=== PATIENT | female | born 1965 | race Caucasian/White ===

== ENCOUNTER 2019-03-28 16:16 | Emergency (ER) | payer MEDICARE, SELFPAY ==
[2019-03-28 16:18] VITALS: BP 127/77; PULSE 94; RESP 22; TEMP 36.7; O2SAT 90; BMI 33.2
--- NOTE | 2019-03-28 16:33 | ED_ITS ---
Documented by User: VIOLET Aaron 03/28/19 16:54 HPI - SOB/Dyspnea General: Chief Complaint: Shortness of Breath/Dyspnea Stated Complaint: SOB Time Seen by Provider: 03/28/19 16:33 Source: patient Mode of arrival: ambulatory Limitations: no limitations History of Present Illness: HPI Narrative: Patient reports increasing difficulty breathing over the last 2 to 3 days. Patient does have COPD and this is similar to her previous events when her COPD worsens. Patient reports some mild diarrhea. Patient denies any chest pain. Patient appears chronically ill. Patient appears in mild to moderate shortness of breath. Patient appears in no pain. Patient reports last episode was just before [place]. MD elicited complaint: shortness of breath Pertinent past history: COPD Review of Systems General: Reports: 10 or more systems reviewed and unremarkable except in HPI and below Resp: Reports: shortness of breath GI: Reports: diarrhea PFSH ED PFSH: Statuses (acute, chronic, etc) shown below reflect problem list status as previously entered and may not be historically accurate Social History Smoking and tobacco status: current every day smoker Physical Exam Const: COMMON NORMALS: no apparent distress and oriented x3 GENERAL APPEARANCE: cooperative HENMT: COMMON NORMALS: normocephalic, external ears normal, EAC's normal, TM's normal bilaterally and external nose normal HEAD & SCALP: normal to inspection and normocephalic FACE & SINUS: normal facial exam NOSE: external nose normal GENERAL EAR: hearing not grossly impaired EXTERNAL EAR: Yes external ears normal EXTERNAL AUDITORY CANAL: EAC's normal TYMPANIC MEMBRANE: TM's normal bilaterally MOUTH: oral and palatal mucosa no rmal THROAT: posterior oropharynx normal Eye: COMMON NORMALS: PERRL and EOMs intact bilaterally PUPIL: Yes PERRL Neck/C-Spine: COMMON NORMALS: full ROM and no lymphadenopathy Lymph: LYMPHATIC: no lymphedema noted Chest: COMMONS NORMALS: inspection of chest normal and palpation of chest normal Resp: COMMON NORMALS: normal respiratory effort and no use of accessory muscles (mild) EFFORT & INSPECTION: Yes able to speak in complete sentences and Yes pursed lip breathing AUSCULTATION: wheezes expiratory wheezes, inspiratory wheezes and scattered wheezes Cardio: COMMON NORMALS: regular rate and regular rhythm RATE: regular rate RHYTHM: regular rhythm GI: COMMON NORMALS: normal to inspection, nondistended, normoactive bowel sounds and non-tender : COMMON NORMALS: Yes no CVA tenderness BLADDER/KIDNEY EXAM: Yes no CVA tenderness Back/Pelvis: COMMON NORMALS: no CVA tenderness and thoracic and lumbar spine normal to inspection Extremity: COMMON NORMALS: normal to inspection GENERAL: No edema Neuro: COMMON NORMALS: oriented x3, moves all extremities and no focal motor deficits Psych: COMMON NORMALS: mental status grossly normal and cooperative Skin: COMMON NORMALS: no rashes or lesions noted GENERAL SKIN EXAM: no rashes or lesions noted Course ED course: 1699, reviewed with Rob Diaz, agreed to graciously assume care on my departure. [email or web address] Vital Signs: Vital signs: Vital Signs Temperature 98.0 F 03/28/19 16:18 Pulse Rate 91 03/28/19 18:07 Respiratory Rate 20 H 03/28/19 18:07 Blood Pressure 127/77 03/28/19 18:07 Pulse Oximetry 97 03/28/19 18:07 MDM - SOB/Dyspnea Lab Data: Labs: Lab Results 03/28/19 03/28/19 03/28/19 Range/Units 17:00 17:00 17:09 WBC (4.0-10.0) 10^3/ uL RBC (4.1-5.3) 10^6/u L Hgb (11.5-15.3) g/dL Hct (37.0-47.0) % MCV (81-99) fL MCH (28.0-34.0) pg MCHC (30.0-36.0) g/dL RDW (12.1-15.1) % Plt Count (130-400) 10^3/c mm MPV (7.4-10.4) fL Neut % (Auto) % Lymph % (Auto) % [place] % (Auto) % Eos % (Auto) % Baso % (Auto) % Neut # (Auto) (1.8-7.7) 10^3/u L Lymph # (Auto) (0.8-4.8) 10^3/u L [place] # (Auto) (0.2-0.9) 10^3/u L Eos # (Auto) (0.0-0.8) 10^3/u L Baso # (Auto) (0.0-0.1) 10^3/u L Nucleated RBC % (a uto) % Nucleated RBCs # /100WBC Specimen Type Arterial Sample Site Radial, left ABG pH 7.40 (7.35-7.45) ABG pCO2 52.9 H (35-45) mmHg ABG pO2 77.5 L (80.0-100.0) mmH g ABG HCO3 32.5 H (22-26) mmol/L ABG Base Excess 6.0 H (-2.0-2.0) mmol/ L Nabor Test Pos Hematocrit 45.7 (37-47) % Hgb O2 Saturation 89.1 L (95-100) % Carboxyhemoglobin 6.5 (0.4-20.1) %THgb Methemoglobin 0.9 (0.4-1.5) % Total Hemoglobin 14.9 (12-16) g/dL O2 Delivery Device Nc O2 Liters/Min 5.0 % Construction Area Manager ID [email or web address] Sodium 142 (136-145) mmol/L Potassium 3.6 (3.5-5.1) mmol/L Chloride 99 (98-107) mmol/L Carbon Dioxide 31 H (22-29) mmol/L Anion Gap 15.6 (5-19) BUN 20 (6-20) mg/dL Creatinine 0.9 (0.5-0.9) mg/dL GFR Calculation 65.8 L (90-130) mL/min Glucose 145 H (74-109) mg/dL Lactic Acid 1.0 (0.5-2.2) mmol/L Calcium 9.8 (8.6-10.0) mg/Dl Influenza Type A A g (Negative) POC Influenza B Ag (Negative) 03/28/19 03/28/19 Range/Units 17:15 17:57 WBC 10.0 (4.0-10.0) 10^3/ uL RBC 5.11 (4.1-5.3) 10^6/u L Hgb 14.1 (11.5-15.3) g/dL Hct 45.7 (37.0-47.0) % MCV 89.4 (81-99) fL MCH 27.6 L (28.0-34.0) pg MCHC 30.9 (30.0-36.0) g/dL RDW 17.6 H (12.1-15.1) % Plt Count 194 (130-400) 10^3/c mm MPV 10.2 (7.4-10.4) fL Neut % (Auto) 62.3 % Lymph % (Auto) 28.7 % [place] % (Auto) 7.1 % Eos % (Auto) 0.8 % Baso % (Auto) 0.2 % Neut # (Auto) 6.2 (1.8-7.7) 10^3/u L Lymph # (Auto) 2.9 (0.8-4.8) 10^3/u L [place] # (Auto) 0.7 (0.2-0.9) 10^3/u L Eos # (Auto) 0.1 (0.0-0.8) 10^3/u L Baso # (Auto) 0.0 (0.0-0.1) 10^3/u L Nucleated RBC % (a uto) 0 % Nucleated RBCs # 0.0 /100WBC Specimen Type Sample Site ABG pH (7.35-7.45) ABG pCO2 (35-45) mmHg ABG pO2 (80.0-100.0) mmH g ABG HCO3 (22-26) mmol/L ABG Base Excess (-2.0-2.0) mmol/ L Nabor Test Hematocrit (37-47) % Hgb O2 Saturation (95-100) % Carboxyhemoglobin (0.4-20.1) %THgb Methemoglobin (0.4-1.5) % Total Hemoglobin (12-16) g/dL O2 Delivery Device O2 Liters/Min % Construction Area Manager ID Sodium (136-145) mmol/L Potassium (3.5-5.1) mmol/L Chloride (98-107) mmol/L Carbon Dioxide (22-29) mmol/L Anion Gap (5-19) BUN (6-20) mg/dL Creatinine (0.5-0.9) mg/dL GFR Calculation (90-130) mL/min Glucose (74-109) mg/dL Lactic Acid (0.5-2.2) mmol/L Calcium (8.6-10.0) mg/Dl Influenza Type A A g Negative (Negative) POC Influenza B Ag Negative (Negative) Discharge Plan Discharge Patient Disposition: Home, Self-Care Clinical Impression: Acute exacerbation of chronic obstructive airways disease Condition: Stable Prescriptions: New Zithromax Z-Florencio 250 mg tablet See Rx Instructions .ROUTE .COMPLEX Qty: 6 RF: 0 prednisone 20 mg tablet 60 mg PO DAILY Qty: 30 RF: 0 No Action meloxicam 15 mg Tablet 15 mg PO DAILY RF: 0 simvastatin 10 mg Tablet 10 mg PO QPM RF: 0 baclofen 20 mg Tablet 20 mg PO BID RF: 0 amlodipine 10 mg Tablet 10 mg PO DAILY RF: 0 hydrocodone-acetaminophen 7.5-325 mg Tablet 1 tab PO Q8H PRN (Reason: Pain) RF: 0 pantoprazole 40 mg Tablet,Delayed Release (Dr/Ec) 40 mg PO BID RF: 0 telmisartan 80 mg Tablet 80 mg PO DAILY RF: 0 hydrochlorothiazide 25 mg Tablet 25 mg PO DAILY RF: 0 Ventolin HFA 90 mcg/actuation Hfa Aerosol Inhaler 2 puff INHALATION QID PRN (Reason: Shortness Of Breath) RF: 0 ondansetron 4 mg Tablet,Disintegrating 4 mg PO BID RF: 0 pregabalin 150 mg Capsule 150 mg PO TID RF: 0 Symbicort 160-4.5 mcg/actuation Hfa Aerosol Inhaler 2 puff INHALATION BID RF: 0 Breo Ellipta 100-25 mcg/dose Blister With Device 1 inh INHALATION DAILY RF: 0 Jardiance 25 mg Tablet 25 mg PO DAILY RF: 0 Combivent Respimat 20-100 mcg/actuation Mist 2 puff INHALATION QID RF: 0 Discharge Orders: Discharge Order (Routine); Ordered 03/28/19 Ordered By: Jim Diaz Referrals: Reji Faulkner FNP [Primary Care Provider] - Discharge Diet: Usual diet Discharge Activity: Increase activity as tolerated Patient Instructions: Chronic Obstructive Pulmonary Disease (ED) Activity Restrictions/Additional Instructions: Follow-up with medical provider as directed. Take medications as prescribed. Return to the ER or your medical provider if condition worsens. Read and understand discharge instructions. Wear oxygen at 5 L for next couple days. Coding Level of Care Code ED Sterile Instrument Technician for Chg Fwd Exam Problem Focused Documented by User: VIOLET Brown 03/28/19 18:16 HPI - SOB/Dyspnea General: Chief Complaint: Shortness of Breath/Dyspnea Stated Complaint: SOB Time Seen by Provider: 03/28/19 16:33 PFSH ED PFSH: Statuses (acute, chronic, etc) shown below reflect problem list status as previously entered and may not be historically accurate Social History Smoking and tobacco status: current every day smoker Course Vital Signs: Vital signs: Vital Signs Temperature 98.0 F 03/28/19 16:18 Pulse Rate 91 03/28/19 18:07 Respiratory Rate 20 H 03/28/19 18:07 Blood Pressure 127/77 03/28/19 18:07 Pulse Oximetry 97 03/28/19 18:07 MDM - SOB/Dyspnea MDM Narrative: Medical decision making narrative: Lungs cleared markedly after breathing treatments. Patient desired to go home. Is not short of breath. Lab Data: Labs: Lab Results 03/28/19 03/28/19 03/28/19 Range/Units 17:00 17:00 17:09 WBC (4.0-10.0) 10^3/ uL RBC (4.1-5.3) 10^6/u L Hgb (11.5-15.3) g/dL Hct (37.0-47.0) % MCV (81-99) fL MCH (28.0-34.0) pg MCHC (30.0-36.0) g/dL RDW (12.1-15.1) % Plt Count (130-400) 10^3/c mm MPV (7.4-10.4) fL Neut % (Auto) % Lymph % (Auto) % [place] % (Auto) % Eos % (Auto) % Baso % (Auto) % Neut # (Auto) (1.8-7.7) 10^3/u L Lymph # (Auto) (0.8-4.8) 10^3/u L [place] # (Auto) (0.2-0.9) 10^3/u L Eos # (Auto) (0.0-0.8) 10^3/u L Baso # (Auto) (0.0-0.1) 10^3/u L Nucleated RBC % (a uto) % Nucleated RBCs # /100WBC Specimen Type Arterial Sample Site Radial, left ABG pH 7.40 (7.35-7.45) ABG pCO2 52.9 H (35-45) mmHg ABG pO2 77.5 L (80.0-100.0) mmH g ABG HCO3 32.5 H (22-26) mmol/L ABG Base Excess 6.0 H (-2.0-2.0) mmol/ L Nabor Test Pos Hematocrit 45.7 (37-47) % Hgb O2 Saturation 89.1 L (95-100) % Carboxyhemoglobin 6.5 (0.4-20.1) %THgb Methemoglobin 0.9 (0.4-1.5) % Total Hemoglobin 14.9 (12-16) g/dL O2 Delivery Device Nc O2 Liters/Min 5.0 % Construction Area Manager ID [email or web address] Sodium 142 (136-145) mmol/L Potassium 3.6 (3.5-5.1) mmol/L Chloride 99 (98-107) mmol/L Carbon Dioxide 31 H (22-29) mmol/L Anion Gap 15.6 (5-19) BUN 20 (6-20) mg/dL Creatinine 0.9 (0.5-0.9) mg/dL GFR Calculation 65.8 L (90-130) mL/min Glucose 145 H (74-109) mg/dL Lactic Acid 1.0 (0.5-2.2) mmol/L Calcium 9.8 (8.6-10.0) mg/Dl Influenza Type A A g (Negative) POC Influenza B Ag (Negative) 03/28/19 03/28/19 Range/Units 17:15 17:57 WBC 10.0 (4.0-10.0) 10^3/ uL RBC 5.11 (4.1-5.3) 10^6/u L Hgb 14.1 (11.5-15.3) g/dL Hct 45.7 (37.0-47.0) % MCV 89.4 (81-99) fL MCH 27.6 L (28.0-34.0) pg MCHC 30.9 (30.0-36.0) g/dL RDW 17.6 H (12.1-15.1) % Plt Count 194 (130-400) 10^3/c mm MPV 10.2 (7.4-10.4) fL Neut % (Auto) 62.3 % Lymph % (Auto) 28.7 % [place] % (Auto) 7.1 % Eos % (Auto) 0.8 % Baso % (Auto) 0.2 % Neut # (Auto) 6.2 (1.8-7.7) 10^3/u L Lymph # (Auto) 2.9 (0.8-4.8) 10^3/u L [place] # (Auto) 0.7 (0.2-0.9) 10^3/u L Eos # (Auto) 0.1 (0.0-0.8) 10^3/u L Baso # (Auto) 0.0 (0.0-0.1) 10^3/u L Nucleated RBC % (a uto) 0 % Nucleated RBCs # 0.0 /100WBC Specimen Type Sample Site ABG pH (7.35-7.45) ABG pCO2 (35-45) mmHg ABG pO2 (80.0-100.0) mmH g ABG HCO3 (22-26) mmol/L ABG Base Excess (-2.0-2.0) mmol/ L Nabor Test Hematocrit (37-47) % Hgb O2 Saturation (95-100) % Carboxyhemoglobin (0.4-20.1) %THgb Methemoglobin (0.4-1.5) % Total Hemoglobin (12-16) g/dL O2 Delivery Device O2 Liters/Min % Construction Area Manager ID Sodium (136-145) mmol/L Potassium (3.5-5.1) mmol/L Chloride (98-107) mmol/L Carbon Dioxide (22-29) mmol/L Anion Gap (5-19) BUN (6-20) mg/dL Creatinine (0.5-0.9) mg/dL GFR Calculation (90-130) mL/min Glucose (74-109) mg/dL Lactic Acid (0.5-2.2) mmol/L Calcium (8.6-10.0) mg/Dl Influenza Type A A g Negative (Negative) POC Influenza B Ag Negative (Negative) Discharge Plan Discharge Patient Disposition: Home, Self-Care Clinical Impression: Acute exacerbation of chronic obstructive airways disease Condition: Stable Prescriptions: New Zithromax Z-Florencio 250 mg tablet See Rx Instructions .ROUTE .COMPLEX Qty: 6 RF: 0 prednisone 20 mg tablet 60 mg PO DAILY Qty: 30 RF: 0 No Action meloxicam 15 mg Tablet 15 mg PO DAILY RF: 0 simvastatin 10 mg Tablet 10 mg PO QPM RF: 0 baclofen 20 mg Tablet 20 mg PO BID RF: 0 amlodipine 10 mg Tablet 10 mg PO DAILY RF: 0 hydrocodone-acetaminophen 7.5-325 mg Tablet 1 tab PO Q8H PRN (Reason: Pain) RF: 0 pantoprazole 40 mg Tablet,Delayed Release (Dr/Ec) 40 mg PO BID RF: 0 telmisartan 80 mg Tablet 80 mg PO DAILY RF: 0 hydrochlorothiazide 25 mg Tablet 25 mg PO DAILY RF: 0 Ventolin HFA 90 mcg/actuation Hfa Aerosol Inhaler 2 puff INHALATION QID PRN (Reason: Shortness Of Breath) RF: 0 ondansetron 4 mg Tablet,Disintegrating 4 mg PO BID RF: 0 pregabalin 150 mg Capsule 150 mg PO TID RF: 0 Symbicort 160-4.5 mcg/actuation Hfa Aerosol Inhaler 2 puff INHALATION BID RF: 0 Breo Ellipta 100-25 mcg/dose Blister With Device 1 inh INHALATION DAILY RF: 0 Jardiance 25 mg Tablet 25 mg PO DAILY RF: 0 Combivent Respimat 20-100 mcg/actuation Mist 2 puff INHALATION QID RF: 0 Discharge Orders: Discharge Order (Routine); Ordered 03/28/19 Ordered By: Jim Diaz Referrals: Reji Faulkner, [employer] [Primary Care Provider] - Discharge Diet: Usual diet Discharge Activity: Increase activity as tolerated Patient Instructions: Chronic Obstructive Pulmonary Disease (ED) Activity Restrictions/Additional Instructions: Follow-up with medical provider as directed. Take medications as prescribed. Return to the ER or your medical provider if condition worsens. Read and understand discharge instructions. Wear oxygen at 5 L for next couple days. Coding Level of Care Code ED Sterile Instrument Technician for Precious Fwd Exam Problem Focused
--- NOTE | 2019-03-28 16:38 | ECG_ITS ---
Measurements Intervals [place] Rate: 87 P: 34 DE: 146 QRS: 61 QRSD: 95 T: 55 QT: 369 QTc: 445 SINUS RHYTHM SEPTAL MYOCARDIAL INFARCTION , OF INDETERMINATE AGE [40+ ms Q WAVE IN V1/V2] Compared to ECG 10/29/2018 17:23:37 Myocardial infarct finding now present Electronically Signed On 03-29-2019 11:27:00 [employer] by Ziyad Cooper M.D. [email or web address]
--- NOTE | 2019-03-28 16:38 | XR_ITS ---
WS: [id number] Portable AP upright chest, 03/28/2019 Clinical Data: short of breath Comparison: PA and lateral chest, 02/23/2019 Findings: No nodules, masses or effusions are seen. The heart is normal. The pulmonary vascularity is not increased. No pneumonia or pneumothorax is seen. The diaphragms are flattened. The aortic arch s hows mild calcification and tortuosity. XR/XR chest 1V portable [id number] Impression: Atherosclerosis and hyperinflation.
[2019-03-28] MEDS: sodium chloride 0.9% 500 ML 999 ML IV (17:08)
[2019-03-28 17:13] VITALS: PULSE 93; RESP 20; O2SAT 95
[2019-03-28] MEDS: ipratropium-albuterol 3 mL Neb INHALATION ×2 (17:13→18:01)
[2019-03-28 17:16] VITALS: PULSE 90; RESP 20; O2SAT 93
[2019-03-28 17:23] LABS: ABG PCO2 52.9 mmHg (35-45); Arterial Blood Gas Hematocrit 45.7 % (37-47); Blood Gas Allen Test Pos; Blood Gas Sample Site Radial, left; Blood Gas Sample Type Arterial; Carboxyhemoglobin 6.5 %THgb (0.4-20.1); HCO3 ABG 32.5 mmol/L (22-26); HGB O2 Sat 89.1 % (95-100); Methemoglobin 0.9 % (0.4-1.5); Oxygen Device NC; PO2 ABG 77.5 mmHg (80.0-100.0); Total Hemoglobin 14.9 g/dL (12-16)
[2019-03-28 17:27] LABS: Anion Gap 15.6 (5-19); Blood Urea Nitrogen 20 mg/dL (6-20); Calcium 9.8 mg/Dl (8.6-10.0); Carbon Dioxide 31 mmol/L (22-29); Chloride 99 mmol/L (98-107); Glomerular Filtration Rate 65.8 mL/min (90-130); Glucose 145 mg/dL (74-109); Potassium 3.6 mmol/L (3.5-5.1); Sodium 142 mmol/L (136-145)
[2019-03-28 17:44] LABS: Influenza A by IFA Negative (Negative); Influenza B by IFA Negative (Negative)
[2019-03-28 18:00] VITALS: PULSE 91; RESP 20; O2SAT 95
[2019-03-28 18:06] LABS: Basophils % 0.2 %; Eosinophils # 0.1 10^3/uL (0.0-0.8); Eosinophils % 0.8 %; Hematocrit 45.7 % (37.0-47.0); Hemoglobin 14.1 g/dL (11.5-15.3); Lymphocytes # 2.9 10^3/uL (0.8-4.8); Lymphocytes % 28.7 %; Mean Corpuscular HGB Conc 30.9 g/dL (30.0-36.0); Mean Corpuscular Hemoglobin 27.6 pg (28.0-34.0); Mean Corpuscular Volume 89.4 fL (81-99); Mean Platelet Volume 10.2 fL (7.4-10.4); Monocytes # 0.7 10^3/uL (0.2-0.9); Monocytes % 7.1 %; Neutrophils # 6.2 10^3/uL (1.8-7.7); Neutrophils % 62.3 %; Nucleated Red Blood Cells % 0 %; Platelet Count 194 10^3/cmm (130-400); Red Blood Count 5.11 10^6/uL (4.1-5.3); Red Cell Distribution Width 17.6 % (12.1-15.1)
[2019-03-28 18:07] VITALS: BP 127/77; PULSE 91; PULSE 97; RESP 20; RESP 22; O2SAT 95; O2SAT 97
--- NOTE | 2019-03-28 18:07 | PC.NURSE ---
pt requests water
[2019-03-28 18:19] VITALS: BP 117/48; PULSE 98; RESP 16; O2SAT 95
== END 2019-03-28 18:20 | disposition home or self-care (01) ==
PROVIDERS: Emergency Provider Nurse Practitioner Family; Family Provider Registered Nurse; PCP Registered Nurse
DX: J44.1 Chronic obstructive pulmonary disease with (acute) exacerbation (principal); F17.210 Nicotine dependence, cigarettes, uncomplicated
CPT/HCPCS: 36600; 71045; 80048; 82805; 83605; 85025; 87804; 93005; 94640; 96360; 96374; 99282; J2930; J7040

== ENCOUNTER 2019-04-29 08:10 | Emergency (ER) | payer MEDICARE, SELFPAY ==
[2019-04-29 08:31] VITALS: RESP 16; BMI 33.2
[2019-04-29 08:38] VITALS: BP 113/82; PULSE 101; RESP 20; TEMP 36.6; O2SAT 92
--- NOTE | 2019-04-29 08:55 | ED_ITS ---
Entered by Nicole Stroud, acting as scribe for George Adams DO HPI - Abdominal Pain General: Chief Complaint: Abdominal Pain Stated Complaint: BLOOD IN STOOL Time Seen by Provider: 04/29/19 08:15 [facility] ED PFSH: Social History Smoking and tobacco status: current every day smoker Course Vital Signs: Vital signs: Vital Signs Temperature 97.8 F 04/29/19 08:38 Pulse Rate 101 H 04/29/19 08:38 Respiratory Rate 20 H 04/29/19 08:38 Blood Pressure 113/82 04/29/19 08:38 Pulse Oximetry 92 04/29/19 08:38 Discharge Plan Discharge Prescriptions: No Action baclofen 20 mg tablet 20 mg PO BID Qty: 60 RF: 1 Ventolin HFA 90 mcg/actuation HFA aerosol inhaler 2 puff INHALATION QID PRN (Reason: Shortness Of Breath) Qty: 18 RF: 2 metoprolol tartrate 50 mg tablet 50 mg PO BID Qty: 60 RF: 2 metoprolol tartrate 50 mg tablet 50 mg PO BID Qty: 180 RF: 0 hydrochlorothiazide 25 mg tablet 25 mg PO DAILY Qty: 30 RF: 2 ondansetron 4 mg tablet,disintegrating 4 mg PO BID Qty: 60 RF: 0 telmisartan 80 mg tablet 80 mg PO DAILY Qty: 90 RF: 0 meloxicam 15 mg Tablet 15 mg PO DAILY RF: 0 simvastatin 10 mg Tablet 10 mg PO QPM RF: 0 amlodipine 10 mg Tablet 10 mg PO DAILY RF: 0 hydrocodone-acetaminophen 7.5-325 mg Tablet 1 tab PO Q8H PRN (Reason: Pain) RF: 0 pantoprazole 40 mg Tablet,Delayed Release (Dr/Ec) 40 mg PO BID RF: 0 pregabalin 150 mg Capsule 150 mg PO TID RF: 0 Symbicort 160-4.5 mcg/actuation Hfa Aerosol Inhaler 2 puff INHALATION BID RF: 0 Breo Ellipta 100-25 mcg/dose Blister With Device 1 inh INHALATION DAILY RF: 0 Jardiance 25 mg Tablet 25 mg PO DAILY RF: 0 Combivent Respimat 20-100 mcg/actuation Mist 2 puff INHALATION QID RF: 0 Coding Level of Care Code ED Corner Former for Chg Fwd
[2019-04-29 09:44] LABS: Basophils % 0.3 %; Eosinophils # 0.1 10^3/uL (0.0-0.8); Eosinophils % 1.1 %; Hematocrit 40.2 % (37.0-47.0); Hemoglobin 13.3 g/dL (11.5-15.3); Lymphocytes # 2.6 10^3/uL (0.8-4.8); Lymphocytes % 20.8 %; Mean Corpuscular HGB Conc 33.1 g/dL (30.0-36.0); Mean Corpuscular Hemoglobin 29.4 pg (28.0-34.0); Mean Corpuscular Volume 88.7 fL (81-99); Mean Platelet Volume 10.6 fL (7.4-10.4); Monocytes # 0.6 10^3/uL (0.2-0.9); Neutrophils # 9.1 10^3/uL (1.8-7.7); Neutrophils % 72.4 %; Nucleated Red Blood Cells % 0 %; Platelet Count 273 10^3/cmm (130-400); Red Blood Count 4.53 10^6/uL (4.1-5.3); Red Cell Distribution Width 17.8 % (12.1-15.1); White Blood Count 12.6 10^3/uL (4.0-10.0)
[2019-04-29 10:05] LABS: Alanine Aminotransferase 18 U/L (0-33); Albumin Level 3.8 g/dL (3.5-5.2); Alkaline Phosphatase 110 IU/L (35-105); Aspartate Amino Transferase 16 U/L (0-32); Blood Urea Nitrogen 25 mg/dL (6-20); Calcium 9.1 mg/dL (8.5-10.5); Carbon Dioxide 28 mmol/L (22-29); Chloride 102 mmol/L (98-107); Glomerular Filtration Rate 65.8 mL/min (90-130); Glucose 226 mg/dL (65-115); Sodium 141 mmol/L (136-145); Total Bilirubin 0.4 mg/dL (0.15-1.2); Total Protein 6.8 g/dL (6.6-8.7)
[2019-04-29 12:13] VITALS: BP 109/74; PULSE 97; RESP 18; O2SAT 90
[2019-04-29 13:30] VITALS: BP 121/70; PULSE 95; RESP 18; O2SAT 96
--- NOTE | 2019-04-29 13:42 | W.ED.ABDPA2 ---
HPI - Abdominal Pain General: Chief Complaint: Abdominal Pain Stated Complaint: BLOOD IN STOOL Time Seen by Provider: 04/29/19 08:15 Source: patient Mode of arrival: ambulatory Limitations: no limitations History of Present Illness: HPI narrative: Patient comes in today for complaints of blood in stool. Patient has noted bleeding in her stool for the last 4 days. Patient also reports some increasing gas frequency. Patient does report that she has had history of constipation due to medication she has been on. Patient appears well. Patient appears in no pain at rest. Associated Symptoms: Reports excessive flatus and hematochezia Review of Systems General: Reports: 10 or more systems reviewed and unremarkable except in HPI and below GI: Reports: excessive passing of gas and blood in stool PFSH ED PFSH: Social History Smoking and tobacco status: current every day smoker Physical Exam Const: COMMON NORMALS: no apparent distress and oriented x3 GENERAL APPEARANCE: cooperative HENMT: COMMON NORMALS: normocephalic, external ears normal, EAC's normal, TM's normal bilaterally and external nose normal HEAD & SCALP: normal to inspection and normocephalic FACE & SINUS: normal facial exam NOSE: external nose normal GENERAL EAR: hearing not grossly impaired EXTERNAL EAR: Yes external ears normal EXTERNAL AUDITORY CANAL: EAC's normal TYMPANIC MEMBRANE: TM's normal bilaterally MOUTH: oral and palatal mucosa normal THROAT: posterior oropharynx normal Eye: COMMON NORMALS: PERRL and EOMs intact bilaterally PUPIL: Yes PERRL Neck/C-Spine: COMMON NORMALS: full ROM and no lymphadenopathy Lymph: LYMPHATIC: no lymphedema noted Chest: COMMONS NORMALS: inspection of chest normal and palpation of chest normal Resp: COMMON NORMALS: normal respiratory effort and clear to auscultation bilaterally AUSCULTATION: clear to auscultation bilaterally Cardio: COMMON NORMALS: regular rate and regular rhythm RATE: regular rate RHYTHM: regular rhythm GI: COMMON NORMALS: normal to inspection, nondistended, normoactive bowel sounds and non-tender RECTAL EXAM: normal sphincter tone and heme positive stool : COMMON NORMALS: Yes no CVA tenderness BLADDER/KIDNEY EXAM: Yes no CVA tenderness Back/Pelvis: COMMON NORMALS: no CVA tenderness and thoracic and lumbar spine normal to inspection Extremity: COMMON NORMALS: normal to inspection GENERAL: No edema Neuro: COMMON NORMALS: oriented x3, moves all extremities and no focal motor deficits Psych: COMMON NORMALS: mental status grossly normal and cooperative Skin: COMMON NORMALS: no rashes or lesions noted GENERAL SKIN EXAM: no rashes or lesions noted Course Vital Signs: Vital signs: Vital Signs Temperature 97.8 F 04/29/19 08:38 Pulse Rate 95 04/29/19 13:30 Respiratory Rate 18 04/29/19 13:30 Blood Pressure 121/70 04/29/19 13:30 Pulse Oximetry 96 04/29/19 13:30 MDM - Abdominal Pain MDM Narrative: Medical decision making narrative: Patient comes in today with 4-day history of blood in stool. Patient denies significant pain or fever. Exam notes some soft abdomen, respirations are even lungs are clear to auscultation. No CVA tenderness. Rectal exam noted some blood in stool which was positive for Hemoccult. Differential diagnosis includes colitis, diverticulitis, hemorrhoids, carcinoma, polyp. Laboratory values noted a hemoglobin hematocrit of 13 and 40. Metabolic panel was normal. CT scan of the abdomen and pelvis noted some diverticulosis but no sign of infection. Reviewed exam with patient recommended treatment follow-up for colonoscopy and endoscopy exam to rule out cancer or other processes that may be significant for bleeding. Reviewed dietary changes with patient for recommendations for treatment at this time. Will place patient on famotidine for further treatment cessation of bleeding. Patient reports understanding agreed to plan and need for follow-up. Lab Data: Labs: Lab Results 04/29/19 04/29/19 Range/Units 09:30 09:30 WBC 12.6 H (4.0-10.0) 10^3/ uL RBC 4.53 (4.1-5.3) 10^6/u L Hgb 13.3 (11.5-15.3) g/dL Hct 40.2 (37.0-47.0) % MCV 88.7 (81-99) fL MCH 29.4 (28.0-34.0) pg MCHC 33.1 (30.0-36.0) g/dL RDW 17.8 H (12.1-15.1) % Plt Count 273 (130-400) 10^3/c mm MPV 10.6 H (7.4-10.4) fL Neut % (Auto) 72.4 % Lymph % (Auto) 20.8 % [place] % (Auto) 5.0 % Eos % (Auto) 1.1 % Baso % (Auto) 0.3 % Neut # (Auto) 9.1 H (1.8-7.7) 10^3/u L Lymph # (Auto) 2.6 (0.8-4.8) 10^3/u L [place] # (Auto) 0.6 (0.2-0.9) 10^3/u L Eos # (Auto) 0.1 (0.0-0.8) 10^3/u L Baso # (Auto) 0.0 (0.0-0.1) 10^3/u L Nucleated RBC % (a uto) 0 % Nucleated RBCs # 0.0 /100WBC Sodium 141 (136-145) mmol/L Potassium 4.0 (3.5-5.1) mmol/L Chloride 102 (98-107) mmol/L Carbon Dioxide 28 (22-29) mmol/L Anion Gap 15.0 (5-19) BUN 25 H (6-20) mg/dL Creatinine 0.9 (0.5-0.9) mg/dL GFR Calculation 65.8 L (90-130) mL/min Glucose 226 H (65-115) mg/dL Calcium 9.1 (8.5-10.5) mg/dL Total Bilirubin 0.4 (0.15-1.2) mg/dL AST 16 (0-32) U/L ALT 18 (0-33) U/L Alkaline Phosphata se 110 H (35-105) IU/L Total Protein 6.8 (6.6-8.7) g/dL Albumin 3.8 (3.5-5.2) g/dL Globulin 3.0 (1.3-4.6) g/dL Discharge Plan Discharge Patient Disposition: Home, Self-Care Clinical Impression: Blood in stool, Diverticula of colon Condition: Stable Prescriptions: New famotidine 40 mg tablet 40 mg PO Q12H Qty: 20 RF: 0 No Action baclofen 20 mg tablet 20 mg PO BID Qty: 60 RF: 1 Ventolin HFA 90 mcg/actuation HFA aerosol inhaler 2 puff INHALATION QID PRN (Reason: Shortness Of Breath) Qty: 18 RF: 2 metoprolol tartrate 50 mg tablet 50 mg PO BID Qty: 60 RF: 2 metoprolol tartrate 50 mg tablet 50 mg PO BID Qty: 180 RF: 0 hydrochlorothiazide 25 mg tablet 25 mg PO DAILY Qty: 30 RF: 2 ondansetron 4 mg tablet,disintegrating 4 mg PO BID Qty: 60 RF: 0 telmisartan 80 mg tablet 80 mg PO DAILY Qty: 90 RF: 0 meloxicam 15 mg Tablet 15 mg PO DAILY RF: 0 simvastatin 10 mg Tablet 10 mg PO QPM RF: 0 amlodipine 10 mg Tablet 10 mg PO DAILY RF: 0 hydrocodone-acetaminophen 7.5-325 mg Tablet 1 tab PO Q8H PRN (Reason: Pain) RF: 0 pantoprazole 40 mg Tablet,Delayed Release (Dr/Ec) 40 mg PO BID RF: 0 pregabalin 150 mg Capsule 150 mg PO TID RF: 0 Symbicort 160-4.5 mcg/actuation Hfa Aerosol Inhaler 2 puff INHALATION BID RF: 0 Breo Ellipta 100-25 mcg/dose Blister With Device 1 inh INHALATION DAILY RF: 0 Jardiance 25 mg Tablet 25 mg PO DAILY RF: 0 Combivent Respimat 20-100 mcg/actuation Mist 2 puff INHALATION QID RF: 0 Discharge Orders: Discharge Order (Routine); Ordered 04/29/19 Ordered By: Joel Hager Referrals: Reji Faulkner FNP [Primary Care Provider] - Discharge Diet: Usual diet Discharge Activity: Resume usual activity Patient Instructions: Rectal Bleeding (ED), Diverticulosis (ED) Activity Restrictions/Additional Instructions: Soft diet Avoid food with shells, husks, or seeds until bleeding stops Case management will call with follow-up appointment for endoscopy exam Return to ER for high fever, or uncontrolled abdominal pain Coding Level of Care Code ED Cork Insulation Setter for Chg Fwd Exam Comprehensive
--- NOTE | 2019-04-29 13:52 | CT_ITS ---
WS: [id number] CT ABDOMEN AND PELVIS WITH CONTRAST HISTORY: blood in stool TECHNIQUE: Imaging performed of the abdomen and pelvis with IV contrast. Single phase imaging of the abdomen. Coronal and sagittal reformats are submitted. All CT scans at [facility] use at least one of these dose optimization techniques: automated exposure control; mA and/or kV adjustment per patient size (includes targeted exams where dose is matched to clinical indication); or iterativ e reconstruction. IV CONTRAST: Omnipaque 300; 95 mL IV. Oral contrast: No DLP: 810.64 mGy-cm. COMPARISON: None available. Lower thorax: Lung bases are clear. Heart is normal size. No hiatal hernia. Liver/biliary system: Normal size with no intrahepatic dilatation. Gallbladder: Normal. No gallstones or wall thickening. No pericholecystic fluid. Pancreas: Normal. Spleen: Normal. Adrenal glands: Normal. Right kidney: Normal. Left kidney: Normal. Aorta: Moderate atherosclerosis of aorta. Lymphadenopathy: None. Free fluid: None. GI tract: Prior appendectomy. No GI tract obstruction or wall thickening. There are a few scattered d iverticula in the descending and sigmoid colon. Abdominal wall: Unremarkable abdominal wall. No hernia. Pelvis: Normal. 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 CT/CT abdomen pelvis w con* [id number] IMPRESSION: 1. A few scattered diverticula in the descending and sigmoid colon. No acute i nflammation. 2. Prior appendectomy. 3. Moderate atherosclerosis aorta.
[2019-04-29] MEDS: pantoprazole 40 mg SDV IVP (14:24)
[2019-04-29] MEDS: sodium chloride 0.9% 500 ML 999 ML IV (14:34)
[2019-04-29] MEDS: iohexol 300 mg/mL 100 mL Btl IV (14:47)
[2019-04-29 16:47] VITALS: BP 117/72; PULSE 94; RESP 20; O2SAT 93
--- NOTE | 2019-05-01 15:00 | DCPLANNER ---
unclaimed property manager had message to schedule a follow up appointment for patient with [facility]. unclaimed property manager called the clinic, spoke with Shirley, a follow up appointment was scheduled for Sunday, May 07, 2019 at 3:[address] Grijalva. Clinic will call patient with appointment information.
--- NOTE | 2019-05-09 17:25 | DCPLANNER ---
Patient did attend appointment scheduled for 05.07.19 with [facility].
== END 2019-04-29 16:47 | disposition home or self-care (01) ==
PROVIDERS: Emergency Provider Nurse Practitioner Family; Family Provider Registered Nurse; PCP Registered Nurse
DX: F17.200 Nicotine dependence, unspecified, uncomplicated (principal); K57.31 Diverticulosis of large intestine without perforation or abscess with bleeding
CPT/HCPCS: 36415; 74177; 80053; 85025; 96360; 96361; 96374; 96375; 99283; C9113; J7040; Q9967

== ENCOUNTER 2019-05-19 10:03 | Day surgery (SDC) | payer MEDICARE, SELFPAY ==
[2019-05-16 09:32] VITALS: BMI 32.5
[2019-05-19 10:58] LABS: Glucose Point of Care 104 mg/dL (70-110)
--- NOTE | 2019-05-19 11:00 | ANES.PREANE2 ---
Pre-Anesthetic Assessment Pre-Anesthetic Assessment: Height/Weight: Height 1.52 m Weight 75.75 kg Preop Diagnosis: Bleeding per rectum Proposed Procedure: Operation Date: 05/19/19 12:00 Proposed Procedures p EGD 49750 30607 K62.5(Not Applicable) - Kev Grijalva MD s Colonoscopy(Not Applicable) - Kev Grijalva MD Was Beta Christiano taken within 24 hours: N/A Last intake: Intake Last Liquid Date 05/18/19 Last Liquid Time 21:00 Last Solid Date 05/17/19 Last Solid Time 19:00 Social: Social History: Tobacco and No alcohol Exam: Pre-Anes Outpt Exam: alert, oriented x 3, clear to auscultation bilaterally and regular rate & rhythm Airway: Submandibular: WNL Cervical ROM: WNL MP: 2 Additional comments: Upper denture Pulmonary: Pulmonary: COPD (4L Home O2) and Sleep apnea CV/HEM: CV/HEM: HTN : : None reported Hepatic: Hepatic: None reported GI: GI: GERD Metabolic: Metabolic: DM Musc/skel: Musc/skel: RA Neuropsych: Neuropsych: Anxiety Anesthetic Plan: ASA status: 3 Anesthesia: MAC Risk of > 500 ml blood loss (7ml/kg in children): No PFSH Anesthesia PFSH: Medical History (Updated 05/16/19 @ 09:29 by Tarah Urbina RN) Controlled diabetes mellitus with hyperglycemia, with long-term current use of insulin Enrolled in chronic care management Family History (Updated 05/07/19 @ 15:24 by Sid Garcia) Father Cancer Lung disease Hypertension Mother Lung disease Grandmother Diabetes Denies family history of Stroke Social History (Updated 05/07/19 @ 15:28 by Sid Garcia) Smoking and tobacco status: current every day smoker Second hand smoke exposure: Yes Smoking risk assessment/counseling performed?: Yes Alcohol intake: never Household members: spouse Marital status: Current occupational status: disabled History of recent travel: No Financial difficulty paying for basics: Not Very Hard Data Anesthesia Other Labs: Laboratory Results - last 48 hr 05/19/19 10:54 POC Glucose 104 Cardiac Studies: No Data to Display
[2019-05-19] MEDS: sodium chloride 0.9% 1,000 ML 30 ML IV (11:01)
--- NOTE | 2019-05-19 11:50 | W.PM.OPSUD ---
Surgery/Procedure H&P Update DATE OF PROCEDURE: May 19, 2019 DATE H&P PERFORMED: 05/07/19 H&P UPDATE INFORMATION: I have reviewed H&P completed within last 30 days, I have examined patient prior to procedure and No changes to prior documentation PREOP DIAGNOSIS: Bleeding per rectum PRIMARY INDICATION FOR PROCEDURE: The same PLANNED PROCEDURE: Operation Date: 05/19/19 12:00 Proposed Procedures p EGD [id number] K62.5(Not Applicable) - Kev Grijalva MD s Colonoscopy(Not Applicable) - Kev Grijalva MD
[2019-05-19 12:31] VITALS: BP 100/59; PULSE 78; RESP 18; TEMP 36.6; O2SAT 97
[2019-05-19 12:58] VITALS: BP 106/64; PULSE 78; RESP 18; O2SAT 95
--- NOTE | 2019-05-19 13:53 | SUR.OPER ---
PATHOLOGY ORDER PLACED. PATIENT TO RETRIEVE SPECIMEN AND RETURN TO LAB.
--- NOTE | 2019-05-19 14:14 | PM.PACU ---
PACU note Post-Anesthesia Exam: somnolent, arousable and vital signs stable Disposition: discharged
== END 2019-05-19 13:50 | disposition home or self-care (01) ==
PROVIDERS: Family Provider Registered Nurse; PCP Registered Nurse; Visit Provider Surgery
PROC: 0DJ08ZZ Inspection of Upper Intestinal Tract, Via Natural or Artificial Opening Endoscopic (ICD-10-PCS; CPT 43235; principal; 2019-05-19 12:00)
PROC: 0DJD8ZZ Inspection of Lower Intestinal Tract, Via Natural or Artificial Opening Endoscopic (ICD-10-PCS; CPT 45378; 2019-05-19 12:00)
DX: K62.5 Hemorrhage of anus and rectum (principal); K57.30 Diverticulosis of large intestine without perforation or abscess without bleeding; D12.8 Benign neoplasm of rectum; Z82.49 Family history of ischemic heart disease and other diseases of the circulatory system; Z83.3 Family history of diabetes mellitus; F17.210 Nicotine dependence, cigarettes, uncomplicated; J44.9 Chronic obstructive pulmonary disease, unspecified; Z99.81 Dependence on supplemental oxygen; M06.9 Rheumatoid arthritis, unspecified; E11.40 Type 2 diabetes mellitus with diabetic neuropathy, unspecified
CPT/HCPCS: 43235; 45380; 12345; 36416; 82962; J2001; J2250; J2704; J7030

== ENCOUNTER → 2019-05-21 14:55 | Outpatient (BNVA) | payer MEDICARE, SELFPAY | PROVIDERS: Family Provider Registered Nurse; PCP Registered Nurse; Visit Provider Registered Nurse | DX: R39.9 Unspecified symptoms and signs involving the genitourinary system (principal) | CPT/HCPCS: 81003 ==

== ENCOUNTER → 2019-08-28 11:21 | Outpatient (BNVA) | payer MEDICARE, SELFPAY | PROVIDERS: Family Provider Registered Nurse; PCP Registered Nurse; Visit Provider Registered Nurse | DX: E11.9 Type 2 diabetes mellitus without complications (principal); Z87.09 Personal history of other diseases of the respiratory system; I10 Essential (primary) hypertension | CPT/HCPCS: 80053; 81000; 83036; 85025 ==

== ENCOUNTER 2019-09-06 05:37 | Inpatient (IN) | payer MEDICARE, SELFPAY ==
[2019-09-06] VITALS (14 sets, daily range): BP systolic 85–129; BP diastolic 46–76; PULSE 73–93; RESP 14–24; TEMP 36.5–36.8; O2SAT 94–98
--- NOTE | 2019-09-06 05:50 | XRR_ITS ---
PROCEDURE INFORMATION: Exam: XR Chest, 1 View Exam date and time: 09/06/2019 6:00 AM Age: 53 years old Clinical indication: Chest pain; Type not specified; Additional info: Cp TECHNIQUE: Imaging protocol: XR of the chest Views: 1 view. COMPARISON: CR XR chest 1V portable [id number] 03/28/2019 4:41 PM FINDINGS: Lungs: There are some hazy opacities present in the lower hemithoraces bilaterally. Mildly increased peribronchial markings are present bilaterally. These findings could represent mild pulmonary edema. Superimposed basilar pneumonitis cannot be entirely excluded. Pleural space: Unremarkable. No pleural effusion. No pneumothorax. Heart/Mediastinum: Unremarkable. No cardiomegaly. Bones/joints: Unremarkable. XR/XR chest 1V portable [id number] IMPRESSION: Bilateral basilar hazy opacities and some increased peribronchial markings could represent mild pulmonary edema. Superimposed basilar pneumonitis cannot be entirely excluded.
--- NOTE | 2019-09-06 05:50 | ECG_ITS ---
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 Measurements Intervals [place] Rate: 91 P: 72 UT: 172 QRS: 60 QRSD: 81 T: 65 QT: 338 QTc: 417 Interpretive Statements SINUS RHYTHM Unusual R wave progression, consider lead misplacement leads V2 and V3 Compared to ECG 03/28/2019 16:59:56 Myocardial infarct finding no longer present Electronically Signed On 09-06-2019 8:46:23 CDT by Ziyad Cooper M.D. [email or web address]
--- NOTE | 2019-09-06 05:52 | W.ED.CHESTPA ---
Documented by User: Washington Crowe, 09/06/19 06:44 HPI - Chest Pain General: Chief Complaint: Chest Pain Stated Complaint: cp; sob Time Seen by Provider: 09/06/19 05:50 History of Present Illness: HPI narrative: 53-year-old lady with no prior history of heart disease. She states that 11 PM last night she threw up. She went on to bed, she awoke at 3 AM this morning with chest discomfort. She is not complaining of nausea currently. She is not complaining of shortness of breath, essentially mainly chest pain that is substernal and radiates to the right chest and into her back. Pain is still quite significant. complaint: chest pain Onset (ago): hour(s) Timing of current episode: constant Prior episodes: No Onset: during rest and awoke with symptoms Pain location: substernal, right chest and posterior Pain radiation: back Quality: tightness and heaviness Relieving factors: nothing Exacerbating factors: nothing Associated symptoms: Reports dyspnea; Deny abdominal pain, diaphoresis, fever(s) or palpitations Review of Systems Const: Denies: fever(s) or diaphoresis Eyes: Denies: change in vision or blurry vision ENMT: Denies: swelling of lips/tongue, bleeding gums or change in hearing Card: Reports: chest pain and dyspnea on exertion; Denies: palpitations, irregular heart rhythm, edema, swelling of feet/ankles or orthopnea Resp: Reports: dyspnea and non-productive cough; Denies: productive cough or wheezing GI: Denies: abdominal pain : Denies: dysuria or hematuria Musc: Reports: back pain; Denies: neck pain or joint warmth Skin/Breast: Denies: rash, pruritus or erythema Neuro: Reports: dizziness; Denies: headache(s), vertigo, confusion or seizure-like activity Psych: Reports: anxiety; Denies: visual hallucinations or auditory hallucinations PFSH ED PFSH: Medical History (Updated 09/06/19 @ 10:15 by Amparo Garcia MD) Acid reflux Controlled diabetes mellitus with hyperglycemia, with long-term current use of insulin COPD, very severe Enrolled in chronic care management History of COPD Hyperlipidemia Hypertension Surgical History (Updated 09/06/19 @ 12:55 by Jean-Pierre Martinez MD) History of appendectomy History of colonoscopy (~05/2019) History of esophagogastroduodenoscopy (EGD) (~05/2019) Hx of removal of ovary S/P laparoscopy Family History (Updated 09/06/19 @ 12:56 by Jean-Pierre Martinez MD) Father Cancer Lung disease Hypertension Mother Lung disease Grandmother Diabetes Other CAD (coronary artery disease) Denies family history of Stroke Social History Smoking and tobacco status: current every day smoker Second hand smoke exposure: Yes Smoking risk assessment/counseling performed?: Yes Alcohol intake: never Household members: spouse Marital status: Current occupational status: disabled History of recent travel: No Financial difficulty paying for basics: Not Very Hard Physical Exam Const: GENERAL APPEARANCE: well developed ORIENTATION/CONSCIOUSNESS: Yes oriented to person, Yes oriented to place and Yes oriented to time HENMT: COMMON NORMALS: normocephalic, external ears normal and Normal external nose present HEAD & SCALP: normocephalic FACE & SINUS: normal facial exam NOSE: Normal external nose present and No nasal discharge present EXTERNAL EAR: Yes external ears normal Eye: COMMON NORMALS: Equal, round and reactive pupils present, EOMs intact bilaterally and conjunctivae normal EYELID: eyelids normal CONJUNCTIVA: Yes conjunctivae normal PUPIL: Yes Equal, round and reactive pupils present Neck/C-Spine: COMMON NORMALS: full ROM GENERAL: No tracheal deviation CERVICAL SPINE: Yes normal cervical lordosis and No Cervical spine tenderness Chest: COMMONS NORMALS: normal inspection of the chest CHEST: No tenderness Resp: COMMON NORMALS: clear to auscultation bilaterally EFFORT & INSPECTION: No tachypneic, No respiratory distress, No retractions, No uses accessory muscles and No tracheal deviation AUSCULTATION: clear to auscultation bilaterally, no rhonchi, no wheezes and lung sounds not diminished Cardio: COMMON NORMALS: regular rate and regular rhythm RATE: regular rate RHYTHM: regular rhythm HEART SOUNDS: no murmurs PERIPHERAL PULSES: radial pulses present GI: INSPECTION: Yes abdominal distension AUSCULTATION: No Hyperactive bowel sounds present and No Hypoactive bowel sounds present PALPATION: No Guarding due to palpation present (GI) and No Rigid due to palpation PERCUSSION: no dullness to percussion and no tympanic to percussion Neuro: SENSORIUM/ORIENTATION: Yes oriented to person, Yes oriented to place and Yes oriented to time Psych: COMMON NORMALS: mental status grossly normal Skin: COMMON NORMALS: no rashes or lesions noted GENERAL SKIN EXAM: no rashes or lesions noted Course Vital Signs: Vital signs: Vital Signs Temperature 98.1 F 09/06/19 16:00 Pulse Rate 84 09/06/19 16:00 Respiratory Rate 20 H 09/06/19 16:00 Blood Pressure 107/63 09/06/19 16:00 Pulse Oximetry 96 09/06/19 16:00 MDM - Chest Pain MDM Narrative: Medical decision making narrative: 53-year-old lady awoke with chest pain at around 3 AM. She has no prior history of coronary disease per he does have a history of hypertension and a strong family history per her daughter. Her first EKG shows no acute ST changes and a sinus rhythm with a normal axis. Blood work is pending. She will get serial EKGs. She is checked out to Dr. Garcia at shift change. Lab Data: Labs: Lab Results 09/06/19 09/06/19 09/06/19 Range/Units 06:00 06:00 06:00 WBC Cancelled Corrected WBC Cancelled RBC Cancelled Hgb Cancelled Hct Cancelled MCV Cancelled MCH Cancelled MCHC Cancelled RDW Cancelled Plt Count Cancelled MPV Cancelled Gran % Cancelled Neut % (Auto) Cancelled Lymph % (Auto) Cancelled [place] % (Auto) Cancelled Eos % (Auto) Cancelled Baso % (Auto) Cancelled Neut # (Auto) Cancelled Lymph # (Auto) Cancelled [place] # (Auto) Cancelled Eos # (Auto) Cancelled Baso # (Auto) Cancelled Absolute Gran (aut o) Cancelled Nucleated RBC % (a uto) Cancelled Nucleated RBCs # Cancelled Sodium 136 (136-145) mmol/L Potassium 4.2 (3.5-5.1) mmol/L Chloride 96 L (98-107) mmol/L Carbon Dioxide 26 (22-29) mmol/L Anion Gap 18.2 (5-19) BUN 28 H (6-20) mg/dL Creatinine 0.9 (0.5-0.9) mg/dL GFR Calculation 65.8 L (90-130) mL/min Glucose 141 H (65-115) mg/dL Estimat Average Gl ucose Hemoglobin A1c (4.0-6.0) % Calculated Osmolal ity 281 L (285-295) mOsm/k g Calcium 9.4 (8.5-10.5) mg/dL Total Bilirubin 0.5 (0.15-1.2) mg/dL AST 11 (0-32) U/L ALT 10 (0-33) U/L Alkaline Phosphata se 85 (35-105) IU/L Troponin T Baselin e 13 H (0-10) ng/L Troponin T 120 Min [place] (0-10) ng/L Delta Troponin T (0-10) ABS# NT-Pro-B Natriuret Pep 15 (0-125) pg/mL Total Protein 6.6 (6.6-8.7) g/dL Albumin 3.9 (3.5-5.2) g/dL Globulin 2.7 (1.3-4.6) g/dL Triglycerides (0-150) mg/dL Cholesterol (0-200) mg/dL LDL Cholesterol, C alc (50-129) mg/dL HDL Cholesterol (60-100) mg/dL LDL/HDL Ratio (0.00-3.22) RATI O Cholesterol/HDL Ra daniel (0.0-4.40) mg/dL Lipase (13-60) U/L TSH (0.27-4.20) uIU/ mL Urine Color (Yellow) Urine Appearance (CLEAR) Urine pH (5-7) Ur Specific Gravit y (1.005-1.030) Urine Protein (Negative) Urine Glucose (UA) (Normal) Urine Ketones (Negative) Urine Blood (Negative) Urine Nitrate (Negative) Urine Bilirubin (NEGATIVE) Urine Urobilinogen (Negative) mg/dL Ur Leukocyte Jayshree ase (Negative) 09/06/19 09/06/19 09/06/19 Range/Units 06:00 06:00 06:00 WBC 12.4 H Corrected WBC RBC 5.45 H Hgb 11.0 L Hct 38.5 MCV 70.6 L MCH 20.2 L MCHC 28.6 L RDW 23.5 H Plt Count 251 MPV 10.2 Gran % Neut % (Auto) 67.4 Lymph % (Auto) 21.7 [place] % (Auto) 8.6 Eos % (Auto) 1.6 Baso % (Auto) 0.3 Neut # (Auto) 8.3 H Lymph # (Auto) 2.7 [place] # (Auto) 1.1 H Eos # (Auto) 0.2 Baso # (Auto) 0.0 Absolute Gran (aut o) Nucleated RBC % (a uto) 0 Nucleated RBCs # 0.0 Sodium (136-145) mmol/L Potassium (3.5-5.1) mmol/L Chloride (98-107) mmol/L Carbon Dioxide (22-29) mmol/L Anion Gap (5-19) BUN (6-20) mg/dL Creatinine (0.5-0.9) mg/dL GFR Calculation (90-130) mL/min Glucose (65-115) mg/dL Estimat Average Gl ucose 157 Hemoglobin A1c 7.1 H (4.0-6.0) % Calculated Osmolal ity (285-295) mOsm/k g Calcium (8.5-10.5) mg/dL Total Bilirubin (0.15-1.2) mg/dL AST (0-32) U/L ALT (0-33) U/L Alkaline Phosphata se (35-105) IU/L Troponin T Baselin e (0-10) ng/L Troponin T 120 Min [place] (0-10) ng/L Delta Troponin T (0-10) ABS# NT-Pro-B Natriuret Pep (0-125) pg/mL Total Protein (6.6-8.7) g/dL Albumin (3.5-5.2) g/dL Globulin (1.3-4.6) g/dL Triglycerides (0-150) mg/dL Cholesterol (0-200) mg/dL LDL Cholesterol, C alc (50-129) mg/dL HDL Cholesterol (60-100) mg/dL LDL/HDL Ratio (0.00-3.22) RATI O Cholesterol/HDL Ra daniel (0.0-4.40) mg/dL Lipase 57 (13-60) U/L TSH (0.27-4.20) uIU/ mL Urine Color (Yellow) Urine Appearance (CLEAR) Urine pH (5-7) Ur Specific Gravit y (1.005-1.030) Urine Protein (Negative) Urine Glucose (UA) (Normal) Urine Ketones (Negative) Urine Blood (Negative) Urine Nitrate (Negative) Urine Bilirubin (NEGATIVE) Urine Urobilinogen (Negative) mg/dL Ur Leukocyte Jayshree ase (Negative) 09/06/19 09/06/19 09/06/19 Range/Units 06:00 06:55 08:44 WBC Corrected WBC RBC Hgb Hct MCV MCH MCHC RDW Plt Count MPV Gran % Neut % (Auto) Lymph % (Auto) [place] % (Auto) Eos % (Auto) Baso % (Auto) Neut # (Auto) Lymph # (Auto) [place] # (Auto) Eos # (Auto) Baso # (Auto) Absolute Gran (aut o) Nucleated RBC % (a uto) Nucleated RBCs # Sodium (136-145) mmol/L Potassium (3.5-5.1) mmol/L Chloride (98-107) mmol/L Carbon Dioxide (22-29) mmol/L Anion Gap (5-19) BUN (6-20) mg/dL Creatinine (0.5-0.9) mg/dL GFR Calculation (90-130) mL/min Glucose (65-115) mg/dL Estimat Average Gl ucose Hemoglobin A1c (4.0-6.0) % Calculated Osmolal ity (285-295) mOsm/k g Calcium (8.5-10.5) mg/dL Total Bilirubin (0.15-1.2) mg/dL AST (0-32) U/L ALT (0-33) U/L Alkaline Phosphata se (35-105) IU/L Troponin T Baselin e (0-10) ng/L Troponin T 120 Min [place] 81.51 H (0-10) ng/L Delta Troponin T 68.51 H* (0-10) ABS# NT-Pro-B Natriuret Pep (0-125) pg/mL Total Protein (6.6-8.7) g/dL Albumin (3.5-5.2) g/dL Globulin (1.3-4.6) g/dL Triglycerides 221 H (0-150) mg/dL Cholesterol 132 (0-200) mg/dL LDL Cholesterol, C alc 53 (50-129) mg/dL HDL Cholesterol 35 L (60-100) mg/dL LDL/HDL Ratio 1.51 (0.00-3.22) RATI O Cholesterol/HDL Ra daniel 3.77 (0.0-4.40) mg/dL Lipase (13-60) U/L TSH 4.02 (0.27-4.20) uIU/ mL Urine Color Straw (Yellow) Urine Appearance Clear (CLEAR) Urine pH 5 (5-7) Ur Specific Gravit y 1.015 (1.005-1.030) Urine Protein Neg (Negative) Urine Glucose (UA) 4+ H (Normal) Urine Ketones Negative (Negative) Urine Blood Neg (Negative) Urine Nitrate Negative (Negative) Urine Bilirubin Neg (NEGATIVE) Urine Urobilinogen Norm (Negative) mg/dL Ur Leukocyte Jayshree ase Negative (Negative) Discharge Plan Discharge Patient Disposition: Placed in Observation Admit Provider: Jean-Pierre Martinez Clinical Impression: Chest pain Qualifiers: Chest pain type: unspecified Qualified Code(s): R07.9 - Chest pain, unspecified Condition: Stable Referrals: Reji Faulkner FNP [Primary Care Provider] - Discharge Diet: Advance as tolerated and Clear Liquid Discharge Activity: Resume usual activity Additional Instructions: Follow up with your primary care provider next week for further evaluation. Return to the ED for fever, vomiting, severe pain or any new or worse symptoms. Discharge Date/Time: 09/06/19 11:12 Coding Level of Care Code ED Digital Production Manager for Chg Fwd Exam Comprehensive Documented by User: Amparo Garcia MD 09/06/19 17:44 HPI - Chest Pain General: Chief Complaint: Chest Pain Stated Complaint: cp; sob Time Seen by Provider: 09/06/19 05:50 PFSH ED PFSH: Medical History (Updated 09/06/19 @ 10:15 by Amparo Garcia MD) Acid reflux Controlled diabetes mellitus with hyperglycemia, with long-term current use of insulin COPD, very severe Enrolled in chronic care management History of COPD Hyperlipidemia Hypertension Surgical History (Updated 09/06/19 @ 12:55 by Jea-nPierre Martinez MD) History of appendectomy History of colonoscopy (~05/2019) History of esophagogastroduodenoscopy (EGD) (~05/2019) Hx of removal of ovary S/P laparoscopy Family History (Updated 09/06/19 @ 12:56 by Jean-Pierre Martinez MD) Father Cancer Lung disease Hypertension Mother Lung disease Grandmother Diabetes Other CAD (coronary artery disease) Denies family history of Stroke Social History Smoking and tobacco status: current every day smoker Second hand smoke exposure: Yes Smoking risk assessment/counseling performed?: Yes Alcohol intake: never Household members: spouse Marital status: Current occupational status: disabled History of recent travel: No Financial difficulty paying for basics: Not Very Hard Course Reevaluation(s): Reevaluation #1: I assumed care of this patient at shift change. She was still having pain and was redosed with antiemetics. She is now resting very comfortably with no pain. On palpation in her right upper quadrant she still does have some tenderness. Labs thus far have been unremarkable with the exception of slightly elevated white count, mild anemia, mild dehydration and a slightly elevated glucose. Chest x-ray was read as some bibasilar haziness, cannot rule out pneumonitis. She has not had any symptoms that would suggest any sort of respiratory infection. This may be more atelectasis due to pain. EKG and first troponin are normal. I plan to get a right upper quadrant ultrasound to evaluate possible gallbladder disease. Reevaluation #2: The patient remained pain-free during the rest of her ED stay however her troponin went from 13 to ED 3 for a delta that was quite significant concerning. Her EKGs remained unchanged. She does not have any history of prior heart disease but is a diabetic and certainly at risk for atypical presentation. Ultrasound of her gallbladder was normal. She will be admitted to the hospitalist service for further evaluation and treatment. Time: 10:18 Vital Signs: Vital signs: Vital Signs Temperature 98.1 F 09/06/19 16:00 Pulse Rate 84 09/06/19 16:00 Respiratory Rate 20 H 09/06/19 16:00 Blood Pressure 107/63 09/06/19 16:00 Pulse Oximetry 96 09/06/19 16:00 MDM - Chest Pain Lab Data: Labs: Lab Results 09/06/19 09/06/19 09/06/19 Range/Units 06:00 06:00 06:00 WBC Cancelled Corrected WBC Cancelled RBC Cancelled Hgb Cancelled Hct Cancelled MCV Cancelled MCH Cancelled MCHC Cancelled RDW Cancelled Plt Count Cancelled MPV Cancelled Gran % Cancelled Neut % (Auto) Cancelled Lymph % (Auto) Cancelled [place] % (Auto) Cancelled Eos % (Auto) Cancelled Baso % (Auto) Cancelled Neut # (Auto) Cancelled Lymph # (Auto) Cancelled [place] # (Auto) Cancelled Eos # (Auto) Cancelled Baso # (Auto) Cancelled Absolute Gran (aut o) Cancelled Nucleated RBC % (a uto) Cancelled Nucleated RBCs # Cancelled Sodium 136 (136-145) mmol/L Potassium 4.2 (3.5-5.1) mmol/L Chloride 96 L (98-107) mmol/L Carbon Dioxide 26 (22-29) mmol/L Anion Gap 18.2 (5-19) BUN 28 H (6-20) mg/dL Creatinine 0.9 (0.5-0.9) mg/dL GFR Calculation 65.8 L (90-130) mL/min Glucose 141 H (65-115) mg/dL Estimat Average Gl ucose Hemoglobin A1c (4.0-6.0) % Calculated Osmolal ity 281 L (285-295) mOsm/k g Calcium 9.4 (8.5-10.5) mg/dL Total Bilirubin 0.5 (0.15-1.2) mg/dL AST 11 (0-32) U/L ALT 10 (0-33) U/L Alkaline Phosphata se 85 (35-105) IU/L Troponin T Baselin e 13 H (0-10) ng/L Troponin T 120 Min [place] (0-10) ng/L Delta Troponin T (0-10) ABS# NT-Pro-B Natriuret Pep 15 (0-125) pg/mL Total Protein 6.6 (6.6-8.7) g/dL Albumin 3.9 (3.5-5.2) g/dL Globulin 2.7 (1.3-4.6) g/dL Triglycerides (0-150) mg/dL Cholesterol (0-200) mg/dL LDL Cholesterol, C alc (50-129) mg/dL HDL Cholesterol (60-100) mg/dL LDL/HDL Ratio (0.00-3.22) RATI O Cholesterol/HDL Ra daniel (0.0-4.40) mg/dL Lipase (13-60) U/L TSH (0.27-4.20) uIU/ mL Urine Color (Yellow) Urine Appearance (CLEAR) Urine pH (5-7) Ur Specific Gravit y (1.005-1.030) Urine Protein (Negative) Urine Glucose (UA) (Normal) Urine Ketones (Negative) Urine Blood (Negative) Urine Nitrate (Negative) Urine Bilirubin (NEGATIVE) Urine Urobilinogen (Negative) mg/dL Ur Leukocyte Jayshree ase (Negative) 09/06/19 09/06/19 09/06/19 Range/Units 06:00 06:00 06:00 WBC 12.4 H Corrected WBC RBC 5.45 H Hgb 11.0 L Hct 38.5 MCV 70.6 L MCH 20.2 L MCHC 28.6 L RDW 23.5 H Plt Count 251 MPV 10.2 Gran % Neut % (Auto) 67.4 Lymph % (Auto) 21.7 [place] % (Auto) 8.6 Eos % (Auto) 1.6 Baso % (Auto) 0.3 Neut # (Auto) 8.3 H Lymph # (Auto) 2.7 [place] # (Auto) 1.1 H Eos # (Auto) 0.2 Baso # (Auto) 0.0 Absolute Gran (aut o) Nucleated RBC % (a uto) 0 Nucleated RBCs # 0.0 Sodium (136-145) mmol/L Potassium (3.5-5.1) mmol/L Chloride (98-107) mmol/L Carbon Dioxide (22-29) mmol/L Anion Gap (5-19) BUN (6-20) mg/dL Creatinine (0.5-0.9) mg/dL GFR Calculation (90-130) mL/min Glucose (65-115) mg/dL Estimat Average Gl ucose 157 Hemoglobin A1c 7.1 H (4.0-6.0) % Calculated Osmolal ity (285-295) mOsm/k g Calcium (8.5-10.5) mg/dL Total Bilirubin (0.15-1.2) mg/dL AST (0-32) U/L ALT (0-33) U/L Alkaline Phosphata se (35-105) IU/L Troponin T Baselin e (0-10) ng/L Troponin T 120 Min [place] (0-10) ng/L Delta Troponin T (0-10) ABS# NT-Pro-B Natriuret Pep (0-125) pg/mL Total Protein (6.6-8.7) g/dL Albumin (3.5-5.2) g/dL Globulin (1.3-4.6) g/dL Triglycerides (0-150) mg/dL Cholesterol (0-200) mg/dL LDL Cholesterol, C alc (50-129) mg/dL HDL Cholesterol (60-100) mg/dL LDL/HDL Ratio (0.00-3.22) RATI O Cholesterol/HDL Ra daniel (0.0-4.40) mg/dL Lipase 57 (13-60) U/L TSH (0.27-4.20) uIU/ mL Urine Color (Yellow) Urine Appearance (CLEAR) Urine pH (5-7) Ur Specific Gravit y (1.005-1.030) Urine Protein (Negative) Urine Glucose (UA) (Normal) Urine Ketones (Negative) Urine Blood (Negative) Urine Nitrate (Negative) Urine Bilirubin (NEGATIVE) Urine Urobilinogen (Negative) mg/dL Ur Leukocyte Jayshree ase (Negative) 09/06/19 09/06/19 09/06/19 Range/Units 06:00 06:55 08:44 WBC Corrected WBC RBC Hgb Hct MCV MCH MCHC RDW Plt Count MPV Gran % Neut % (Auto) Lymph % (Auto) [place] % (Auto) Eos % (Auto) Baso % (Auto) Neut # (Auto) Lymph # (Auto) [place] # (Auto) Eos # (Auto) Baso # (Auto) Absolute Gran (aut o) Nucleated RBC % (a uto) Nucleated RBCs # Sodium (136-145) mmol/L Potassium (3.5-5.1) mmol/L Chloride (98-107) mmol/L Carbon Dioxide (22-29) mmol/L Anion Gap (5-19) BUN (6-20) mg/dL Creatinine (0.5-0.9) mg/dL GFR Calculation (90-130) mL/min Glucose (65-115) mg/dL Estimat Average Gl ucose Hemoglobin A1c (4.0-6.0) % Calculated Osmolal ity (285-295) mOsm/k g Calcium (8.5-10.5) mg/dL Total Bilirubin (0.15-1.2) mg/dL AST (0-32) U/L ALT (0-33) U/L Alkaline Phosphata se (35-105) IU/L Troponin T Baselin e (0-10) ng/L Troponin T 120 Min [place] 81.51 H (0-10) ng/L Delta Troponin T 68.51 H* (0-10) ABS# NT-Pro-B Natriuret Pep (0-125) pg/mL Total Protein (6.6-8.7) g/dL Albumin (3.5-5.2) g/dL Globulin (1.3-4.6) g/dL Triglycerides 221 H (0-150) mg/dL Cholesterol 132 (0-200) mg/dL LDL Cholesterol, C alc 53 (50-129) mg/dL HDL Cholesterol 35 L (60-100) mg/dL LDL/HDL Ratio 1.51 (0.00-3.22) RATI O Cholesterol/HDL Ra daniel 3.77 (0.0-4.40) mg/dL Lipase (13-60) U/L TSH 4.02 (0.27-4.20) uIU/ mL Urine Color Straw (Yellow) Urine Appearance Clear (CLEAR) Urine pH 5 (5-7) Ur Specific Gravit y 1.015 (1.005-1.030) Urine Protein Neg (Negative) Urine Glucose (UA) 4+ H (Normal) Urine Ketones Negative (Negative) Urine Blood Neg (Negative) Urine Nitrate Negative (Negative) Urine Bilirubin Neg (NEGATIVE) Urine Urobilinogen Norm (Negative) mg/dL Ur Leukocyte Jayshree ase Negative (Negative) Discharge Plan Discharge Patient Disposition: Placed in Observation Admit Provider: Jean-Pierre Martinez Clinical Impression: Chest pain Qualifiers: Chest pain type: unspecified Qualified Code(s): R07.9 - Chest pain, unspecified Condition: Stable Referrals: Reji Faulkner FNP [Primary Care Provider] - Discharge Diet: Advance as tolerated and Clear Liquid Discharge Activity: Resume usual activity Additional Instructions: Follow up with your primary care provider next week for further evaluation. Return to the ED for fever, vomiting, severe pain or any new or worse symptoms. Discharge Date/Time: 09/06/19 11:12 Coding Level of Care Code ED Digital Production Manager for Chg Fwd Exam Comprehensive
[2019-09-06] MEDS: aspirin 325 mg Tablet PO (06:01)
[2019-09-06] MEDS: ondansetron 2 mg/ML SDV 2 mL 4 MG IVP (06:02)
[2019-09-06] MEDS: morphine 4 mg/mL SDV 1 mL IVP (06:02)
[2019-09-06] MEDS: lidocaine 2% viscous 15 ML, aluminum-mag hydrox-simethicon 30 ML, sucralfate oral liq 1 GM PO (06:08)
[2019-09-06 06:31] LABS: Basophils % 0.3 %; Eosinophils # 0.2 10^3/uL (0.0-0.8); Eosinophils % 1.6 %; Hematocrit 38.5 % (37.0-47.0); Lymphocytes # 2.7 10^3/uL (0.8-4.8); Lymphocytes % 21.7 %; Mean Corpuscular HGB Conc 28.6 g/dL (30.0-36.0); Mean Corpuscular Hemoglobin 20.2 pg (28.0-34.0); Mean Corpuscular Volume 70.6 fL (81-99); Mean Platelet Volume 10.2 fL (7.4-10.4); Monocytes # 1.1 10^3/uL (0.2-0.9); Monocytes % 8.6 %; Neutrophils # 8.3 10^3/uL (1.8-7.7); Neutrophils % 67.4 %; Nucleated Red Blood Cells % 0 %; Platelet Count 251 10^3/cmm (130-400); Red Blood Count 5.45 10^6/uL (4.1-5.3); Red Cell Distribution Width 23.5 % (12.1-15.1); White Blood Count 12.4 10^3/uL (4.0-10.0)
[2019-09-06] MEDS: LORazepam 2 mg/mL INJ 1 mL 1 MG IVP (06:40)
[2019-09-06 06:41] LABS: Alanine Aminotransferase 10 U/L (0-33); Albumin Level 3.9 g/dL (3.5-5.2); Alkaline Phosphatase 85 IU/L (35-105); Anion Gap 18.2 (5-19); Aspartate Amino Transferase 11 U/L (0-32); Blood Urea Nitrogen 28 mg/dL (6-20); Calcium 9.4 mg/dL (8.5-10.5); Carbon Dioxide 26 mmol/L (22-29); Chloride 96 mmol/L (98-107); Globulin 2.7 g/dL (1.3-4.6); Glomerular Filtration Rate 65.8 mL/min (90-130); Glucose 141 mg/dL (65-115); NT Pro B Type Natriuretic Pept 15 pg/mL (0-125); Osmolality Calculated 281 mOsm/kg (285-295); Potassium 4.2 mmol/L (3.5-5.1); Sodium 136 mmol/L (136-145); Total Bilirubin 0.5 mg/dL (0.15-1.2); Total Protein 6.6 g/dL (6.6-8.7)
[2019-09-06 06:42] LABS: Lipase 57 U/L (13-60)
[2019-09-06] MEDS: metoclopramide 5 mg/mL SDV 2 mL 10 MG IVP (06:45)
--- NOTE | 2019-09-06 06:51 | PC.NURSE ---
Pt states after returning from bathroom and sats dropping to 87% on R/A that she is on 3-4lpm of O2 at home. Pt placed initially on 3lpm, sats up to 88% after 3-4 mins of deep breathing coaching. O2 increased to 4lpm. Pt current sat 98% on 4lpm of o2. notifjayce
[2019-09-06 07:05] LABS: Troponin(5th) Baseline 13 ng/L (0-10)
[2019-09-06] MEDS: sodium chloride 0.9% 1,000 ML 999 ML IV (07:13)
--- NOTE | 2019-09-06 07:28 | USR_ITS ---
PROCEDURE INFORMATION: Exam: US Abdomen, Limited; Right Upper Quadrant Exam date and time: 09/06/2019 8:08 AM Age: 53 years old Clinical indication: Abdominal pain; Additional info: Chest pain, ruq pain, vomiting TECHNIQUE: Imaging protocol: US abdomen. Real time ultrasound with image documentation. Limited exam focused on the right upper quadrant. COMPARISON: CT abdomen pelvis w con* [id number] 04/29/2019 2:57 PM FINDINGS: Liver: No focal hepatic mass. Gallbladder: Punctate nodular echogenic focus contiguous with the gallbladder wall. No internal shadowing calculi, wall edema, or pericholecystic fluid. Technologist reported negative sonographic Ellis sign. Common bile duct: Normal caliber of the visualized common bile duct measuring 5 mm in diameter. Pancreas: No acute sonographic abnormality in the visualized pancreas. Right kidney: Normal right renal morphology. No hydronephrosis. Inferior vena cava: Unremarkable IVC. US/US gall bladder [id number] IMPRESSION: Punctate nodular echogenic focus contiguous with the gallbladder wall. No internal shadowing calculi, wall edema, or pericholecystic fluid.
--- NOTE | 2019-09-06 07:50 | ECG_ITS ---
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 Measurements Intervals [place] Rate: 74 P: 63 FL: 166 QRS: 56 QRSD: 80 T: 52 QT: 377 QTc: 420 Interpretive Statements SINUS RHYTHM Compared to ECG 09/06/2019 06:00:29 No significant changes Electronically Signed On 09-06-2019 8:47:20 CDT by Ziyad Cooper M.D. [id number]
[2019-09-06 08:21] LABS: Add Urine Microscopic? NO
[2019-09-06 08:30] LABS: Bilirubin Urine Neg (NEGATIVE); Blood Urine Neg (Negative); Glucose Urine UA 4+ (Normal); Ketones Urine Negative (Negative); Leukocyte Esterase Urine Negative (Negative); Nitrate Urine Negative (Negative); Protein Urine Neg (Negative); Specific Gravity, Urine 1.015 (1.005-1.030); Urine Appearance Clear (CLEAR); Urine Color Straw (Yellow); Urobilinogen Urine Norm (Negative); pH Urine 5 (5-7)
[2019-09-06 09:11] LABS: Troponin 5 2HR 81.51 ng/L (0-10)
[2019-09-06 10:29] LABS: Troponin 5 2HR Delta 68.51 ABS# (0-10)
--- NOTE | 2019-09-06 11:33 | USCV_ITS ---
Nicole Carlos Age: 53 Gender: F : 1965 Exam Date: 09/06/2019 13:34 Ordering Phys: Jean-Pierre Martinez MD Technologist: Meron Torres Exam Location: [facility] [place] Indication: Chest pain BP: 120 / 60 HR: 80 Rhythm: Sinus Technical Quality: Adequate MEASUREMENTS (Male / Female) Normal Values 2D ECHO LV Diastolic Diameter PLAX 3.9 cm 4.2 - 5.9 / 3.9 - 5.3 cm LV Systolic Diameter PLAX 2.9 cm LV Chamber Size 2.6 cm IVS Diastolic Thickness 1.3 cm 0.6 - 1.0 / 0.6 - 0.9 cm IVS Systolic Thickness 1.3 cm LVPW Diastolic Thickness 1.1 cm 0.6 - 1.0 / 0.6 - 0.9 cm LVPW Systolic Thickness 1.3 cm RV Chamber Size 2.3 cm LVOT Diameter 1.9 cm LV Ejection Fraction 2D Teich 49.1 % LV Ejection Fraction MOD 2C 62.1 % LV Ejection Fraction 2C AL 62.4 % LA Diameter 3.3 cm LA Width 2.7 cm LA Height 4.5 cm RA Width 2.9 cm RA Height 3.9 cm Aorta at Sinotubular Diameter 2.6 cm M-MODE LV Diastolic Diameter MM 5.1 cm 4.2 - 5.9 / 3.9 - 5.3 cm LV Systolic Diameter MM 3.2 cm LV Ejection Fraction MM Teich 68.5 % IVS Diastolic Thickness MM 1.1 cm 0.6 - 1.0 / 0.6 - 0.9 cm IVS Systolic Thickness MM 1.6 cm LVPW Diastolic Thickness MM 1.2 cm 0.6 - 1.0 / 0.6 - 0.9 cm LVPW Systolic Thickness MM 1.6 cm RV Diastolic Diameter MM 1.6 cm Aortic Annulus Diameter 2.9 cm LA Ao Ratio MM 1.1 MV E Point Septal Separation 0.7 cm DOPPLER AV Peak Velocity 150.0 cm/s LVOT Peak Velocity 96.0 cm/s AV Area Cont Eq vti 1.8 cm squared AV Area Cont Eq pk 1.9 cm squared MV Area PHT 3.4 cm squared Mitral E to A Ratio 1.1 MV E' Velocity 9.0 cm/s Mitral E to MV E' Ratio 9.1 Mitral E to LV E' Lateral Ratio 12.1 Mitral E to LV E' Septal Ratio 7.3 TR Peak Velocity 243.0 cm/s TR Peak Gradient 23.7 mmHg TV Peak E Velocity 72.0 cm/s Right Atrial Pressure 3.0 mmHg Pulmonary Artery Systolic Pressu 26.6 mmHg PV Peak Velocity 77.0 cm/s RV Acceleration Time 0.1 s RV Ejection Time 0.3 s RV AcT/ET 0.3 FINDINGS Left Ventricle Normal left ventricular size, systolic function and wall thickness, with no regional wall motion abnormalities. Normal left ventricular wall thickness. Normal diastolic filling pattern. Left ventricular ejection fraction is estimated at 65 %. Right Ventricle The right ventricle is normal in size and function. Right Atrium The right atrium is normal in size. Left Atrium The left atrium is normal in size. Mitral Valve Structurally normal mitral valve without significant stenosis or prolapse. There is no mitral regurgitation. Aortic Valve Structurally normal aortic valve without significant sclerosis or stenosis. There is no aortic regurgitation. Tricuspid Valve Structurally normal tricuspid valve without significant stenosis or regurgitation. Pulmonary artery systolic pressure is normal. Pulmonic Valve Structurally normal pulmonic valve without significant stenosis. There is no pulmonic regurgitation. Pericardium Normal pericardium without effusion. Aorta Normal ascending aorta dimension. CONCLUSIONS Normal transthoracic echocardiogram. There are no prior echocardiogram studies to compare. Dr. Ziyad Cooper MD (Electronically Signed) Final Date: 06 September 2019 21:17 S
--- NOTE | 2019-09-06 11:50 | ECG_ITS ---
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 Measurements Intervals [place] Rate: 83 P: 9 SD: 157 QRS: 60 QRSD: 85 T: 52 QT: 353 QTc: 417 Interpretive Statements SINUS RHYTHM Compared to ECG 09/06/2019 08:38:59 No significant changes Electronically Signed On 09-07-2019 15:13:18 CDT by Ziyad Cooper M.D. [id number]
--- NOTE | 2019-09-06 12:47 | PM.HP ---
Providers/Chief Complaint Admitting Physician: Jean-Pierre Martinez MD Primary Care Provider: VIOLET Locke Chief Complaint: cp; sob History of Present Illness Nicole Carlos is a 53 year old female with a past medical history of insulin-dependent type 2 diabetes mellitus, COPD, diabetic peripheral neuropathy, hypertension, hyperlipidemia who presents to [facility] due to complaints of chest pain. According to patient, yesterday afternoon, she had a heavy meal with with a burger, hot dogs, etc. she went to sleep around 10 PM. Roughly midnight or so, she woke up with severe substernal chest pain, was a burning-like pain, radiating to her back, associate with shortness of breath, and she felt a bit lightheaded, no dizzy, no radiation to arms, no diaphoresis, felt nauseous, and actually vomited after that she felt better. She went back to sleep, but as soon as she will went back to bed, the chest pain came back, severe substernal chest pain, burning-like pain, states that the pain was right below her sternum, did go up to her esophagus, she thought she might of had acid reflux. But her symptoms persisted for a few hours, so she decided to come to the emergency room. In the emergency room she states that the GI cocktail did help to some degree. Does have extensive family history of CAD. Does have risk factors. Work-up in the ER showed a normal EKG. Patient's 120-minute troponin went to 81.51 with a positive delta of 68.51, no active chest pain. Patient states that she was recently treated for a COPD exacerbation, productive cough, with antibiotics, steroids, has gotten better. Review of Systems Const: Denies: fever(s), chills, fatigue or malaise Eyes: Denies: change in vision or blurry vision ENMT: Denies: nasal congestion Card: Reports: chest pain Resp: Denies: dyspnea, productive cough, non-productive cough or wheezing GI: Denies: abdominal pain, nausea, vomiting, hematemesis, diarrhea, constipation, hematochezia or melena : Denies: flank pain, dysuria or urinary frequency Musc: Denies: neck pain or back pain Skin/Breast: Denies: rash Neuro: Denies: headache(s), dizziness or vertigo Psych: Denies: anxiety or depression Endo: Denies: polyuria or polydipsia Medications/Allergies Home Medications Medication Instructions Recorded Confirmed Last Taken Type metoprolol tartrate 50 mg tablet 50 mg PO BID #60 tab 04/07/19 09/06/19 09/05/19 Rx Angela Navarreteostar U-100 Insulin 40 unit SUBCUT BID 05/16/19 09/06/19 09/05/19 History telmisartan 80 mg tablet 80 mg PO DAILY #90 tab 06/02/19 09/06/19 09/05/19 Rx pregabalin 150 mg capsule 150 mg PO TID 30 Days #90 cap 06/09/19 09/06/19 09/05/19 Rx budesonide-formoterol HFA 160 2 puff INHALATION BID #30.6 gm 07/07/19 09/06/19 Unknown Rx mcg-4.5 mcg/actuation aerosol inhaler albuterol sulfate 90 mcg/actuation 2 puff INHALATION QID PRN #54 gm 07/09/19 09/06/19 Unknown Rx aerosol inhaler budesonide 0.5 mg/2 mL suspension 0.5 mg INHALATION BID #60 ml 08/01/19 09/06/19 Unknown Rx for nebulization pantoprazole 40 mg tablet,delayed 40 mg PO BID #90 tab 09/05/19 09/06/19 09/06/19 03:00 Rx release Jardiance 25 mg PO DAILY 09/06/19 09/06/19 09/05/19 History albuterol sulfate 2.5 mg INHALATION Q6H PRN 09/06/19 09/06/19 Unknown History amlodipine 10 mg PO DAILY 09/06/19 09/06/19 09/05/19 History baclofen 20 mg PO BID 09/06/19 09/06/19 Unknown History pxvpzvmtdun-ahxjlpybp-atrognkj 1 inh INHALATION DAILY 09/06/19 09/06/19 09/05/19 History [Trelegy Ellipta] hydrochlorothiazide 25 mg PO DAILY 09/06/19 09/06/19 09/05/19 History ipratropium-albuterol 3 ml INHALATION BID 09/06/19 09/06/19 Unknown History ondansetron HCl 4 mg PO BID PRN 09/06/19 09/06/19 09/06/19 03:00 History simvastatin 10 mg PO QPM 09/06/19 09/06/19 09/05/19 History Allergies Allergy/AdvReac Type Severity Reaction Status Date / Time codeine Allergy [place] Verified 09/06/19 09:30 PFSH Acute PFSH: Medical History (Updated 09/06/19 @ 10:15 by Amparo Garcia MD) Acid reflux Controlled diabetes mellitus with hyperglycemia, with long-term current use of insulin COPD, very severe Enrolled in chronic care management History of COPD Hyperlipidemia Hypertension Surgical History (Updated 09/06/19 @ 12:55 by Jean-Pierre Martinez MD) History of appendectomy History of colonoscopy (~05/2019) History of esophagogastroduodenoscopy (EGD) (~05/2019) Hx of removal of ovary S/P laparoscopy Family History (Updated 09/06/19 @ 12:56 by Jean-Pierre Martinez MD) Father Cancer Lung disease Hypertension Mother Lung disease Grandmother Diabetes Other CAD (coronary artery disease) Denies family history of Stroke Social History Smoking and tobacco status: current every day smoker Second hand smoke exposure: Yes Smoking risk assessment/counseling performed?: Yes Alcohol intake: never Household members: spouse Marital status: Current occupational status: disabled History of recent travel: No Financial difficulty paying for basics: Not Very Hard Vitals/I&O/Wt Last Vital Signs Temp 97.7 F 09/06/19 11:11 Pulse 73 09/06/19 11:11 Resp 15 09/06/19 11:11 BP 120/60 09/06/19 11:11 Pulse Ox 98 09/06/19 11:11 09/05/19 09/06/19 09/06/19 22:59 06:59 14:59 Intake Total 1000 / 1000 Balance 1000 / 1000 Weight last 48 hrs Weight 75.342 kg Physical Exam Const: COMMON NORMALS: no acute distress and patient oriented x3 GENERAL APPEARANCE: cooperative and comfortable HENMT: COMMON NORMALS: normocephalic HEAD & SCALP: normocephalic Eye: COMMON NORMALS: Equal, round and reactive pupils present and EOMs intact bilaterally PUPIL: Yes Equal, round and reactive pupils present Neck/C-Spine: COMMON NORMALS: full ROM, no lymphadenopathy, no JVD and Thyroid normal THYROID: Thyroid normal Lymph: LYMPHATIC: no lymphadenopathy noted Resp: COMMON NORMALS: normal respiratory effort, No retractions, No use of accessory muscles and clear to auscultation bilaterally AUSCULTATION: wheezes Cardio: COMMON NORMALS: no JVD, regular rate, regular rhythm, S1 normal heart sound present, S2 normal heart sound present, No gallops present (Cardio), No clicks present (Cardio) and No murmurs present (Cardio) RATE: regular rate RHYTHM: regular rhythm HEART SOUNDS: S1 normal heart sound present and S2 normal heart sound present GI: COMMON NORMALS: Normal to inspection, nondistended, normoactive bowel sounds present, Soft to palpation, non-tender and No hepatosplenomegaly present PALPATION: Yes Soft to palpation and Yes No hepatosplenomegaly present Extremity: COMMON NORMALS: normal to inspection, full ROM and no pedal edema Neuro: COMMON NORMALS: patient oriented x3, CN's II-XII intact bilaterally, moves all extremities and no focal motor deficits Psych: COMMON NORMALS: mental status grossly normal, Normal thought process present and cooperative THOUGHT PROCESS: Normal thought process present Data : 09/06/19 06:00 09/06/19 06:00 A&P Assessment and plan (1) Chest pain: -Atypical chest pain, good could be acid reflux related -Has extensive family history of CAD, and her mother, father -Has significant smoking history -Has risk factors including type 2 diabetes, hyperlipidemia, hypertension, COPD -Baseline troponin XIII, 120-minute 81.51, 6-hour 122, delta 109.2 -EKG normal sinus rhythm -No active chest pain, no shortness of breath PLAN: -Admit to [facility] -Aspirin, statin, beta-sadia -Therapeutic Lovenox -Trend troponins, trend EKGs, telemetry monitoring, monitor for chest pain -Nitro for chest pain, morphine -Recheck troponin in 4 hours -We will consider consulting cardiology -Repeat echocardiogram Status: Acute Qualifiers: Chest pain type: unspecified Qualified Code(s): R07.9 - Chest pain, unspecified (2) Smoker unmotivated to quit: Status: Acute (3) COPD, very severe: Status: Acute (4) Type 2 diabetes mellitus: -Continue insulin Status: Acute Qualifiers: Diabetes mellitus rodent exterminator insulin use: with intermediate use Diabetes mellitus complication status: with circulatory complication Diabetes mellitus complication detail: with peripheral angiopathy without gangrene Qualified Code(s): E11.51 - Type 2 diabetes mellitus with diabetic peripheral angiopathy without gangrene; Z79.4 - long term care social worker (current) use of insulin (5) History of COPD: Status: Acute (6) Acid reflux: -Try Protonix, GI cocktail Status: Acute Qualifiers: Esophagitis presence: without esophagitis Qualified Code(s): K21.9 - Gastro-esophageal reflux disease without esophagitis Attestations Medical Necessity Statement*: Patient requires hospitalization, inpatient, greater than 2 minutes, for chest pain NSTEMI Coding Level of Care Code Acute Service Station Attendant for Chg Fwd Diagnoses Chest pain R07.9 Chest pain type: unspecified Smoker unmotivated to quit F17.200 COPD, very severe J44.9 Type 2 diabetes mellitus E11.51; Z79.4 Diabetes mellitus intermediate insulin use: with rodent exterminator use Diabetes mellitus complication status: with circulatory complication Diabetes mellitus complication detail: with peripheral angiopathy without gangrene History of COPD Z87.09 Acid reflux K21.9 Esophagitis presence: without esophagitis
[2019-09-06 12:49] LABS: Troponin 5 6HR 122.2 ng/L (0-10); Troponin 5 6HR Delta 109.2 ng/L (0-12)
[2019-09-06] MEDS: enoxaparin 80 mg/0.8 mL Syringe SUBCUT (13:34)
[2019-09-06] MEDS: atorvastatin 40 mg Tablet PO (13:34)
[2019-09-06] MEDS: pregabalin 150 mg Capsule PO ×2 (13:34→20:47)
[2019-09-06 15:15] LABS: Chol HDL Ratio 3.77 mg/dL (0.0-4.40); Cholesterol 132 mg/dL (0-200); HDL Cholesterol 35 mg/dL (60-100); LDL Cholesterol Calculated 53 mg/dL (50-129); LDL HDL Ratio 1.51 RATIO (0.00-3.22); Thyroid Stimulating Hormone 4.02 uIU/mL (0.27-4.20); Triglycerides 221 mg/dL (0-150)
[2019-09-06 15:43] LABS: Estmated Average Glucose 157; Hemoglobin A1C 7.1 % (4.0-6.0)
[2019-09-06 15:54] LABS: Troponin T (5th) Once 125 ng/L (0-10)
[2019-09-06 16:22] LABS: Glucose Point of Care 142 mg/dL (70-110)
[2019-09-06] MEDS: insulin glargine 100 units/1 mL 40 UNIT SUBCUT (17:29)
[2019-09-06] MEDS: metoprolol tartrate 50 mg Tablet PO (17:29)
[2019-09-06] MEDS: baclofen 10 mg Tablet 20 MG PO (17:30)
[2019-09-06] MEDS: pantoprazole DR 40 mg Tablet PO (17:30)
[2019-09-06 18:25] LABS: Amphetamines Screen Urine Negative (Negative); Barbiturates Screen Urine Negative (Negative); Benzodiazepines Screen Urine Negative (Negative); Cocaine Screen Urine Negative (Negative); Opiate Screen Urine Positive (Negative); PCP Screen Urine Negative (Negative); THC Screen Urine Negative (Negative)
--- NOTE | 2019-09-06 18:55 | PM.CONSULT ---
Providers/Reason For Consult Consulting Physican/Specialty*: Cardiovascular medicine Reason for Consult*: Elevated troponin Attending Physician: Jean-Pierre Martinez MD Primary Care Provider: VIOLET Locke History of Present Illness History of Present Illness Nicole Carlos is a 53 year old female with no known history of heart disease. She is a diabetic who smokes and has hypertension. Last evening she had a heavy meal that involved hamburgers and hotdogs. At about 11:00 she became nauseated and vomited. She went to bed and awoke at 3:00 this morning with chest discomfort. This was a heavy and sharp sensation which radiated to her back. She got up and took an extra proton pump inhibitor and a Tums. This did not help. She drank some milk which helped. The pain lessened around 4:00. She laid back down and the pain returned. She then came into the emergency room. Her EKG was perfectly normal. She was given a GI cocktail in the emergency room and some morphine. She was transferred to the floor and the pain eventually went away. She has had no further pain today. Her EKGs have remained completely normal however her first troponin was 13, the second 81 and the third 122. Review of Systems General: Reports: 10 or more systems reviewed and unremarkable except in HPI and below Meds/Allergies Home Medications and Allergies Home Medications Medication Instructions Recorded Confirmed Last Taken Type metoprolol tartrate 50 mg tablet 50 mg PO BID #60 tab 04/07/19 09/06/19 09/05/19 Rx Lantus Solostar U-100 Insulin 40 unit SUBCUT BID 05/16/19 09/06/19 09/05/19 History telmisartan 80 mg tablet 80 mg PO DAILY #90 tab 06/02/19 09/06/19 09/05/19 Rx pregabalin 150 mg capsule 150 mg PO TID 30 Days #90 cap 06/09/19 09/06/19 09/05/19 Rx budesonide-formoterol HFA 160 2 puff INHALATION BID #30.6 gm 07/07/19 09/06/19 Unknown Rx mcg-4.5 mcg/actuation aerosol inhaler albuterol sulfate 90 mcg/actuation 2 puff INHALATION QID PRN #54 gm 07/09/19 09/06/19 Unknown Rx aerosol inhaler budesonide 0.5 mg/2 mL suspension 0.5 mg INHALATION BID #60 ml 08/01/19 09/06/19 Unknown Rx for nebulization pantoprazole 40 mg tablet,delayed 40 mg PO BID #90 tab 09/05/19 09/06/19 09/06/19 03:00 Rx release Jardiance 25 mg PO DAILY 09/06/19 09/06/19 09/05/19 History albuterol sulfate 2.5 mg INHALATION Q6H PRN 09/06/19 09/06/19 Unknown History amlodipine 10 mg PO DAILY 09/06/19 09/06/19 09/05/19 History baclofen 20 mg PO BID 09/06/19 09/06/19 Unknown History ymkdytjpbzv-kvbeewlxk-jupilzqz 1 inh INHALATION DAILY 09/06/19 09/06/19 09/05/19 History [Trelegy Ellipta] hydrochlorothiazide 25 mg PO DAILY 09/06/19 09/06/19 09/05/19 History ipratropium-albuterol 3 ml INHALATION BID 09/06/19 09/06/19 Unknown History ondansetron HCl 4 mg PO BID PRN 09/06/19 09/06/19 09/06/19 03:00 History simvastatin 10 mg PO QPM 09/06/19 09/06/19 09/05/19 History Allergies Allergy/AdvReac Type Severity Reaction Status Date / Time codeine Allergy ALGY-Hives Verified 09/06/19 09:30 Current Medications Current Medications Generic Name Dose Route Start Last Admin Trade Name Freq PRN Reason Stop Dose Admin Albuterol Sulfate 2.5 mg 09/06/19 11:41 09/06/19 12:44 Albuterol INHALATION 2.5 mg Q6H PRN Administration Shortness Of Breath Atorvastatin Calcium 40 mg 09/06/19 13:00 09/06/19 13:34 Lipitor PO 40 mg DAILY SAHRA Administration Baclofen 20 mg 09/06/19 18:00 09/06/19 17:30 Lioresal PO 20 mg BID SAHRA Administration Enoxaparin Sodium 80 mg 09/06/19 13:00 09/06/19 13:34 Lovenox SUBCUT 80 mg Q12H SAHRA Administration Insulin Aspart 0 unit 09/06/19 18:00 09/06/19 17:29 Novolog SUBCUT 2 unit TIDWM SAHRA Administration Protocol Insulin Glargine 40 unit 09/06/19 18:00 09/06/19 17:29 Lantus SUBCUT 40 unit Q12H SAHRA Administration Metoprolol Tartrate 50 mg 09/06/19 18:00 09/06/19 17:29 Lopressor PO 50 mg BID SAHRA Administration Pantoprazole Sodium 40 mg 09/06/19 18:00 09/06/19 17:30 Protonix PO 40 mg BID SAHRA Administration Pregabalin 150 mg 09/06/19 15:00 09/06/19 13:34 Lyrica PO 150 mg TID SAHRA Administration PFSH Acute PFSH: Medical History (Updated 09/06/19 @ 19:03 by Ziyad Cooper MD) Acid reflux Anemia Controlled diabetes mellitus with hyperglycemia, with long-term current use of insulin COPD, very severe Enrolled in chronic care management History of COPD Hyperlipidemia Hypertension Surgical History (Updated 09/06/19 @ 12:55 by Jean-Pierre Martinez MD) History of appendectomy History of colonoscopy (~05/2019) History of esophagogastroduodenoscopy (EGD) (~05/2019) Hx of removal of ovary S/P laparoscopy Family History (Updated 09/06/19 @ 12:56 by Jean-Pierre Martinez MD) Father Cancer Lung disease Hypertension Mother Lung disease Grandmother Diabetes Other CAD (coronary artery disease) Denies family history of Stroke Social History Smoking and tobacco status: current every day smoker Second hand smoke exposure: Yes Smoking risk assessment/counseling performed?: Yes Alcohol intake: never Household members: spouse Marital status: Current occupational status: disabled History of recent travel: No Financial difficulty paying for basics: Not Very Hard Vitals/I&O/Wt Last Vital Signs Temp 98.1 F 09/06/19 16:00 Pulse 84 09/06/19 16:00 Resp 20 H 09/06/19 16:00 BP 107/63 09/06/19 16:00 Pulse Ox 96 09/06/19 16:00 09/06/19 09/06/19 09/06/19 06:59 14:59 22:59 Intake Total 1240 / 1240 240 / 1480 Output Total 450 / 450 Balance 1240 / 1240 -210 / 1030 Weight last 48 hrs Weight 166 lb 1.6 oz Physical Exam Narrative: EXAM NARRATIVE: GENERAL: In general she looks and feels well HEENT: Exam within normal limits. NECK: Supple without jugular vein distention. The carotid upstroke is normal without bruits. BACK: Exam normal. LUNGS: Clear. HEART: Regular rate and rhythm. ABDOMEN: Benign without organomegaly or tenderness. EXTREMITIES: No edema. NEUROLOGIC: Exam normal. SKIN: Unremarkable. Data Other Data: Other data: EKGs are normal. Glomerular filtration rate 65 mL/min. The tox screen is positive for opiates but she denies using them. Gallbladder ultrasound is negative. A&P Assessment and plan (1) Chest pain: Status: Acute Qualifiers: Chest pain type: unspecified Qualified Code(s): R07.9 - Chest pain, unspecified (2) Smoker unmotivated to quit: Status: Acute (3) Type 2 diabetes mellitus: Status: Acute Qualifiers: Diabetes mellitus retail advertising account executive insulin use: with retail advertising account executive use Diabetes mellitus complication status: with circulatory complication Diabetes mellitus complication detail: with peripheral angiopathy without gangrene Qualified Code(s): E11.51 - Type 2 diabetes mellitus with diabetic peripheral angiopathy without gangrene; Z79.4 - FPC (current) use of insulin (4) History of COPD: Status: Acute (5) Acid reflux: Status: Acute Qualifiers: Esophagitis presence: without esophagitis Qualified Code(s): K21.9 - Gastro-esophageal reflux disease without esophagitis (6) Diverticulosis: Status: Chronic (7) Hypertension: Status: Acute (8) Hyperlipidemia: Status: Acute (9) Elevated troponin: Status: Acute Additional A&P Information She denies using any narcotics or opioids but her tox screen is positive for opiates. There must be a story behind that. Regarding the troponin it is increasing too much to ignore. Despite her negative EKG it continues to increase. Temporarily, this sounds much more like reflux disease or dyspepsia however the troponin elevation is also temporally associated. She has a number of risk factors including dyslipidemia, hypertension, diabetes and heavy smoking. I think we have to assume this is cardiac until proven otherwise. My recommendation is coronary angiography which we will perform tomorrow morning at 8:00. I spoke to her about this. She is willing to proceed. Consult Attestations Medical Necessity Statement: Not applicable Coding Level of Care Code New Pt Acute Timber Girdler for Chg Fwd Patient Type New History Detailed Exam Detailed Medical Decision Making Moderate Complexity Diagnoses Chest pain R07.9 Chest pain type: unspecified Smoker unmotivated to quit F17.200 Type 2 diabetes mellitus E11.51; Z79.4 Diabetes mellitus retail advertising account executive insulin use: with custodial use Diabetes mellitus complication status: with circulatory complication Diabetes mellitus complication detail: with peripheral angiopathy without gangrene History of COPD Z87.09 Acid reflux K21.9 Esophagitis presence: without esophagitis Diverticulosis K57.90 Hypertension I10 Hyperlipidemia E78.5 Elevated troponin R79.89
[2019-09-06 20:19] LABS: Glucose Point of Care 118 mg/dL (70-110)
--- NOTE | 2019-09-06 22:37 | PC.NURSE ---
REPORT RECEIVED FROM OFF GOING NURSE. PT DENIES PAIN. WILL CONTINUE TO MONITOR.
[2019-09-07] VITALS (16 sets, daily range): BP systolic 78–113; BP diastolic 43–71; PULSE 78–99; RESP 7–117; TEMP 36.9–37; O2SAT 77–100
[2019-09-07] MEDS: enoxaparin 80 mg/0.8 mL Syringe SUBCUT (01:23)
[2019-09-07 04:56] LABS: Basophils % 0.3 %; Eosinophils # 0.1 10^3/uL (0.0-0.8); Eosinophils % 1.5 %; Hematocrit 37.1 % (37.0-47.0); Hemoglobin 10.3 g/dL (11.5-15.3); Lymphocytes # 2.4 10^3/uL (0.8-4.8); Lymphocytes % 25.2 %; Mean Corpuscular HGB Conc 27.8 g/dL (30.0-36.0); Mean Corpuscular Hemoglobin 20.1 pg (28.0-34.0); Mean Corpuscular Volume 72.3 fL (81-99); Mean Platelet Volume 10.8 fL (7.4-10.4); Monocytes # 0.9 10^3/uL (0.2-0.9); Monocytes % 9.3 %; Neutrophils % 63.4 %; Nucleated Red Blood Cells % 0 %; Platelet Count 241 10^3/cmm (130-400); Positive M 1; Red Blood Count 5.13 10^6/uL (4.1-5.3); Red Cell Distribution Width 23.7 % (12.1-15.1); White Blood Count 9.4 10^3/uL (4.0-10.0)
[2019-09-07 05:19] LABS: Alanine Aminotransferase 10 U/L (0-33); Albumin Level 3.5 g/dL (3.5-5.2); Alkaline Phosphatase 83 IU/L (35-105); Anion Gap 12.3 (5-19); Aspartate Amino Transferase 14 U/L (0-32); Blood Urea Nitrogen 22 mg/dL (6-20); Calcium 9.1 mg/dL (8.5-10.5); Carbon Dioxide 30 mmol/L (22-29); Chloride 101 mmol/L (98-107); Globulin 2.8 g/dL (1.3-4.6); Glomerular Filtration Rate 87.9 mL/min (90-130); Glucose 112 mg/dL (65-115); Osmolality Calculated 285 mOsm/kg (285-295); Phosphorus 3.8 mg/dL (2.5-4.5); Potassium 4.3 mmol/L (3.5-5.1); Sodium 139 mmol/L (136-145); Total Bilirubin 0.6 mg/dL (0.15-1.2); Total Protein 6.3 g/dL (6.6-8.7)
[2019-09-07 06:05] LABS: Slide Review Slide Review Perform
--- NOTE | 2019-09-07 06:42 | PC.NURSE ---
PT HAD AN UNEVENTFUL NIGHT. PT APPEARED TO HAVE RESTED WELL. PT WAS PREPPED FOR CATH THIS AM. CONSENT WAS SIGNED. WILL GIVE REPORT TO ONCOMING NURSE.
[2019-09-07 07:40] LABS: Glucose Point of Care 101 mg/dL (70-110)
--- NOTE | 2019-09-07 07:47 | XACV_ITS ---
Exam Room: [facility] Ht: 152 cm Wt: 73 kg BSA: 1.78 m2 Gender: Female : 1965 Any Known Allergies: Codeine Exam Priority: Routine Procedure(s): Procedure Description: Diagnostic procedure Procedure Description: Left ventriculography Procedure Description: Coronary Angiography Diagnostic Cath Status: Elective Diagnostic Findings Patient with severe chest pain after a large fatty meal. No EKG changes but troponin elevation with a significantly positive delta. Angiography recommended. Angiography reveals right coronary artery dominance. The right coronary artery is a large dominant vessel with luminal irregularities but no significant stenoses. The left main coronary artery bifurcates into the left anterior descending and circumflex. The left main tapers with some calcium to approximately 10 to 20% stenosis in its distal portion. Both the LAD and circumflex are relatively small given the size of the right coronary artery. The LAD barely reaches the apex. There is a tiny first diagonal branch which contains a 99% stenosis in the ostium. This may be the source of the troponin elevation. Otherwise the LAD contains no distinct significant stenoses. The circumflex is likewise a small vessel and tortuous with no significant stenoses. PCI Status: Elective Conclusions Mild nonobstructive coronary artery disease with tightly stenosed tiny first obtuse marginal branch likely responsible for the troponin elevation. This vessel too small to stent or intervened upon. Normal LV function. Interventional RX Recommendation: medical therapy and/or counseling Diagnostic RX Recommendation: medical therapy and/or counseling Anticoagulation: Heparin Ventriculography Ejection Fraction: 65.0 % Pressures Phase:Rest AO : 82 mmHg / 60 mmHg ( 71 mmHg ) @ 3:36:00 AM 96 mmHg / 52 mmHg ( 70 mmHg ) @ 3:45:00 AM 95 mmHg / 52 mmHg ( 69 mmHg ) @ 3:45:00 AM LV : 113 mmHg / -9 mmHg / @ 3:44:00 AM 110 mmHg / -7 mmHg / @ 3:44:00 AM 111 mmHg / -6 mmHg / @ 3:45:00 AM Valves Phase:DefaultPhase AV : 15.0 mmHg @ 8:52:54 AM 15.0 mmHg @ 8:52:54 AM AV Mean Gradient: 10.0 mmHg @ 8:52:54 AM 10.0 mmHg @ 8:52:54 AM Clinical Evaluation EBL: 5mL-10mL Procedural Details Procedure Consent Obtained. Pre-Procedure Time Out. Identified patient by full name and date of as verbalized by the patient/guarantor. Does the consent match the physician's order: Yes. Accurate & Complete Informed Consent: Yes. Inpatient/Outpatient History & Physical on Chart: Yes. If H&P is completed, is and addenduem needed: No; If yes, is the addendum complete: N/A. Visualize and Verify Site with Patient/Guarantor: N/A. Relevant Radiology Images available: Yes. Pre-op teaching completed and patient verbalized understanding. The risks, benefits, and alternatives of sedation and/or procedure were discussed by physician. The patient agrees to continue. Procedure started. [facility] Clinical Fraility Score: 3: Managing Well. Laboratory Apparatus Glass Blower Indications: ACS <= 24 hours. Chest Pain Symptom Assessment: Nonstemi. Cardiovascular Instability: No. Correct patient, site and procedure confirmed by cath team. Current diagnosis: NSTEMI. PERRLA. Strong, equal hand substation operator apprentice bilaterally. Lungs clear x 5 lobes. IV Site on Arrival: 20 gauge in the right anticubital. IV Fluids: 0.9% NaCl at KVO. 0 mL infused prior to production laborer. Pre Procedural Pulses: bilateral dorsalis pedis was 2+. Pre Procedural Pulses: right posterior tibial was 2+. Pre Procedural Pulses: bilateral radial was 3+. Oxygen started at 3liters/min via nasal canula. bilateral groins was prepped with chloroprep then draped in the usual sterile fashion. right radial was prepped with chloroprep then draped in the usual sterile fashion. Baseline sample Acquired. HR: 87 BPM. Physician arrived. Equipment: 6F - Radial. ACIST Manifold Kit Model BT 2000. Cardiac Cath Pack. Heparinized Saline (2 units/mL), 1000 mL bag. Physician scrubbed in. Immediate Pre-Procedure Time Out. Correct Patient: Yes; Correct Procedure: Yes; Correct Site: Yes; Correct Patient Position: Yes; Correct Supplies: Yes; Dried Flammable Prep: Yes; Blood Products Available: No;. Lidocaine 1% infiltrated to the right radial. Arterial access obtained. A 6 burmese TIG catheter in over wire. Multiple views taken of right coronary artery. Catheter redirected to the LCA. Multiple views taken of left coronary artery. Catheter out. A 6 burmese Angled Pig catheter in over wire. LV gram performed in FULLER @ 10 mL/second for a total of 30 mL. EDP Sample taken: LV 113/-10,10; HR: 93 BPM; SpO2: 91%. EDP Sample taken: LV 110/-8,13; HR: 93 BPM; SpO2: 91%. Pullback taken: LV 111/-7,13; AO 96/52(70); Mean: 10mmHg, Peak to Peak: 15mmHg, SEP: 22sec/min; HR: 92 BPM; SpO2: 90%. Catheter out. A TR Band was successful obtaining hemostatsis at the Right Radial artery insertion site. Post Procedure: Pulses reassessed and unchanged. PERRLA. Strong, equal hand substation operator apprentice bilaterally. No VTE prophylaxis required. Medication's Wasted: Lidocaine 1% = 18 mL. Medication's Wasted: Nitro = 49.8 mg. Medication's Wasted: Heparin = 2000 units. Medication's Wasted: Other = Versed 1 mg. Medication's Wasted: Other = Fentanyl 75 mcg. Total IV fluids: 67.2 mL. Contrast type used: Omnipaque 300 mg/mL, 150 mL bottle. Post-op diagnosis: Nonstemi. Complications: None. Estimated blood loss: 5mL-10mL. Patient transferred by wheelchair to 1st floor. Vital chart was stopped. Site: Right Radial artery Sheath Size: 6 Fr Hemostasis Method: TR Band Hemostasis Success: Successful Procedure Medications Start: 8:30 AM Stop: 8:30 AM Medication: Versed 1 mg and Fentanyl 25 mcg Amount: 1 Route: I.V. Start: 8:32 AM Stop: 8:32 AM Medication: Benadryl Amount: 25 mg Route: I.V. Start: 8:32 AM Stop: 8:32 AM Medication: Verapamil Amount: 5 mg Route: I.A. Start: 8:32 AM Stop: 8:32 AM Medication: Nitrogylcerin Amount: 200 mcg Route: I.A. Start: 8:39 AM Stop: 8:39 AM Medication: Heparin Amount: 4000 units Route: I.V. I, the attending physician, have reviewed and verified all procedure medications. Yes, all medications given per verbal order History/Risk Factors Hypertension: Yes Dyslipidemia: No Diabetic Therapy: Insulin Peripheral Arterial Disease (PAD): No Myocardial Infarction (RI): No Obesity: Yes Renal Disease: No Tobacco Use: Current/Recent(w/in 1 year) Prior Interventions PCI: No CABG: No Valve Surgery: No Report Signatures Finalized by:Dr. Ziyad Cooper MD on 09/07/2019 9:03:01 AM
--- NOTE | 2019-09-07 09:56 | PC.NURSE ---
PATIENT'S BLOOD PRESSURES SOFT SINCE ARRIVAL FROM ON AIR PERSONALITY. 90'S/50'S. DR. NIETO NOTIFIED AND ORDERED TO HOLD THIS MORNINGS DOSE OF NORVASC AND LOSARTAN. ORDERED TO GIVE MORNING DOSE OF LOPRESSOR.
[2019-09-07] MEDS: baclofen 10 mg Tablet 20 MG PO (10:24)
[2019-09-07] MEDS: metoprolol tartrate 50 mg Tablet PO (10:24)
[2019-09-07] MEDS: sodium chloride 0.9% 1,000 ML 100 ML IV (10:24)
[2019-09-07] MEDS: pantoprazole DR 40 mg Tablet PO (10:25)
[2019-09-07] MEDS: hydroCHLOROthiazide 25 mg Tablet PO (10:25)
[2019-09-07] MEDS: aspirin 81 mg EC Tablet PO (10:25)
[2019-09-07 11:05] LABS: Glucose Point of Care 146 mg/dL (70-110)
--- NOTE | 2019-09-07 12:03 | CTR_ITS ---
PROCEDURE INFORMATION: Exam: CT Abdomen And Pelvis Without Contrast Exam date and time: 09/07/2019 12:16 PM Age: 53 years old Clinical indication: Abnormal findings; Abnormal radiologic finding of the abdomen; Radiologic exam and body structure: Gb ultrasound; Prior surgery; Surgery type: C-sec, appy; Patient HX: Recent cath procedure w/ contrast; Additional info: Nodular density in gallbladder? TECHNIQUE: Imaging protocol: Computed tomography of the abdomen and pelvis without contrast. Radiation optimization: All CT scans at this facility use at least one of these dose optimization techniques: automated exposure control; mA and/or kV adjustment per patient size (includes targeted exams where dose is matched to clinical indication); or iterative reconstruction. COMPARISON: 1. CT abdomen pelvis w con* [id number] 04/29/2019 2:57 PM 2. US gall bladder [id number] 09/06/2019 7:38:24 AM RADIATION DOSE METRICS: Total DLP (mGy-cm): 744.99 FINDINGS: Liver: Normal. No mass. Gallbladder and bile ducts: No gallbladder polyp or other gallbladder abnormality specifically identified. Pancreas: Normal. No ductal dilation. Spleen: Normal. No splenomegaly. Adrenals: Normal. No mass. Kidneys and ureters: Excreted contrast is present in the bilateral renal collecting systems without hydronephrosis. Stomach and bowel: Scattered pancolonic diverticula are present without evidence of diverticulitis. Appendix: No evidence of appendicitis. Intraperitoneal space: Unremarkable. No free air. No significant fluid collection. Vasculature: Left pelvic phlebolith. Marked aortic atherosclerotic calcification without aneurysm. The iliac arteries show marked bilateral atherosclerotic calcifications without evidence of aneurysm. Atherosclerotic calcifications are present involving the RCA coronary artery. Lymph nodes: No enlarged lymph nodes. Bladder: The urinary bladder is decompressed and difficult to assess. Excreted contrast is present in the urinary bladder. Reproductive: Unremarkable as visualized. Bones/joints: Bilateral mild chronic femoral head osteonecrosis, stable. Soft tissues: Unremarkable. CT/CT abdomen pelvis wo con [id number] IMPRESSION: 1. No gallbladder polyp or other gallbladder abnormality specifically identified. 2. Diverticulosis. 3. Coronary atherosclerosis. Radiation Dose CTDIVOL = (mGy): DLP = 744.99 (mGy-cm)
--- NOTE | 2019-09-07 12:06 | P.DS_ITS ---
Discharge Providers Date of Admission: 09/06/19 10:17 Date of Discharge: September 07, 2019 Attending Provider at Admission: Jean-Pierre Martinez MD Attending Provider at Discharge: Jean-Pierre Martinez MD Primary Care Provider: VIOLET Locke Diagnoses at Discharge Discharge Diagnosis (1) Chest pain: Status: Acute Qualifiers: Chest pain type: unspecified Qualified Code(s): R07.9 - Chest pain, unspecified (2) Smoker unmotivated to quit: Status: Acute (3) Type 2 diabetes mellitus: Status: Acute Qualifiers: Diabetes mellitus complication detail: with peripheral angiopathy without gangrene Diabetes mellitus complication status: with circulatory complication Diabetes mellitus intermission coordinator insulin use: with intermission coordinator use Qualified Code(s): E11.51 - Type 2 diabetes mellitus with diabetic peripheral angiopathy without gangrene; Z79.4 - half-way (current) use of insulin (4) History of COPD: Status: Acute (5) Acid reflux: Status: Acute Qualifiers: Esophagitis presence: without esophagitis Qualified Code(s): K21.9 - Gastro-esophageal reflux disease without esophagitis (6) Diverticulosis: Status: Chronic (7) Hypertension: Status: Acute (8) Hyperlipidemia: Status: Acute (9) Elevated troponin: Status: Acute Reason for Visit Reason for Visit: cp; sob Hospital Course Discharge Summary: Nicole Carlos is a 53 year old female with a past medical history of insulin-dependent type 2 diabetes mellitus, COPD, diabetic peripheral neuropathy, hypertension, hyperlipidemia who presents to [facility] due to complaints of chest pain. For patient's chest pain, she was admitted to [facility], EKGs was within normal limits, no acute ST-T wave changes, telemetry within normal limits, patient's troponins went as high as 125, although patient remained asymptomatic, cardiology was consulted, patient had a cardiac catheterization which showed mild nonobstructive coronary disease with tightly stenosed first obtuse marginal branch likely responsible for troponin elevation, the vessel was too small to stent or be intervened upon. Likely this tightly stenosed first obtuse marginal branch was her explanation for her chest pain and troponin elevation. Patient was discharged on aspirin, statin, with a close follow-up with primary care provider as outpatient. Patient was advised if she were to h ave recurrent chest pain to come back to the emergency room. She also had an echocardiogram that showed normal left ventricular size, systolic function and wall thickness, no regional wall motion abnormalities. On admission, there were concerns that some of her symptoms were related to gallbladder pathology, she had a right upper quadrant ultrasound which showed punctuate nodular echogenic focus contiguous with the gallbladder wall, no internal shadowing calculi, wall edema or pericholecystic fluid. No significant leukocytosis, LFTs within normal limits, no bili elevations, alk phos within normal limits. CT scan of the abdomen showed:No gallbladder polyp or other gallbladder abnormality specifically identified. Given patient's severe COPD, 3 L oxygen dependent, she was discharged on her home inhalers, with close follow-up with Dr. Pitt as outpatient. Physical Exam Const: COMMON NORMALS: no acute distress and patient oriented x3 HENMT: COMMON NORMALS: normocephalic HEAD & SCALP: normocephalic Neck/C-Spine: COMMON NORMALS: no JVD Resp: COMMON NORMALS: normal respiratory effort, No retractions, No use of accessory muscles and clear to auscultation bilaterally AUSCULTATION: clear to auscultation bilaterally Cardio: COMMON NORMALS: no JVD, regular rate, regular rhythm, S1 normal heart sound present and S2 normal heart sound present RATE: regular rate RHYTHM: regular rhythm HEART SOUNDS: S1 normal heart sound present and S2 normal heart sound present GI: COMMON NORMALS: Normal to inspection, nondistended, normoactive bowel sounds present, Soft to palpation, non-tender, No hepatosplenomegaly present, no masses and no bruits PALPATION: Yes Soft to palpation and Yes No hepatosplenomegaly present Extremity: COMMON NORMALS: capillary refill normal, no clubbing, cyanosis or edema, no calf tenderness and no pedal edema Neuro: COMMON NORMALS: patient oriented x3 Psych: COMMON NORMALS: mental status grossly normal Discharge Data Data Completed and Pending: Completed Studies During Hospitalization Category Date Time Status CAPTAIN WAITER/WAITRESS request for service Routin e Exams 09/07/19 07:47 Completed XR chest 1V ivan ble [id number] Stat Exams 09/06/19 05:50 Completed CV echo complete* [id number] Routine Ultrasound 09/06/19 11:33 Completed US gall bladder 7 [id number] Urgent Ultrasound 09/06/19 07:28 Completed Pending at discharge Category Date Time Status CT abdomen pelvis wo con [id number] Stat Cat Scan 09/07/19 12:03 Ordered Complete Blood Co unt w/Auto AM LABS Lab 09/08/19 04:00 Ordered Complete Blood Co unt w/Auto AM LABS Lab 09/09/19 04:00 Ordered Comprehensive Met abolic Panel AM LA BS Lab 09/08/19 04:00 Ordered Comprehensive Met abolic Panel AM LA BS Lab 09/09/19 04:00 Ordered Magnesium AM LABS Lab 09/08/19 04:00 Ordered Magnesium AM LABS Lab 09/09/19 04:00 Ordered Phosphorus AM LAB S Lab 09/08/19 04:00 Ordered Phosphorus AM LAB S Lab 09/09/19 04:00 Ordered Troponin T (5th) Once QAM Lab 09/08/19 06:00 Ordered Labs from last 24 hours 09/07/19 09/07/19 09/07/19 11:01 06:12 04:18 WBC RBC Hgb Hct MCV MCH MCHC RDW Plt Count MPV Neut % (Auto) Lymph % (Auto) Ida % (Auto) Eos % (Auto) Baso % (Auto) Neut # (Auto) Lymph # (Auto) Ida # (Auto) Eos # (Auto) Baso # (Auto) Nucleated RBC % (a uto) Nucleated RBCs # Sodium 139 Potassium 4.3 Chloride 101 Carbon Dioxide 30 H Anion Gap 12.3 BUN 22 H Creatinine 0.7 GFR Calculation 87.9 L Glucose 112 POC Glucose 146 101 Estimat Average Gl ucose Hemoglobin A1c Calculated Osmolal ity 285 Calcium 9.1 Phosphorus 3.8 Magnesium 2.0 Total Bilirubin 0.6 AST 14 ALT 10 Alkaline Phosphata se 83 Troponin I 6 Hour Troponin I Hi Sens Del Troponin T Gen 5 n g/L Total Protein 6.3 L Albumin 3.5 Globulin 2.8 Triglycerides Cholesterol LDL Cholesterol, C alc HDL Cholesterol LDL/HDL Ratio Cholesterol/HDL Ra daniel TSH Urine Opiates Scre en Ur Barbiturates Sc reen Ur Phencyclidine S crn Ur Amphetamines Sc reen U Benzodiazepines Scrn Urine Cocaine Scre en U Marijuana (THC) Screen 09/07/19 09/06/19 09/06/19 04:18 20:11 17:35 WBC 9.4 RBC 5.13 Hgb 10.3 L Hct 37.1 MCV 72.3 L MCH 20.1 L MCHC 27.8 L RDW 23.7 H Plt Count 241 MPV 10.8 H Neut % (Auto) 63.4 Lymph % (Auto) 25.2 Ida % (Auto) 9.3 Eos % (Auto) 1.5 Baso % (Auto) 0.3 Neut # (Auto) 6.0 Lymph # (Auto) 2.4 Ida # (Auto) 0.9 Eos # (Auto) 0.1 Baso # (Auto) 0.0 Nucleated RBC % (a uto) 0 Nucleated RBCs # 0.0 Sodium Potassium Chloride Carbon Dioxide Anion Gap BUN Creatinine GFR Calculation Glucose POC Glucose 118 Estimat Average Gl ucose Hemoglobin A1c Calculated Osmolal ity Calcium Phosphorus Magnesium Total Bilirubin AST ALT Alkaline Phosphata se Troponin I 6 Hour Troponin I Hi Sens Del Troponin T Gen 5 n g/L Total Protein Albumin Globulin Triglycerides Cholesterol LDL Cholesterol, C alc HDL Cholesterol LDL/HDL Ratio Cholesterol/HDL Ra daniel TSH Urine Opiates Scre en Positive H Ur Barbiturates Sc reen Negative Ur Phencyclidine S crn Negative Ur Amphetamines Sc reen Negative U Benzodiazepines Scrn Negative Urine Cocaine Scre en Negative U Marijuana (THC) Screen Negative 09/06/19 09/06/19 09/06/19 16:13 15:10 12:09 WBC RBC Hgb Hct MCV MCH MCHC RDW Plt Count MPV Neut % (Auto) Lymph % (Auto) Ida % (Auto) Eos % (Auto) Baso % (Auto) Neut # (Auto) Lymph # (Auto) Ida # (Auto) Eos # (Auto) Baso # (Auto) Nucleated RBC % (a uto) Nucleated RBCs # Sodium Potassium Chloride Carbon Dioxide Anion Gap BUN Creatinine GFR Calculation Glucose POC Glucose 142 Estimat Average Gl ucose Hemoglobin A1c Calculated Osmolal ity Calcium Phosphorus Magnesium Total Bilirubin AST ALT Alkaline Phosphata se Troponin I 6 Hour 122.2 H Troponin I Hi Sens Del 109.2 H* Troponin T Gen 5 n g/L 125 H* Total Protein Albumin Globulin Triglycerides Cholesterol LDL Cholesterol, C alc HDL Cholesterol LDL/HDL Ratio Cholesterol/HDL Ra daniel TSH Urine Opiates Scre en Ur Barbiturates Sc reen Ur Phencyclidine S crn Ur Amphetamines Sc reen U Benzodiazepines Scrn Urine Cocaine Scre en U Marijuana (THC) Screen 09/06/19 09/06/19 06:00 06:00 WBC RBC Hgb Hct MCV MCH MCHC RDW Plt Count MPV Neut % (Auto) Lymph % (Auto) Ida % (Auto) Eos % (Auto) Baso % (Auto) Neut # (Auto) Lymph # (Auto) Ida # (Auto) Eos # (Auto) Baso # (Auto) Nucleated RBC % (a uto) Nucleated RBCs # Sodium Potassium Chloride Carbon Dioxide Anion Gap BUN Creatinine GFR Calculation Glucose POC Glucose Estimat Average Gl ucose 157 Hemoglobin A1c 7.1 H Calculated Osmolal ity Calcium Phosphorus Magnesium Total Bilirubin AST ALT Alkaline Phosphata se Troponin I 6 Hour Troponin I Hi Sens Del Troponin T Gen 5 n g/L Total Protein Albumin Globulin Triglycerides 221 H Cholesterol 132 LDL Cholesterol, C alc 53 HDL Cholesterol 35 L LDL/HDL Ratio 1.51 Cholesterol/HDL Ra daniel 3.77 TSH 4.02 Urine Opiates Scre en Ur Barbiturates Sc reen Ur Phencyclidine S crn Ur Amphetamines Sc reen U Benzodiazepines Scrn Urine Cocaine Scre en U Marijuana (THC) Screen Vitals: Last Vital Signs Temp 98.6 F 09/07/19 07:42 Pulse 88 09/07/19 11:21 Resp 19 H 09/07/19 11:21 BP 103/58 09/07/19 11:21 Pulse Ox 96 09/07/19 11:21 Discharge Plan Discharge Patient Disposition: Home, Self-Care Condition: Stable Prescriptions: New aspirin 81 mg Tablet,Delayed Release (Dr/Ec) 81 mg PO DAILY 30 Days Qty: 30 RF: 0 Nitrostat 0.4 mg Tablet, Sublingual 0.4 mg sublingual Q5M PRN (Reason: Chest Pain) 3 Days Qty: 3 RF: 0 Continued metoprolol tartrate 50 mg tablet 50 mg PO BID Qty: 60 RF: 2 telmisartan [Micardis] 80 mg tablet 80 mg PO DAILY Qty: 90 RF: 0 pregabalin [Lyrica] 150 mg capsule 150 mg PO TID 30 Days Qty: 90 RF: 2 Symbicort 160-4.5 mcg/actuation HFA aerosol inhaler 2 puff INHALATION BID Qty: 30.6 RF: 0 Ventolin HFA 90 mcg/actuation HFA aerosol inhaler 2 puff INHALATION QID PRN (Reason: Shortness Of Breath) Qty: 54 RF: 2 budesonide 0.5 mg/2 mL suspension for nebulization 0.5 mg INHALATION BID Qty: 60 RF: 3 pantoprazole 40 mg tablet,delayed release (DR/EC) 40 mg PO BID Qty: 90 RF: 0 Lantus Solostar U-100 Insulin 100 unit/mL (3 mL) insulin pen 40 unit SUBCUT BID RF: 0 ipratropium-albuterol 0.5 mg-3 mg(2.5 mg base)/3 mL solution for nebulization 3 ml INHALATION BID RF: 0 albuterol sulfate 2.5 mg /3 mL (0.083 %) Solution For Nebulization 2.5 mg inhalation Q6H PRN (Reason: Shortness Of Breath) RF: 0 Trelegy Ellipta 100-62.5-25 mcg Blister With Device 1 inh INHALATION DAILY RF: 0 ondansetron HCl 4 mg tablet 4 mg PO BID PRN (Reason: Nausea) RF: 0 simvastatin 10 mg tablet 10 mg PO QPM RF: 0 baclofen 20 mg tablet 20 mg PO BID RF: 0 amlodipine 10 mg tablet 10 mg PO DAILY RF: 0 hydrochlorothiazide 25 mg tablet 25 mg PO DAILY RF: 0 Jardiance 25 mg tablet 25 mg PO DAILY RF: 0 Discharge Orders: Discharge Order (Routine); Ordered 09/07/19 Ordered By: Jean-Pierre Martinez Referrals: Reji Faulkner FNP [Primary Care Provider] - ([facility] will contact you to schedule an appointment in 4 to 7 days. If you haven't heard from them by Sunday afternoon. Please call ) Baylee Diaz FNP [Nurse Practitioner] - 7-10 days ([facility] WILL CONTACT YOU WITH A FOLLOW UP APPOINTMENT WITH VIOLET BOJORQUEZ TO PERFORM A RIGHT RADIAL SITE CHECK AND A CHEMISTRY. SHE WILL ALSO HELP YOU ESTABLISH A ENTERTAINMENT USHER TO BE FOLLOWED UP WITH IN 3 MONTHS. ) Demetria Pitt MD [Physician] - 1 week ([facility] will contact you to schedule an appointment with Dr. Ptit in week. If you haven't heard from them by Sunday afternoon. Please call ) Discharge Diet: Advance as tolerated and Clear Liquid Discharge Activity: Resume usual activity Patient Instructions: Aspirin (By mouth), Nitroglycerin, Rapid Release (By mouth), Left Heart Catheterization (DC), Hypertension (DC), Hyperlipidemia (DC), COPD Stoplight, Chest Pain Stoplight, Post Angiogram Home Care Instructions Activity Restrictions/Additional Instructions: Follow up with your primary care provider next week for further evaluation. Return to the ED for fever, vomiting, severe pain or any new or worse symptoms. Discharge Attestations Time Spent in Discharge Care*: less than 30 min Quality Metrics Clinical Quality Measures During this hospital stay, did patient experience: None Coding Level of Care Code Acute Community Assistant for Chg Fwd Exam Comprehensive Diagnoses Chest pain R07.9 Chest pain type: unspecified Smoker unmotivated to quit F17.200 Type 2 diabetes mellitus E11.51; Z79.4 Diabetes mellitus complication detail: with peripheral angiopathy without gangrene Diabetes mellitus complication status: with circulatory complication Diabetes mellitus [facility] insulin use: with intermission coordinator use History of COPD Z87.09 Acid reflux K21.9 Esophagitis presence: without esophagitis Diverticulosis K57.90 Hypertension I10 Hyperlipidemia E78.5 Elevated troponin R79.89
--- NOTE | 2019-09-07 12:43 | PC.NURSE ---
TR BAND REMOVED WITH NO ISSUES AT 1215.
== END 2019-09-07 15:01 | disposition home or self-care (01) | DRG 287 ==
LOC: ER 10:15 → CSU 14:56
PROVIDERS: Emergency Medicine; Internal Medicine Cardiovascular Disease; Admitting Provider Family Medicine; PCP Registered Nurse; Visit Provider Family Medicine
PROC: 4A023N7 Measurement of Cardiac Sampling and Pressure, Left Heart, Percutaneous Approach (ICD-10-PCS; principal; 2019-09-07 08:00)
DX: R07.89 Other chest pain (principal); I10 Essential (primary) hypertension; E78.5 Hyperlipidemia, unspecified; K57.90 Diverticulosis of intestine, part unspecified, without perforation or abscess without bleeding; J44.9 Chronic obstructive pulmonary disease, unspecified; K21.9 Gastro-esophageal reflux disease without esophagitis; Z79.4 Long term (current) use of insulin; E11.51 Type 2 diabetes mellitus with diabetic peripheral angiopathy without gangrene; F17.210 Nicotine dependence, cigarettes, uncomplicated; E11.42 Type 2 diabetes mellitus with diabetic polyneuropathy; E11.59 Type 2 diabetes mellitus with other circulatory complications; E66.9 Obesity, unspecified; Z68.32 Body mass index [BMI] 32.0-32.9, adult
CPT/HCPCS: 12345; 36415; 36416; 71045; 74176; 76705; 80053; 80061; 80306; 81003; 82962; 83036; 83690; 83735; 83880; 84100; 84443; 84484; 85025; 93005; 93306; 93452; 94640; 94664; 96372; 96375; 99284; C1769; C1887; C1894; J1200; J1644; J1650; J1815; J2001; J2060; J2250; J2270; J2405; J2765; J3010; J3490; J7030; J7611; Q9967

== ENCOUNTER → 2019-09-17 10:55 | Outpatient (BNVA) | payer MEDICARE, SELFPAY | PROVIDERS: PCP Registered Nurse; Visit Provider Nurse Practitioner Family | DX: I25.119 Atherosclerotic heart disease of native coronary artery with unspecified angina pectoris (principal) | CPT/HCPCS: 80048 ==

== ENCOUNTER 2019-09-24 12:40 | Outpatient (CLI) | payer MEDICARE, SELFPAY ==
--- NOTE | 2019-09-24 14:30 | CT_ITS ---
WS: [id number] CT scan of the chest with IV contrast, additional two-dimensional coronal and sagittal reconstruction was performed. 09/24/2019 Clinical Data: shortness of breath Comparison: None. DLP: 850.[address] scans at [facility] use at least one of these dose optimization techniques: automat ed exposure control; mA and/or kV adjustment per patient size (includes targeted exams where dose is matched to clinical indication); or iterative reconstruction. Findings: No nodules, masses or effusions are seen. There are patchy nodular opacities in the right upper lobe. The remainder of the lungs is clear. The heart size is normal with no pericardial effusion. The trac hea bifurcates into the bronchi. The thyroid gland shows normal enhancement. The pulmonary arterial s ystem and thoracic aorta demonstrate no abnormalities or dilatations. There is no axillary or signifi cant mediastinal adenopathy. The upper abdomen demonstrates no abnormalities. CT/CT chest w con* [id number] Impression: 1. Patchy nodular opacities in the right upper lobe which could represent an ac [place] pneumonia. 2. Recommend PA and lateral chest in one to 2 days.
[2019-09-24] MEDS: iohexol 350 mg/mL 100 mL Btl IV (14:51)
== END 2019-09-24 12:41 | disposition home or self-care (01) ==
LOC: RADWPI 12:43
PROVIDERS: Family Provider Registered Nurse; PCP Registered Nurse; Visit Provider Registered Nurse
DX: J44.9 Chronic obstructive pulmonary disease, unspecified (principal)
CPT/HCPCS: 71260; Q9967

== ENCOUNTER 2019-09-25 16:45 | Outpatient (CLI) | payer MEDICARE, SELFPAY ==
[2019-09-25 17:13] LABS: Basophils % 0.1 %; Eosinophils # 0.2 10^3/uL (0.0-0.8); Eosinophils % 1.9 %; Hematocrit 36.3 % (37.0-47.0); Hemoglobin 9.9 g/dL (11.5-15.3); Lymphocytes # 1.9 10^3/uL (0.8-4.8); Lymphocytes % 20.4 %; Mean Corpuscular HGB Conc 27.3 g/dL (30.0-36.0); Mean Corpuscular Volume 73.3 fL (81-99); Monocytes # 0.6 10^3/uL (0.2-0.9); Neutrophils # 6.58 10^3/uL (1.8-7.7); Neutrophils % 71.2 %; Nucleated Red Blood Cells % 0 %; Platelet Count 312 10^3/cmm (130-400); Red Blood Count 4.95 10^6/uL (4.1-5.3); White Blood Count 9.3 10^3/uL (4.0-10.0)
[2019-09-25 17:46] LABS: Alanine Aminotransferase 12 U/L (0-33); Albumin Level 3.9 g/dL (3.5-5.2); Alkaline Phosphatase 86 IU/L (35-105); Anion Gap 13.4 (5-19); Aspartate Amino Transferase 13 U/L (0-32); Blood Urea Nitrogen 17 mg/dL (6-20); Calcium 9.2 mg/dL (8.5-10.5); Carbon Dioxide 30 mmol/L (22-29); Chloride 100 mmol/L (98-107); Globulin 3.2 g/dL (1.3-4.6); Glomerular Filtration Rate 52.2 mL/min (90-130); Glucose 118 mg/dL (65-115); Osmolality Calculated 285 mOsm/kg (285-295); Potassium 4.4 mmol/L (3.5-5.1); Sodium 139 mmol/L (136-145); Total Bilirubin 0.3 mg/dL (0.15-1.2); Total Protein 7.1 g/dL (6.6-8.7)
== END 2019-09-25 16:46 | disposition home or self-care (01) ==
LOC: LAB 16:50
PROVIDERS: PCP Registered Nurse; Visit Provider Internal Medicine Pulmonary Disease
DX: Z87.09 Personal history of other diseases of the respiratory system (principal); J44.9 Chronic obstructive pulmonary disease, unspecified; J18.9 Pneumonia, unspecified organism
CPT/HCPCS: 36415; 80053; 85025

== ENCOUNTER 2019-10-27 15:36 | Outpatient (CLI) | payer MEDICARE, SELFPAY ==
--- NOTE | 2019-10-27 15:43 | XR_ITS ---
WS: [id number] EXAM: Chest: PA and lateral DATE OF EXAMINATION: 10/27/2019, 1548 hour COMPARISON: Chest x-ray from 09/06/2019 and 10/29/2018 HISTORY: Patient is 53 years old with pneumonia follow-up.. FINDINGS: The heart size is normal. The mediastinal contours are normal. Pulmonary vascularity is within norm al limits. Slight chronic lung changes demonstrated. Lungs are clear of consolidation. No effusion, o r pneumothorax. Bone density is normal in appearance. XR/XR chest 2V* [id number] IMPRESSION: NO ACUTE PULMONARY DISEASE.
== END 2019-10-27 15:37 | disposition home or self-care (01) ==
LOC: RAD 15:39
PROVIDERS: PCP Internal Medicine; Visit Provider Internal Medicine Pulmonary Disease
DX: J18.9 Pneumonia, unspecified organism (principal); J44.9 Chronic obstructive pulmonary disease, unspecified
CPT/HCPCS: 71046

== ENCOUNTER → 2019-11-03 09:56 | Outpatient (BNVA) | payer MEDICARE, SELFPAY | PROVIDERS: PCP Internal Medicine; Visit Provider Internal Medicine | DX: J18.9 Pneumonia, unspecified organism (principal) | CPT/HCPCS: 87635 ==

== ENCOUNTER 2019-11-05 13:02 | Outpatient (CLI) | payer MEDICARE, SELFPAY ==
--- NOTE | 2019-11-05 13:56 | PFTS_ITS ---
Date of Study:11/05/19 Date of Dictation: MECHANICS: Forced vital capacity (FVC) is reduced. Forced expiratory volume in one second (FEV1) is reduced. FEV1/FVC is reduced. FLOW VOLUME LOOP: Reduced flow at all lung volumes with significant scooping. LUNG VOLUMES: Total lung capacity (TLC) is normal. Residual volume (RV) is increased. DIFFUSING CAPACITY FOR CARBON MONOXIDE: Mildly reduced. INTERPRETATION: The pulmonary function tests are consistent with severe obstruction. There is no significant postbronchodilator response. Lung volumes are consistent with air trapping. Gas exchange (DLCO) is mildly reduced. MTDD
== END 2019-11-05 13:03 | disposition home or self-care (01) ==
LOC: RT 13:06
PROVIDERS: PCP Internal Medicine; Visit Provider Internal Medicine Pulmonary Disease
DX: J44.9 Chronic obstructive pulmonary disease, unspecified (principal)
CPT/HCPCS: 94060; 94726; 94729; J7611

== ENCOUNTER → 2019-12-02 15:43 | Outpatient (BNVA) | payer MEDICARE, SELFPAY | PROVIDERS: PCP Internal Medicine; Visit Provider Registered Nurse | DX: R05 Cough (principal) | CPT/HCPCS: 87635 ==

== ENCOUNTER 2020-01-26 14:07 | Outpatient (CLI) | payer MEDICARE, SELFPAY ==
--- NOTE | 2020-01-26 14:13 | XRR_ITS ---
PROCEDURE INFORMATION: Exam: XR Chest, 2 Views Exam date and time: 01/26/2020 2:20 PM Age: 54 years old Clinical indication: Shortness of breath; Additional info: Rule out pneumonia TECHNIQUE: Imaging protocol: XR of the chest Views: 2 views. COMPARISON: CR XR chest 2V* [id number] 10/27/2019 3:46 PM FINDINGS: Lungs: Unremarkable. No consolidation. Pleural space: Unremarkable. No pleural effusion. No pneumothorax. Heart/Mediastinum: Unremarkable. No cardiomegaly. Bones/joints: Unremarkable. XR/XR chest 2V* [id number] IMPRESSION: No acute findings.
== END 2020-01-26 14:08 | disposition home or self-care (01) ==
LOC: RAD 14:12
PROVIDERS: PCP Registered Nurse; Visit Provider Internal Medicine Pulmonary Disease
DX: R06.02 Shortness of breath (principal)
CPT/HCPCS: 71046

== ENCOUNTER → 2020-05-06 09:43 | Outpatient (BNVA) | payer MEDICARE, SELFPAY | PROVIDERS: PCP Registered Nurse; Visit Provider Registered Nurse | DX: E11.59 Type 2 diabetes mellitus with other circulatory complications (principal); R11.0 Nausea; I10 Essential (primary) hypertension; E78.2 Mixed hyperlipidemia; K21.9 Gastro-esophageal reflux disease without esophagitis; Z71.3 Dietary counseling and surveillance; Z79.4 Long term (current) use of insulin | CPT/HCPCS: 80053; 80061; 83036; 85025 ==

== ENCOUNTER → 2020-10-11 10:09 | Outpatient (BNVA) | payer MEDICARE, SELFPAY | PROVIDERS: PCP Registered Nurse; Visit Provider Registered Nurse | DX: Z20.822 Contact with and (suspected) exposure to COVID-19 (principal); K21.9 Gastro-esophageal reflux disease without esophagitis; E11.40 Type 2 diabetes mellitus with diabetic neuropathy, unspecified; Z91.14 Patient's other noncompliance with medication regimen | CPT/HCPCS: 87635 ==

== ENCOUNTER 2020-10-13 12:27 | Outpatient (CLI) | payer MEDICARE, SELFPAY ==
--- NOTE | 2020-10-13 12:40 | XR_ITS ---
WS: [id number] Chest 2 views, 10/13/2020 Clinical Data: SOB Comparison: PA and lateral chest, 01/26/2020. Findings: No nodules, masses or effusions are seen. The heart is normal. The pulmonary vascularity is not increased. No pneumonia or pneumothorax is seen. The diaphragms are flattened. XR/XR chest 2V* [id number] Impression: Hyperinflation.
== END 2020-10-13 12:28 | disposition home or self-care (01) ==
PROVIDERS: PCP Registered Nurse; Visit Provider Internal Medicine Pulmonary Disease
DX: R06.02 Shortness of breath (principal)
CPT/HCPCS: 71046

== ENCOUNTER → 2020-12-27 11:07 | Outpatient (BNVA) | payer MEDICARE, SELFPAY | PROVIDERS: PCP Registered Nurse; Visit Provider Registered Nurse | DX: E11.59 Type 2 diabetes mellitus with other circulatory complications (principal); Z79.4 Long term (current) use of insulin; I10 Essential (primary) hypertension | CPT/HCPCS: 80053; 85025 ==

== ENCOUNTER → 2021-01-03 09:21 | Outpatient (BNVA) | payer MEDICARE, SELFPAY | PROVIDERS: PCP Registered Nurse; Visit Provider Registered Nurse | DX: E11.59 Type 2 diabetes mellitus with other circulatory complications (principal); Z79.4 Long term (current) use of insulin; I10 Essential (primary) hypertension | CPT/HCPCS: 83036; 85025 ==

== ENCOUNTER → 2021-01-13 09:50 | Outpatient (BNVA) | payer MEDICARE, SELFPAY | PROVIDERS: PCP Registered Nurse; Visit Provider Internal Medicine Pulmonary Disease | DX: J44.9 Chronic obstructive pulmonary disease, unspecified (principal); Z20.822 Contact with and (suspected) exposure to COVID-19 | CPT/HCPCS: 87635 ==

== ENCOUNTER 2021-01-19 08:11 | Outpatient (CLI) | payer MEDICARE, SELFPAY ==
--- NOTE | 2021-01-19 13:45 | PFTS_ITS ---
Date of Study:01/19/21 Date of Dictation: MECHANICS: Forced vital capacity (FVC) is reduced. Forced expiratory volume in one second (FEV1) is reduced. FEV1/FVC is reduced. FLOW VOLUME LOOP: Reduced flow at all lung volumes with significant scooping. LUNG VOLUMES: Total lung capacity (TLC) is normal. Residual volume (RV) is increased. DIFFUSING CAPACITY FOR CARBON MONOXIDE: Mild reduced. INTERPRETATION: The pulmonary function tests are consistent with a severe airflow obstruction. There is no significant postbronchodilator response. Lung volumes are consistent with air trapping. Gas exchange (DLCO) is mildly reduced. MTDD
== END 2021-01-19 08:12 | disposition home or self-care (01) ==
LOC: RT 08:13
PROVIDERS: PCP Registered Nurse; Visit Provider Internal Medicine Pulmonary Disease
DX: Z87.09 Personal history of other diseases of the respiratory system (principal)
CPT/HCPCS: 94060; 94618; 94726; 94729; J7611

== ENCOUNTER 2021-02-10 16:36 | Emergency (ER) | payer MEDICARE, SELFPAY ==
[2021-02-10 17:08] VITALS: BP 152/68; PULSE 105; RESP 22; TEMP 37.1; O2SAT 94; BMI 31.8
--- NOTE | 2021-02-10 17:20 | XRR_ITS ---
PROCEDURE INFORMATION: Exam: XR Chest Exam date and time: 02/10/2021 5:20 PM Age: 55 years old Clinical indication: Shortness of breath; Additional info: SOB TECHNIQUE: Imaging protocol: XR of the chest. Views: 1 view. COMPARISON: CR XR chest 2V* [id number] 10/13/2020 12:48 PM FINDINGS: Lungs: Emphysema. The lungs are clear. No consolidation. Pleural spaces: Unremarkable. No pleural effusion. No pneumothorax. Heart/Mediastinum: Unremarkable. No cardiomegaly. Bones/joints: Old rib fractures. No acute fracture identified. XR/XR chest 1V portable [id number] IMPRESSION: 1. No acute findings. Radiation Dose CTDIVOL = (mGy): DLP = (mGy-cm)
--- NOTE | 2021-02-10 17:33 | ED_ITS ---
HPI - SOB/Dyspnea General: Chief Complaint: Fever Stated Complaint: 88% O2/COUGH/FEVER/SOB Time Seen by Provider: 02/10/21 17:22 History of Present Illness: HPI Narrative: Patient is a 55-year-old female comes to the ED with shortness of breath, cough and fever. Patient has a past medical history of obstructive sleep apnea, type 2 diabetes, COPD, hypertension, hyperlipidemia, acid reflux and diverticulosis. Patient is currently on 3 L of oxygen via nasal cannula continuously 24 hours. Patient says approximately a week ago she started developing nasal congestion and drainage along with a cough and some shortness of breath. Patient has inhalers at home that she uses and use them today and it helped a little with shortness of breath. She describes the cough as productive with a yellow sputum. Her fever started over the past 3 days. She says she has had a temperature as high as 102 at home. Her last dose of Tylenol was around 3 AM this morning. Patient was seen at urgent care before coming here to the ED and they swabbed her for influenza and it was negative. Denies any abdominal pain, nausea/vomiting, bladder or bowel symptoms. Patient admits to still smoking. She is fully vaccinated for COVID-19. Associated symptoms: Reports fever(s); Deny abdominal pain, chest pain, nausea, orthopnea, palpitations or vomiting Review of Systems Const: Reports: fever(s) and body aches; Denies: chills or fatigue Eyes: Denies: change in vision or eye discomfort ENMT: Reports: ear or mastoid pain (left ear), nasal discharge and nasal congestion; Denies: throat pain or odynophagia Card: Denies: chest pain, palpitations, edema, swelling of feet/ankles, dyspnea on exertion or orthopnea Resp: Reports: dyspnea, productive cough and wheezing; Denies: non-productive cough GI: Denies: abdominal pain, nausea, vomiting, diarrhea, constipation or hematochezia : Denies: flank pain, dysuria or hematuria Musc: Denies: neck pain, back pain or extremity swelling Skin/Breast: Denies: rash or new lesions Neuro: Reports: headache(s); Denies: numbness in extremities or weakness in extremities PFS ED PFSH: Medical History Acid reflux Anemia Chronic nausea Chronic nausea Controlled diabetes mellitus with hyperglycemia, with long-term current use of insulin COPD, very severe Coronary artery disease Enrolled in chronic care management History of COPD Hyperlipidemia Hypertension Neuropathy due to type 2 diabetes mellitus Type 2 diabetes mellitus Surgical History History of appendectomy History of colonoscopy (~05/2019) History of esophagogastroduodenoscopy (EGD) (~05/2019) Hx of removal of ovary S/P laparoscopy Family History Father Cancer Lung disease Hypertension Mother Lung disease Grandmother Diabetes Other CAD (coronary artery disease) Denies family history of Stroke Social History Quit status (tobacco): considering quitting Second hand smoke exposure: Yes Smoking risk assessment/counseling performed?: Yes Alcohol intake: never Lives independently: Yes Household members: spouse Housing: House Marital status: Current occupational status: disabled Pets and animals: Yes History of recent travel: No Current gender identity: Female Financial difficulty paying for basics: Not Very Hard Physical Exam Const: COMMON NORMALS: no acute distress, patient oriented x3 and alert GENERAL APPEARANCE: cooperative and comfortable HENMT: COMMON NORMALS: normocephalic HEAD & SCALP: normocephalic MOUTH: Normal oral and palatal mucosa present THROAT: posterior oropharynx normal and uvula midline Neck/C-Spine: COMMON NORMALS: supple GENERAL: Yes normal visual inspection Resp: COMMON NORMALS: normal respiratory effort, No retractions and No use of accessory muscles EFFORT & INSPECTION: Yes able to speak in complete sentences and Yes tachypneic AUSCULTATION: wheezes expiratory wheezes and throughout Cardio: COMMON NORMALS: regular rate, regular rhythm, S1 normal heart sound present, S2 normal heart sound present, No gallops present (Cardio), No clicks present (Cardio), No murmurs present (Cardio) and Peripheral pulses 2+ throughout RATE: regular rate RHYTHM: regular rhythm HEART SOUNDS: S1 normal heart sound present and S2 normal heart sound present PERIPHERAL PULSES: Peripheral pulses 2+ throughout GI: COMMON NORMALS: Normal to inspection, nondistended, normoactive bowel sounds present, Soft to palpation, non-tender and no masses PALPATION: Yes Soft to palpation : COMMON NORMALS: Yes no CVA tenderness BLADDER/KIDNEY EXAM: Yes no CVA tenderness Back/Pelvis: COMMON NORMALS: no CVA tenderness Extremity: COMMON NORMALS: normal to inspection Neuro: COMMON NORMALS: patient oriented x3 and moves all extremities SENSORIUM/ORIENTATION: Yes alert Skin: GENERAL SKIN EXAM: dry skin Course Reevaluation(s): Reevaluation #1: Patient felt better after getting breathing treatments here in the ED. She says she does not have the same shortness of breath as she had earlier and feels like she can breathe better. Vital Signs: Vital signs: Vital Signs Temperature 98.6 F 02/10/21 19:59 Pulse Rate 92 02/10/21 19:59 Respiratory Rate 22 H 02/10/21 19:59 Blood Pressure 123/77 02/10/21 19:59 Pulse Oximetry 91 02/10/21 19:59 MDM - SOB/Dyspnea MDM Narrative: Medical decision making narrative: Patient is a 55-year-old female comes to the ED with upper respiratory symptoms and shortness of breath. Denies any chest pain. She has a history of COPD and uses inhalers and is on 4 L of oxygen at home continuously. She has been having cough nasal congestion and drainage for the past week. She is fully vaccinated for COVID-19 and had a negative influenza test earlier today. Here in the ED her respiration rate is around 22 and she is on 4 L via nasal cannula O2 saturation is 94%. White blood cell count 11.5 and the rest of labs are unremarkable. Lactic was normal troponins negative and EKG showed no acute findings. Chest x-ray showed no acute findings. Rapid Covid was negative and Covid PCR test is pending. Blood cultures pending. She is given a dose of Solu-Medrol and DuoNeb breathing treatments while here in the ED and her shortness of breath improved. She was also given a dose of doxycycline while here in the ED. no change in her O2 requirements and says that she feels better after getting the breathing treatments. Patient diagnosed with COPD exacerbation and told to follow-up with her PCP in the next 5 to 7 days for reevaluation. I discussed with patient the possibility of having monoclonal antibody infusions if her PCR test is positive and I told her to contact her PCP immediately to get that set up if positive. Return to ED precautions given. She was sent home with a prescription for doxycycline, Medrol Dosepak and Tessalon Perles. Patient understood and agree with plan. Lab Data: Attestation: I reviewed the patient's lab results. Labs: Lab Results 02/10/21 02/10/21 02/10/21 17:45 17:45 17:45 WBC 11.5 10^3/uL H 10 ^3/uL (4.0-10.0) RBC 4.83 10^6/uL 10^6 /uL (4.1-5.3) Hgb 12.5 g/dL g/dL (11.5-15.3) Hct 41.3 % % (37.0-47.0) MCV 85.5 fl fl (81-99) MCH 25.9 pg L pg (28.0-34.0) MCHC 30.3 g/dL g/dL (30.0-36.0) RDW 16.9 % H % (12.1-15.1) Plt Count 241 10^3/cmm 10^3 /cmm (130-400) MPV 10.5 fL H fL (7.4-10.4) Neut % (Auto) 74.8 % % Lymph % (Auto) 15.3 % % Mcdonald % (Auto) 8.0 % % Eos % (Auto) 1.0 % % Baso % (Auto) 0.3 % % Neut # (Auto) 8.65 10^3/uL H 10 ^3/uL (1.8-7.7) Lymph # (Auto) 1.8 10^3/uL 10^3/ uL (0.8-4.8) Mcdonald # (Auto) 0.9 10^3/uL 10^3/ uL (0.2-0.9) Eos # (Auto) 0.1 10^3/uL 10^3/ uL (0.0-0.8) Baso # (Auto) 0.0 10^3/uL 10^3/ uL (0.0-0.1) Nucleated RBC % (a uto) 0 % % Nucleated RBCs # 0.0 /100WBC /100W BC Specimen Type Sample Site ABG pH ABG pCO2 ABG pO2 ABG HCO3 ABG O2 Saturation ABG Base Excess Nabor Test A-a O2 Gradient Hematocrit Hgb O2 Saturation Carboxyhemoglobin Methemoglobin Total Hemoglobin Ionized Calcium O2 Delivery Device O2 Liters/Min FiO2 Congressional Representative ID Sodium 142 mmol/L mmol/L (136-145) Potassium 3.5 mmol/L mmol/L (3.5-5.1) Chloride 99 mmol/L mmol/L (98-107) Carbon Dioxide 33 mmol/L H mmol/ L (22-29) Anion Gap 13.5 (5-19) BUN 12 mg/dL mg/dL (6-20) Creatinine 0.8 mg/dL mg/dL (0.5-0.9) GFR Calculation 74.7 mL/min L mL/ min (90-130) Glucose 113 mg/dL mg/dL (65-115) Calculated Osmolal ity 295 mOsm/kg mOsm/ kg (285-295) Lactic Acid 0.7 mmol/L mmol/L (0.5-2.2) Calcium 8.3 mg/dL L mg/dL (8.5-10.5) Total Bilirubin 0.3 mg/dL mg/dL (0.15-1.2) AST 9 U/L U/L (0-32) ALT 12 U/L U/L (0-33) Alkaline Phosphata se 109 IU/L H IU/L (35-105) Troponin T Baselin e Total Protein 6.7 g/dL g/dL (6.6-8.7) Albumin 3.8 g/dL g/dL (3.5-5.2) Globulin 2.9 g/dL g/dL (1.3-4.6) SARS-CoV-2 Ag (Rap id) 02/10/21 02/10/21 02/10/21 17:45 17:45 17:50 WBC RBC Hgb Hct MCV MCH MCHC RDW Plt Count MPV Neut % (Auto) Lymph % (Auto) Mcdonald % (Auto) Eos % (Auto) Baso % (Auto) Neut # (Auto) Lymph # (Auto) Mcdonald # (Auto) Eos # (Auto) Baso # (Auto) Nucleated RBC % (a uto) Nucleated RBCs # Specimen Type Arterial Sample Site Radial, right ABG pH 7.39 (7.35-7.45) ABG pCO2 57.4 mmHg H mmHg (35-45) ABG pO2 75.8 mmHg L mmHg (80.0-100.0) ABG HCO3 34.8 mmol/L H mmo l/L (22-26) ABG O2 Saturation 95.8 ABG Base Excess 8.0 mmol/L H mmol /L (-2.0-2.0) Nabor Test Pos A-a O2 Gradient 10.7 mmHg H mmHg (5-10) Hematocrit 38.8 % % (37-47) Hgb O2 Saturation 89.3 % L % (95-100) Carboxyhemoglobin 6.2 %THgb %THgb (0.4-20.1) Methemoglobin 0.6 % % (0.4-1.5) Total Hemoglobin 12.7 g/dL g/dL (12-16) Ionized Calcium 1.2 mmol/L mmol/L (1.1-1.4) O2 Delivery Device Nc O2 Liters/Min 3.0 % % FiO2 32.0 % % Congressional Representative ID Amh Sodium 143.0 mmol/L mmol /L (131-143) Potassium 3.6 mmol/L mmol/L (3.5-5.0) Chloride Carbon Dioxide Anion Gap BUN Creatinine GFR Calculation Glucose 114.0 mg/dL mg/dL (70-115) Calculated Osmolal ity Lactic Acid Calcium Total Bilirubin AST ALT Alkaline Phosphata se Troponin T Baselin e 10 ng/L ng/L (0-10) Total Protein Albumin Globulin SARS-CoV-2 Ag (Rap id) Negative (Negative) Imaging Data^: CXR: Attestation: I personally reviewed and interpreted this imaging study as follows: Radiologist's impression: [address] [address] XRay Report Signed Patient: Nicole Carlos Unit #: [id number] : 1965 Age/Sex: 55 / F ADM Date: 02/10/21 Loc: ER Room/Bed: Attending Dr: Ordering Provider/Ordering MD: Vick Lipscomb Date of Service: 02/10/21 Procedure(s): XR chest 1V portable [id number] Accession Number(s): [id number] Report Number: [id number] PROCEDURE INFORMATION: Exam: XR Chest Exam date and time: 02/10/2021 5:20 PM Age: 55 years old Clinical indication: Shortness of breath; Additional info: SOB TECHNIQUE: Imaging protocol: XR of the chest. Views: 1 view. COMPARISON: CR XR chest 2V* [id number] 10/13/2020 12:48 PM FINDINGS: Lungs: Emphysema. The lungs are clear. No consolidation. Pleural spaces: Unremarkable. No pleural effusion. No pneumothorax. Heart/Mediastinum: Unremarkable. No cardiomegaly. Bones/joints: Old rib fractures. No acute fracture identified. XR/XR chest 1V portable [id number] IMPRESSION: 1. No acute findings. Radiation Dose CTDIVOL = (mGy): DLP = (mGy-cm) Dictated By: Jose Snowden Signed By: Jose Snowden Signed Date/Time: 02/10/211747 DD/ 19 EKG Data^: EKG 1: Attestation: I personally reviewed and interpreted this EKG as follows: EKG Interpretation Date: 02/10/21 Interpretation: Sinus rhythm, 99 bpm, no ST segment elevation or depression seen. Discharge Plan Discharge Patient Disposition: Home Clinical Impression: COPD exacerbation Condition: Stable Prescriptions: New Tessalon Perles 100 mg capsule 100 mg PO Q6H PRN (Reason: cough) Qty: 20 RF: 0 doxycycline hyclate 100 mg capsule 100 mg PO BID 10 Days Qty: 20 RF: 0 methylprednisolone 4 mg tablets,dose pack See Rx Instructions .ROUTE .COMPLEX Qty: 21 RF: 0 No Action BIPAP as directed RF: 0 baclofen 20 mg tablet See Rx Instructions .ROUTE .COMPLEX Qty: 45 RF: 2 Jardiance 25 mg tablet See Rx Instructions .ROUTE .COMPLEX Qty: 90 RF: 0 pantoprazole 40 mg tablet,delayed release (DR/EC) See Rx Instructions .ROUTE .COMPLEX 90 Days Qty: 180 RF: 0 pregabalin [Lyrica] 150 mg capsule 150 mg PO TID 30 Days Qty: 90 RF: 2 ondansetron HCl 4 mg tablet 4 mg PO DAILY PRN (Reason: nausea and vomiting) 30 Days Qty: 30 RF: 2 Lantus Solostar U-100 Insulin 100 unit/mL (3 mL) insulin pen 40 unit SUBCUT BID Qty: 3 RF: 0 aspirin 81 mg tablet,delayed release (DR/EC) 81 mg PO DAILY Qty: 30 RF: 3 ybyblqtzafe-cdhttjatk-dneqoazy [Trelegy Ellipta] 100-62.5-25 mcg blister with device See Rx Instructions .ROUTE .COMPLEX Qty: 60 RF: 3 albuterol sulfate 90 mcg/actuation HFA aerosol inhaler See Rx Instructions .ROUTE .COMPLEX Qty: 54 RF: 0 simvastatin 20 mg tablet See Rx Instructions .ROUTE .COMPLEX Qty: 90 RF: 0 telmisartan 80 mg tablet See Rx Instructions .ROUTE .COMPLEX Qty: 90 RF: 0 ipratropium-albuterol 0.5 mg-3 mg(2.5 mg base)/3 mL solution for nebulization See Rx Instructions .ROUTE .COMPLEX Qty: 270 RF: 0 hydrochlorothiazide 25 mg tablet See Rx Instructions .ROUTE .COMPLEX Qty: 90 RF: 0 metoprolol tartrate 50 mg tablet See Rx Instructions .ROUTE .COMPLEX Qty: 180 RF: 0 amlodipine 10 mg tablet See Rx Instructions .ROUTE .COMPLEX Qty: 90 RF: 0 Discharge Orders: Discharge ED (Routine); Ordered 02/10/21 Ordered By: Vick Lipscomb Referrals: Reji Faulkner FNP [Primary Care Provider] - Discharge Diet: Regular Discharge Activity: Increase activity as tolerated Patient Instructions: COPD (Chronic Obstructive Pulmonary Disease) (DC) Activity Restrictions/Additional Instructions: Follow-up with medical provider as directed in 5 to 7 days reevaluation. Continue using your home oxygen as previously prescribed at 4 L continuously. Monitor O2 saturation and keep levels between 88 to 92%. It is important to stop smoking to help with symptoms. Continue using your previously prescribed inhalers to help with any shortness of breath. If your Covid PCR test is positive contact your primary care physician immediately to discuss getting set up with monoclonal antibody infusion to treat Covid. Take medications as prescribed. Return to the ER or your medical provider if condition worsens. Please read and understand discharge instructions. Thank you for choosing [facility] for your healthcare needs today. Please realize this is an emergency room and that we are providing you with a medical screening exam and this may not be complete and all inclusive of all the testing and or work up that you may need to determine your ailment or severity of your illness. It is very important that you follow up as instructed or that you return to the Emergency Department should you have concerns or if your condition changes or worsens in any way. Coding Level of Care Code ED Crusher Plant Operator for Chg Fwd Exam Comprehensive
[2021-02-10 17:58] LABS: Basophils % 0.3 %; Eosinophils # 0.1 10^3/uL (0.0-0.8); Hematocrit 41.3 % (37.0-47.0); Hemoglobin 12.5 g/dL (11.5-15.3); Lymphocytes # 1.8 10^3/uL (0.8-4.8); Lymphocytes % 15.3 %; Mean Corpuscular HGB Conc 30.3 g/dL (30.0-36.0); Mean Corpuscular Hemoglobin 25.9 pg (28.0-34.0); Mean Corpuscular Volume 85.5 fl (81-99); Mean Platelet Volume 10.5 fL (7.4-10.4); Monocytes # 0.9 10^3/uL (0.2-0.9); Neutrophils # 8.65 10^3/uL (1.8-7.7); Neutrophils % 74.8 %; Nucleated Red Blood Cells % 0 %; Platelet Count 241 10^3/cmm (130-400); Red Blood Count 4.83 10^6/uL (4.1-5.3); Red Cell Distribution Width 16.9 % (12.1-15.1); White Blood Count 11.5 10^3/uL (4.0-10.0)
[2021-02-10 18:03] LABS: ABG PCO2 57.4 mmHg (35-45); ABG PH Result 7.39 (7.35-7.45); Alveolar-Arterial Oxygen Gradi 10.7 mmHg (5-10); Arterial Blood Gas Hematocrit 38.8 % (37-47); Blood Gas Allen Test Pos; Blood Gas Operator Identificat AMH; Blood Gas Sample Site Radial, right; Blood Gas Sample Type Arterial; Carboxyhemoglobin 6.2 %THgb (0.4-20.1); HCO3 ABG 34.8 mmol/L (22-26); HGB O2 Sat 89.3 % (95-100); Ionized Calcium Level - ABG 1.2 mmol/L (1.1-1.4); Methemoglobin 0.6 % (0.4-1.5); Oxygen Device NC; Oxygen Saturation ABG 95.8; PO2 ABG 75.8 mmHg (80.0-100.0); Potassium Level - ABG 3.6 mmol/L (3.5-5.0); Total Hemoglobin 12.7 g/dL (12-16)
[2021-02-10 18:04] VITALS: BP 127/59; PULSE 98; RESP 20; O2SAT 95
[2021-02-10 18:19] LABS: SARS Covid-2 Antigen Negative (Negative); Troponin(5th) Baseline 10 ng/L (0-10)
[2021-02-10 18:20] LABS: Alanine Aminotransferase 12 U/L (0-33); Albumin Level 3.8 g/dL (3.5-5.2); Alkaline Phosphatase 109 IU/L (35-105); Anion Gap 13.5 (5-19); Aspartate Amino Transferase 9 U/L (0-32); Blood Urea Nitrogen 12 mg/dL (6-20); Calcium 8.3 mg/dL (8.5-10.5); Carbon Dioxide 33 mmol/L (22-29); Chloride 99 mmol/L (98-107); Globulin 2.9 g/dL (1.3-4.6); Glomerular Filtration Rate 74.7 mL/min (90-130); Glucose 113 mg/dL (65-115); Osmolality Calculated 295 mOsm/kg (285-295); Potassium 3.5 mmol/L (3.5-5.1); Sodium 142 mmol/L (136-145); Total Bilirubin 0.3 mg/dL (0.15-1.2); Total Protein 6.7 g/dL (6.6-8.7)
[2021-02-10 18:21] LABS: Lactic Sepsis W/Reflex 0.7 mmol/L (0.5-2.2)
--- NOTE | 2021-02-10 19:21 | ECG_ITS ---
[facility] Test Date: 2021-02-10 Pat Name: Nicole Carlos Department: Room: Gender: Female Title I Instructional Assistant: : 1965 Requested By: Vick Lipscomb Order Number: [id number] Roman MD: Ana Luisa Gerber M.D. Measurements Intervals [place] Rate: 99 P: 54 MO: 140 QRS: 70 QRSD: 84 T: 66 QT: 347 QTc: 447 Interpretive Statements SINUS RHYTHM Compared to ECG 09/06/2019 13:15:52 No significant changes Electronically Signed On 02-11-2021 6:36:28 WELDER OPERATOR by Ana Luisa Gerber M.D. [id number]
--- NOTE | 2021-02-10 19:39 | PC.NURSE ---
Breathing treatment (ipratropium) was administered by RN. Several attempts were made to contact RT and provider wanted treatment performed MIKALA.
[2021-02-10] MEDS: doxycycline 100 mg Tablet PO (19:54)
[2021-02-10 19:59] VITALS: BP 123/77; PULSE 92; RESP 22; TEMP 37; O2SAT 91
[2021-02-11 16:07] LABS: Coronavirus Test Green County Not Detected
--- NOTE | 2021-02-12 11:15 | PC.NURSE ---
Informed pt of Negative COVID results
== END 2021-02-10 20:00 | disposition home or self-care (01) ==
PROVIDERS: Emergency Provider Physician Assistant; PCP Registered Nurse
DX: J44.1 Chronic obstructive pulmonary disease with (acute) exacerbation (principal); Z79.82 Long term (current) use of aspirin; Z79.4 Long term (current) use of insulin; I25.10 Atherosclerotic heart disease of native coronary artery without angina pectoris; E78.5 Hyperlipidemia, unspecified; I10 Essential (primary) hypertension; E11.40 Type 2 diabetes mellitus with diabetic neuropathy, unspecified; Z77.22 Contact with and (suspected) exposure to environmental tobacco smoke (acute) (chronic); Z20.822 Contact with and (suspected) exposure to COVID-19
CPT/HCPCS: 36600; 71045; 80051; 80053; 82330; 82805; 83605; 84484; 85025; 87040; 87400; 87426; 87635; 93005; 96374; 99283; J2930

== ENCOUNTER → 2021-03-30 10:26 | Outpatient (BNVA) | payer MEDICARE, SELFPAY | PROVIDERS: PCP Registered Nurse; Visit Provider Registered Nurse | DX: E11.59 Type 2 diabetes mellitus with other circulatory complications (principal); Z79.4 Long term (current) use of insulin; E11.40 Type 2 diabetes mellitus with diabetic neuropathy, unspecified | CPT/HCPCS: 83036 ==

== ENCOUNTER 2021-04-28 08:58 | Outpatient (RCR) | payer MEDICARE, SELFPAY | END 2021-05-09 23:59 | disposition home or self-care (01) | LOC: PULRHB 08:58 | PROVIDERS: Visit Provider Internal Medicine Pulmonary Disease | DX: J44.9 Chronic obstructive pulmonary disease, unspecified (principal) | CPT/HCPCS: 94626 ==

== ENCOUNTER 2021-05-10 06:00 | Outpatient (RCR) | payer MEDICARE, SELFPAY | END 2021-06-09 23:59 | disposition home or self-care (01) | LOC: PULRHB 06:00 | PROVIDERS: Visit Provider Internal Medicine Pulmonary Disease | DX: J44.9 Chronic obstructive pulmonary disease, unspecified (principal) | CPT/HCPCS: 87631; 87635 ==

== ENCOUNTER 2021-06-01 18:25 | Observation (INO) | payer MEDICARE, SELFPAY ==
[2021-06-01] VITALS (14 sets, daily range): BP systolic 95–152; BP diastolic 59–66; PULSE 85–128; RESP 19–32; TEMP 37.2–37.7; O2SAT 4–96; BMI 29.7
--- NOTE | 2021-06-01 18:37 | ECG_ITS ---
[facility] Test Date: 2021-06-01 Pat Name: Nicole Carlos Department: Room: Gender: Female Filer Repairer: : 1965 Requested By: Chuyita Villa Order Number: [id number] Roman MD: Magen Welch M.D. Measurements Intervals [place] Rate: 121 P: 76 UT: 159 QRS: 83 QRSD: 87 T: 68 QT: 339 QTc: 483 Interpretive Statements SINUS TACHYCARDIA NONSPECIFIC ST & T-WAVE ABNORMALITY Compared to ECG 02/10/2021 18:21:31 T-wave abnormality now present Sinus rhythm no longer present Electronically Signed On 06-02-2021 17:56:34 CDT by Magen Welch M.D. [id number]
--- NOTE | 2021-06-01 18:37 | XRR_ITS ---
PROCEDURE INFORMATION: Exam: XR Chest Exam date and time: 06/01/2021 5:45 PM Age: 55 years old Clinical indication: Shortness of breath; Additional info: SOB TECHNIQUE: Imaging protocol: XR of the chest. Views: 1 view. COMPARISON: CR (CHEST, ) 02/10/2021 5:31 PM FINDINGS: Lungs: Stable hyperaerated lungs consistent with deep inspiratory effort vs reactive airway disease vs mild COPD . Pleural spaces: Unremarkable. No pleural effusion. No pneumothorax. Heart/Mediastinum: Unremarkable. No cardiomegaly. Bones/joints: Mild thoracic spondylosis. XR/XR chest 1V portable [id number] IMPRESSION: Stable hyperaerated lungs consistent with deep inspiratory effort vs reactive airway disease vs mild COPD .
--- NOTE | 2021-06-01 18:47 | W.ED.COVID ---
HPI - COVID General: Chief Complaint: COVID symptoms Stated Complaint: SOB Chest Pains\Fever\Coughing Time Seen by Provider: 06/01/21 18:38 Triage information: No fever, cough or shortness of breath. No known COVID + exposure last 14 days History of Present Illness: Ms. Carlos is a 55-year-old lady with significant past medical history of tobaccoism and COPD, she has a history of hypertension, hyperlipidemia, diabetes who presents to the emergency department due to shortness of breath and cough. She had flu a with respiratory symptoms approximately 2 weeks ago however not completely recovered. She went on a trip to [place] and had returned. She subsequently developed, for 5 days ago, increased shortness of breath and cough. She has had fevers at home with T-max 104. Additionally she has had nausea and generalized malaise. She denies exposure to sick contacts. Overall course of symptoms has been worsening. Intensity is moderate to severe. Worse with exertion or activity. Does have a positive family history for pulmonary realism. No other specific changes in health, exacerbating, or alleviating factors identified. COVID 19 common symptoms: positive fever(s), chills, cough, dyspnea, fatigue, body aches, throat pain and nasal congestion Severity: moderate COVID Results: SARS-CoV-2 Antigen (Rapid) Negative (Negative) 06/01/21 19:30 06/01/21 SARS-CoV-2 RNA (RT-PCR) Not detected (NOT DETECTED) 10/11/20 10:09 10/11/20 Nasal/Oral Coronavirus 2019 PCR Not detected 02/10/21 19:40 02/10/21 SARS-CoV-2 (PCR) Not detected (NOT DETECT) 06/02/21 00:56 06/02/21 Coronavirus Type 229E (PCR) Not detected (NOT DETECT) 06/02/21 00:56 06/02/21 Review of Systems General: Reports: 10 or more systems reviewed and unremarkable except in HPI and below Const: Reports: fever(s), chills, body aches and fatigue ENMT: Reports: throat pain and nasal congestion Resp: Reports: dyspnea PFSH ED PFSH: Medical History Acid reflux Anemia Chronic nausea Chronic nausea Controlled diabetes mellitus with hyperglycemia, with long-term current use of insulin COPD, very severe Coronary artery disease Enrolled in chronic care management History of COPD Hyperlipidemia Hypertension Neuropathy due to type 2 diabetes mellitus Type 2 diabetes mellitus Surgical History History of appendectomy History of colonoscopy (~05/2019) History of esophagogastroduodenoscopy (EGD) (~05/2019) Hx of removal of ovary S/P laparoscopy Family History Father Cancer Lung disease Hypertension Mother Lung disease Grandmother Diabetes Other CAD (coronary artery disease) Denies family history of Stroke Social History Quit status (tobacco): considering quitting Second hand smoke exposure: Yes Smoking risk assessment/counseling performed?: Yes Alcohol intake: never Lives independently: Yes Household members: spouse Housing: House Marital status: Current occupational status: disabled Pets and animals: Yes History of recent travel: No Current gender identity: Female Financial difficulty paying for basics: Not Very Hard Physical Exam Const: COMMON NORMALS: alert GENERAL APPEARANCE: cooperative, well developed and ill appearing HENMT: COMMON NORMALS: normocephalic and atraumatic HEAD & SCALP: normocephalic and atraumatic THROAT: posterior oropharynx normal Eye: COMMON NORMALS: conjunctivae normal CONJUNCTIVA: Yes conjunctivae normal SCLERA: sclerae normal Neck/C-Spine: COMMON NORMALS: supple GENERAL: Yes trachea midline Resp: EFFORT & INSPECTION: Yes tachypneic and Yes uses accessory muscles AUSCULTATION: wheezes and diminished lung sounds Cardio: COMMON NORMALS: regular rhythm RATE: tachycardic RHYTHM: regular rhythm GI: COMMON NORMALS: Soft to palpation PALPATION: Yes Soft to palpation and No Tenderness to palpation present (GI) PERCUSSION: normal to percussion Extremity: GENERAL: Yes normal exam except as noted and No edema Neuro: COMMON NORMALS: moves all extremities SENSORIUM/ORIENTATION: Yes alert and No Orientation impaired Psych: COMMON NORMALS: mental status grossly normal and Normal thought process present THOUGHT PROCESS: Normal thought process present Course ED course: - Patient was seen and evaluated by me at bedside - Patient placed on cardiac monitors, IV access obtained - Initial evaluation notable for ill appearance, increased work of breathing. - Labs and xrays personally interpreted by me -RT treatments ordered, aspirin, steroids given. BiPAP ordered. - Labs notable for leukocytosis. ABG with hypercapnia and hypoxemia. Hypokalemia and likely dehydration noted on metabolic panel. Flu and rapid Covid negative. - Imaging notable for no lobar consolidation or pneumothorax. Recent travel and severity of symptoms including new oxygen requirement a D-dimer was warranted by Wells criteria. CTA negative for pulmonary embolism. - Upon serial reexamination after treatment the patient was mildly improved - Based on patient history, evaluation, and testing as interpreted the most likely cause of the patient's condition is COPD exacerbation with acute hypercapnic and hypoxic respiratory failure - The results of ED evaluation were discussed with the patient including plan for admission due to requirement for level of care not available if discharged to prevent significant worsening/deterioration. -Hospitalist service contacted and agreed to admit the patient. - Patient was admitted without further deterioration or significant events. Note: Click bubbles or prepopulated monroe in note writing are used for assistance with data collection and billing and are inherently more limited than narrative and other text portions of this note. Please use narrative for additional clinical history and defer to narrative/free test for any case of contradictory information. If information appears in only free text or click bubble it should be considered present or absent as reported. Please contact note video game script writer for clarifications of clinical information or contradictory information. MDM is a brief summary, contradictory or erroneous seeming information should be clarified and full note should be reviewed. Vital Signs: Vital signs: Vital Signs Temperature 97.6 F 06/03/21 13:07 Pulse Rate 74 06/03/21 13:07 Respiratory Rate 16 06/03/21 13:07 Blood Pressure 120/71 06/03/21 13:07 Pulse Oximetry 90 06/03/21 13:07 MDM - COVID Medical Decision Making 55-year-old lady with recent travel and flu who previously improved now presenting with worsening respiratory symptoms. Patient found to have respiratory distress and new oxygen requirement. Admitted for further management. Medical Records I reviewed the patient's medical records. Lab Data I reviewed the patient's lab results. : 06/03/21 05:05 06/03/21 05:05 Radiology Impressions Chest X-Ray 06/01/21 18:37 IMPRESSION: Stable hyperaerated lungs consistent with deep inspiratory effort vs reactive airway disease vs mild COPD . Chest CTA 06/01/21 20:23 IMPRESSION: 1. Severe calcified coronary artery disease. 2. Mild mediastinal adenopathy which may be reactive. 3. No pulmonary embolus or aortic dissection. Laboratory Results WBC 11.4 10^3/uL (4.0-10.0) H 06/01/21 19:10 RBC 4.91 10^6/uL (4.1-5.3) 06/01/21 19:10 Hgb 12.7 g/dL (11.5-15.3) 06/01/21 19:10 Hct 40.5 % (37.0-47.0) 06/01/21 19:10 MCV 82.5 fl (81-99) 06/01/21 19:10 MCH 25.9 pg (28.0-34.0) L 06/01/21 19:10 MCHC 31.4 g/dL (30.0-36.0) 06/01/21 19:10 RDW 19.4 % (12.1-15.1) H 06/01/21 19:10 Plt Count 237 10^3/cmm (130-400) 06/01/21 19:10 MPV 10.3 fL (7.4-10.4) 06/01/21 19:10 Neut % (Auto) 78.2 % 06/01/21 19:10 Lymph % (Auto) 14.1 % 06/01/21 19:10 [place] % (Auto) 5.9 % 06/01/21 19:10 Eos % (Auto) 0.8 % 06/01/21 19:10 Baso % (Auto) 0.5 % 06/01/21 19:10 Neut # (Auto) 8.95 10^3/uL (1.8-7.7) H 06/01/21 19:10 Lymph # (Auto) 1.6 10^3/uL (0.8-4.8) 06/01/21 19:10 [place] # (Auto) 0.7 10^3/uL (0.2-0.9) 06/01/21 19:10 Eos # (Auto) 0.1 10^3/uL (0.0-0.8) 06/01/21 19:10 Baso # (Auto) 0.1 10^3/uL (0.0-0.1) 06/01/21 19:10 Nucleated RBC % (auto) 0 % 06/01/21 19:10 Nucleated RBCs # 0.0 /100WBC 06/01/21 19:10 D-Dimer 0.64 ug/mIFEU (0-0.59) H 06/01/21 19:10 Specimen Type Arterial 06/01/21 23:24 Sample Site Radial, right 06/01/21 23:24 ABG pH 7.39 (7.35-7.45) 06/01/21 23:24 ABG pCO2 51.3 mmHg (35-45) H 06/01/21 23:24 ABG pO2 74.0 mmHg (80.0-100.0) L 06/01/21 23:24 ABG HCO3 30.7 mmol/L (22-26) H 06/01/21 23:24 ABG Base Excess 4.5 mmol/L (-2.0-2.0) H 06/01/21 23:24 Nabor Test Pos 06/01/21 23:24 Hematocrit 38.0 % (37-47) 06/01/21 23:24 O2 Delivery Device Bipap 06/01/21 23:24 FiO2 28.0 % 06/01/21 23:24 PEEP 8.0 cmH20 06/01/21 23:24 Harbormaster ID Hensa 06/01/21 23:24 Sodium 138 mmol/L (136-145) 06/01/21 19:10 Potassium 2.9 mmol/L (3.5-5.1) L 06/01/21 19:10 Chloride 96 mmol/L (98-107) L 06/01/21 19:10 Carbon Dioxide 30 mmol/L (22-29) H 06/01/21 19:10 Anion Gap 14.9 (5-19) 06/01/21 19:10 BUN 11 mg/dL (6-20) 06/01/21 19:10 Creatinine 0.9 mg/dL (0.5-0.9) 06/01/21 19:10 GFR Calculation 65.2 mL/min (90-130) L 06/01/21 19:10 Glucose 225 mg/dL (65-115) H 06/01/21 19:10 Calculated Osmolality 292 mOsm/kg (285-295) 06/01/21 19:10 Lactic Acid 0.8 mmol/L (0.5-2.2) 06/01/21 21:13 Calcium 9.0 mg/dL (8.5-10.5) 06/01/21 19:10 Magnesium 1.8 mg/dL (1.7-2.3) 06/01/21 19:10 Total Bilirubin 0.2 mg/dL (0.15-1.2) 06/01/21 19:10 AST 11 U/L (0-32) 06/01/21 19:10 ALT 13 U/L (0-33) 06/01/21 19:10 Alkaline Phosphatase 108 IU/L (35-105) H 06/01/21 19:10 Troponin T Baseline 11 ng/L (0-10) H 06/01/21 19:10 Troponin T 120 Minute 11.05 ng/L (0-10) H 06/01/21 21:13 Delta Troponin T 0.05 ABS# (0-10) 06/01/21 21:13 NT-Pro-B Natriuret Pep 32 pg/mL (0-125) 06/01/21 19:10 Total Protein 7.0 g/dL (6.6-8.7) 06/01/21 19:10 Albumin 3.6 g/dL (3.5-5.2) 06/01/21 19:10 Globulin 3.4 g/dL (1.3-4.6) 06/01/21 19:10 Urine Color Yellow (Yellow) 06/01/21 20:55 Urine Appearance Clear (CLEAR) 06/01/21 20:55 Urine pH 5 (5-7) 06/01/21 20:55 Ur Specific [place] 1.010 (1.005-1.030) 06/01/21 20:55 Urine Protein Neg (Negative) 06/01/21 20:55 Urine Glucose (UA) 4+ (Normal) H 06/01/21 20:55 Urine Ketones Negative (Negative) 06/01/21 20:55 Urine Blood 2+ (Negative) H 06/01/21 20:55 Urine Nitrate Negative (Negative) 06/01/21 20:55 Urine Bilirubin Neg (Negative) 06/01/21 20:55 Urine Urobilinogen Norm mg/dL (Negative) 06/01/21 20:55 Ur Leukocyte Esterase Negative (Negative) 06/01/21 20:55 Urine RBC 0-4 /hpf (0-2) H 06/01/21 20:55 Urine WBC 0-4 /hpf (0-5) H 06/01/21 20:55 Ur Squamous Epith Cells 10-15 /hpf (0-5) H 06/01/21 20:55 Amorphous Sediment Not Reportable 06/01/21 20:55 Urine Bacteria 1+ /hpf (NONE) H 06/01/21 20:55 Influenza Type A Ag Negative (Negative) 06/01/21 19:30 Influenza Type B Ag Negative (Negative) 06/01/21 19:30 SARS-CoV-2 Ag (Rapid) Negative (Negative) 06/01/21 19:30 SARS-CoV-2 Antigen (Rapid) Negative (Negative) 06/01/21 19:30 06/01/21 SARS-CoV-2 RNA (RT-PCR) Not detected (NOT DETECTED) 10/11/20 10:09 10/11/20 Nasal/Oral Coronavirus 2019 PCR Not detected 02/10/21 19:40 02/10/21 SARS-CoV-2 (PCR) Not detected (NOT DETECT) 06/02/21 00:56 06/02/21 Coronavirus Type 229E (PCR) Not detected (NOT DETECT) 06/02/21 00:56 06/02/21 EKG Data EKG 1: I personally reviewed and interpreted this EKG as follows: EKG interpretation date: 06/01/21 EKG interpretation time: 18:40 Interpretation: Twelve-lead EKG shows a regular rhythm at a rate of 121. MA interval 159, QRS duration 87, QTc 411. Normal axis. Interpretation: Sinus tachycardia. Nonspecific ST segment abnormalities. EKG 2: I personally reviewed and interpreted this EKG as follows: EKG interpretation date: 06/01/21 EKG interpretation time: 22:29 Interpretation: Twelve-lead EKG shows a regular rhythm at a rate of 98. MA interval 155, QRS duration 86, QTc 410. Normal axis. Interpretation: Sinus rhythm. Discharge Plan Discharge Patient Disposition: Admitted As Inpatient Admit Provider: Jean-Pierre Martinez Clinical Impression: Acute exacerbation of chronic obstructive pulmonary disease, Acute respiratory failure with hypoxia Condition: Stable Discharge Diet: Cardiac Discharge Activity: Increase activity as tolerated Coding Level of Care Code ED Grades 9 12 Tutor for Chg Fwd
[2021-06-01] MEDS: sodium chloride 0.9% 1,000 ML 999 ML IV (19:19)
[2021-06-01 19:21] LABS: Basophils # 0.1 10^3/uL (0.0-0.1); Basophils % 0.5 %; Eosinophils # 0.1 10^3/uL (0.0-0.8); Eosinophils % 0.8 %; Hematocrit 40.5 % (37.0-47.0); Hemoglobin 12.7 g/dL (11.5-15.3); Lymphocytes # 1.6 10^3/uL (0.8-4.8); Lymphocytes % 14.1 %; Mean Corpuscular HGB Conc 31.4 g/dL (30.0-36.0); Mean Corpuscular Hemoglobin 25.9 pg (28.0-34.0); Mean Corpuscular Volume 82.5 fl (81-99); Mean Platelet Volume 10.3 fL (7.4-10.4); Monocytes # 0.7 10^3/uL (0.2-0.9); Monocytes % 5.9 %; Neutrophils # 8.95 10^3/uL (1.8-7.7); Neutrophils % 78.2 %; Nucleated Red Blood Cells % 0 %; Platelet Count 237 10^3/cmm (130-400); Red Blood Count 4.91 10^6/uL (4.1-5.3); Red Cell Distribution Width 19.4 % (12.1-15.1); White Blood Count 11.4 10^3/uL (4.0-10.0)
[2021-06-01] MEDS: ipratropium-albuterol 3 mL Neb INHALATION (19:22)
[2021-06-01] MEDS: fentaNYL 50 mcg/mL INJ 2mL IVP ×2 (19:23→22:06)
[2021-06-01] MEDS: aspirin 81 mg Chew Tablet 324 MG PO (19:31)
[2021-06-01 19:36] LABS: D Dimer 0.64 ug/mIFEU (0-0.59)
[2021-06-01 19:46] LABS: Troponin(5th) Baseline 11 ng/L (0-10)
[2021-06-01 19:54] LABS: Alanine Aminotransferase 13 U/L (0-33); Albumin Level 3.6 g/dL (3.5-5.2); Alkaline Phosphatase 108 IU/L (35-105); Anion Gap 14.9 (5-19); Aspartate Amino Transferase 11 U/L (0-32); Blood Urea Nitrogen 11 mg/dL (6-20); Carbon Dioxide 30 mmol/L (22-29); Chloride 96 mmol/L (98-107); Globulin 3.4 g/dL (1.3-4.6); Glomerular Filtration Rate 65.2 mL/min (90-130); Glucose 225 mg/dL (65-115); NT Pro B Type Natriuretic Pept 32 pg/mL (0-125); Osmolality Calculated 292 mOsm/kg (285-295); Sodium 138 mmol/L (136-145); Total Bilirubin 0.2 mg/dL (0.15-1.2)
[2021-06-01 20:07] LABS: Potassium 2.9 mmol/L (3.5-5.1)
[2021-06-01 20:11] LABS: Influenza A by IFA Negative (Negative); Influenza B by IFA Negative (Negative); SARS Covid-2 Antigen Negative (Negative)
--- NOTE | 2021-06-01 20:23 | CTR_ITS ---
PROCEDURE INFORMATION: Exam: CTA Chest With Contrast Exam date and time: 06/01/2021 9:37 PM Age: 55 years old Clinical indication: Shortness of breath; Patient HX: SOB, elevated d-dimer, chest pain; Additional info: Chest pain, SOB, recent travel, elevated ddimer TECHNIQUE: Imaging protocol: Computed tomographic angiography of the chest with contrast. 3D rendering (Not supervised by radiologist): MIP and/or 3D reconstructed images were created by the technologist. Radiation optimization: All CT scans at this facility use at least one of these dose optimization techniques: automated exposure control; mA and/or kV adjustment per patient size (includes targeted exams where dose is matched to clinical indication); or iterative reconstruction. Contrast material: OMNI 350; Contrast volume: 57 ml; Contrast route: INTRAVENOUS (IV); COMPARISON: CTA Chest-Pulmonary Emb [id number] 01/27/2015 8:49 AM RADIATION DOSE METRICS: Total DLP (mGy-cm): 1094.65 FINDINGS: Pulmonary arteries: No pulmonary embolus or aortic dissection. Aorta: Calcification of the thoracic aorta and/or great vessels consistent with atherosclerotic vessel disease. Great vessels off aortic arch: Normal variant common origin of the left common carotid artery and innominate artery consistent with bovine arch. Lungs: Unremarkable. No consolidation. No masses. Pleural spaces: Unremarkable. No pneumothorax. No pleural effusion. Heart: Severe calcified coronary artery disease. Lymph nodes: Mild mediastinal adenopathy which may be reactive. Bones/joints: Moderate thoracic spondylosis. Mild thoracic spondylosis. One or more healed right rib fractures. Soft tissues: Unremarkable. CT/CT angio chest PE protcl [id number] IMPRESSION: 1. Severe calcified coronary artery disease. 2. Mild mediastinal adenopathy which may be reactive. 3. No pulmonary embolus or aortic dissection.
[2021-06-01 20:33] LABS: Magnesium 1.8 mg/dL (1.7-2.3)
[2021-06-01] MEDS: potassium chloride ER 20 mEq Tablet 40 MEQ PO (20:42)
--- NOTE | 2021-06-01 21:00 | ECG_ITS ---
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 Measurements Intervals Howes Rate: 98 P: 75 WY: 155 QRS: 76 QRSD: 86 T: 62 QT: 354 QTc: 453 Interpretive Statements SINUS RHYTHM SEPTAL MYOCARDIAL INFARCTION , OF INDETERMINATE AGE [40+ ms Q WAVE IN V1/V2] Compared to ECG 06/01/2021 18:39:00 Myocardial infarct finding now present Sinus tachycardia no longer present T-wave abnormality no longer present Electronically Signed On 06-02-2021 18:00:59 CDT by Magen Welch M.D. [id number]
[2021-06-01 21:12] LABS: Add Urine Culture? No; Add Urine Microscopic? YES; Bacteria Urine 1+ /hpf; Bilirubin Urine Neg (Negative); Blood Urine 2+ (Negative); Glucose Urine UA 4+ (Normal); Ketones Urine Negative (Negative); Leukocyte Esterase Urine Negative (Negative); Nitrate Urine Negative (Negative); Protein Urine Neg (Negative); RBC Urine 0-4 /hpf (0-2); Urine Appearance Clear (CLEAR); Urine Color Yellow (Yellow); Urobilinogen Urine Norm (Negative); WBC Urine 0-4 /hpf (0-5); pH Urine 5 (5-7)
[2021-06-01] MEDS: iohexol 350 mg/mL 100 mL Btl IV ×2 (21:37→21:42)
[2021-06-01 21:47] LABS: Troponin 5 2HR 11.05 ng/L (0-10)
[2021-06-01 21:50] LABS: Lactic Sepsis W/Reflex 0.8 mmol/L (0.5-2.2)
[2021-06-01 21:51] LABS: Troponin 5 2HR Delta 0.05 ABS# (0-10)
[2021-06-01] MEDS: ketorolac 30 mg/mL INJ 15 MG IVP (22:08)
--- NOTE | 2021-06-01 23:04 | PC.NURSE ---
pt eating a sandwhich and snack on NC at this time
[2021-06-01 23:38] LABS: ABG PCO2 51.3 mmHg (35-45); ABG PH Result 7.39 (7.35-7.45); Base Excess ABG 4.5 mmol/L (-2.0-2.0); Blood Gas Allen Test Pos; Blood Gas Sample Site Radial, right; Blood Gas Sample Type Arterial; HCO3 ABG 30.7 mmol/L (22-26); Oxygen Device BIPAP
[2021-06-02] VITALS (20 sets, daily range): BP systolic 96–119; BP diastolic 61–74; PULSE 65–96; RESP 16–24; TEMP 36.4–37; O2SAT 90–97; BMI 29.7
--- NOTE | 2021-06-02 00:03 | PM.HP ---
Providers/Chief Complaint Chief Complaint: SOB Chest Pains\Fever\Coughing History of Present Illness Nicole Carlos is a 55 year old female with a past medical history of COPD, smoker, insulin-dependent type 2 diabetes mellitus, ELISE, hypertension, hyperlipidemia, who presents [facility] due to worsening shortness of breath, and fevers. Patient tells me that roughly 2 weeks ago she tested positive for influenza A, her family tested positive, she denies ever being treated for Tamiflu she tells me she got antibiotics. She did not took a trip to [place], to see her family, since getting back, she has had progressively worsening shortness of breath, with wheezing, and high-grade fevers as high as 104. She has never tested positive for Covid, here her flu is negative, rapid Covid is negative, CT angiogram was negative for pulmonary emboli, she had increased work of breathing was placed on BiPAP, given steroids nebulizer treatments. Currently she is seen off BiPAP, she is eating, no intracostal subcostal retractions no nasal flaring she is able to speak full sentences she is tells me that she is feeling better, currently on 4 L. Review of Systems Const: Reports: fever(s), chills, fatigue and malaise Eyes: Denies: change in vision or blurry vision ENMT: Denies: nasal congestion Card: Denies: chest pain, palpitations or irregular heart rhythm Resp: Reports: dyspnea and non-productive cough; Denies: productive cough or wheezing GI: Denies: abdominal pain, nausea, vomiting or hematemesis : Denies: flank pain, dysuria or urinary frequency Musc: Denies: neck pain or back pain Skin/Breast: Denies: rash Neuro: Denies: headache(s), dizziness or vertigo Endo: Denies: polyuria or polydipsia Medications/Allergies Home Medications Medication Instructions Recorded Confirmed Last Taken Type aspirin 81 mg tablet,delayed 81 mg PO DAILY #30 tab 11/19/19 06/01/21 05/31/21 Rx release fluticasone fur. 100 mcg-umeclid See Rx Instructions .ROUTE 06/11/20 06/01/21 06/01/21 Rx 62.5 mcg-vilant 25 mcg .COMPLEX #60 ea inhalat.powder (Trelegy Ellipta) albuterol sulfate 90 mcg/actuation See Rx Instructions .ROUTE 12/03/21 03/23/22 Unknown Rx aerosol inhaler .COMPLEX #54 g metoprolol tartrate 50 mg tablet See Rx Instructions .ROUTE 03/30/21 06/01/21 06/01/21 Rx .COMPLEX #180 tab ipratropium 0.5 mg-albuterol 3 mg 3 ml INHALATION Q6H PRN #180 ml 04/18/21 06/01/21 06/01/21 Rx (2.5 mg base)/3 mL nebulization soln insulin glargine 100 unit/mL (3 See Rx Instructions .ROUTE 05/03/21 06/01/21 06/01/21 Rx mL) subcutaneous pen (Lantus .COMPLEX #15 ml Solostar U-100 Insulin) bupropion HCl 150 mg tablet,12 hr 150 mg PO BID #60 tab 05/09/21 06/01/21 Unknown Rx sustained-release (Wellbutrin SR) amlodipine 10 mg tablet 10 mg PO DAILY 06/01/21 06/01/21 05/31/21 History baclofen 20 mg tablet See Rx Instructions .ROUTE 06/01/21 06/01/21 Unknown Rx .COMPLEX #45 tab empagliflozin 25 mg tablet 25 mg PO DAILY 06/01/21 06/01/21 06/01/21 History (Jardiance) hydrochlorothiazide 25 mg tablet 25 mg PO DAILY 06/01/21 06/01/21 06/01/21 History pantoprazole 40 mg tablet,delayed 40 mg PO BID 06/01/21 06/01/21 06/01/21 History release pregabalin 150 mg capsule (Lyrica) 150 mg PO BID 06/01/21 06/01/21 06/01/21 History simvastatin 20 mg tablet 20 mg PO DAILY 06/01/21 06/01/21 05/31/21 History telmisartan 80 mg tablet 80 mg PO DAILY 06/01/21 06/01/21 06/01/21 History Allergies Allergy/AdvReac Type Severity Reaction Status Date / Time codeine Allergy ALGY-Hives Verified 06/01/21 18:32 PFSH Acute PFSH: Medical History Acid reflux Anemia Chronic nausea Chronic nausea Controlled diabetes mellitus with hyperglycemia, with long-term current use of insulin COPD, very severe Coronary artery disease Enrolled in chronic care management History of COPD Hyperlipidemia Hypertension Neuropathy due to type 2 diabetes mellitus Type 2 diabetes mellitus Surgical History History of appendectomy History of colonoscopy (~05/2019) History of esophagogastroduodenoscopy (EGD) (~05/2019) Hx of removal of ovary S/P laparoscopy Family History Father Cancer Lung disease Hypertension Mother Lung disease Grandmother Diabetes Other CAD (coronary artery disease) Denies family history of Stroke Social History Quit status (tobacco): considering quitting Second hand smoke exposure: Yes Smoking risk assessment/counseling performed?: Yes Alcohol intake: never Lives independently: Yes Household members: spouse Housing: House Marital status: Current occupational status: disabled Pets and animals: Yes History of recent travel: No Current gender identity: Female Financial difficulty paying for basics: Not Very Hard Vitals/I&O/Wt Last Vital Signs Temp 100 F H 06/01/21 20:45 Pulse 95 06/01/21 23:51 Resp 19 H 06/01/21 23:46 BP 114/60 06/01/21 23:30 Pulse Ox 93 06/01/21 23:46 06/01/21 06/01/21 06/02/21 14:59 22:59 06:59 Intake Total 1000 / 1000 Balance 1000 / 1000 Weight last 48 hrs Weight 76.204 kg Physical Exam Const: COMMON NORMALS: no acute distress and patient oriented x3 HENMT: COMMON NORMALS: normocephalic HEAD & SCALP: normocephalic Resp: COMMON NORMALS: normal respiratory effort, No retractions and No use of accessory muscles AUSCULTATION: diminished lung sounds diffuse Cardio: COMMON NORMALS: no JVD, regular rate, regular rhythm, S1 normal heart sound present and S2 normal heart sound present RATE: regular rate RHYTHM: regular rhythm HEART SOUNDS: S1 normal heart sound present and S2 normal heart sound present GI: COMMON NORMALS: Normal to inspection, nondistended, normoactive bowel sounds present, Soft to palpation, non-tender, No hepatosplenomegaly present, no masses and no bruits PALPATION: Yes Soft to palpation and Yes No hepatosplenomegaly present Extremity: COMMON NORMALS: capillary refill normal, no clubbing, cyanosis or edema, no calf tenderness and no pedal edema Neuro: COMMON NORMALS: patient oriented x3 Psych: COMMON NORMALS: mental status grossly normal Data : 06/01/21 19:10 06/01/21 19:10 Micro: Microbiology 06/01/21 21:13 Blood Culture - Preliminary Blood SPECIMEN COLLECTED 06/01/21 21:07 Blood Culture - Preliminary Blood SPECIMEN COLLECTED A&P Assessment and plan (1) Acute exacerbation of chronic obstructive pulmonary disease: Status: Acute (2) URTI (acute upper respiratory infection): Status: Acute (3) Type 2 diabetes mellitus: Status: Acute Qualifiers: Diabetes mellitus exterminator termite insulin use: with exterminator termite use Diabetes mellitus complication status: with circulatory complication Diabetes mellitus complication detail: with other circulatory complications Qualified Code(s): E11.59 - Type 2 diabetes mellitus with other circulatory complications; Z79.4 - half-way (current) use of insulin (4) ELISE (obstructive sleep apnea): Status: Acute (5) Coronary artery disease: Status: Acute Qualifiers: Coronary Disease-Associated Artery/Lesion type: [place] artery [place] vs. transplanted heart: [place] heart Associated angina: with unspecified angina Qualified Code(s): I25.119 - Atherosclerotic heart disease of [place] coronary artery with unspecified angina pectoris (6) Hypertension: Status: Acute Qualifiers: Hypertension type: essential hypertension Qualified Code(s): I10 - Essential (primary) hypertension (7) Hyperlipidemia: Status: Acute Qualifiers: Hyperlipidemia type: mixed hyperlipidemia Qualified Code(s): E78.2 - Mixed hyperlipidemia (8) COPD, very severe: Status: Acute Plan Acute hypoxic respiratory failure -Secondary to COPD exacerbation -Flu is negative, rapid Covid negative, Covid PCR pending -Has received 120 of Solu-Medrol Plan -Admit to general medical floors -BiPAP as needed during the day, schedule during the night -Oxygen therapy, consult respiratory therapy -Solu-Medrol 40 every 8 hours monitor blood sugars closely -DuoNeb treatments, budesonide -Rocephin and azithromycin -Follow blood cultures, sputum cultures, urine bacterial antigens -Pro-Evert, CRP -Covid PCR ordered -Can consider treating for influenza A given history, and that she did not get Tamiflu, heart test could be a false negative -But I have ordered a respiratory viral panel -Full code -Lovenox for DVT prophylaxis Type 2 diabetes mellitus, Lantus 30 mg twice daily, with moderate dose sliding scale Attestations Medical Necessity Statement*: Patient requires hospitalization for COPD exacerbation, inpatient, greater than 2 midnights Coding Level of Care Code Acute Sap [employer]pc [employer] [facility] Fwd Diagnoses Acute exacerbation of chronic obstructive pulmonary disease J44.1 URTI (acute upper respiratory infection) J06.9 Type 2 diabetes mellitus E11.59; Z79.4 Diabetes mellitus exterminator termite insulin use: with exterminator termite use Diabetes mellitus complication status: with circulatory complication Diabetes mellitus complication detail: with other circulatory complications ELISE (obstructive sleep apnea) G47.33 Coronary artery disease I25.119 Coronary Disease-Associated Artery/Lesion type: [place] artery [place] vs. transplanted heart: [place] heart Associated angina: with unspecified angina Hypertension I10 Hypertension type: essential hypertension Hyperlipidemia E78.2 Hyperlipidemia type: mixed hyperlipidemia COPD, very severe J44.9
[2021-06-02] MEDS: pantoprazole 40 mg SDV IVP ×2 (00:31→13:03)
[2021-06-02] MEDS: enoxaparin 40 mg/0.4 mL Syringe SUBCUT ×2 (00:32→23:35)
--- NOTE | 2021-06-02 01:00 | ECG_ITS ---
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 Measurements Intervals [place] Rate: 75 P: 54 HI: 160 QRS: 79 QRSD: 94 T: 73 QT: 426 QTc: 478 Interpretive Statements SINUS RHYTHM SEPTAL MYOCARDIAL INFARCTION , OF INDETERMINATE AGE [40+ ms Q WAVE IN V1/V2] Compared to ECG 06/01/2021 22:21:14 No significant changes Electronically Signed On 06-02-2021 18:00:51 CDT by Magen Welch M.D. [email or web address].[id number]
[2021-06-02 01:06] LABS: Basophils % 0.3 %; Hematocrit 36.9 % (37.0-47.0); Hemoglobin 11.6 g/dL (11.5-15.3); Lymphocytes # 0.9 10^3/uL (0.8-4.8); Lymphocytes % 8.4 %; Mean Corpuscular HGB Conc 31.4 g/dL (30.0-36.0); Mean Corpuscular Volume 82.7 fl (81-99); Mean Platelet Volume 10.4 fL (7.4-10.4); Monocytes # 0.1 10^3/uL (0.2-0.9); Monocytes % 1.1 %; Neutrophils # 9.29 10^3/uL (1.8-7.7); Neutrophils % 89.6 %; Nucleated Red Blood Cells % 0 %; Platelet Count 223 10^3/cmm (130-400); Red Blood Count 4.46 10^6/uL (4.1-5.3); Red Cell Distribution Width 19.4 % (12.1-15.1); White Blood Count 10.4 10^3/uL (4.0-10.0)
[2021-06-02 01:18] LABS: Estmated Average Glucose 206; Hemoglobin A1C 8.8 % (4.0-6.0)
[2021-06-02 01:21] LABS: Troponin 5 6HR 8.48 ng/L (0-10)
[2021-06-02 01:28] LABS: NT Pro B Type Natriuretic Pept 50 pg/mL (0-125); Thyroid Stimulating Hormone 0.46 uIU/mL (0.27-4.20)
[2021-06-02 01:34] LABS: Troponin 5 6HR Delta -2.52 ng/L (0-12)
[2021-06-02 01:40] LABS: Alanine Aminotransferase 12 U/L (0-33); Albumin Level 3.2 g/dL (3.5-5.2); Alkaline Phosphatase 89 IU/L (35-105); Anion Gap 15.3 (5-19); Aspartate Amino Transferase 9 U/L (0-32); Blood Urea Nitrogen 12 mg/dL (6-20); C Reactive Protein 155.3 mg/L (0.0-4.9); Calcium 8.4 mg/dL (8.5-10.5); Carbon Dioxide 27 mmol/L (22-29); Chloride 99 mmol/L (98-107); Chol HDL Ratio 4.67 mg/dL (0.0-4.40); Cholesterol 126 mg/dL (0-200); Globulin 3.4 g/dL (1.3-4.6); Glomerular Filtration Rate 57.8 mL/min (90-130); Glucose 314 mg/dL (65-115); HDL Cholesterol 27 mg/dL (60-100); LDL Cholesterol Calculated 82 mg/dL (50-129); LDL HDL Ratio 3.04 RATIO (0.00-3.22); Magnesium 1.7 mg/dL (1.7-2.3); Osmolality Calculated 298 mOsm/kg (285-295); Phosphorus 3.6 mg/dL (2.5-4.5); Potassium 3.3 mmol/L (3.5-5.1); Sodium 138 mmol/L (136-145); Total Bilirubin 0.3 mg/dL (0.15-1.2); Total Protein 6.6 g/dL (6.6-8.7); Triglycerides 83 mg/dL (0-150)
[2021-06-02 01:58] LABS: INR 1.14 (0.8-1.2)
[2021-06-02] MEDS: cefTRIAXone 1,000 MG in sodium chloride 0.9% (plus) 50 ML 100 MG IV (02:12)
[2021-06-02 02:42] LABS: Adenovirus Not Detected (NOT DETECT); Chlamydia Pneumoniae Not Detected (NOT DETECT); Coronavirus 229E,HKU1,NL63,OC4 Not Detected (NOT DETECT); Human Metapneumovirus Not Detected (NOT DETECT); Human Rhinovirus/Enterovirus Not Detected (NOT DETECT); Influenza A Not Detected (NOT DETECT); Influenza A H1 Not Detected (NOT DETECT); Influenza A H1-2009 Not Detected (NOT DETECT); Influenza A H3 Not Detected (NOT DETECT); Influenza B Not Detected (NOT DETECT); Mycoplasma Pneumoniae Not Detected (NOT DETECT); Parainfluenza Virus Type 1 Not Detected (NOT DETECT); Parainfluenza Virus Type 2 Not Detected (NOT DETECT); Parainfluenza Virus Type 3 Not Detected (NOT DETECT); Parainfluenza Virus Type 4 Not Detected (NOT DETECT); Respiratory Syncytial Virus A Not Detected (NOT DETECT); Respiratory Syncytial Virus B Not Detected (NOT DETECT); SARS-COV-2 Not Detected (NOT DETECT)
[2021-06-02] MEDS: azithromycin 500 MG in sodium chloride 0.9% 250 ML 250 MG IV (02:44)
[2021-06-02 06:20] LABS: Glucose Point of Care 383 mg/dL (70-110)
[2021-06-02] MEDS: budesonide 0.5 mg/2 mL Neb INHALATION ×2 (07:45→21:30)
[2021-06-02] MEDS: ipratropium-albuterol 3 mL Neb INHALATION ×4 (07:45→21:30)
[2021-06-02] MEDS: pregabalin 150 mg Capsule PO ×2 (08:48→18:14)
[2021-06-02] MEDS: metoprolol tartrate 50 mg Tablet PO ×3 (08:48→18:14)
[2021-06-02] MEDS: insulin lispro 100 unit/1 mL SUBCUT ×4 (08:48→22:32)
[2021-06-02] MEDS: aspirin 81 mg EC Tablet PO (08:48)
[2021-06-02] MEDS: atorvastatin 40 mg Tablet 20 MG PO (08:49)
[2021-06-02] MEDS: buPROPion SR (12 HR) 150 mg Tablet PO ×2 (09:18→18:16)
[2021-06-02] MEDS: insulin glargine 100 units/1 mL 30 UNIT SUBCUT ×2 (09:18→20:46)
--- NOTE | 2021-06-02 11:02 | PC.CHAP ---
Pastoral Care Encounter/Spiritual Assessment Type of Contact [] Declined paper inserter visit [] Patient/Family/Request visit [] Outpatient visit [] Follow-up visit [] Physician referral [] Code/Alert [] Routine visit [] Staff referral [] Actively dying [] Patient sleeping [] Family support [] [] Out of room [] Palliative care [] [] Receiving care in room [] Pre-surgical visit [] Trauma [] Long length of stay [] ICU visit [x] Other: Isolation Relational/Emotional Strength [] Patient feels connected with others/family/visitors/staff [] Distress [] Loneliness/isolation [] Abandonment Spirituality of Patient [] Person of Selina [] Attends Yarsanism of their Selina [] Believes in Prayer [] Reads Bible or Christian materials [] There are Spiritual issues to be addressed Real Estate Subagent Interventions [] Prayer [] Active listening [] Non-anxious presence [] Spiritual/emotional support [] Crisis/trauma care [] Spiritual counseling [] Bereavement support [] Provided bereavement packet [] Provided Bible/devotional materials [] Provided toy/stuffed animal, coloring book to patient or family member [] Provided Communion [] Anointing/Knickerbocker [] Salvation [] Completed spiritual assessment [] Other: Impact on Illness or Injury [] Angry [] Fearful [] Anxious [] Often cries [] Exhaustion [] Unable to work [] Unable to attend religious [] Unable to walk/stand [] Unable to read [] Unable to drive [] Unable to eat/drink [] Unable to sleep [] Unable to be with family [] Patient intubated [] Other: Summary Isolation Time spent with patient 5 mins
[2021-06-02 11:50] LABS: Glucose Point of Care 356 mg/dL (70-110)
[2021-06-02 17:44] LABS: Glucose Point of Care 245 mg/dL (70-110)
[2021-06-02] MEDS: guaiFENesin-dextromethorphan UDC 10 mL PO (20:47)
[2021-06-02 21:19] LABS: Glucose Point of Care 283 mg/dL (70-110)
[2021-06-03] VITALS (9 sets, daily range): BP systolic 111–125; BP diastolic 61–73; PULSE 59–74; RESP 14–21; TEMP 36.4–37.2; O2SAT 85–97
[2021-06-03] MEDS: pantoprazole 40 mg SDV IVP (00:32)
[2021-06-03 05:27] LABS: Basophils % 0.1 %; Hematocrit 38.2 % (37.0-47.0); Hemoglobin 11.7 g/dL (11.5-15.3); Lymphocytes # 1.2 10^3/uL (0.8-4.8); Lymphocytes % 8.6 %; Mean Corpuscular HGB Conc 30.6 g/dL (30.0-36.0); Mean Corpuscular Hemoglobin 25.6 pg (28.0-34.0); Mean Corpuscular Volume 83.6 fl (81-99); Mean Platelet Volume 10.5 fL (7.4-10.4); Monocytes # 0.3 10^3/uL (0.2-0.9); Monocytes % 2.2 %; Neutrophils # 12.01 10^3/uL (1.8-7.7); Neutrophils % 88.1 %; Nucleated Red Blood Cells % 0 %; Platelet Count 249 10^3/cmm (130-400); Red Blood Count 4.57 10^6/uL (4.1-5.3); Red Cell Distribution Width 19.3 % (12.1-15.1); White Blood Count 13.6 10^3/uL (4.0-10.0)
[2021-06-03 05:38] LABS: INR 0.99 (0.8-1.2)
[2021-06-03 05:45] LABS: Alanine Aminotransferase 10 U/L (0-33); Albumin Level 3.2 g/dL (3.5-5.2); Alkaline Phosphatase 152 IU/L (35-105); Anion Gap 12.8 (5-19); Aspartate Amino Transferase 12 U/L (0-32); Blood Urea Nitrogen 24 mg/dL (6-20); Calcium 9.2 mg/dL (8.5-10.5); Carbon Dioxide 28 mmol/L (22-29); Chloride 104 mmol/L (98-107); Globulin 3.8 g/dL (1.3-4.6); Glomerular Filtration Rate 74.7 mL/min (90-130); Glucose 247 mg/dL (65-115); Magnesium 2.2 mg/dL (1.7-2.3); Osmolality Calculated 304 mOsm/kg (285-295); Phosphorus 2.6 mg/dL (2.5-4.5); Potassium 3.8 mmol/L (3.5-5.1); Sodium 141 mmol/L (136-145); Total Bilirubin 0.2 mg/dL (0.15-1.2)
[2021-06-03 06:21] LABS: Glucose Point of Care 243 mg/dL (70-110)
[2021-06-03] MEDS: ipratropium-albuterol 3 mL Neb INHALATION ×2 (07:40→11:07)
[2021-06-03] MEDS: budesonide 0.5 mg/2 mL Neb INHALATION (07:40)
[2021-06-03] MEDS: insulin lispro 100 unit/1 mL SUBCUT (08:30)
[2021-06-03] MEDS: insulin glargine 100 units/1 mL 30 UNIT SUBCUT (08:30)
[2021-06-03] MEDS: aspirin 81 mg EC Tablet PO (08:32)
[2021-06-03] MEDS: azithromycin 250 mg Tablet 500 MG PO (08:32)
[2021-06-03] MEDS: buPROPion SR (12 HR) 150 mg Tablet PO (08:32)
[2021-06-03] MEDS: metoprolol tartrate 50 mg Tablet PO (08:32)
[2021-06-03] MEDS: atorvastatin 40 mg Tablet 20 MG PO (08:33)
[2021-06-03] MEDS: pregabalin 150 mg Capsule PO (08:33)
--- NOTE | 2021-06-03 09:33 | PM.DCS ---
Discharge Providers Date of Admission: 06/02/21 00:09 Date of Discharge: June 03, 2021 Attending Provider at Admission: Jean-Pierre Martinez MD Attending Provider at Discharge: Tasha Foreman MD Diagnoses at Discharge Discharge Diagnosis (1) Acute exacerbation of chronic obstructive pulmonary disease: Status: Acute (2) URTI (acute upper respiratory infection): Status: Acute (3) Type 2 diabetes mellitus: Status: Acute Qualifiers: Diabetes mellitus complication detail: with other circulatory complications Diabetes mellitus complication status: with circulatory complication Diabetes mellitus retirement insulin use: with equipment 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 transplanted heart: cherokee heart Qualified Code(s): I25.119 - Atherosclerotic heart disease of cherokee coronary artery with unspecified angina pectoris (6) Hypertension: Status: Acute Qualifiers: Hypertension type: essential hypertension Qualified Code(s): I10 - Essential (primary) hypertension (7) Hyperlipidemia: Status: Acute Qualifiers: Hyperlipidemia type: mixed hyperlipidemia Qualified Code(s): E78.2 - Mixed hyperlipidemia (8) COPD, very severe: Status: Acute Reason for Visit Reason for Visit: SOB Chest Pains\Fever\Coughing Hospital Course Hospital Course Admission note by Dr. Bishnu Rivera Uzma Carlos is a 55 year old female with a past medical history of COPD, smoker, insulin-dependent type 2 diabetes mellitus, ELISE, hypertension, hyperlipidemia, who presents [facility] due to worsening shortness of breath, and fevers.? Patient tells me that roughly 2 weeks ago she tested positive for influenza A, her family tested positive, she denies ever being treated for Tamiflu she tells me she got antibiotics.? She did not took a trip to [place], to see her family, since getting back, she has had progressively worsening shortness of breath, with wheezing, and high-grade fevers as high as 104.? She has never tested positive for Covid, here her flu is negative, rapid Covid is negative, CT angiogram was negative for pulmonary emboli, she had increased work of breathing was placed on BiPAP, given steroids nebulizer treatments.? Currently she is seen off BiPAP, she is eating, no intracostal subcostal retractions no nasal flaring she is able to speak full sentences she is tells me that she is feeling better, currently on 4 L. Hospital course: Patient was admitted for management and evaluation of COPD exacerbation. CT scan of the lung did not show any signs of PE or active consolidation, she did not spike fever, her wheezing improved with use of steroids, her oxygen saturation remained normal on her baseline oxygen requirement of 3 to 4 L. She used BiPAP to decrease work of breathing overnight. Viral panel negative. She is an active smoker who suffered from COPD exacerbation. He does have trilogy at home, follows up with pulmonary medicine, next Sunday she has appointment to attend pulmonary rehab. At the time of discharge I will add Medrol Florencio, azithromycin for anti-inflammatory effect. Dr. Brady/pulmonary medicine follow-up within 2 weeks. She does have mediastinal adenopathy which needs to be monitored. Physical Exam Narrative: Pleasant female On 4 L nasal cannula Diminished bilateral breath sounds with improvement in rhonchi Not using her shoulder girdle today as compared to yesterday Her breathing is nonlabored S1, S2 Nonfocal neuro exam Euvolemic Discharge Data Studies Completed and Pending Completed Studies During Hospitalization Category Date Time Status CTA chest [CT angio chest PE protcl [id number]] Urgent Cat Scan 06/01/21 20:23 Completed XR chest 1V portable [id number] Urgent Exams 06/01/21 18:37 Completed Pending at discharge Category Date Time Status Blood Culture Stat Lab 06/01/21 21:13 Results Complete Blood Count w/Auto AM LABS Lab 06/04/21 04:00 Ordered Comprehensive Metabolic Panel AM LABS Lab 06/04/21 04:00 Ordered Magnesium AM LABS Lab 06/04/21 04:00 Ordered Phosphorus AM LABS Lab 06/04/21 04:00 Ordered Prothrombin Time INR AM LABS Lab 06/04/21 04:00 Ordered Sputum Culture and Gram Stain Stat Lab 06/01/21 23:51 Results Radiology Impressions Chest X-Ray 06/01/21 18:37 IMPRESSION: Stable hyperaerated lungs consistent with deep inspiratory effort vs reactive airway disease vs mild COPD . Chest CTA 06/01/21 20:23 IMPRESSION: 1. Severe calcified coronary artery disease. 2. Mild mediastinal adenopathy which may be reactive. 3. No pulmonary embolus or aortic dissection. Laboratory Results WBC 13.6 10^3/uL (4.0-10.0) H 06/03/21 05:05 RBC 4.57 10^6/uL (4.1-5.3) 06/03/21 05:05 Hgb 11.7 g/dL (11.5-15.3) 06/03/21 05:05 Hct 38.2 % (37.0-47.0) 06/03/21 05:05 MCV 83.6 fl (81-99) 06/03/21 05:05 MCH 25.6 pg (28.0-34.0) L 06/03/21 05:05 MCHC 30.6 g/dL (30.0-36.0) 06/03/21 05:05 RDW 19.3 % (12.1-15.1) H 06/03/21 05:05 Plt Count 249 10^3/cmm (130-400) 06/03/21 05:05 MPV 10.5 fL (7.4-10.4) H 06/03/21 05:05 Neut % (Auto) 88.1 % 06/03/21 05:05 Lymph % (Auto) 8.6 % 06/03/21 05:05 Donley % (Auto) 2.2 % 06/03/21 05:05 Eos % (Auto) 0.0 % 06/03/21 05:05 Baso % (Auto) 0.1 % 06/03/21 05:05 Neut # (Auto) 12.01 10^3/uL (1.8-7.7) H 06/03/21 05:05 Lymph # (Auto) 1.2 10^3/uL (0.8-4.8) 06/03/21 05:05 Donley # (Auto) 0.3 10^3/uL (0.2-0.9) 06/03/21 05:05 Eos # (Auto) 0.0 10^3/uL (0.0-0.8) 06/03/21 05:05 Baso # (Auto) 0.0 10^3/uL (0.0-0.1) 06/03/21 05:05 Nucleated RBC % (auto) 0 % 06/03/21 05:05 Nucleated RBCs # 0.0 /100WBC 06/03/21 05:05 PT 13.40 SECONDS (12.1-14.9) 06/03/21 05:05 INR 0.99 (0.8-1.2) 06/03/21 05:05 D-Dimer 0.64 ug/mIFEU (0-0.59) H 06/01/21 19:10 Specimen Type Arterial 06/01/21 23:24 Sample Site Radial, right 06/01/21 23:24 ABG pH 7.39 (7.35-7.45) 06/01/21 23:24 ABG pCO2 51.3 mmHg (35-45) H 06/01/21 23:24 ABG pO2 74.0 mmHg (80.0-100.0) L 06/01/21 23:24 ABG HCO3 30.7 mmol/L (22-26) H 06/01/21 23:24 ABG Base Excess 4.5 mmol/L (-2.0-2.0) H 06/01/21 23:24 Nabor Test Pos 06/01/21 23:24 Hematocrit 38.0 % (37-47) 06/01/21 23:24 O2 Delivery Device Bipap 06/01/21 23:24 FiO2 28.0 % 06/01/21 23:24 PEEP 8.0 cmH20 06/01/21 23:24 Ordained Minister ID Hensa 06/01/21 23:24 Sodium 141 mmol/L (136-145) 06/03/21 05:05 Potassium 3.8 mmol/L (3.5-5.1) 06/03/21 05:05 Chloride 104 mmol/L (98-107) 06/03/21 05:05 Carbon Dioxide 28 mmol/L (22-29) 06/03/21 05:05 Anion Gap 12.8 (5-19) 06/03/21 05:05 BUN 24 mg/dL (6-20) H 06/03/21 05:05 Creatinine 0.8 mg/dL (0.5-0.9) 06/03/21 05:05 GFR Calculation 74.7 mL/min (90-130) L 06/03/21 05:05 Glucose 247 mg/dL (65-115) H 06/03/21 05:05 POC Glucose 243 mg/dL (70-110) H 06/03/21 06:12 Estimat Average Glucose 206 06/02/21 01:00 Hemoglobin A1c 8.8 % (4.0-6.0) H 06/02/21 01:00 Calculated Osmolality 304 mOsm/kg (285-295) H 06/03/21 05:05 Lactic Acid 0.8 mmol/L (0.5-2.2) 06/01/21 21:13 Calcium 9.2 mg/dL (8.5-10.5) 06/03/21 05:05 Phosphorus 2.6 mg/dL (2.5-4.5) 06/03/21 05:05 Magnesium 2.2 mg/dL (1.7-2.3) 06/03/21 05:05 Total Bilirubin 0.2 mg/dL (0.15-1.2) 06/03/21 05:05 AST 12 U/L (0-32) 06/03/21 05:05 ALT 10 U/L (0-33) 06/03/21 05:05 Alkaline Phosphatase 152 IU/L (35-105) H 06/03/21 05:05 Troponin T Baseline 11 ng/L (0-10) H 06/01/21 19:10 Troponin T 120 Minute 11.05 ng/L (0-10) H 06/01/21 21:13 Delta Troponin T 0.05 ABS# (0-10) 06/01/21 21:13 Troponin T Hi Sens 6Hr 8.48 ng/L (0-10) 06/02/21 01:00 Troponin T Hi Sens 6Hr Delta -2.52 ng/L (0-12) L 06/02/21 01:00 C-Reactive Protein 155.3 mg/L (0.0-4.9) H 06/02/21 01:00 NT-Pro-B Natriuret Pep 50 pg/mL (0-125) 06/02/21 01:00 Total Protein 7.0 g/dL (6.6-8.7) 06/03/21 05:05 Albumin 3.2 g/dL (3.5-5.2) L 06/03/21 05:05 Globulin 3.8 g/dL (1.3-4.6) 06/03/21 05:05 Triglycerides 83 mg/dL (0-150) 06/02/21 01:00 Cholesterol 126 mg/dL (0-200) 06/02/21 01:00 LDL Cholesterol, Calc 82 mg/dL (50-129) 06/02/21 01:00 HDL Cholesterol 27 mg/dL (60-100) L 06/02/21 01:00 LDL/HDL Ratio 3.04 RATIO (0.00-3.22) 06/02/21 01:00 Cholesterol/HDL Ratio 4.67 mg/dL (0.0-4.40) H 06/02/21 01:00 Procalcitonin 0.10 ng/mL (0-0.5) 06/02/21 01:00 TSH 0.46 uIU/mL (0.27-4.20) 06/02/21 01:00 Urine Color Yellow (Yellow) 06/01/21 20:55 Urine Appearance Clear (CLEAR) 06/01/21 20:55 Urine pH 5 (5-7) 06/01/21 20:55 Ur Specific [place] 1.010 (1.005-1.030) 06/01/21 20:55 Urine Protein Neg (Negative) 06/01/21 20:55 Urine Glucose (UA) 4+ (Normal) H 06/01/21 20:55 Urine Ketones Negative (Negative) 06/01/21 20:55 Urine Blood 2+ (Negative) H 06/01/21 20:55 Urine Nitrate Negative (Negative) 06/01/21 20:55 Urine Bilirubin Neg (Negative) 06/01/21 20:55 Urine Urobilinogen Norm mg/dL (Negative) 06/01/21 20:55 Ur Leukocyte Esterase Negative (Negative) 06/01/21 20:55 Urine RBC 0-4 /hpf (0-2) H 06/01/21 20:55 Urine WBC 0-4 /hpf (0-5) H 06/01/21 20:55 Ur Squamous Epith Cells 10-15 /hpf (0-5) H 06/01/21 20:55 Amorphous Sediment Not Reportable 06/01/21 20:55 Urine Bacteria 1+ /hpf (NONE) H 06/01/21 20:55 Nasal Influ A H1 2009 PCR Not detected (NOT DETECT) 06/02/21 00:56 Adenovirus (PCR) Not detected (NOT DETECT) 06/02/21 00:56 C. pneumoniae DNA (PCR) Not detected (NOT DETECT) 06/02/21 00:56 Coronavirus 229E (PCR) Not detected (NOT DETECT) 06/02/21 00:56 Human Metapneumovir PCR Not detected (NOT DETECT) 06/02/21 00:56 Influenza A (H1) PCR Not detected (NOT DETECT) 06/02/21 00:56 Influenza A (H3) PCR Not detected (NOT DETECT) 06/02/21 00:56 Influenza Type A Ag Negative (Negative) 06/01/21 19:30 Influenza Type A (PCR) Not detected (NOT DETECT) 06/02/21 00:56 Influenza Type B Ag Negative (Negative) 06/01/21 19:30 Influenza Type B (PCR) Not detected (NOT DETECT) 06/02/21 00:56 M. pneumoniae (PCR) Not detected (NOT DETECT) 03 00:56 Parainfluenza 1 (PCR) Not detected (NOT DETECT) 06/02/21 00:56 Parainfluenza 2 (PCR) Not detected (NOT DETECT) 06/02/21 00:56 Parainfluenza 3 (PCR) Not detected (NOT DETECT) 06/02/21 00:56 Parainfluenza 4 (PCR) Not detected (NOT DETECT) 06/02/21 00:56 RSV Type A (PCR) Not detected (NOT DETECT) 06/02/21 00:56 RSV Type B (PCR) Not detected (NOT DETECT) 06/02/21 00:56 Entero/Rhino (PCR) Not detected (NOT DETECT) 06/02/21 00:56 SARS-CoV-2 (PCR) Not detected (NOT DETECT) 06/02/21 00:56 SARS-CoV-2 Ag (Rapid) Negative (Negative) 06/01/21 19:30 Vitals Last Vital Signs Temp 98.3 F 06/03/21 07:40 Pulse 64 06/03/21 07:48 Resp 18 06/03/21 07:48 BP 121/61 06/03/21 07:40 Pulse Ox 94 06/03/21 07:48 Discharge Plan Discharge Patient Disposition: Home Condition: Stable Prescriptions: New Medrol (Florencio) 4 mg tablets,dose pack See Rx Instructions .ROUTE .COMPLEX Qty: 21 0RF Rx Instructions: orally per package directions azithromycin 250 mg tablet 250 mg PO DAILY 6 Days 0RF Rx Instructions: start on day 2 of therapy Continued metoprolol tartrate 50 mg tablet See Rx Instructions .ROUTE .COMPLEX Qty: 180 0RF Dose Instruction: TAKE 1 TABLET BY MOUTH TWICE DAILY Rx Instructions: TAKE 1 TABLET BY MOUTH TWICE DAILY aspirin 81 mg tablet,delayed release (DR/EC) 81 mg PO DAILY Qty: 30 3RF kjumalvcxfe-rhaqpflre-eqmzbxun [Trelegy Ellipta] 100-62.5-25 mcg blister with device See Rx Instructions .ROUTE .COMPLEX Qty: 60 3RF Dose Instruction: INHALE 1 PUFF BY MOUTH DAILY Rx Instructions: INHALE 1 PUFF BY MOUTH DAILY albuterol sulfate 90 mcg/actuation HFA aerosol inhaler See Rx Instructions .ROUTE .COMPLEX Qty: 54 0RF Dose Instruction: INHALE 2 PUFFS BY MOUTH FOUR TIMES DAILY NEEDED FOR SHORTNESS OF BREATH Rx Instructions: INHALE 2 PUFFS BY MOUTH FOUR TIMES DAILY NEEDED FOR SHORTNESS OF BREATH ipratropium-albuterol 0.5 mg-3 mg(2.5 mg base)/3 mL solution for nebulization 3 ml inhalation Q6H PRN (Reason: shortness of breath or wheezing) Qty: 180 5RF Lantus Solostar U-100 Insulin 100 unit/mL (3 mL) insulin pen See Rx Instructions .ROUTE .COMPLEX Qty: 15 5RF Dose Instruction: INJECT 40 UNITS UNDER THE SKIN TWICE DAILY. Rx Instructions: INJECT 40 UNITS UNDER THE SKIN TWICE DAILY. equal 90 day supply. bupropion HCl [Wellbutrin SR] 150 mg tablet sustained-release 12 hr 150 mg PO BID Qty: 60 2RF Rx Instructions: no less than 8 hours between doses baclofen 20 mg tablet See Rx Instructions .ROUTE .COMPLEX Qty: 45 0RF Dose Instruction: TAKE 1 TABLET BY MOUTH TWICE DAILY NEEDED FOR MUSCLE SPASM. Rx Instructions: TAKE 1 TABLET BY MOUTH TWICE DAILY NEEDED FOR MUSCLE SPASM. amlodipine 10 mg tablet 10 mg PO DAILY 0RF pantoprazole 40 mg tablet,delayed release (DR/EC) 40 mg PO BID 0RF simvastatin 20 mg tablet 20 mg PO DAILY 0RF telmisartan 80 mg tablet 80 mg PO DAILY 0RF hydrochlorothiazide 25 mg tablet 25 mg PO DAILY 0RF Lyrica 150 mg capsule 150 mg PO BID 0RF Jardiance 25 mg tablet 25 mg PO DAILY 0RF Discharge Orders: Discharge Order (Routine); Ordered 06/03/21 Ordered By: Tsaha Foreman Referrals: RonaldrDamian MD [Physician] - 07/08/21 9:00 am Reji Faulkner FNP [Nurse Practitioner] - 06/09/21 10:30 am Discharge Diet: Cardiac Discharge Activity: Increase activity as tolerated Patient Instructions: Type 2 Diabetes, Azithromycin (By mouth), Methylprednisolone (By mouth), Hypertension, Coronary Artery Disease (DC), COPD (Chronic Obstructive Pulmonary Disease) (DC), Hyperlipidemia (DC), Opioid Safety, Upper Respiratory Infection - Adult Discharge Attestations Time Spent in Discharge Care*: less than 30 min Quality Metrics Clinical Quality Measures [ No reported AMI, CVA or VTE this stay] Coding Level of Care Code Acute Chg FW DC note Diagnoses Acute exacerbation of chronic obstructive pulmonary disease J44.1 URTI (acute upper respiratory infection) J06.9 Type 2 diabetes mellitus E11.59; Z79.4 Diabetes mellitus complication detail: with other circulatory complications Diabetes mellitus complication status: with circulatory complication 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 transplanted heart: cherokee heart Hypertension I10 Hypertension type: essential hypertension Hyperlipidemia E78.2 Hyperlipidemia type: mixed hyperlipidemia COPD, very severe J44.9
[2021-06-03 11:51] LABS: Glucose Point of Care 248 mg/dL (70-110)
== END 2021-06-03 12:50 | disposition home or self-care (01) ==
LOC: ER 23:54 → MEDSURG 06-02 00:17
PROVIDERS: Emergency Medicine; Admitting Provider Family Medicine; Emergency Provider Emergency Medicine; Visit Provider Internal Medicine
DX: J44.1 Chronic obstructive pulmonary disease with (acute) exacerbation (principal); J06.9 Acute upper respiratory infection, unspecified; E11.40 Type 2 diabetes mellitus with diabetic neuropathy, unspecified; Z79.4 Long term (current) use of insulin; G47.33 Obstructive sleep apnea (adult) (pediatric); I25.119 Atherosclerotic heart disease of native coronary artery with unspecified angina pectoris; I10 Essential (primary) hypertension; E78.2 Mixed hyperlipidemia
CPT/HCPCS: 36415; 36416; 36600; 71045; 71275; 80053; 80061; 81001; 82803; 82962; 83036; 83605; 83735; 83880; 84100; 84145; 84443; 84484; 85025; 85378; 85610; 86140; 86403; 87040; 87070; 87205; 87426; 87449; 87486; 87581; 87633; 87804; 93005; 94640; 94660; 94762; 96361; 96372; 96374; 96375; 99285; C9113; G0378; J0456; J0696; J1650; J1815 ×2; J1885; J2920; J2930; J3010; J7030; J7050; J7611; J7626; Q0144; Q9967

== ENCOUNTER → 2021-09-08 10:45 | Outpatient (BNVA) | payer MEDICARE, SELFPAY | PROVIDERS: PCP Registered Nurse; Visit Provider Registered Nurse | DX: E11.40 Type 2 diabetes mellitus with diabetic neuropathy, unspecified (principal); R05.9 Cough, unspecified; R25.2 Cramp and spasm; F17.200 Nicotine dependence, unspecified, uncomplicated; J44.9 Chronic obstructive pulmonary disease, unspecified; E11.59 Type 2 diabetes mellitus with other circulatory complications; Z79.4 Long term (current) use of insulin | CPT/HCPCS: 80053; 83036; 85025 ==

== ENCOUNTER 2021-09-27 07:55 | Outpatient (CLI) | payer MEDICARE, SELFPAY ==
--- NOTE | 2021-09-27 08:30 | USCV_ITS ---
Nicole Carlos Age: 55 Gender: F : 1965 Exam Date: 09/27/2021 08:15 Ordering Phys: Reji Faulkner PROGRAM PROPOSALS COORDINATOR Technologist: Jude Giraldo Exam Location: [facility] [place] Indication: diabetes Risk Factors: Previous Vascular Surgery: RIGHT LEFT BP: 118.0 / 75.00 BP: 118.0/ 73.00 0 0 Waveform Velocity (cm/s) Velocity (cm/s) Waveform Triphasic 96.7 Iliac Prox 51.7 Triphasic Triphasic 88.3 Iliac Mid 53.0 Triphasic Triphasic 60.4 Iliac Distal 61.2 Triphasic Triphasic 62.3 CAR RENTAL SALES ASSISTANT 77.7 Triphasic Triphasic 115.7 SFA Prox 90.6 Triphasic Triphasic 61.7 SFA Mid 76.0 Triphasic Triphasic SFA Dist Triphasic 42.7 48.6 Triphasic 51.3 POP 61.4 Triphasic Biphasic 36.8 CORRECTIONAL SERGEANT 69.1 Triphasic Biphasic 14.5 DPA 16.7 Biphasic 1.1 WESTLEY 1.1 FINDINGS Minimal plaque in the iliac and femoral arteries bilaterally. Near normal arterial Doppler waveforms bilaterally. Normal resting WESTLEY 1.1 bilaterally. CONCLUSIONS Normal resting ABIs bilaterally No significant arterial obstruction in the lower extremity arteries based on the above findings Dr Getachew Noriega MD [facility] (Electronically Signed) Final Date: 27 September 2021 20:09 S
== END 2021-09-27 07:56 | disposition home or self-care (01) ==
LOC: RAD 07:59
PROVIDERS: PCP Registered Nurse; Visit Provider Registered Nurse
DX: E11.40 Type 2 diabetes mellitus with diabetic neuropathy, unspecified (principal)
CPT/HCPCS: 93925

== ENCOUNTER → 2021-11-16 09:14 | Outpatient (BNVA) | payer MEDICARE, SELFPAY | PROVIDERS: PCP Registered Nurse; Visit Provider Registered Nurse | DX: E11.40 Type 2 diabetes mellitus with diabetic neuropathy, unspecified (principal) | CPT/HCPCS: 80053; 83036 ==

== ENCOUNTER → 2021-12-01 10:19 | Outpatient (BNVA) | payer MEDICARE, SELFPAY | PROVIDERS: PCP Registered Nurse; Visit Provider Registered Nurse | DX: I10 Essential (primary) hypertension (principal); E11.40 Type 2 diabetes mellitus with diabetic neuropathy, unspecified; E11.59 Type 2 diabetes mellitus with other circulatory complications; Z79.4 Long term (current) use of insulin | CPT/HCPCS: 80053 ==

== ENCOUNTER → 2021-12-12 09:57 | Outpatient (BNVA) | payer MEDICARE, SELFPAY | PROVIDERS: PCP Registered Nurse; Visit Provider Registered Nurse | DX: R68.89 Other general symptoms and signs (principal); E11.59 Type 2 diabetes mellitus with other circulatory complications; Z79.4 Long term (current) use of insulin; J06.9 Acute upper respiratory infection, unspecified; Z20.822 Contact with and (suspected) exposure to COVID-19 | CPT/HCPCS: 87400; 87426 ==

== ENCOUNTER → 2022-01-26 09:43 | Outpatient (BNVA) | payer MEDICARE, SELFPAY | PROVIDERS: PCP Registered Nurse; Visit Provider Internal Medicine Pulmonary Disease | DX: J44.9 Chronic obstructive pulmonary disease, unspecified (principal); Z71.6 Tobacco abuse counseling; G47.33 Obstructive sleep apnea (adult) (pediatric); F17.210 Nicotine dependence, cigarettes, uncomplicated; Z99.81 Dependence on supplemental oxygen | CPT/HCPCS: 99214 ==

== ENCOUNTER 2022-05-11 11:37 | Outpatient (CLI) | payer MEDICARE, SELFPAY ==
--- NOTE | 2022-05-11 12:15 | CT_ITS ---
WS: [id number] LDCT LUNG CANCER SCREENING HISTORY: lung screening TECHNIQUE: Axial imaging performed from the apices to 1 cm below the costophrenic angles. Coronal and sagittal reformats are submitted with axial MIP series. All CT scans at [facility] use at least one of these dose optimization techniques: automated exposure control; mA and/or kV adjustment per patient size (includes targeted exams where dose is matched to clinical indication); or iterativ e reconstruction. DLP: 77.89 mGy.cm DIvol: Mean CTDIvol: 1.60 (mGy) COMPARISON: 06/01/2021 Diagnostic quality: Satisfactory Lungs: No discrete pulmonary nodules or mass. There is mild reticular thickening throughout both lung s. Improved aeration since the prior CT from 06/01/2021. No endobronchial lesions. Heart: Normal size heart with no pericardial effusion. Moderate coronary artery calcification. Other findings: Small mediastinal and hilar lymph nodes. Similar to the prior studies. CT/CT lung screening [id number] IMPRESSION: LUNG-RADS: 1-Negative FOLLOW UP: 12 Month: Continue annual screening with LDCT OTHER FINDINGS (S MODIFIER): None.
== END 2022-05-11 11:38 | disposition home or self-care (01) ==
LOC: RAD 11:41
PROVIDERS: PCP Registered Nurse; Visit Provider Internal Medicine Pulmonary Disease
DX: Z12.2 Encounter for screening for malignant neoplasm of respiratory organs (principal); F17.210 Nicotine dependence, cigarettes, uncomplicated
CPT/HCPCS: 71271; 99214

== ENCOUNTER → 2022-06-05 15:12 | Outpatient (BNVA) | payer MEDICARE, SELFPAY | PROVIDERS: PCP Registered Nurse; Visit Provider Registered Nurse | DX: I10 Essential (primary) hypertension (principal); E11.40 Type 2 diabetes mellitus with diabetic neuropathy, unspecified; E11.59 Type 2 diabetes mellitus with other circulatory complications; Z79.4 Long term (current) use of insulin; J44.9 Chronic obstructive pulmonary disease, unspecified; F17.200 Nicotine dependence, unspecified, uncomplicated; B37.9 Candidiasis, unspecified | CPT/HCPCS: 80053; 81000; 83036; 85025 ==

== ENCOUNTER 2022-06-12 09:30 | Emergency (ER) | payer MEDICARE, SELFPAY ==
[2022-06-12] VITALS (59 sets, daily range): BP systolic 92–121; BP diastolic 48–74; PULSE 86–116; RESP 15–30; TEMP 36.6; O2SAT 85–95; BMI 32.5
--- NOTE | 2022-06-12 09:48 | XR_ITS ---
WS: [id number] XR chest 1V [id number] REASON FOR EXAM: fever, COPD FINDINGS: Mild tortuosity of the thoracic aorta. Normal heart size. Minimal calcified granulomatous disease in both hemithoraces. No definite pulmonary parenchymal or pleural abnormality in the right chest. Equivocal ill-defined lung opacity in the left lower lung peripherally. Mild changes of degenerative spondylosis in the mid and lower thoracic spine. XR/XR chest 1V [id number] IMPRESSION: Questionable abnormality in the left lower lung as above. Could represent an ea rly pneumonitis. Recommend follow-up PA and lateral chest as clinically warrant ed.
[2022-06-12 10:20] LABS: Basophils % 0.3 %; Eosinophils # 0.2 10^3/uL (0.0-0.8); Eosinophils % 1.7 %; Hematocrit 41.3 % (37.0-47.0); Hemoglobin 12.9 g/dL (11.5-15.3); Lymphocytes # 1.7 10^3/uL (0.8-4.8); Lymphocytes % 17.4 %; Mean Corpuscular HGB Conc 31.2 g/dL (30.0-36.0); Mean Corpuscular Hemoglobin 27.2 pg (28.0-34.0); Mean Corpuscular Volume 86.9 fl (81-99); Mean Platelet Volume 10.3 fL (7.4-10.4); Monocytes # 0.6 10^3/uL (0.2-0.9); Monocytes % 6.5 %; Neutrophils # 7.18 10^3/uL (1.8-7.7); Neutrophils % 73.5 %; Nucleated Red Blood Cells % 0 %; Platelet Count 224 10^3/cmm (130-400); Red Blood Count 4.75 10^6/uL (4.1-5.3); Red Cell Distribution Width 16.4 % (12.1-15.1); White Blood Count 9.8 10^3/uL (4.0-10.0)
--- NOTE | 2022-06-12 10:44 | ED_ITS ---
HPI - Fever General: Chief Complaint: Fever Stated Complaint: SOB, fever, and feeling sick Time Seen by Provider: 06/12/22 10:33 Source: patient Mode of arrival: ambulatory Limitations: no limitations History of Present Illness: Patient presents emergency department today for evaluation treatment of continued worsening shortness of breath and cough. Patient reports she has had symptoms for about 3 weeks and, within that timeframe has been seen by urgent care and her primary care doctor. She reports she has been treated with steroids and antibiotics. She also states last week her primary care check some labs but, she thinks it was mostly for monitoring of her A1c. States she does feel ill. She reports upper respiratory symptoms and cough is productive. She reports high fever yesterday up to 104. Patient is typically on 2 to 3 L by nasal cannula but, has had to turn it up today and is c urrently at 4 L. Review of Systems General: Reports: 10 or more systems reviewed and unremarkable except in HPI and below Resp: Reports: dyspnea, productive cough, wheezing and chest congestion [facility] ED PFSH: Medical History (Updated 06/12/22 @ 14:55 by HOMAR Valdovinos) Acid reflux Acute exacerbation of chronic obstructive pulmonary disease Acute respiratory failure with hypoxia Anemia Chronic nausea Controlled diabetes mellitus with hyperglycemia, with long-term current use of insulin COPD, very severe Coronary artery disease Enrolled in chronic care management Essential hypertension Hyperlipidemia Hypertension Neuropathy due to type 2 diabetes mellitus ELISE (obstructive sleep apnea) Type 2 diabetes mellitus URTI (acute upper respiratory infection) Surgical History History of appendectomy History of colonoscopy (~05/2019) History of esophagogastroduodenoscopy (EGD) (~05/2019) Hx of removal of ovary S/P laparoscopy Family History Father Cancer Lung disease Hypertension Mother Lung disease Grandmother Diabetes Other CAD (coronary artery disease) Denies family history of Stroke Social History Smoking and tobacco status: current every day smoker cigarettes Packs smoked per day: 1 Years cigarettes smoked: 40 [ Other cigarette details: [id number]] Quit status (tobacco): considering quitting Second hand smoke exposure: Yes Smoking risk assessment/counseling performed?: Yes Alcohol intake: never Lives independently: Yes Household members: spouse Housing: House Marital status: Current occupational status: disabled Pets and animals: Yes Current gender identity: Female Financial difficulty paying for basics: Not Very Hard Physical Exam Const: COMMON NORMALS: patient oriented x3 and alert Eye: COMMON NORMALS: Equal, round and reactive pupils present, EOMs intact bilaterally and conjunctivae normal CONJUNCTIVA: Yes conjunctivae normal PUPIL: Yes Equal, round and reactive pupils present Neck/C-Spine: COMMON NORMALS: no JVD Lymph: LYMPHATIC: no lymphadenopathy noted Resp: OTHER: Patient is leaning forward in the bed to breathe. She appears focused on her breathing and speaks in short sentences. Patient has rhonchi and wheezing throughout with significantly diminished lung sounds. Mild respiratory distress. Cardio: COMMON NORMALS: no JVD and regular rate RATE: regular rate : COMMON NORMALS: Yes no CVA tenderness BLADDER/KIDNEY EXAM: Yes no CVA tenderness Back/Pelvis: COMMON NORMALS: no CVA tenderness, thoracic and lumbar spine normal to inspection and thoraco-lumbar ROM normal Extremity: COMMON NORMALS: normal to inspection, full ROM and no pedal edema Neuro: COMMON NORMALS: patient oriented x3 SENSORIUM/ORIENTATION: Yes alert Skin: COMMON NORMALS: no rashes or lesions noted and turgor normal GENERAL SKIN EXAM: no rashes or lesions noted and turgor normal Course Vital Signs: Vital signs: Vital Signs Temperature 97.8 F 06/12/22 09:36 Pulse Rate 98 06/12/22 15:34 Respiratory Rate 21 H 06/12/22 15:20 Blood Pressure 106/51 06/12/22 15:20 Pulse Oximetry 95 06/12/22 15:34 Oxygen Delivery Me thod 06/12/22 15:16 Oxygen Flow Rate 5 06/12/22 15:16 MDM - Fever Medical Decision Making Patient presented to the ER today for worsening of upper and lower respiratory symptoms. Patient's lab work is generally unremarkable and COVID and flu were negative. However, chest x-ray is concerning for left lower lobe developing pneumonia. Patient was given several DuoNeb treatments and had significant improvement in her breathing and lung noises. Patient was given a first dose of IV doxycycline here in the ER with rest being sent to the pharmacy on her behalf. Encouraged her to continue using her DuoNeb treatments at home. She was also given Medrol dose pack with instructions to watch her blood sugars closely. Patient discharged significantly improved. She was smiling and laughing as she independently ambulated down the [place] to discharge out. She was given strict return precautions for change or worsening in her condition. Recommended a follow-up appoint with her primary care at the end of the week for a general recheck. Differential Diagnosis Unlikely abdominal pain (COPD exacerbation, pneumonia, pleural effusion, COVID) Lab Data 06/12/22 10:14 06/12/22 10:14 Radiology Impressions Chest X-Ray 06/12/22 09:48 IMPRESSION: Questionable abnormality in the left lower lung as above. Could represent an early pneumonitis. Recommend follow-up PA and lateral chest as clinically warranted. Laboratory Results WBC 9.8 10^3/uL (4.0-10.0) 06/12/22 10:14 RBC 4.75 10^6/uL (4.1-5.3) 06/12/22 10:14 Hgb 12.9 g/dL (11.5-15.3) 06/12/22 10:14 Hct 41.3 % (37.0-47.0) 06/12/22 10:14 MCV 86.9 fl (81-99) 06/12/22 10:14 MCH 27.2 pg (28.0-34.0) L 06/12/22 10:14 MCHC 31.2 g/dL (30.0-36.0) 06/12/22 10:14 RDW 16.4 % (12.1-15.1) H 06/12/22 10:14 Plt Count 224 10^3/cmm (130-400) 06/12/22 10:14 MPV 10.3 fL (7.4-10.4) 06/12/22 10:14 Neut % (Auto) 73.5 % 06/12/22 10:14 Lymph % (Auto) 17.4 % 06/12/22 10:14 [place] % (Auto) 6.5 % 06/12/22 10:14 Eos % (Auto) 1.7 % 06/12/22 10:14 Baso % (Auto) 0.3 % 06/12/22 10:14 Neut # (Auto) 7.18 10^3/uL (1.8-7.7) 06/12/22 10:14 Lymph # (Auto) 1.7 10^3/uL (0.8-4.8) 06/12/22 10:14 [place] # (Auto) 0.6 10^3/uL (0.2-0.9) 06/12/22 10:14 Eos # (Auto) 0.2 10^3/uL (0.0-0.8) 06/12/22 10:14 Baso # (Auto) 0.0 10^3/uL (0.0-0.1) 06/12/22 10:14 Nucleated RBC % (auto) 0 % 06/12/22 10:14 Nucleated RBCs # 0.0 /100WBC 06/12/22 10:14 Sodium 132 mmol/L (136-145) L 06/12/22 10:14 Potassium 2.9 mmol/L (3.5-5.1) L 06/12/22 10:14 Chloride 92 mmol/L (98-107) L 06/12/22 10:14 Carbon Dioxide 28 mmol/L (22-29) 06/12/22 10:14 Anion Gap 14.9 (5-19) 06/12/22 10:14 BUN 13 mg/dL (6-20) 06/12/22 10:14 Creatinine 1.0 mg/dL (0.5-0.9) H 06/12/22 10:14 GFR Calculation 57.6 mL/min (90-130) L 06/12/22 10:14 Glucose 332 mg/dL (65-115) H 06/12/22 10:14 Calculated Osmolality 287 mOsm/kg (285-295) 06/12/22 10:14 Calcium 8.4 mg/dL (8.5-10.5) L 06/12/22 10:14 Total Bilirubin 0.3 mg/dL (0.15-1.2) 06/12/22 10:14 AST 8 U/L (0-32) 06/12/22 10:14 ALT 10 U/L (0-33) 06/12/22 10:14 Alkaline Phosphatase 94 U/L (35-105) 06/12/22 10:14 Total Protein 6.8 g/dL (6.6-8.7) 06/12/22 10:14 Albumin 3.5 g/dL (3.5-5.2) 06/12/22 10:14 Globulin 3.3 g/dL (1.3-4.6) 06/12/22 10:14 Urine Color Straw (Yellow) 06/12/22 12:22 Urine Appearance Clear (CLEAR) 06/12/22 12:22 Urine pH 5 (5-7) 06/12/22 12:22 Ur Specific [place] 1.005 (1.005-1.030) 06/12/22 12:22 Urine Protein Neg (Negative) 06/12/22 12:22 Urine Glucose (UA) 4+ (Normal) H 06/12/22 12:22 Urine Ketones Negative (Negative) 06/12/22 12:22 Urine Blood Neg (Negative) 06/12/22 12:22 Urine Nitrate Negative (Negative) 06/12/22 12:22 Urine Bilirubin Neg (Negative) 06/12/22 12:22 Urine Urobilinogen Norm mg/dL (Negative) 06/12/22 12:22 Ur Leukocyte Esterase Negative (Negative) 06/12/22 12:22 Influenza Type A Ag negative (Negative) 06/12/22 10:09 Influenza Type B Ag negative (Negative) 06/12/22 10:09 SARS-CoV-2 Ag (Rapid) negative (Negative) 06/12/22 10:09 Discharge Plan Discharge Patient Disposition: Home Clinical Impression: Pneumonia, COPD (chronic obstructive pulmonary disease) Condition: Stable Prescriptions: New methylprednisolone 4 mg tablets,dose pack See Rx Instructions PO .COMPLEX Qty: 21 0RF Rx Instructions: orally per package directions doxycycline hyclate 100 mg tablet 100 mg PO BID 10 Days Qty: 20 0RF No Action amlodipine 10 mg tablet 5 mg PO DAILY 90 Days Qty: 90 1RF Lantus Solostar U-100 Insulin 100 unit/mL (3 mL) insulin pen See Rx Instructions .ROUTE .COMPLEX Qty: 15 5RF Dose Instruction: INJECT 40 UNITS UNDER THE SKIN TWICE DAILY. Rx Instructions: INJECT 40 UNITS UNDER THE SKIN TWICE DAILY. equal 90 day supply. montelukast 10 mg tablet See Rx Instructions .ROUTE .COMPLEX Qty: 90 1RF Dose Instruction: TAKE 1 TABLET BY MOUTH DAILY Rx Instructions: TAKE 1 TABLET BY MOUTH DAILY Lyrica 150 mg capsule 150 mg PO BID 30 Days Qty: 60 5RF fluconazole [Diflucan] 150 mg tablet 150 mg PO .Now repeat in 7 days Qty: 2 0RF fluticasone propionate [Flonase Allergy Relief] 50 mcg/actuation spray,suspension 1 spray intranasal BID Qty: 16 2RF Rx Instructions: administer into each nostril (DME) pen needle, diabetic [1st Tier Unifine Pentips] 31 gauge x 1/4 needle See Rx Instructions .Route Qty: 100 1RF Rx Instructions: As directed aspirin 81 mg tablet,delayed release (DR/EC) 81 mg PO DAILY Qty: 30 3RF potassium chloride 20 mEq/15 mL liquid 20 meq PO DAILY Qty: 1200 0RF ipratropium-albuterol 0.5 mg-3 mg(2.5 mg base)/3 mL solution for nebulization 3 ml inhalation Q6H PRN (Reason: shortness of breath or wheezing) Qty: 180 5RF Rybelsus 7 mg tablet 7 mg PO DAILY Qty: 90 0RF (DME) OneTouch Verio test strips Strip See Rx Instructions .Route Qty: 100 0RF Rx Instructions: test 3 times daily (DME) blood-glucose meter [OneTouch Verio Meter] [facility] See Rx Instructions .Route Qty: 1 0RF Rx Instructions: test blood sugar 3 times daily baclofen 20 mg tablet 20 mg PO BID PRN (Reason: Muscle Spasm) pantoprazole 40 mg tablet,delayed release (DR/EC) 40 mg PO BID simvastatin 20 mg tablet 20 mg PO DAILY telmisartan 80 mg tablet 80 mg PO DAILY metoprolol tartrate 50 mg tablet 50 mg PO BID hydrochlorothiazide 25 mg tablet 25 mg PO DAILY albuterol sulfate 90 mcg/actuation HFA aerosol inhaler 2 puff inhalation Q6H loratadine 10 mg tablet 10 mg PO DAILY Jardiance 25 mg tablet 25 mg PO DAILY Trelegy Ellipta 100-62.5-25 mcg blister with device 1 inh inhalation DAILY Zyrtec 10 mg Tablet 10 mg PO DAILY PRN (Reason: Allergy Symptoms) melatonin 10 mg Capsule 10 mg PO DAILY PRN (Reason: Sleep) Discharge Orders: Discharge ED (Routine); Ordered 06/12/22 Ordered By: Marisol Minaya Referrals: Reji Faulkner, CAKE WRINGER [Primary Care Provider] - Discharge Diet: Usual diet Discharge Activity: Increase activity as tolerated Patient Instructions: Pneumonia (ED) Activity Restrictions/Additional Instructions: Lab work today appear stable however, your chest x-ray is concerning for an early pneumonia. Given that you have been having symptoms for a few weeks, it is very possible that you are developing a bacterial pneumonia. For that reason we are starting you on oral antibiotics. You had significant improvement of the lung noise on both sides of your lung [place] after your repeat DuoNeb treatments. Continue using your breathing treatments at home. I am also giving you a continuation of oral steroids during this time of treatment. Carefully monitor your blood sugars during this time. I request you have a follow-up appointment with your primary care doctor at the end of the week to check and make sure symptoms are noticeably improved if not nearly resolved. If for any reason you acutely worsen you need to return back to the ER. Coding Level of Care Code ED Daub Color Mixer for Precious Banks
[2022-06-12 10:47] LABS: Alanine Aminotransferase 10 U/L (0-33); Albumin Level 3.5 g/dL (3.5-5.2); Alkaline Phosphatase 94 U/L (35-105); Anion Gap 14.9 (5-19); Aspartate Amino Transferase 8 U/L (0-32); Blood Urea Nitrogen 13 mg/dL (6-20); Calcium 8.4 mg/dL (8.5-10.5); Carbon Dioxide 28 mmol/L (22-29); Chloride 92 mmol/L (98-107); Globulin 3.3 g/dL (1.3-4.6); Glomerular Filtration Rate 57.6 mL/min (90-130); Glucose 332 mg/dL (65-115); Osmolality Calculated 287 mOsm/kg (285-295); Sodium 132 mmol/L (136-145); Total Bilirubin 0.3 mg/dL (0.15-1.2); Total Protein 6.8 g/dL (6.6-8.7)
[2022-06-12 11:10] LABS: Potassium 2.9 mmol/L (3.5-5.1)
[2022-06-12 11:12] LABS: Influenza A by IFA negative (Negative); Influenza B by IFA negative (Negative); SARS Covid-2 Antigen negative (Negative)
[2022-06-12] MEDS: ipratropium-albuterol 3 mL Neb INHALATION ×4 (11:59→15:16)
[2022-06-12] MEDS: potassium chloride ER 10 mEq Tablet PO (12:31)
[2022-06-12 12:40] LABS: Add Urine Microscopic? NO; Charge for UA Resulting for Rev
[2022-06-12 13:01] LABS: Bilirubin Urine Neg (Negative); Blood Urine Neg (Negative); Glucose Urine UA 4+ (Normal); Ketones Urine Negative (Negative); Leukocyte Esterase Urine Negative (Negative); Nitrate Urine Negative (Negative); Protein Urine Neg (Negative); Specific Gravity, Urine 1.005 (1.005-1.030); Urine Appearance Clear (CLEAR); Urine Color Straw (Yellow); Urobilinogen Urine Norm (Negative); pH Urine 5 (5-7)
[2022-06-12] MEDS: doxycycline 100 MG in sodium chloride 0.9% (plus) 100 ML IV (13:39)
== END 2022-06-12 15:35 | disposition home or self-care (01) ==
PROVIDERS: Emergency Provider Physician Assistant; PCP Registered Nurse
DX: J44.0 Chronic obstructive pulmonary disease with (acute) lower respiratory infection (principal); J18.9 Pneumonia, unspecified organism; Z79.82 Long term (current) use of aspirin; Z79.4 Long term (current) use of insulin; Z20.822 Contact with and (suspected) exposure to COVID-19; F17.210 Nicotine dependence, cigarettes, uncomplicated; E11.9 Type 2 diabetes mellitus without complications; I25.10 Atherosclerotic heart disease of native coronary artery without angina pectoris; I10 Essential (primary) hypertension; E78.49 Other hyperlipidemia
CPT/HCPCS: 71045; 80053; 81003; 85025; 87426; 87804; 94640; 96374; 96375; 99284; J2930; J3490

== ENCOUNTER → 2022-07-27 10:03 | Outpatient (BNVA) | payer MEDICARE, SELFPAY | PROVIDERS: PCP Registered Nurse; Visit Provider Internal Medicine Pulmonary Disease | DX: J44.9 Chronic obstructive pulmonary disease, unspecified (principal); Z71.6 Tobacco abuse counseling; G47.33 Obstructive sleep apnea (adult) (pediatric); F17.210 Nicotine dependence, cigarettes, uncomplicated; Z99.81 Dependence on supplemental oxygen | CPT/HCPCS: 99214 ==

== ENCOUNTER 2022-09-14 06:30 | Emergency (ER) | payer MEDICARE, SELFPAY ==
[2022-09-14 06:37] VITALS: BP 138/76; PULSE 97; RESP 22; O2SAT 93; BMI 31.6
--- NOTE | 2022-09-14 06:43 | W.ED.EYEPROB ---
HPI - Eye Problem General: Chief complaint: Eye Problems Stated complaint: left eye problems Time Seen by Provider: 09/14/22 06:35 Source: patient Mode of arrival: ambulatory Limitations: no limitations History of Present Illness: 56-year-old female states she has had left eye pain throughout the day she does have some redness around the eye she denies any injury denies any change in vision denies any pain with movement she rates her pain a 2 out of 10. Associated symptoms: Denies fever(s), headache(s), nausea, neck pain or vomiting Review of Systems Const: Denies: fever(s), chills, body aches or change in appetite Eyes: Reports: eye discomfort; Denies: blurry vision ENMT: Denies: throat pain or dental pain Card: Denies: chest pain Resp: Denies: dyspnea GI: Denies: abdominal pain, nausea, vomiting or diarrhea Musc: Denies: neck pain or back pain Skin/Breast: Denies: rash Neuro: Denies: headache(s) PFSH ED PFSH: Medical History Acid reflux Acute exacerbation of chronic obstructive pulmonary disease Acute respiratory failure with hypoxia Anemia Chronic nausea Controlled diabetes mellitus with hyperglycemia, with long-term current use of insulin COPD, very severe Coronary artery disease Enrolled in chronic care management Essential hypertension Hyperlipidemia Hypertension Neuropathy due to type 2 diabetes mellitus ELISE (obstructive sleep apnea) Type 2 diabetes mellitus URTI (acute upper respiratory infection) Surgical History History of appendectomy History of colonoscopy (~05/2019) History of esophagogastroduodenoscopy (EGD) (~05/2019) Hx of removal of ovary S/P laparoscopy Family History Father Cancer Lung disease Hypertension Mother Lung disease Grandmother Diabetes Other CAD (coronary artery disease) Denies family history of Stroke Social History (Updated 09/05/22 @ 13:07 by Namita Ramires LPN) Smoking and tobacco status: current every day smoker cigarettes Packs smoked per day: 1 Years cigarettes smoked: 40 [ Other cigarette details: [id number]] Quit status (tobacco): considering quitting Second hand smoke exposure: Yes Smoking risk assessment/counseling performed?: Yes Alcohol intake: never Substance/Drug Use: never Lives independently: Yes Household members: spouse Housing: House Marital status: Current occupational status: disabled Pets and animals: Yes Do you think of yourself as: Straight/Heterosexual Current gender identity: Female Selina/Roman Catholic: Latter-Day Agree to transfusion: Yes Financial difficulty paying for basics: Not Very Hard Physical Exam Const: COMMON NORMALS: no acute distress, patient oriented x3 and healthy appearing HENMT: COMMON NORMALS: normocephalic and atraumatic HEAD & SCALP: normocephalic and atraumatic Eye: COMMON NORMALS: Equal, round and reactive pupils present and EOMs intact bilaterally PUPIL: Yes Equal, round and reactive pupils present OTHER: Erythema around left eyes mild periorbital cellulitis left eye has no redness no pain with range of motion good vision that I Neck/C-Spine: COMMON NORMALS: full ROM and supple Chest: COMMONS NORMALS: normal inspection of the chest Resp: COMMON NORMALS: normal respiratory effort Cardio: COMMON NORMALS: regular rate, regular rhythm and No murmurs present (Cardio) RATE: regular rate RHYTHM: regular rhythm GI: INSPECTION: Yes normal to inspection Extremity: COMMON NORMALS: normal to inspection and full ROM Neuro: COMMON NORMALS: patient oriented x3, moves all extremities and no focal motor deficits Psych: COMMON NORMALS: mental status grossly normal, Normal thought process present and cooperative THOUGHT PROCESS: Normal thought process present Skin: COMMON NORMALS: no rashes or lesions noted and no wounds GENERAL SKIN EXAM: no rashes or lesions noted Course Vital Signs: Vital signs: Vital Signs Pulse Rate 97 09/14/22 06:37 Respiratory Rate 22 H 09/14/22 06:37 Blood Pressure 138/76 09/14/22 06:37 Pulse Oximetry 93 09/14/22 06:37 Oxygen Delivery Me thod Room Air 09/14/22 06:37 MDM - Eye Problem Medical Decision Making Patient presents with erythema around left eye likely a mild periorbital cellulitis we will start her on clindamycin along with erythromycin she has no vision changes no pain with range of motion no signs of orbital cellulitis Discharge Plan Discharge Patient Disposition: Home Clinical Impression: Periorbital cellulitis of left eye Condition: Stable Prescriptions: New Naprosyn 500 mg tablet 500 mg PO BID PRN (Reason: pain) Qty: 20 0RF erythromycin 5 mg/gram (0.5 %) ointment 1 applic ophthalmic (eye) Q6H Qty: 3.5 0RF clindamycin HCl 300 mg capsule 300 mg PO Q8H 7 Days Qty: 21 0RF No Action amlodipine 10 mg tablet 5 mg PO DAILY 90 Days Qty: 90 1RF Lantus Solostar U-100 Insulin 100 unit/mL (3 mL) insulin pen See Rx Instructions .ROUTE .COMPLEX Qty: 15 5RF Dose Instruction: INJECT 40 UNITS UNDER THE SKIN TWICE DAILY. Rx Instructions: INJECT 40 UNITS UNDER THE SKIN TWICE DAILY. equal 90 day supply. montelukast 10 mg tablet See Rx Instructions .ROUTE .COMPLEX Qty: 90 1RF Dose Instruction: TAKE 1 TABLET BY MOUTH DAILY Rx Instructions: TAKE 1 TABLET BY MOUTH DAILY Lyrica 150 mg capsule 150 mg PO BID 30 Days Qty: 60 5RF potassium chloride [Klor-Con M20] 20 mEq tablet,ER particles/crystals 20 meq PO DAILY 90 Days Qty: 90 0RF fluticasone propionate [Flonase Allergy Relief] 50 mcg/actuation spray,suspension 1 spray intranasal BID Qty: 16 2RF Rx Instructions: administer into each nostril (DME) pen needle, diabetic [1st Tier Unifine Pentips] 31 gauge x 1/4 needle See Rx Instructions .Route Qty: 100 1RF Rx Instructions: As directed aspirin 81 mg tablet,delayed release (DR/EC) 81 mg PO DAILY Qty: 30 3RF ipratropium-albuterol 0.5 mg-3 mg(2.5 mg base)/3 mL solution for nebulization 3 ml inhalation Q6H PRN (Reason: shortness of breath or wheezing) Qty: 180 5RF Rybelsus 7 mg tablet 7 mg PO DAILY Qty: 90 0RF (DME) OneTouch Verio test strips Strip See Rx Instructions .Route Qty: 100 0RF Rx Instructions: test 3 times daily (DME) blood-glucose meter [OneTouch Verio Meter] [facility] See Rx Instructions .Route Qty: 1 0RF Rx Instructions: test blood sugar 3 times daily pantoprazole 40 mg tablet,delayed release (DR/EC) See Rx Instructions .ROUTE .COMPLEX Qty: 180 0RF Dose Instruction: TAKE 1 TABLET BY MOUTH TWICE DAILY Rx Instructions: TAKE 1 TABLET BY MOUTH TWICE DAILY albuterol sulfate 90 mcg/actuation HFA aerosol inhaler 2 puff inhalation Q6H Qty: 8.5 2RF loratadine 10 mg tablet 10 mg PO DAILY Qty: 90 0RF baclofen 20 mg tablet See Rx Instructions .ROUTE .COMPLEX Qty: 45 0RF Dose Instruction: TAKE 1 TABLET BY MOUTH TWICE DAILY NEEDED FOR MUSCLE SPASM Rx Instructions: TAKE 1 TABLET BY MOUTH TWICE DAILY NEEDED FOR MUSCLE SPASM simvastatin 20 mg tablet 20 mg PO DAILY telmisartan 80 mg tablet 80 mg PO DAILY metoprolol tartrate 50 mg tablet 50 mg PO BID hydrochlorothiazide 25 mg tablet 25 mg PO DAILY Jardiance 25 mg tablet 25 mg PO DAILY Trelegy Ellipta 100-62.5-25 mcg blister with device 1 inh inhalation DAILY melatonin 10 mg Capsule 10 mg PO DAILY PRN (Reason: Sleep) Discharge Orders: Discharge ED (Routine); Ordered 09/14/22 Ordered By: Chuyita Villa Referrals: Reji Faulkner, F[employer] FLOOR WORKER [Primary Care Provider] - Discharge Diet: Advance as tolerated Discharge Activity: Resume usual activity Patient Instructions: Periorbital Cellulitis (ED) Coding Level of Care Code ED Sane Rn for Precious Banks
[2022-09-14] MEDS: naproxen 500 mg Tablet PO (06:45)
[2022-09-14 06:50] VITALS: PULSE 96; RESP 16; O2SAT 93
== END 2022-09-14 06:51 | disposition home or self-care (01) ==
PROVIDERS: Emergency Provider Emergency Medicine; PCP Registered Nurse
DX: L03.213 Periorbital cellulitis (principal); Z79.82 Long term (current) use of aspirin; Z79.4 Long term (current) use of insulin; J44.9 Chronic obstructive pulmonary disease, unspecified; E11.9 Type 2 diabetes mellitus without complications; I10 Essential (primary) hypertension; E78.5 Hyperlipidemia, unspecified; F17.210 Nicotine dependence, cigarettes, uncomplicated
CPT/HCPCS: 99283

== ENCOUNTER 2022-09-17 13:14 | Emergency (ER) | payer MEDICARE, SELFPAY ==
[2022-09-17] VITALS (12 sets, daily range): BP systolic 122–145; BP diastolic 75–84; PULSE 88–99; RESP 16–33; TEMP 37.3; O2SAT 85–99
--- NOTE | 2022-09-17 14:38 | ECG_ITS ---
[facility] Test Date: 2022-09-17 Pat Name: Nicole Carlos Department: Room: Gender: Female Inside Sales Account Representative: : 1965 Requested By: Amparo Orantes Order Number: [id number] Roman MD: Ziyad Cooper M.D. Measurements Intervals [place] Rate: 95 P: 76 [place]: 167 QRS: 67 QRSD: 93 T: 70 QT: 357 QTc: 450 Interpretive Statements SINUS RHYTHM Compared to ECG 06/02/2021 03:09:37 Myocardial infarct finding no longer present Electronically Signed On 09-18-2022 8:11:11 CDT by Ziyad Cooper M.D. [email or web address]
--- NOTE | 2022-09-17 14:38 | XRR_ITS ---
PROCEDURE INFORMATION: Exam: XR Chest Exam date and time: 09/17/2022 2:44 PM Age: 56 years old Clinical indication: Shortness of breath; Additional info: SOB TECHNIQUE: Imaging protocol: Radiologic exam of the chest. Views: 1 view. COMPARISON: CR XR chest 1V [id number] 06/12/2022 10:32 AM FINDINGS: Lungs: Unremarkable. No consolidation. Pleural spaces: Unremarkable. No pleural effusion. No pneumothorax. Heart/Mediastinum: Unremarkable. No cardiomegaly. Bones/joints: Unremarkable. XR/XR chest 1V portable [id number] IMPRESSION: No acute findings.
[2022-09-17 15:04] LABS: Glucose Point of Care 97 mg/dL (70-110)
[2022-09-17] MEDS: ondansetron 2 mg/ML SDV 2 mL 4 MG IVP (15:04)
[2022-09-17] MEDS: methylPREDNISolone sod succ 125 mg SDV IV (15:04)
[2022-09-17] MEDS: magnesium sulfate premix 2 GM/50 ML PIGGYBACK IV (15:04)
[2022-09-17 15:12] LABS: Basophils % 0.3 %; Eosinophils # 0.1 10^3/uL (0.0-0.8); Eosinophils % 0.7 %; Hematocrit 49.4 % (37.0-47.0); Hemoglobin 15.4 g/dL (11.5-15.3); Lymphocytes # 1.2 10^3/uL (0.8-4.8); Lymphocytes % 12.1 %; Mean Corpuscular HGB Conc 31.2 g/dL (30.0-36.0); Mean Corpuscular Hemoglobin 27.5 pg (28.0-34.0); Mean Corpuscular Volume 88.4 fl (81-99); Mean Platelet Volume 10.5 fL (7.4-10.4); Monocytes # 0.7 10^3/uL (0.2-0.9); Neutrophils # 7.52 10^3/uL (1.8-7.7); Neutrophils % 79.5 %; Nucleated Red Blood Cells % 0 %; Platelet Count 213 10^3/cmm (130-400); Red Blood Count 5.59 10^6/uL (4.1-5.3); Red Cell Distribution Width 15.9 % (12.1-15.1); White Blood Count 9.5 10^3/uL (4.0-10.0)
[2022-09-17 15:23] LABS: Lactic Sepsis W/Reflex 1.3 mmol/L (0.5-2.2)
[2022-09-17 15:33] LABS: Alanine Aminotransferase 15 U/L (0-33); Albumin Level 4.2 g/dL (3.5-5.2); Alkaline Phosphatase 120 U/L (35-105); Anion Gap 12.3 (5-19); Aspartate Amino Transferase 16 U/L (0-32); Blood Urea Nitrogen 13 mg/dL (6-20); Calcium 9.3 mg/dL (8.5-10.5); Carbon Dioxide 32 mmol/L (22-29); Chloride 93 mmol/L (98-107); Globulin 3.6 g/dL (1.3-4.6); Glucose 96 mg/dL (65-115); Magnesium 1.9 mg/dL (1.7-2.3); NT Pro B Type Natriuretic Pept 49 pg/mL (0-125); Osmolality Calculated 278 mOsm/kg (285-295); Potassium 3.3 mmol/L (3.5-5.1); Sodium 134 mmol/L (136-145); Total Bilirubin 0.3 mg/dL (0.15-1.2); Total Protein 7.8 g/dL (6.6-8.7)
[2022-09-17] MEDS: ipratropium-albuterol 3 mL Neb INHALATION (15:49)
[2022-09-17 16:07] LABS: Base Excess VBG 5.8 mmol/L (-3.0-3.0); Blood Gas Sample Type Venous; HCO3 VBG 33.1 mmol/L (24-28); Oxygen Device NC; PO2 VBG 26.3 mmHg (25-40); Venous Blood Gas Hematocrit 49.4 % (37-47); pH VBG 7.37 (7.32-7.42)
[2022-09-17 16:34] LABS: Troponin(5th) Baseline 7 ng/L (0-10)
--- NOTE | 2022-09-17 16:59 | PC.NURSE ---
PT IS IN ROOM, IN BED, PT HAS NO REQUESTS.
--- NOTE | 2022-09-17 17:22 | PC.NURSE ---
PT O2 SITTING AT 85, 3L O2, REPLACED O2 MONITOR, WAVE FORM LOOKS STEADY. PT IS IN NO APPARENT DISTRESS. I BUMPED PT FROM 3L TO 4 AND PT IS NOW AT 89
--- NOTE | 2022-09-17 18:09 | ECG_ITS ---
[facility] Test Date: 2022-09-17 Pat Name: Nicole Carlos Department: Room: Gender: Female Oil Rigger: : 1965 Requested By: Amparo Orantes Order Number: [id number] Roman MD: Ziyad Cooper M.D. Measurements Intervals [place] Rate: 87 P: 70 [place]: 177 QRS: 65 QRSD: 93 T: 60 QT: 393 QTc: 474 Interpretive Statements SINUS RHYTHM Compared to ECG 09/17/2022 15:00:58 No significant changes Electronically Signed On 09-18-2022 8:15:02 CDT by Ziyad Cooper M.D. [id number]
[2022-09-17 19:08] LABS: Troponin 5 2HR Delta -1 ABS# (0-10)
--- NOTE | 2022-09-17 20:09 | ED_ITS ---
HPI - SOB/Dyspnea General: Chief Complaint: Shortness of Breath/Dyspnea Stated Complaint: SOB/Dry cough/stuffy nose Time Seen by Provider: 09/17/22 14:17 History of Present Illness: HPI Narrative: This patient is a 56 year old presenting with shortness of breath that worsened last night. She has a history of COPD and has frequent exacerbations. She uses nebs and inhalers at home but has not been getting any relief. She uses home oxygen. She was most recently on steroids about a month ago. She has tightness in her chest and also congestion in her sinuses. She continues to smoke. No fever. She also gets bad allergies. No vomiting or diarrhea. PFSH ED PFSH: Medical History Acid reflux Acute exacerbation of chronic obstructive pulmonary disease Acute respiratory failure with hypoxia Anemia Chronic nausea Controlled diabetes mellitus with hyperglycemia, with long-term current use of insulin COPD, very severe Coronary artery disease Enrolled in chronic care management Essential hypertension Hyperlipidemia Hypertension Neuropathy due to type 2 diabetes mellitus ELISE (obstructive sleep apnea) Type 2 diabetes mellitus URTI (acute upper respiratory infection) Surgical History History of appendectomy History of colonoscopy (~05/2019) History of esophagogastroduodenoscopy (EGD) (~05/2019) Hx of removal of ovary S/P laparoscopy Family History Father Cancer Lung disease Hypertension Mother Lung disease Grandmother Diabetes Other CAD (coronary artery disease) Denies family history of Stroke Social History (Updated 09/05/22 @ 13:07 by Namita Ramires LPN) Smoking and tobacco status: current every day smoker cigarettes Packs smoked per day: 1 Years cigarettes smoked: 40 [ Other cigarette details: [id number]] Quit status (tobacco): considering quitting Second hand smoke exposure: Yes Smoking risk assessment/counseling performed?: Yes Alcohol intake: never Substance/Drug Use: never Lives independently: Yes Household members: spouse Housing: House Marital status: Current occupational status: disabled Pets and animals: Yes Do you think of yourself as: Straight/Heterosexual Current gender identity: Female Selina/Episcopal: [employer]aritan Agree to transfusion: Yes Financial difficulty paying for basics: Not Very Hard Physical Exam Const: COMMON NORMALS: no acute distress, patient oriented x3, no limitations and alert GENERAL APPEARANCE: cooperative and comfortable HENMT: HEAD & SCALP: normal to inspection FACE & SINUS: normal facial exam Eye: GENERAL EYE: appearance normal, both eyes and all related structures Neck/C-Spine: COMMON NORMALS: supple, no meningeal signs and no JVD Chest: COMMONS NORMALS: normal inspection of the chest Resp: EFFORT & INSPECTION: Yes tachypneic, Yes labored, Yes retractions and Yes uses accessory muscles AUSCULTATION: wheezes and diminished lung sounds Cardio: COMMON NORMALS: no JVD, regular rate, regular rhythm and No murmurs present (Cardio) RATE: regular rate RHYTHM: regular rhythm GI: COMMON NORMALS: Normal to inspection, nondistended, normoactive bowel sounds present, Soft to palpation and non-tender INSPECTION: Yes normal to inspection AUSCULTATION: Yes normoactive bowel sounds PALPATION: Yes Soft to palpation Back/Pelvis: COMMON NORMALS: thoracic and lumbar spine normal to inspection Extremity: COMMON NORMALS: normal to inspection Neuro: COMMON NORMALS: patient oriented x3, moves all extremities, no focal motor deficits and no sensory deficits noted SENSORIUM/ORIENTATION: Yes alert MENINGEAL SIGNS: Yes no meningeal signs Psych: COMMON NORMALS: mental status grossly normal, cooperative and normal affect Skin: COMMON NORMALS: no rashes or lesions noted and turgor normal GENERAL SKIN EXAM: no rashes or lesions noted and turgor normal Course Vital Signs: Vital signs: Vital Signs Temperature 99.1 F 09/17/22 13:16 Pulse Rate 99 09/17/22 18:33 Respiratory Rate 16 09/17/22 18:33 Blood Pressure 130/76 09/17/22 17:15 Pulse Oximetry 99 09/17/22 18:33 Oxygen Delivery Me thod Nasal Cannula 09/17/22 18:03 Oxygen Flow Rate 4 09/17/22 18:03 MDM - SOB/Dyspnea Medical Decision Making COPD exacerbation - also consider cardiac given her chest tightness. CXR neg for pneumonia. EKG and troponins neg for cardiac ischemia. Nebs given. Solumedrol given. She felt much better and her lungs were improved - some wheezing still but improved air movement. She felt ready to go home and was discharged. Lab Data 09/17/22 14:53 09/17/22 14:53 Labs/Radiology: Radiology Impressions Chest X-Ray 09/17/22 14:38 IMPRESSION: No acute findings. Laboratory Results WBC 9.5 10^3/uL (4.0-10.0) 09/17/22 14:53 RBC 5.59 10^6/uL (4.1-5.3) H 09/17/22 14:53 Hgb 15.4 g/dL (11.5-15.3) H 09/17/22 14:53 Hct 49.4 % (37.0-47.0) H 09/17/22 14:53 MCV 88.4 fl (81-99) 09/17/22 14:53 MCH 27.5 pg (28.0-34.0) L 09/17/22 14:53 MCHC 31.2 g/dL (30.0-36.0) 09/17/22 14:53 RDW 15.9 % (12.1-15.1) H 09/17/22 14:53 Plt Count 213 10^3/cmm (130-400) 09/17/22 14:53 MPV 10.5 fL (7.4-10.4) H 09/17/22 14:53 Neut % (Auto) 79.5 % 09/17/22 14:53 Lymph % (Auto) 12.1 % 09/17/22 14:53 [place] % (Auto) 7.0 % 09/17/22 14:53 Eos % (Auto) 0.7 % 09/17/22 14:53 Baso % (Auto) 0.3 % 09/17/22 14:53 Neut # (Auto) 7.52 10^3/uL (1.8-7.7) 09/17/22 14:53 Lymph # (Auto) 1.2 10^3/uL (0.8-4.8) 09/17/22 14:53 [place] # (Auto) 0.7 10^3/uL (0.2-0.9) 09/17/22 14:53 Eos # (Auto) 0.1 10^3/uL (0.0-0.8) 09/17/22 14:53 Baso # (Auto) 0.0 10^3/uL (0.0-0.1) 09/17/22 14:53 Nucleated RBC % (auto) 0 % 09/17/22 14:53 Nucleated RBCs # 0.0 /100WBC 09/17/22 14:53 Specimen Type Venous 09/17/22 15:51 Nabor Test N/a 09/17/22 15:51 VBG pH 7.37 (7.32-7.42) 09/17/22 15:51 VBG pCO2 57.0 mmHg (41-51) H 09/17/22 15:51 VBG pO2 26.3 mmHg (25-40) 09/17/22 15:51 VBG HCO3 33.1 mmol/L (24-28) H 09/17/22 15:51 VBG Base Excess 5.8 mmol/L (-3.0-3.0) H 09/17/22 15:51 VBG Hematocrit 49.4 % (37-47) H 09/17/22 15:51 O2 Delivery Device Nc 09/17/22 15:51 O2 Liters/Min 3.0 % 09/17/22 15:51 FiO2 32.0 % 09/17/22 15:51 Library Cataloging Technician ID [id number] 09/17/22 15:51 Sodium 134 mmol/L (136-145) L 09/17/22 14:53 Potassium 3.3 mmol/L (3.5-5.1) L 09/17/22 14:53 Chloride 93 mmol/L (98-107) L 09/17/22 14:53 Carbon Dioxide 32 mmol/L (22-29) H 09/17/22 14:53 Anion Gap 12.3 (5-19) 09/17/22 14:53 BUN 13 mg/dL (6-20) 09/17/22 14:53 Creatinine 0.9 mg/dL (0.5-0.9) 09/17/22 14:53 GFR Calculation 65.0 mL/min (90-130) L 09/17/22 14:53 Glucose 96 mg/dL (65-115) 09/17/22 14:53 POC Glucose 97 mg/dL (70-110) 09/17/22 15:01 Calculated Osmolality 278 mOsm/kg (285-295) L 09/17/22 14:53 Lactic Acid 1.3 mmol/L (0.5-2.2) 09/17/22 14:53 Calcium 9.3 mg/dL (8.5-10.5) 09/17/22 14:53 Magnesium 1.9 mg/dL (1.7-2.3) 09/17/22 14:53 Total Bilirubin 0.3 mg/dL (0.15-1.2) 09/17/22 14:53 AST 16 U/L (0-32) 09/17/22 14:53 ALT 15 U/L (0-33) 09/17/22 14:53 Alkaline Phosphatase 120 U/L (35-105) H 09/17/22 14:53 Troponin T Baseline 7 ng/L (0-10) 09/17/22 15:51 Troponin T 120 Minute 6.00 ng/L (0-10) 09/17/22 18:04 Delta Troponin T -1 ABS# (0-10) L 09/17/22 18:04 NT-Pro-B Natriuret Pep 49 pg/mL (0-125) 09/17/22 14:53 Total Protein 7.8 g/dL (6.6-8.7) 09/17/22 14:53 Albumin 4.2 g/dL (3.5-5.2) 09/17/22 14:53 Globulin 3.6 g/dL (1.3-4.6) 09/17/22 14:53 Discharge Plan Discharge Patient Disposition: Home Clinical Impression: COPD, very severe, Type 2 diabetes mellitus Condition: Stable Prescriptions: New prednisone 10 mg tablet See Rx Instructions .ROUTE .COMPLEX Qty: 20 0RF Rx Instructions: 10 mg orally - take 4 tablets daily for 2 days, then 3 daily for 2 days, the 2 daily for 4 days No Action amlodipine 10 mg tablet 5 mg PO DAILY 90 Days Qty: 90 1RF Lantus Solostar U-100 Insulin 100 unit/mL (3 mL) insulin pen See Rx Instructions .ROUTE .COMPLEX Qty: 15 5RF Dose Instruction: INJECT 40 UNITS UNDER THE SKIN TWICE DAILY. Rx Instructions: INJECT 40 UNITS UNDER THE SKIN TWICE DAILY. equal 90 day supply. montelukast 10 mg tablet See Rx Instructions .ROUTE .COMPLEX Qty: 90 1RF Dose Instruction: TAKE 1 TABLET BY MOUTH DAILY Rx Instructions: TAKE 1 TABLET BY MOUTH DAILY Lyrica 150 mg capsule 150 mg PO BID 30 Days Qty: 60 5RF potassium chloride [Klor-Con M20] 20 mEq tablet,ER particles/crystals 20 meq PO DAILY 90 Days Qty: 90 0RF fluticasone propionate [Flonase Allergy Relief] 50 mcg/actuation spray,suspension 1 spray intranasal BID Qty: 16 2RF Rx Instructions: administer into each nostril (DME) pen needle, diabetic [1st Tier Unifine Pentips] 31 gauge x 1/4 needle See Rx Instructions .Route Qty: 100 1RF Rx Instructions: As directed aspirin 81 mg tablet,delayed release (DR/EC) 81 mg PO DAILY Qty: 30 3RF ipratropium-albuterol 0.5 mg-3 mg(2.5 mg base)/3 mL solution for nebulization 3 ml inhalation Q6H PRN (Reason: shortness of breath or wheezing) Qty: 180 5RF Rybelsus 7 mg tablet 7 mg PO DAILY Qty: 90 0RF (DME) OneTouch Verio test strips Strip See Rx Instructions .Route Qty: 100 0RF Rx Instructions: test 3 times daily (DME) blood-glucose meter [OneTouch Verio Meter] Misc See Rx Instructions .Route Qty: 1 0RF Rx Instructions: test blood sugar 3 times daily pantoprazole 40 mg tablet,delayed release (DR/EC) See Rx Instructions .ROUTE .COMPLEX Qty: 180 0RF Dose Instruction: TAKE 1 TABLET BY MOUTH TWICE DAILY Rx Instructions: TAKE 1 TABLET BY MOUTH TWICE DAILY albuterol sulfate 90 mcg/actuation HFA aerosol inhaler 2 puff inhalation Q6H Qty: 8.5 2RF loratadine 10 mg tablet 10 mg PO DAILY Qty: 90 0RF baclofen 20 mg tablet See Rx Instructions .ROUTE .COMPLEX Qty: 45 0RF Dose Instruction: TAKE 1 TABLET BY MOUTH TWICE DAILY NEEDED FOR MUSCLE SPASM Rx Instructions: TAKE 1 TABLET BY MOUTH TWICE DAILY NEEDED FOR MUSCLE SPASM simvastatin 20 mg tablet 20 mg PO DAILY telmisartan 80 mg tablet 80 mg PO DAILY metoprolol tartrate 50 mg tablet 50 mg PO BID hydrochlorothiazide 25 mg tablet 25 mg PO DAILY Jardiance 25 mg tablet 25 mg PO DAILY Trelegy Ellipta 100-62.5-25 mcg blister with device 1 inh inhalation DAILY melatonin 10 mg Capsule 10 mg PO DAILY PRN (Reason: Sleep) Naprosyn 500 mg tablet 500 mg PO BID PRN (Reason: pain) Qty: 20 0RF erythromycin 5 mg/gram (0.5 %) ointment 1 applic ophthalmic (eye) Q6H Qty: 3.5 0RF clindamycin HCl 300 mg capsule 300 mg PO Q8H 7 Days Qty: 21 0RF Discharge Orders: Discharge ED (Routine); Ordered 09/17/22 Ordered By: Amparo Garcia Referrals: Reji Faulkner FNP [Primary Care Provider] - Patient Instructions: Opioid Safety, Pain Management Coding Level of Care Code ED Livestock Caretaker for Precious Banks
== END 2022-09-17 18:46 | disposition home or self-care (01) ==
PROVIDERS: Emergency Provider Emergency Medicine; PCP Registered Nurse
DX: J44.9 Chronic obstructive pulmonary disease, unspecified (principal); E11.40 Type 2 diabetes mellitus with diabetic neuropathy, unspecified; I25.10 Atherosclerotic heart disease of native coronary artery without angina pectoris; E78.5 Hyperlipidemia, unspecified; I10 Essential (primary) hypertension; F17.210 Nicotine dependence, cigarettes, uncomplicated; Z79.4 Long term (current) use of insulin; Z79.84 Long term (current) use of oral hypoglycemic drugs; Z79.82 Long term (current) use of aspirin; Z79.899 Other long term (current) drug therapy
CPT/HCPCS: 36415; 36416; 71045; 80053; 82803; 82962; 83605; 83735; 83880; 84484; 85025; 93005; 94640; 96365; 96375; 99285; J2405; J2930; J3475

== ENCOUNTER 2022-09-27 06:06 | Outpatient (CLI) | payer MEDICARE, SELFPAY ==
--- NOTE | 2022-09-27 06:15 | USR_ITS ---
PROCEDURE INFORMATION: Exam: US Abdomen, Limited; Right Upper Quadrant Exam date and time: 09/27/2022 6:24 AM Clinical indication: Condition or disease; Gallbladder condition; Calculus (stone); Additional info: K80.20 - calculus of gallbladder without cholecystitis wi. . . TECHNIQUE: Imaging protocol: Real time ultrasound of the abdomen with image documentation. Limited exam focused on the right upper quadrant. COMPARISON: 1. US gall bladder [id number] 09/06/2019 7:[address] abdomen pelvis wo con [id number] 09/07/2019 12:23 PM FINDINGS: Liver: Diffusely increased parenchymal echogenicity with normal size and contour. Hypoechoic area adjacent to the gallbladder fossa measuring 1.4 x 1.5 x 1.2 cm characteristic for focal sparing. Gallbladder: Normal. No gallstones. There is no gallbladder wall thickening. Biliary ducts: Normal. No stones. No dilation. Pancreas: Visualized pancreas is unremarkable. Right kidney: Normal. No mass. No hydronephrosis. US/US gall bladder [id number] IMPRESSION: 1. Normal gallbladder. 2. Hepatic steatosis.
== END 2022-09-27 06:07 | disposition home or self-care (01) ==
PROVIDERS: PCP Registered Nurse; Visit Provider Registered Nurse
DX: K80.20 Calculus of gallbladder without cholecystitis without obstruction (principal)
CPT/HCPCS: 76705

== ENCOUNTER → 2022-10-30 13:19 | Outpatient (BNVA) | payer MEDICARE, SELFPAY | PROVIDERS: PCP Registered Nurse; Visit Provider Registered Nurse | DX: E11.40 Type 2 diabetes mellitus with diabetic neuropathy, unspecified; E11.59 Type 2 diabetes mellitus with other circulatory complications; Z79.4 Long term (current) use of insulin; K21.9 Gastro-esophageal reflux disease without esophagitis; M62.838 Other muscle spasm; F41.8 Other specified anxiety disorders | CPT/HCPCS: 80053; 83036 ==

== ENCOUNTER 2023-01-12 12:10 | Emergency (ER) | payer MEDICARE, SELFPAY ==
[2023-01-12] VITALS (7 sets, daily range): BP systolic 96–145; BP diastolic 52–73; PULSE 98–112; RESP 18–24; TEMP 36.3–37.9; O2SAT 91–96; BMI 31.2
--- NOTE | 2023-01-12 12:20 | XRR_ITS ---
PROCEDURE INFORMATION: Exam: XR Chest Exam date and time: 01/12/2023 12:48 PM Age: 57 years old Clinical indication: Other: Chest congestion TECHNIQUE: Imaging protocol: Radiologic exam of the chest. Views: 1 view. COMPARISON: CR XR chest 1V portable [id number] 09/17/2022 2:44 PM FINDINGS: Lungs: Unremarkable. No consolidation. Pleural spaces: Unremarkable. No pleural effusion. No pneumothorax. Heart/Mediastinum: Unremarkable. No cardiomegaly. Bones/joints: Unremarkable. XR/XR chest 1V portable [id number] IMPRESSION: No acute findings.
[2023-01-12 13:24] LABS: Basophils % 0.2 %; Eosinophils % 0.1 %; Hematocrit 43.3 % (36-47); Lymphocytes # 1.8 10^3/uL (0.8-4.8); Lymphocytes % 12.5 %; Mean Corpuscular HGB Conc 32.3 g/dL (30-55); Mean Corpuscular Hemoglobin 28.3 pg (27-33); Mean Corpuscular Volume 87.5 fl (85-98); Mean Platelet Volume 10.6 fL (7.4-10.4); Monocytes # 0.8 10^3/uL (0.2-0.9); Monocytes % 5.8 %; Neutrophils # 11.64 10^3/uL (1.8-7.7); Neutrophils % 80.9 %; Nucleated Red Blood Cells % 0 %; Platelet Count 161 10^3/cmm (157-399); Red Blood Count 4.95 10^6/uL (3.85-5.65); Red Cell Distribution Width 16.3 % (12.1-15.1); White Blood Count 14.39 10^3/uL (3.29-11.43)
[2023-01-12 13:46] LABS: Alanine Aminotransferase 14 U/L (0-33); Albumin Level 3.7 g/dL (3.5-5.2); Alkaline Phosphatase 103 U/L (35-105); Anion Gap 16.9 (5-19); Aspartate Amino Transferase 16 U/L (0-32); Blood Urea Nitrogen 9 mg/dL (6-20); Carbon Dioxide 31 mmol/L (22-29); Chloride 95 mmol/L (98-107); Globulin 3.3 g/dL (1.3-4.6); Glomerular Filtration Rate 64.8 mL/min (90-130); Glucose 223 mg/dL (65-115); Osmolality Calculated 296 mOsm/kg (285-295); Sodium 140 mmol/L (136-145); Total Bilirubin 0.9 mg/dL (0.15-1.2)
[2023-01-12 13:52] LABS: Potassium 2.9 mmol/L (3.5-5.1)
--- NOTE | 2023-01-12 15:02 | ED_ITS ---
HPI - URI/Sore Throat General: Chief Complaint: Upper Respiratory Infection Stated Complaint: fever, NV, chest congestion Time Seen by Provider: 01/12/23 13:58 History of Present Illness: 57-year-old female presents emergency department with complaints of increased cough that is nonproductive. She states she is on home oxygen normally and also has noticed a low-grade fever at home. She does endorse intermittent nausea and vomiting. She does endorse recent sick contacts with similar illnesses. She states she has a longstanding history of COPD and diabetes. She states over the previous 1 week she has seen her primary care provider who has removed a cerumen impaction from her left ear and she has received antibiotics in the past. She states she continues to smoke cigarettes but is trying to stop. She denies chest pain at present. Associated symptoms: Reports fever(s), nausea and vomiting Review of Systems General: Reports: 10 or more systems reviewed and unremarkable except in HPI and below Const: Reports: fever(s), fatigue and malaise Resp: Reports: non-productive cough GI: Reports: nausea and vomiting [facility] ED PFSH: Medical History Acid reflux Acute exacerbation of chronic obstructive pulmonary disease Acute respiratory failure with hypoxia Anemia Chronic nausea Controlled diabetes mellitus with hyperglycemia, with long-term current use of insulin COPD, very severe Coronary artery disease Enrolled in chronic care management Essential hypertension Hyperlipidemia Hypertension Neuropathy due to type 2 diabetes mellitus ELISE (obstructive sleep apnea) Type 2 diabetes mellitus URTI (acute upper respiratory infection) Surgical History History of appendectomy History of colonoscopy (~05/2019) History of esophagogastroduodenoscopy (EGD) (~05/2019) Hx of removal of ovary S/P laparoscopy Family History Father Cancer Lung disease Hypertension Mother Lung disease Grandmother Diabetes Other CAD (coronary artery disease) Denies family history of Stroke Social History Smoking and tobacco/nicotine status: current every day tobacco/nicotine user cigarettes Packs smoked per day: 1 Years cigarettes smoked: 40 [ Other cigarette details: [id number]] Quit status (tobacco/nicotine): considering quitting Second hand smoke exposure: Yes Alcohol intake: never Substance/Drug Use: never Lives independently: Yes Household members: spouse Housing: House Marital status: Current occupational status: disabled Pets and animals: Yes Do you think of yourself as: Straight/Heterosexual Current gender identity: Female Selina/Adventist: Anglican Agree to transfusion: Yes Physical Exam Narrative: EXAM NARRATIVE: Constitutional: the patient appeared well nourished and normally developed. Vital signs as documented. HENMT: Head exam is unremarkable. Small amount of fluid noted to the right middle ear. Neck is without jugular venous distension, thyromegaly, or carotid bruits. Carotid upstrokes are brisk bilaterally. Eye: No scleral icterus or corneal arcus noted Resp: Decreased bilaterally in the bases, remainder of the lungs are clear to auscultation and percussion. Cardio: Cardiac exam reveals the PMI to be normally sized and situated. Rhythm i s regular. First and second heart sounds normal. No murmurs, rubs or gallops. GI: Abdominal exam reveals normal bowel sounds, no masses, no organomegaly and no aortic enlargement. Soft, nontender to palpation. No obvious palpable masses noted. No hepatomegaly appreciated. Extremity: Extremities are non-edematous and both femoral and pedal pulses are normal. Moves all extremities well, she has sensation in all extremities. Neuro: Alert and oriented x4, person, place, time and situation. Cranial nerves II through XII are grossly intact, there is no focal neurological deficits that I can appreciate at present. Motor strength in the upper and lower extremities are equal and bilateral 5/5. Psych: Cooperative, calm, normal thought process, appropriate judgment. Skin: No lesions, rashes. Course Vital Signs: Vital signs: Vital Signs Temperature 97.4 F L 01/12/23 16:21 Pulse Rate 98 01/12/23 16:00 Respiratory Rate 20 H 01/12/23 16:00 Blood Pressure 96/52 01/12/23 16:00 Pulse Oximetry 92 01/12/23 16:00 Oxygen Delivery Me thod Nasal Cannula 01/12/23 15:00 Oxygen Flow Rate 3 01/12/23 15:00 MDM - URI/Sore Throat Medical Decision Making Physical exam completed and documented, CBC and CMP ordered. Procalcitonin and lactic acid also ordered. I will obtain a chest x-ray for evaluation given her cough. On examination the patient does have elevated temperature and I will pro vide her Tylenol and have the nurse recheck. I will also provide her IV fluid rehydration. Medical Records I reviewed the patient's medical records. Lab Data I reviewed the patient's lab results. 01/12/23 13:14 01/12/23 13:14 Radiology Impressions Chest X-Ray 01/12/23 12:20 IMPRESSION: No acute findings. Laboratory Results WBC 14.39 10^3/uL (3.29-11.43) H 01/12/23 13:14 RBC 4.95 10^6/uL (3.85-5.65) 01/12/23 13:14 Hgb 14.00 g/dL (11.27-16.99) 01/12/23 13:14 Hct 43.3 % (36-47) 01/12/23 13:14 MCV 87.5 fl (85-98) 01/12/23 13:14 MCH 28.3 pg (27-33) 01/12/23 13:14 MCHC 32.3 g/dL (30-55) 01/12/23 13:14 RDW 16.3 % (12.1-15.1) H 01/12/23 13:14 Plt Count 161 10^3/cmm (157-399) 01/12/23 13:14 MPV 10.6 fL (7.4-10.4) H 01/12/23 13:14 Neut % (Auto) 80.9 % 01/12/23 13:14 Lymph % (Auto) 12.5 % 01/12/23 13:14 [place] % (Auto) 5.8 % 01/12/23 13:14 Eos % (Auto) 0.1 % 01/12/23 13:14 Baso % (Auto) 0.2 % 01/12/23 13:14 Neut # (Auto) 11.64 10^3/uL (1.8-7.7) H 01/12/23 13:14 Lymph # (Auto) 1.8 10^3/uL (0.8-4.8) 01/12/23 13:14 [place] # (Auto) 0.8 10^3/uL (0.2-0.9) 01/12/23 13:14 Eos # (Auto) 0.0 10^3/uL (0.0-0.8) 01/12/23 13:14 Baso # (Auto) 0.0 10^3/uL (0.0-0.1) 01/12/23 13:14 Nucleated RBC % (auto) 0 % 01/12/23 13:14 Nucleated RBCs # 0.0 /100WBC 01/12/23 13:14 Sodium 140 mmol/L (136-145) 01/12/23 13:14 Potassium 2.9 mmol/L (3.5-5.1) L 01/12/23 13:14 Chloride 95 mmol/L (98-107) L 01/12/23 13:14 Carbon Dioxide 31 mmol/L (22-29) H 01/12/23 13:14 Anion Gap 16.9 (5-19) 01/12/23 13:14 BUN 9 mg/dL (6-20) 01/12/23 13:14 Creatinine 0.9 mg/dL (0.5-0.9) 01/12/23 13:14 GFR Calculation 64.8 mL/min (90-130) L 01/12/23 13:14 Glucose 223 mg/dL (65-115) H 01/12/23 13:14 Calculated Osmolality 296 mOsm/kg (285-295) H 01/12/23 13:14 Calcium 9.0 mg/dL (8.5-10.5) 01/12/23 13:14 Total Bilirubin 0.9 mg/dL (0.15-1.2) 01/12/23 13:14 AST 16 U/L (0-32) 01/12/23 13:14 ALT 14 U/L (0-33) 01/12/23 13:14 Alkaline Phosphatase 103 U/L (35-105) 01/12/23 13:14 Total Protein 7.0 g/dL (6.6-8.7) 01/12/23 13:14 Albumin 3.7 g/dL (3.5-5.2) 01/12/23 13:14 Globulin 3.3 g/dL (1.3-4.6) 01/12/23 13:14 Procalcitonin 0.31 ng/mL (0-0.5) 01/12/23 13:14 Urine Color Yellow (Yellow) 01/12/23 14:47 Urine Appearance Clear (CLEAR) 01/12/23 14:47 Urine pH 6 (5-7) 01/12/23 14:47 Ur Specific Gatzke 1.010 (1.005-1.030) 01/12/23 14:47 Urine Protein 1+ (Negative) H 01/12/23 14:47 Urine Glucose (UA) 4+ (Normal) H 01/12/23 14:47 Urine Ketones Negative (Negative) 01/12/23 14:47 Urine Blood 3+ (Negative) H 01/12/23 14:47 Urine Nitrate Negative (Negative) 01/12/23 14:47 Urine Bilirubin Neg (Negative) 01/12/23 14:47 Urine Urobilinogen 1 mg/dL (Negative) H 01/12/23 14:47 Ur Leukocyte Esterase Negative (Negative) 01/12/23 14:47 Urine RBC 0-4 /hpf (0-2) H 01/12/23 14:47 Urine WBC 5-10 /hpf (0-5) H 01/12/23 14:47 Ur Squamous Epith Cells 0-4 /hpf (0-5) H 01/12/23 14:47 Amorphous Sediment Not Reportable 01/12/23 14:47 Urine Bacteria 1+ /hpf (NONE) H 01/12/23 14:47 Urine Yeast 2+ /hpf H 01/12/23 14:47 Urine Opiates Screen Negative ng/mL (Negative) 01/12/23 14:47 Ur Barbiturates Screen Negative ng/mL (Negative) 01/12/23 14:47 Ur Phencyclidine Scrn Negative ng/mL (Negative) 01/12/23 14:47 Ur Amphetamines Screen Negative ng/mL (Negative) 01/12/23 14:47 U Benzodiazepines Scrn Negative ng/mL (Negative) 01/12/23 14:47 Urine Cocaine Screen Negative ng/mL (Negative) 01/12/23 14:47 U Marijuana (THC) Screen Negative ng/mL (Negative) 01/12/23 14:47 Coronavirus 229E (PCR) Not detected (NOT DETECT) 01/12/23 14:10 Influenza Type A Ag negative (Negative) 01/12/23 15:19 Influenza Type B Ag negative (Negative) 01/12/23 15:19 SARS-CoV-2 (PCR) Not detected (NOT DETECT) 01/12/23 14:10 All radiology interpretation(s) finalized by discharge ED provider radiology interpretation(s): FINDINGS: Lungs: Unremarkable. No consolidation. Pleural spaces: Unremarkable. No pleural effusion. No pneumothorax. Heart/Mediastinum: Unremarkable. No cardiomegaly. Bones/joints: Unremarkable. XR/XR chest 1V portable [id number] IMPRESSION: No acute findings. Discharge Plan Discharge Patient Disposition: Home Clinical Impression: Acute hypokalemia, Fever, COPD, very severe, URI (upper respiratory infection) Condition: Stable Prescriptions: New prednisone 20 mg tablet 40 mg PO DAILY 5 Days Qty: 10 0RF No Action Lantus Solostar U-100 Insulin 100 unit/mL (3 mL) insulin pen See Rx Instructions .ROUTE .COMPLEX Qty: 15 5RF Dose Instruction: INJECT 40 UNITS UNDER THE SKIN TWICE DAILY. Rx Instructions: INJECT 40 UNITS UNDER THE SKIN TWICE DAILY. equal 90 day supply. (DME) pen needle, diabetic [1st Tier Unifine Pentips] 31 gauge x 1/4 needle See Rx Instructions .Route Qty: 100 1RF Rx Instructions: As directed ipratropium-albuterol 0.5 mg-3 mg(2.5 mg base)/3 mL solution for nebulization 3 ml inhalation Q6H PRN (Reason: shortness of breath or wheezing) Qty: 180 5RF (DME) OneTouch Verio test strips Strip See Rx Instructions .Route Qty: 100 0RF Rx Instructions: test 3 times daily (DME) blood-glucose meter [OneTouch Verio Meter] [facility] See Rx Instructions .Route Qty: 1 0RF Rx Instructions: test blood sugar 3 times daily albuterol sulfate 90 mcg/actuation HFA aerosol inhaler 2 puff inhalation Q6H Qty: 8.5 2RF Lyrica 150 mg capsule 150 mg PO BID 30 Days Qty: 60 2RF simvastatin 20 mg tablet 20 mg PO QPM telmisartan 80 mg tablet 80 mg PO QAM metoprolol tartrate 50 mg tablet 50 mg PO BID hydrochlorothiazide 25 mg tablet 25 mg PO QAM Celexa 10 mg tablet 10 mg PO QAM aspirin 81 mg tablet,delayed release (DR/EC) 81 mg PO QAM baclofen 20 mg tablet 20 mg PO BID PRN (Reason: Muscle Spasm) Klor-Con M20 20 mEq tablet,ER particles/crystals 20 meq PO BID amlodipine 10 mg tablet 5 mg PO QAM pantoprazole 40 mg tablet,delayed release (DR/EC) 40 mg PO BID montelukast 10 mg tablet 10 mg PO QAM hydroxyzine HCl 25 mg tablet 25 mg PO QPM PRN (Reason: anxiety) Flonase Allergy Relief 50 mcg/actuation spray,suspension 1 spray intranasal BID PRN (Reason: Allergic Symptoms) Rx Instructions: administer into each nostril loratadine 10 mg tablet 10 mg PO QAM Jardiance 25 mg tablet 25 mg PO QAM Trelegy Ellipta 100-62.5-25 mcg blister with device 1 inh inhalation QAM Rybelsus 7 mg tablet 7 mg PO QAM Discharge Orders: Discharge ED (Routine); Ordered 01/12/23 Ordered By: Leodan Hernández Referrals: Reji Faulkner FNP [Primary Care Provider] - Discharge Diet: Advance as tolerated Discharge Activity: Resume usual activity Activity Restrictions/Additional Instructions: Activity Restrictions/Additional Instructions: Thank you for choosing [facility] for your healthcare needs today. Please realize that you were seen in the Emergency Department and that we are providing you with an emergency medical screening exam and this may not be complete and all inclusive of all the testing and or medical work-up that you may need to determine your ailment or severity of your illness. It is very i mportant that you follow-up as instructed with your Primary care provider or Specialist for additional evaluation and to discuss your medical treatment plan. You may return to the Emergency Department should you have concerns or if your condition changes or worsens in any way. Coding Level of Care Code ED Reaming Machine Operator For Plastic for Precious Banks
[2023-01-12 15:03] LABS: Blood Urine 3+ (Negative); Glucose Urine UA 4+ (Normal); Ketones Urine Negative (Negative); Protein Urine 1+ (Negative); Urine Appearance Clear (CLEAR); Urine Color Yellow (Yellow); pH Urine 6 (5-7)
[2023-01-12 15:04] LABS: Add Urine Culture? Yes; Add Urine Microscopic? YES; Amphetamines Screen Urine Negative (Negative); Bacteria Urine 1+ /hpf; Barbiturates Screen Urine Negative (Negative); Benzodiazepines Screen Urine Negative (Negative); Bilirubin Urine Neg (Negative); Cocaine Screen Urine Negative (Negative); Leukocyte Esterase Urine Negative (Negative); Nitrate Urine Negative (Negative); Opiate Screen Urine Negative (Negative); PCP Screen Urine Negative (Negative); RBC Urine 0-4 /hpf (0-2); Squamous Epithelial Cell Urine 0-4 /hpf (0-5); THC Screen Urine Negative (Negative); Urobilinogen Urine 1 mg/dL (Negative)
[2023-01-12] MEDS: acetaminophen 500 mg Tablet 1000 MG PO (15:09)
[2023-01-12] MEDS: potassium chloride ER 20 mEq Tablet 40 MEQ PO (15:09)
[2023-01-12 16:09] LABS: Procalcitonin 0.31 ng/mL (0-0.5)
[2023-01-12] MEDS: sodium chloride 0.9% 1,000 ML 999 ML IV (16:18)
[2023-01-12 16:23] LABS: Adenovirus Not Detected (NOT DETECT); Chlamydia Pneumoniae Not Detected (NOT DETECT); Coronavirus 229E,HKU1,NL63,OC4 Not Detected (NOT DETECT); Human Metapneumovirus Not Detected (NOT DETECT); Human Rhinovirus/Enterovirus Not Detected (NOT DETECT); Influenza A Not Detected (NOT DETECT); Influenza A H1 Not Detected (NOT DETECT); Influenza A H1-2009 Not Detected (NOT DETECT); Influenza A H3 Not Detected (NOT DETECT); Influenza B Not Detected (NOT DETECT); Mycoplasma Pneumoniae Not Detected (NOT DETECT); Parainfluenza Virus Type 1 Not Detected (NOT DETECT); Parainfluenza Virus Type 2 Not Detected (NOT DETECT); Parainfluenza Virus Type 3 Not Detected (NOT DETECT); Parainfluenza Virus Type 4 Not Detected (NOT DETECT); Respiratory Syncytial Virus A Not Detected (NOT DETECT); Respiratory Syncytial Virus B Not Detected (NOT DETECT); SARS-COV-2 Not Detected (NOT DETECT)
[2023-01-12 16:26] LABS: Influenza A by IFA negative (Negative); Influenza B by IFA negative (Negative)
[2023-01-12 16:59] LABS: Lactic Sepsis W/Reflex 2.2 mmol/L (0.5-2.2)
[2023-01-12 18:17] LABS: Reflex Lactate Order REFLEX LACTIC ORDERD
== END 2023-01-12 16:55 | disposition home or self-care (01) ==
PROVIDERS: Physician Assistant; Emergency Provider Internal Medicine; PCP Registered Nurse
DX: J06.9 Acute upper respiratory infection, unspecified (principal); J44.9 Chronic obstructive pulmonary disease, unspecified; E87.6 Hypokalemia; Z79.82 Long term (current) use of aspirin; Z79.4 Long term (current) use of insulin; Z11.52 Encounter for screening for COVID-19; F17.210 Nicotine dependence, cigarettes, uncomplicated; E11.40 Type 2 diabetes mellitus with diabetic neuropathy, unspecified; I25.10 Atherosclerotic heart disease of native coronary artery without angina pectoris; I10 Essential (primary) hypertension; E78.5 Hyperlipidemia, unspecified
CPT/HCPCS: 36415; 71045; 80053; 80306; 81001; 83605; 84145; 85025; 87040; 87086; 87635; 87804; 99284; J7030

== ENCOUNTER → 2023-05-14 14:03 | Outpatient (BNVA) | payer MEDICARE, SELFPAY | PROVIDERS: PCP Registered Nurse; Visit Provider Registered Nurse | DX: J06.9 Acute upper respiratory infection, unspecified (principal); E11.9 Type 2 diabetes mellitus without complications; R39.9 Unspecified symptoms and signs involving the genitourinary system | CPT/HCPCS: 80053; 80061; 81000; 83036; 85025; 87400 ==

== ENCOUNTER → 2023-07-05 09:05 | Outpatient (BNVA) | payer MEDICARE, SELFPAY | PROVIDERS: PCP Registered Nurse; Visit Provider Internal Medicine Pulmonary Disease | DX: J44.89 Other specified chronic obstructive pulmonary disease (principal); Z71.6 Tobacco abuse counseling; G47.33 Obstructive sleep apnea (adult) (pediatric); J22 Unspecified acute lower respiratory infection; F17.210 Nicotine dependence, cigarettes, uncomplicated | CPT/HCPCS: 71046; 99214 ==

== ENCOUNTER 2023-08-26 01:22 | Emergency (ER) | payer MEDICARE, SELFPAY ==
[2023-08-26 01:35] VITALS: BP 157/90; PULSE 90; RESP 20; TEMP 36.6; O2SAT 92; BMI 32.8
[2023-08-26] MEDS: oxyCODONE-APAP 5-325 mg Tablet 1 TAB PO (02:00)
[2023-08-26] MEDS: ketorolac 30 mg/mL INJ IM (02:01)
[2023-08-26] MEDS: orphenadrine 30 mg/mL Inj 2 mL 60 MG IM (02:02)
[2023-08-26 02:07] VITALS: BP 134/87; PULSE 91; RESP 18; O2SAT 93
--- NOTE | 2023-08-26 02:52 | ED_ITS ---
HPI - Neck Pain/Injury General: Chief Complaint: Neck Pain/Injury Stated Complaint: neck pain Time Seen by Provider: 08/26/23 01:48 History of Present Illness: 57-year-old female who awoke this felicianin g with right-sided neck pain. Pain is along her lateral neck stretching anteriorly in the distribution of her sternocleidomastoid. She has pain with movement. She had used Tylenol at home with little relief. She also used ice with no relief. Pain does not radiate down the arm. No paresthesias. No significant weakness. No history of trauma. Review of Systems Const: Denies: fever(s) ENMT: Denies: throat pain Card: Denies: chest pain Resp: Denies: dyspnea GI: Denies: vomiting PFSH ED PFSH: Medical History Essential hypertension Acute respiratory failure with hypoxia Acute exacerbation of chronic obstructive pulmonary disease Chronic nausea URTI (acute upper respiratory infection) Neuropathy due to type 2 diabetes mellitus Type 2 diabetes mellitus ELISE (obstructive sleep apnea) Coronary artery disease Anemia COPD, very severe Hypertension Hyperlipidemia Acid reflux Controlled diabetes mellitus with hyperglycemia, with long-term current use of insulin Enrolled in chronic care management Surgical History S/P laparoscopy Hx of removal of ovary History of appendectomy History of esophagogastroduodenoscopy (EGD) (~05/2019) History of colonoscopy (~05/2019) Family History Father Cancer Lung disease Hypertension Mother Lung disease Grandmother Diabetes Other CAD (coronary artery disease) Denies family history of Stroke Social History Smoking and tobacco/nicotine status: current every day tobacco/nicotine user cigarettes Packs smoked per day: 1 Years cigarettes smoked: 40 [ Other cigarette details: [id number]] Quit status (tobacco/nicotine): considering quitting Second hand smoke exposure: Yes Alcohol intake: never Substance/Drug Use: never Lives independently: Yes Household members: spouse Housing: House Marital status: Current occupational status: disabled Pets and animals: Yes Do you think of yourself as: Straight/Heterosexual Current gender identity: Female Selina/Jewish: Pentecostalism Agree to transfusion: Yes Physical Exam Const: COMMON NORMALS: no acute distress HENMT: COMMON NORMALS: normocephalic and atraumatic HEAD & SCALP: normocephalic and atraumatic Eye: COMMON NORMALS: Equal, round and reactive pupils present and EOMs intact bilaterally PUPIL: Yes Equal, round and reactive pupils present Neck/C-Spine: OTHER: Exam reveals no midline tenderness. There is pain on palpation of the right sternocleidomastoid, and mid trapezius. No deformity. No swelling noted. No radicular pain is reproducible. Chest: CHEST: Yes Symmetrical chest wall rise Resp: COMMON NORMALS: normal respiratory effort, No use of accessory muscles and clear to auscultation bilaterally AUSCULTATION: clear to auscultation bilaterally Cardio: COMMON NORMALS: regular rate and regular rhythm RATE: regular rate RHYTHM: regular rhythm Extremity: NARRATIVE EXTREMITY EXAM: Sensation is intact in bilateral upper extremities. Course Vital Signs: Vital signs: Vital Signs Temperature 97.8 F 08/26/23 01:35 Pulse Rate 91 08/26/23 02:07 Respiratory Rate 18 08/26/23 02:07 Blood Pressure 134/87 08/26/23 02:07 Pulse Oximetry 93 08/26/23 02:07 Oxygen Delivery Me thod Nasal Cannula 08/26/23 01:35 Oxygen Flow Rate 2 08/26/23 01:35 MDM - Neck Pain/Injury Medical Decision Making Pain is improved after Toradol, Norflex injections and Percocet here. She will be allowed home. No neurological symptoms. She is to return for any new or worsening symptoms. No radiology studies performed this visit Discharge Plan Discharge Patient Disposition: Home Clinical Impression: Torticollis, spasmodic, Acute neck pain Condition: Stable Prescriptions: New ketorolac 10 mg tablet 10 mg PO TID PRN (Reason: pain) Qty: 10 0RF cyclobenzaprine 10 mg tablet 10 mg PO Q8H Qty: 10 0RF No Action Lantus Solostar U-100 Insulin 100 unit/mL (3 mL) insulin pen See Rx Instructions .ROUTE .COMPLEX Qty: 15 1RF Dose Instruction: INJECT 40 UNITS UNDER THE SKIN TWICE DAILY. Rx Instructions: INJECT 40 UNITS UNDER THE SKIN TWICE DAILY. equal 90 day supply. Lyrica 150 mg capsule 150 mg PO BID 30 Days Qty: 60 2RF Rybelsus 7 mg tablet 7 mg PO QAM 90 Days Qty: 90 0RF simvastatin 20 mg tablet See Rx Instructions .ROUTE .COMPLEX Qty: 90 0RF Dose Instruction: TAKE 1 TABLET BY MOUTH DAILY Rx Instructions: TAKE 1 TABLET BY MOUTH DAILY telmisartan 80 mg tablet See Rx Instructions .ROUTE .COMPLEX Qty: 90 0RF Dose Instruction: TAKE 1 TABLET BY MOUTH DAILY Rx Instructions: TAKE 1 TABLET BY MOUTH DAILY levofloxacin 500 mg tablet 500 mg PO DAILY 5 Days Qty: 5 0RF prednisone 20 mg tablet 20 mg PO DAILY 5 Days Qty: 5 0RF (DME) pen needle, diabetic [1st Tier Unifine Pentips] 31 gauge x 1/4 needle See Rx Instructions .Route Qty: 100 1RF Rx Instructions: As directed ipratropium-albuterol 0.5 mg-3 mg(2.5 mg base)/3 mL solution for nebulization 3 ml inhalation Q6H PRN (Reason: shortness of breath or wheezing) Qty: 180 5RF (DME) OneTouch Verio test strips Strip See Rx Instructions .Route Qty: 100 0RF Rx Instructions: test 3 times daily (DME) blood-glucose meter [OneTouch Verio Meter] Misc See Rx Instructions .Route Qty: 1 0RF Rx Instructions: test blood sugar 3 times daily albuterol sulfate 90 mcg/actuation HFA aerosol inhaler 2 puff inhalation Q6H Qty: 8.5 6RF pantoprazole 40 mg tablet,delayed release (DR/EC) See Rx Instructions .ROUTE .COMPLEX Qty: 180 0RF Dose Instruction: TAKE 1 TABLET BY MOUTH TWICE DAILY Rx Instructions: TAKE 1 TABLET BY MOUTH TWICE DAILY baclofen 20 mg tablet See Rx Instructions .ROUTE .COMPLEX Qty: 45 0RF Dose Instruction: TAKE 1 TABLET BY MOUTH TWICE DAILY NEEDED FOR MUSCLE SPASM Rx Instructions: TAKE 1 TABLET BY MOUTH TWICE DAILY NEEDED FOR MUSCLE SPASM loratadine 10 mg tablet See Rx Instructions .ROUTE .COMPLEX Qty: 90 0RF Dose Instruction: TAKE 1 TABLET BY MOUTH DAILY Rx Instructions: TAKE 1 TABLET BY MOUTH DAILY potassium chloride 20 mEq tablet,ER particles/crystals See Rx Instructions .ROUTE .COMPLEX Qty: 90 0RF Dose Instruction: TAKE 1 TABLET BY MOUTH DAILY Rx Instructions: TAKE 1 TABLET BY MOUTH DAILY hydroxyzine HCl 25 mg tablet 25 mg PO QPM PRN (Reason: anxiety) Qty: 30 0RF Celexa 10 mg tablet 10 mg PO QAM Qty: 90 0RF hydrochlorothiazide 25 mg tablet See Rx Instructions .ROUTE .COMPLEX Qty: 90 0RF Dose Instruction: TAKE 1 TABLET BY MOUTH DAILY Rx Instructions: TAKE 1 TABLET BY MOUTH DAILY montelukast 10 mg tablet See Rx Instructions .ROUTE .COMPLEX Qty: 90 0RF Dose Instruction: TAKE 1 TABLET BY MOUTH DAILY Rx Instructions: TAKE 1 TABLET BY MOUTH DAILY metoprolol tartrate 50 mg tablet See Rx Instructions .ROUTE .COMPLEX Qty: 180 0RF Dose Instruction: TAKE 1 TABLET BY MOUTH TWICE DAILY Rx Instructions: TAKE 1 TABLET BY MOUTH TWICE DAILY Jardiance 25 mg tablet See Rx Instructions .ROUTE .COMPLEX Qty: 90 0RF Dose Instruction: TAKE 1 TABLET BY MOUTH EVERY MORNING Rx Instructions: TAKE 1 TABLET BY MOUTH EVERY MORNING aspirin 81 mg tablet,delayed release (DR/EC) 81 mg PO QAM amlodipine 10 mg tablet 5 mg PO QAM Flonase Allergy Relief 50 mcg/actuation spray,suspension 1 spray intranasal BID PRN (Reason: Allergic Symptoms) Rx Instructions: administer into each nostril Trelegy Ellipta 100-62.5-25 mcg blister with device 1 inh inhalation QAM Discharge Orders: Discharge ED (Routine); Ordered 08/26/23 Ordered By: Washington Crowe Referrals: Reji Faulkner, AUTOMOTIVE SERVICE ASSISTANT [Primary Care Provider] - Patient Instructions: Spasmodic Torticollis (ED), Acute Neck Pain (ED), Opioid Safety, Pain Management Activity Restrictions/Additional Instructions: Take medication as directed. Do not take the cyclobenzaprine if you are taking baclofen at the same time. Return for worsening pain despite treatment, fever, significant weakness, language vision or strength problems, other concerning symptoms. Your doctor next week. 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
== END 2023-08-26 03:37 | disposition home or self-care (01) ==
PROVIDERS: Emergency Provider Emergency Medicine; PCP Registered Nurse
DX: G24.3 Spasmodic torticollis (principal); M54.2 Cervicalgia; Z79.82 Long term (current) use of aspirin; Z79.4 Long term (current) use of insulin; F17.210 Nicotine dependence, cigarettes, uncomplicated; I10 Essential (primary) hypertension; J44.9 Chronic obstructive pulmonary disease, unspecified; E11.40 Type 2 diabetes mellitus with diabetic neuropathy, unspecified; I25.10 Atherosclerotic heart disease of native coronary artery without angina pectoris; E78.5 Hyperlipidemia, unspecified
CPT/HCPCS: 96372; 99284; J1885; J2360

== ENCOUNTER → 2023-08-30 10:46 | Outpatient (BNVA) | payer MEDICARE, SELFPAY | PROVIDERS: PCP Registered Nurse; Visit Provider Registered Nurse | DX: J34.89 Other specified disorders of nose and nasal sinuses (principal) | CPT/HCPCS: 88305 ==

== ENCOUNTER → 2023-09-25 14:19 | Outpatient (BNVA) | payer MEDICARE, SELFPAY | PROVIDERS: PCP Registered Nurse; Visit Provider Dermatology | DX: D48.5 Neoplasm of uncertain behavior of skin (principal); L72.0 Epidermal cyst; B07.8 Other viral warts; L81.4 Other melanin hyperpigmentation; L82.1 Other seborrheic keratosis; L57.0 Actinic keratosis; L60.3 Nail dystrophy | CPT/HCPCS: 11102; 17000; 99203 ==

== ENCOUNTER 2023-10-02 12:38 | Outpatient (CLI) | payer MEDICARE, SELFPAY ==
--- NOTE | 2023-10-02 12:45 | CT_ITS ---
WS: [id number] LDCT LUNG CANCER SCREENING HISTORY: Cancer Screen TECHNIQUE: Axial imaging performed from the apices to 1 cm below the costophrenic angles. Coronal and sagittal reformats are submitted with axial MIP series. All CT scans at [facility] use at least one of these dose optimization techniques: automated exposure control; mA and/or kV adjustment per patient size (includes targeted exams where dose is matched to clinical indication); or iterativ e reconstruction. DLP: 61.71 mGy.cm DIvol: Mean CTDIvol: 1.30 (mGy) COMPARISON: 05/11/2022 Diagnostic quality: Satisfactory Lungs: Mild centrilobular emphysema. No pulmonary mass or nodule. No pneumonia. No endobronchial lesi ons. Heart: Normal size heart with no pericardial effusion.. Other findings: Mild atherosclerosis aorta. No aneurysm. Normal size pulmonary artery. Small hiatal h ernia. No adrenal mass. CT/CT lung screening [id number] IMPRESSION: LUNG-RADS: 1-Negative FOLLOW UP: 12 Month: Continue annual screening with LDCT OTHER FINDINGS (S MODIFIER): None.
--- NOTE | 2023-10-02 13:00 | XR_ITS ---
WS: [id number] DEXA (DUAL ENERGY X-RAY ABSORPTIOMETRY) Bone mineral density was performed using a GeoIQ machine. HISTORY: M81.0 - Age-related osteoporosis without current patholog... COMPARISON: None available. Lumbar spine BMD (L1-L4): 1.261 g/cm2 T score: 0.7 Z score: 1.4 Total hip BMD: Left: 0.965 g/cm2. T score: -0.3 Z score: 0.3 Right: 0.925 g/cm2. T score: -0.7 Z score: -0.1 10 year probability of a major osteoporotic fracture is 20%. XR/XR DEXA axial skeleton* [id number] IMPRESSION: NORMAL BONE MINERAL DENSITY based upon the WHO classification for females.
== END 2023-10-02 12:39 | disposition home or self-care (01) ==
PROVIDERS: PCP Registered Nurse; Visit Provider Internal Medicine Pulmonary Disease
DX: M81.0 Age-related osteoporosis without current pathological fracture (principal); F17.210 Nicotine dependence, cigarettes, uncomplicated; Z12.2 Encounter for screening for malignant neoplasm of respiratory organs; J43.2 Centrilobular emphysema; K44.9 Diaphragmatic hernia without obstruction or gangrene
CPT/HCPCS: 71271; 77080; 80053; 80061; 82607; 83036; 85025

== ENCOUNTER 2023-10-04 09:40 | Outpatient (CLI) | payer MEDICARE, SELFPAY ==
--- NOTE | 2023-10-04 09:40 | MM_ITS ---
WS: [id number] BILATERAL SCREENING DIGITAL TOMOSYNTHESIS MAMMOGRAM WITH CAD HISTORY: Z12.31 - Encounter for screening mammogram for malignant ... COMPARISON: 10/09/2011 and 07/02/2009 Bilateral CC and MLO views with tomosynthesis and synthetic mammography submitted. Computer aided det ection analyzed. Breast composition: There are scattered areas of fibroglandular density. No suspicious masses, microc alcifications or architectural distortion. LEFT breast calcifications. The asymmetries in each breast are stable over multiple prior years. MM/[place] [id number] IMPRESSION: BI-RADS: 2-Benign FOLLOW UP: 1 Year Follow-up
== END 2023-10-04 09:42 | disposition home or self-care (01) ==
PROVIDERS: PCP Registered Nurse; Visit Provider Registered Nurse
DX: Z12.31 Encounter for screening mammogram for malignant neoplasm of breast (principal); R92.1 Mammographic calcification found on diagnostic imaging of breast; R92.323 Mammographic fibroglandular density, bilateral breasts
CPT/HCPCS: 77063; 77067

== ENCOUNTER → 2023-10-11 11:07 | Outpatient (BNVA) | payer MEDICARE, SELFPAY | PROVIDERS: PCP Registered Nurse; Visit Provider Registered Nurse | DX: Z01.419 Encounter for gynecological examination (general) (routine) without abnormal findings (principal) | CPT/HCPCS: 87624 ==

== ENCOUNTER → 2024-01-09 09:30 | Outpatient (BNVA) | payer MEDICARE, SELFPAY | PROVIDERS: PCP Registered Nurse; Visit Provider Registered Nurse | DX: E11.9 Type 2 diabetes mellitus without complications (principal); R50.9 Fever, unspecified; J44.1 Chronic obstructive pulmonary disease with (acute) exacerbation | CPT/HCPCS: 83036; 85025; 87400; 87426 ==

== ENCOUNTER 2024-05-05 08:50 | Observation (INO) | payer MEDICARE, SELFPAY ==
[2024-05-05] VITALS (20 sets, daily range): BP systolic 107–174; BP diastolic 60–93; PULSE 84–116; RESP 15–20; TEMP 36.4–36.8; O2SAT 90–99; BMI 30.8; BMI 29.2
--- NOTE | 2024-05-05 08:59 | PC.NURSE ---
PATIENT PLACED ON 4 L NC DUE TO O2 SATURATION OF 85% ON BASELINE O2 OF 2 L.
--- NOTE | 2024-05-05 09:06 | ECG_ITS ---
[facility] 2024-[facility]-05 Pat Name: Nicole Carlos Department: Room: Gender: Female Certified Pathology Assistant: : [id number] Requested By: Burak Orantes Order Number: [id number] Reading MD: PAMELLA HOOVER Measurements Intervals Bernie Rate: 91 P: 87 NV: 182 QRS: 74 QRSD: 92 T: 68 QT: 375 QTc: 463 Interpretive Statements SINUS RHYTHM MODERATE ST DEPRESSION [0.05+ mV ST DEPRESSION] Compared to ECG 09/17/2022 18:09:19 ST (T wave) deviation now present Electronically Signed On 05-06-2024 23:36:17 AGENT BASED MODELER by PAMELLA HOOVER [id number]
--- NOTE | 2024-05-05 09:07 | XRR_ITS ---
PROCEDURE INFORMATION: Exam: XR Chest Exam date and time: 05/05/2024 9:30 AM Age: 58 years old Clinical indication: Cough and dyspnea; Additional info: Dyspnea/cough TECHNIQUE: Imaging protocol: Radiologic exam of the chest. Views: 1 view. Total images: 5 COMPARISON: CT lung screening [id number] 10/02/2023 12:52 PM FINDINGS: Lungs: Trace atelectasis or scar noted in the right lung base. Pleural spaces: Unremarkable. No pleural effusion. No pneumothorax. Heart/Mediastinum: Unremarkable. No cardiomegaly. Bones/joints: Unremarkable. XR/XR chest 1V portable [id number] IMPRESSION: Trace atelectasis or scar noted in the right lung base.
--- NOTE | 2024-05-05 09:11 | W.ED.SOB ---
HPI - SOB/Dyspnea General: Chief Complaint: Shortness of Breath/Dyspnea Stated Complaint: sob Time Seen by Provider: 05/05/24 08:54 History of Present Illness: HPI Narrative: 58-year-old female history of COPD chronically on 2 to 3 L by nasal cannula presents emergency room complaining of shortness of breath increasing productive cough with some hemoptysis. She noticed significant amount she reports yesterday. No history of PE she is not on any anticoagulants she has chest discomfort on the right side but associated with cough and palpation. She does have some subjective fevers myalgias and headache along with it. She has not used a nebulizer since yesterday. Triage reported that she was 85% on 2 L however when I came in the room she was on 4lpm at 100% we turned it back down to 2 and she maintained sats in the upper 90s on 2 L. Associated symptoms: Reports chest congestion; Deny abdominal pain, chest pain or fever(s) Related Data Home Medications ?Medication ?Instructions ?Recorded ?Confirmed aspirin 81 mg tablet,delayed 81 mg PO QAM 01/12/23 05/05/24 release amlodipine 10 mg tablet 5 mg PO DAILY 01/25/24 05/05/24 albuterol sulfate 90 mcg/actuation 2 puff inhalation Q6H PRN 05/05/24 05/05/24 aerosol inhaler Shortness Of Breath baclofen 20 mg tablet 20 mg PO BID PRN Muscle Spasm 05/05/24 05/05/24 citalopram 10 mg tablet 10 mg PO QAM 05/05/24 05/05/24 empagliflozin 25 mg tablet 25 mg PO QAM 05/05/24 05/05/24 (Jardiance) hydrochlorothiazide 25 mg tablet 25 mg PO DAILY 05/05/24 05/05/24 hydroxyzine HCl 25 mg tablet 25 mg PO QPM PRN Anxiety 05/05/24 05/05/24 loratadine 10 mg tablet 10 mg PO DAILY 05/05/24 05/05/24 metoprolol tartrate 50 mg tablet 50 mg PO BID 05/05/24 05/05/24 montelukast 10 mg tablet 10 mg PO DAILY 05/05/24 05/05/24 pantoprazole 40 mg tablet,delayed 40 mg PO BID 05/05/24 05/05/24 release potassium chloride 20 mEq 20 meq PO DAILY 05/05/24 05/05/24 tablet,extended release(part/cryst) simvastatin 20 mg tablet 20 mg PO QPM 05/05/24 05/05/24 telmisartan 80 mg tablet 80 mg PO DAILY 05/05/24 05/05/24 Previous Rx's ?Medication ?Instructions ?Recorded pen needle, diabetic 31 gauge x #100 ea 12/12/2103/15 (1st Tier Unifine Pentips) blood sugar diagnostic (OneTouch #100 ea 06/07/22 Verio test strips) blood-glucose meter (OneTouch #1 ea 06/07/22 Verio Meter) insulin glargine 100 unit/mL (3 See Rx Instructions .Route 05/14/23 mL) subcutaneous pen (Lantus .COMPLEX #15 mL Solostar U-100 Insulin) fluticasone propionate 50 1 spray intranasal BID PRN 01/15/24 mcg/actuation nasal Allergic Symptoms #9.9 mL spray,suspension (Flonase Allergy Relief) semaglutide 7 mg tablet (Rybelsus) 7 mg PO QAM 90 days #90 tabs 01/25/24 fluticasone fur. 100 mcg-umeclid 1 inh inhalation QAM #60 ea 02/22/24 62.5 mcg-vilant 25 mcg inhalat.powder (Trelegy Ellipta) pregabalin 150 mg capsule (Lyrica) 150 mg PO BID 30 days #60 caps 04/17/24 Allergies Allergy/AdvReac Type Severity Reaction Status Date / Time codeine Allergy ALGY-Hives Verified 01/25/24 08:10 Review of Systems Const: Denies: fever(s) or chills Card: Denies: chest pain Resp: Reports: dyspnea, wheezing and chest congestion GI: Denies: abdominal pain : Denies: dysuria, urinary frequency or urinary urgency Musc: Denies: neck pain or back pain Skin/Breast: Denies: rash PFSH ED PFSH: Medical History Essential hypertension Acute respiratory failure with hypoxia Acute exacerbation of chronic obstructive pulmonary disease Chronic nausea URTI (acute upper respiratory infection) Neuropathy due to type 2 diabetes mellitus Type 2 diabetes mellitus ELISE (obstructive sleep apnea) Coronary artery disease Anemia COPD, very severe Hypertension Hyperlipidemia Acid reflux Controlled diabetes mellitus with hyperglycemia, with long-term current use of insulin Enrolled in chronic care management Surgical History S/P laparoscopy Hx of removal of ovary History of appendectomy History of esophagogastroduodenoscopy (EGD) (~05/2019) History of colonoscopy (~05/2019) Family History Father Cancer Lung disease Hypertension Mother Lung disease Grandmother Diabetes Other CAD (coronary artery disease) Denies family history of Stroke Social History Smoking and tobacco/nicotine status: current every day tobacco/nicotine user cigarettes Packs smoked per day: 1 Years cigarettes smoked: 40 [ Other cigarette details: [id number]] Quit status (tobacco/nicotine): considering quitting Second hand smoke exposure: Yes Alcohol intake: never Substance/Drug Use: never Lives independently: Yes Household members: spouse Housing: House Marital status: Current occupational status: disabled Pets and animals: Yes Do you think of yourself as: Straight/Heterosexual Current gender identity: Female Selina/Anglican: Sabianist Agree to transfusion: Yes Physical Exam Const: COMMON NORMALS: no acute distress GENERAL APPEARANCE: cooperative and comfortable ORIENTATION/CONSCIOUSNESS: Yes awake, Yes oriented to person, Yes oriented to place and Yes oriented to time HENMT: COMMON NORMALS: normocephalic, atraumatic and hearing grossly normal bilaterally HEAD & SCALP: normocephalic and atraumatic Resp: COMMON NORMALS: normal respiratory effort, No retractions, No use of accessory muscles and clear to auscultation bilaterally AUSCULTATION: clear to auscultation bilaterally Cardio: COMMON NORMALS: regular rate, regular rhythm and No murmurs present (Cardio) RATE: regular rate RHYTHM: regular rhythm GI: COMMON NORMALS: Soft to palpation and No hepatosplenomegaly present AUSCULTATION: Yes normoactive bowel sounds PALPATION: Yes Soft to palpation, No Tenderness to palpation present (GI), No Guarding due to palpation present (GI) and Yes No hepatosplenomegaly present Extremity: COMMON NORMALS: normal to inspection, capillary refill normal, no clubbing, cyanosis or edema, no calf tenderness and no pedal edema Neuro: SENSORIUM/ORIENTATION: Yes oriented to person, Yes oriented to place and Yes oriented to time Skin: COMMON NORMALS: no rashes or lesions noted GENERAL SKIN EXAM: no rashes or lesions noted Course Vital Signs: Vital signs: Vital Signs Temperature 98.1 F 05/05/24 08:55 Pulse Rate 100 05/05/24 13:15 Respiratory Rate 16 05/05/24 09:44 Blood Pressure 124/70 05/05/24 13:15 Pulse Oximetry 91 05/05/24 13:15 Oxygen Delivery Me thod Nasal Cannula 05/05/24 13:15 Oxygen Flow Rate 4 05/05/24 11:40 MDM - SOB/Dyspnea Medical Decision Making CT shows tree-in-bud signs of inflammation. Her white count is slightly elevated flu COVID RSV is negative there is no PE. Will admit started on Levaquin aggressive treatment for pulmonary toilet with steroids and nebulizers discussed with hospitalist orders written Medical Records I reviewed the patient's medical records. Lab Data I reviewed the patient's lab results. 05/05/24 09:15 05/05/24 09:15 Labs/Radiology: Radiology Impressions Chest X-Ray 05/05/24 09:07 IMPRESSION: Trace atelectasis or scar noted in the right lung base. Chest CTA 05/05/24 09:12 IMPRESSION: 1. No evidence for pulmonary embolus. 2. Bilateral scattered tree-in-bud opacities nonspecific but likely inflammatory similar to the prior studies Laboratory Results WBC 12.49 10^3/uL (3.29-11.43) H 05/05/24 09:15 RBC 5.31 10^6/uL (3.85-5.65) 05/05/24 09:15 Hgb 14.00 g/dL (11.27-16.99) 05/05/24 09:15 Hct 45.8 % (36-47) 05/05/24 09:15 MCV 86.3 fl (85-98) 05/05/24 09:15 MCH 26.4 pg (27-33) L 05/05/24 09:15 MCHC 30.6 g/dL (30-55) 05/05/24 09:15 RDW 15.8 % (12.1-15.1) H 05/05/24 09:15 Plt Count 250 10^3/cmm (157-399) 05/05/24 09:15 MPV 10.0 fL (7.4-10.4) 05/05/24 09:15 Neut % (Auto) 82.2 % 05/05/24 09:15 Lymph % (Auto) 13.1 % 05/05/24 09:15 [place] % (Auto) 3.4 % 05/05/24 09:15 Eos % (Auto) 0.8 % 05/05/24 09:15 Baso % (Auto) 0.2 % 05/05/24 09:15 Neut # (Auto) 10.26 10^3/uL (1.8-7.7) H 05/05/24 09:15 Lymph # (Auto) 1.6 10^3/uL (0.8-4.8) 05/05/24 09:15 [place] # (Auto) 0.4 10^3/uL (0.2-0.9) 05/05/24 09:15 Eos # (Auto) 0.1 10^3/uL (0.0-0.8) 05/05/24 09:15 Baso # (Auto) 0.0 10^3/uL (0.0-0.1) 05/05/24 09:15 Nucleated RBC % (auto) 0 % 05/05/24 09:15 Nucleated RBCs # 0.0 /100WBC 05/05/24 09:15 Specimen Type Arterial 05/05/24 13:57 Sample Site Brachial, left 05/05/24 13:57 ABG pH 7.41 (7.35-7.45) 05/05/24 13:57 ABG pCO2 57.6 mmHg (35-45) H 05/05/24 13:57 ABG pO2 80.1 mmHg (80.0-100.0) 05/05/24 13:57 ABG PO2/FiO2 Ratio 250 05/05/24 13:57 ABG HCO3 36.5 mmol/L (22-26) H 05/05/24 13:57 ABG O2 Saturation 96.7 05/05/24 13:57 ABG Base Excess 9.8 mmol/L (-2.0-2.0) H 05/05/24 13:57 [place] Test N/a 05/05/24 13:57 A-a O2 Gradient 10.0 mmHg (5-10) 05/05/24 13:57 Hematocrit 38.6 % (37-47) 05/05/24 13:57 Hgb O2 Saturation 92.4 % (95-100) L 05/05/24 13:57 Carboxyhemoglobin 4.1 %THgb (0.4-20.1) 05/05/24 13:57 Methemoglobin 0.4 % (0.4-1.5) 05/05/24 13:57 Total Hemoglobin 12.6 g/dL (12-16) 05/05/24 13:57 Sodium 142.0 mmol/L (131-143) 05/05/24 13:57 Potassium 3.2 mmol/L (3.5-5.0) L 05/05/24 13:57 Glucose 222.0 mg/dL (70-115) H 05/05/24 13:57 Ionized Calcium 1.2 mmol/L (1.1-1.4) 05/05/24 13:57 O2 Delivery Device Nc 05/05/24 13:57 O2 Liters/Min 3.0 % 05/05/24 13:57 FiO2 32.0 % 05/05/24 13:57 Agricultural Mechanic ID Amh 05/05/24 13:57 Sodium 140 mmol/L (136-145) 05/05/24 09:15 Potassium 2.8 mmol/L (3.5-5.1) L* 05/05/24 09:15 Chloride 94 mmol/L (98-107) L 05/05/24 09:15 Carbon Dioxide 31 mmol/L (22-29) H 05/05/24 09:15 Anion Gap 17.8 (5-19) 05/05/24 09:15 BUN 11 mg/dL (6-20) 05/05/24 09:15 Creatinine 0.8 mg/dL (0.5-0.9) 05/05/24 09:15 GFR Calculation Not Reportable 05/05/24 09:15 Glucose 212 mg/dL (65-115) H 05/05/24 09:15 Calculated Osmolality 296 mOsm/kg (285-295) H 05/05/24 09:15 Calcium 9.2 mg/dL (8.5-10.5) 05/05/24 09:15 Magnesium 1.7 mg/dL (1.7-2.3) 05/05/24 09:15 Total Bilirubin 0.7 mg/dL (0.15-1.2) 05/05/24 09:15 AST 9 U/L (0-32) 05/05/24 09:15 ALT 6 U/L (0-33) 05/05/24 09:15 Alkaline Phosphatase 112 U/L (35-105) H 05/05/24 09:15 Troponin T Baseline < 6 ng/L (0-10) 05/05/24 09:15 Troponin T 120 Minute 6.16 ng/L (0-10) 05/05/24 11:25 Delta Troponin T 0.03011 ABS# (0-10) 05/05/24 11:25 Total Protein 8.0 g/dL (6.6-8.7) 05/05/24 09:15 Albumin 3.8 g/dL (3.5-5.2) 05/05/24 09:15 Globulin 4.2 g/dL (1.3-4.6) 05/05/24 09:15 Influenza A (PCR) Negative (Negative) 05/05/24 09:02 Influenza Type B (PCR) Negative (Negative) 05/05/24 09:02 RSV (PCR) Negative (Negative) 05/05/24 09:02 SARS-CoV-2 (PCR) Negative (Negative) 05/05/24 09:02 All radiology interpretation(s) finalized by discharge Discharge Plan Discharge Patient Disposition: Placed in Observation Clinical Impression: Acute exacerbation of chronic obstructive airways disease, COPD, very severe, Type 2 diabetes mellitus Condition: Stable Prescriptions: No Action Lantus Solostar U-100 Insulin 100 unit/mL (3 mL) insulin pen See Rx Instructions .ROUTE .COMPLEX Qty: 15 1RF Dose Instruction: INJECT 40 UNITS UNDER THE SKIN TWICE DAILY. Rx Instructions: INJECT 40 UNITS UNDER THE SKIN TWICE DAILY NEEDED. (DME) pen needle, diabetic [1st Tier Unifine Pentips] 31 gauge x 1/4 needle See Rx Instructions .Route Qty: 100 1RF Rx Instructions: As directed amlodipine 10 mg tablet 5 mg PO DAILY Rybelsus 7 mg tablet 7 mg PO QAM 90 Days Qty: 90 1RF (DME) OneTouch Verio test strips Strip See Rx Instructions .Route Qty: 100 0RF Rx Instructions: test 3 times daily (DME) blood-glucose meter [OneTouch Verio Meter] Misc See Rx Instructions .Route Qty: 1 0RF Rx Instructions: test blood sugar 3 times daily Flonase Allergy Relief 50 mcg/actuation spray,suspension 1 spray intranasal BID PRN (Reason: Allergic Symptoms) Qty: 9.9 0RF Rx Instructions: administer into each nostril Trelegy Ellipta 100-62.5-25 mcg blister with device 1 inh inhalation QAM Qty: 60 2RF Lyrica 150 mg capsule 150 mg PO BID 30 Days Qty: 60 2RF aspirin 81 mg tablet,delayed release (DR/EC) 81 mg PO QAM citalopram 10 mg tablet 10 mg PO QAM baclofen 20 mg tablet 20 mg PO BID PRN (Reason: Muscle Spasm) potassium chloride 20 mEq tablet,ER particles/crystals 20 meq PO DAILY pantoprazole 40 mg tablet,delayed release (DR/EC) 40 mg PO BID simvastatin 20 mg tablet 20 mg PO QPM telmisartan 80 mg tablet 80 mg PO DAILY metoprolol tartrate 50 mg tablet 50 mg PO BID montelukast 10 mg tablet 10 mg PO DAILY hydroxyzine HCl 25 mg tablet 25 mg PO QPM PRN (Reason: Anxiety) hydrochlorothiazide 25 mg tablet 25 mg PO DAILY albuterol sulfate 90 mcg/actuation HFA aerosol inhaler 2 puff inhalation Q6H PRN (Reason: Shortness Of Breath) loratadine 10 mg tablet 10 mg PO DAILY Jardiance 25 mg tablet 25 mg PO QAM Referrals: Reji Faulkner FNP [Primary Care Provider] - Print Language: Estonian Coding Level of Care Code ED Rn Child for Precious Banks
--- NOTE | 2024-05-05 09:12 | CT_ITS ---
WS: [id number] CTA OF THE CHEST WITH PULMONARY EMBOLISM PROTOCOL TECHNIQUE: High-resolution contrast enhanced CTA of the chest with coronal and sagittal reformatted images with pulmonary embolism protocol. MIP images are also reviewed. CLINICAL INFORMATION: Shortness of breath, increasing productive cough, hemoptysis COMPARISON: None. DLP: 317.[address] scans at [facility] use at least one of these dose optimization techniques: automated exposure control; mA and/or kV adjustment per patient size (includes targeted exams where dose is matched to clinical indication); or iterative reconstruction. FINDINGS: No evidence of pulmonary embolus. Proximal main pulmonary arteries are normal. Normal segmental and subsegmental pulmonary arteries. A few patchy scattered tree-in-bud opacities nonspecific but likely inflammatory. This is similar to the prior CTA study 06/01/2021 Mild thoracic curve. Mild thoracic kyphosis. Mild chronic emphysematous changes. Mild aortic calcification. Small esophageal hiatal hernia. Coronary calcification. Adrenal glands are normal. A few prominent pretracheal lymph nodes likely reactive. No axillary lymphadenopathy. CT/CT angio chest PE protcl [id number] IMPRESSION: 1. No evidence for pulmonary embolus. 2. Bilateral scattered tree-in-bud opacities nonspecific but likely inflammato ry similar to the prior studies
[2024-05-05 09:27] LABS: Basophils % 0.2 %; Eosinophils # 0.1 10^3/uL (0.0-0.8); Eosinophils % 0.8 %; Hematocrit 45.8 % (36-47); Lymphocytes # 1.6 10^3/uL (0.8-4.8); Lymphocytes % 13.1 %; Mean Corpuscular HGB Conc 30.6 g/dL (30-55); Mean Corpuscular Hemoglobin 26.4 pg (27-33); Mean Corpuscular Volume 86.3 fl (85-98); Monocytes # 0.4 10^3/uL (0.2-0.9); Monocytes % 3.4 %; Neutrophils # 10.26 10^3/uL (1.8-7.7); Neutrophils % 82.2 %; Nucleated Red Blood Cells % 0 %; Platelet Count 250 10^3/cmm (157-399); Red Blood Count 5.31 10^6/uL (3.85-5.65); Red Cell Distribution Width 15.8 % (12.1-15.1); White Blood Count 12.49 10^3/uL (3.29-11.43)
[2024-05-05] MEDS: iohexol 350 mg/mL 500 mL Btl (per mL) IV (09:29)
[2024-05-05] MEDS: dexamethasone 10 mg/mL INJ IM (09:38)
[2024-05-05 09:39] LABS: Aspartate Amino Transferase 9 U/L (0-32); Blood Urea Nitrogen 11 mg/dL (6-20); Calcium 9.2 mg/dL (8.5-10.5); Creatinine Clr Calc Pharmacy 68.5501; Total Bilirubin 0.7 mg/dL (0.15-1.2); Troponin(5th) Baseline < 6 ng/L (0-10)
[2024-05-05] MEDS: ipratropium-albuterol 3 mL Neb INHALATION ×3 (09:42→20:03)
[2024-05-05 09:44] LABS: Albumin Level 3.8 g/dL (3.5-5.2); Alkaline Phosphatase 112 U/L (35-105); Anion Gap 17.8 (5-19); Carbon Dioxide 31 mmol/L (22-29); Chloride 94 mmol/L (98-107); Globulin 4.2 g/dL (1.3-4.6); Glucose 212 mg/dL (65-115); Osmolality Calculated 296 mOsm/kg (285-295); Sodium 140 mmol/L (136-145)
[2024-05-05 09:59] LABS: Alanine Aminotransferase 6 U/L (0-33)
[2024-05-05 10:01] LABS: Potassium 2.8 mmol/L (3.5-5.1)
[2024-05-05 10:08] LABS: Magnesium 1.7 mg/dL (1.7-2.3)
[2024-05-05] MEDS: potassium chloride oral liq 20 mEq/15 mL UDC 60 MEQ PO (10:16)
--- NOTE | 2024-05-05 10:16 | PC.PHAR ---
Pt states her morning meds did not stay down yesterday but her pm meds did.
[2024-05-05 10:23] LABS: Influenza A NEGATIVE (Negative); Influenza B NEGATIVE (Negative); Respiratory Syncytial Virus Ce NEGATIVE (Negative); SARS-CoV-2 PCR NEGATIVE (Negative)
--- NOTE | 2024-05-05 11:06 | ECG_ITS ---
[facility]05 Pat Name: Nicole Carlos Department: Room: Gender: Female Director Of Rehabilitation And Wellness: : 1965 Requested By: Burak Orantes Order Number: [id number] Reading MD: PAMELLA HOOVER Measurements Intervals [place] Rate: 100 P: 78 DE: 159 QRS: 80 QRSD: 80 T: 79 QT: 365 QTc: 472 Interpretive Statements SINUS TACHYCARDIA ABNORMAL RHYTHM ECG Compared to ECG 05/05/2024 08:56:40 Sinus rhythm no longer present ST (T wave) deviation no longer present Electronically Signed On 05-06-2024 23:48:15 ASSISTED LIVING MANAGER by PAMELLA HOOVER [email or web address]
[2024-05-05 12:02] LABS: Troponin 5 2HR 6.16 ng/L (0-10); Troponin 5 2HR Delta 0.16001 ABS# (0-10)
[2024-05-05] MEDS: levofloxacin-dextrose 5 % 750 MG/150 ML PREMIX 100 MG IV (13:07)
[2024-05-05 14:09] LABS: ABG PCO2 57.6 mmHg (35-45); ABG PH Result 7.41 (7.35-7.45); Arterial Blood Gas Hematocrit 38.6 % (37-47); Base Excess ABG 9.8 mmol/L (-2.0-2.0); Blood Gas Operator Identificat AMH; Blood Gas Sample Site Brachial, left; Blood Gas Sample Type Arterial; Carboxyhemoglobin 4.1 %THgb (0.4-20.1); HCO3 ABG 36.5 mmol/L (22-26); HGB O2 Sat 92.4 % (95-100); Ionized Calcium Level - ABG 1.2 mmol/L (1.1-1.4); Methemoglobin 0.4 % (0.4-1.5); Oxygen Device NC; Oxygen Saturation ABG 96.7; PO2 ABG 80.1 mmHg (80.0-100.0); PO2 FiO2 Ratio Arterial Blood 250; Potassium Level - ABG 3.2 mmol/L (3.5-5.0); Total Hemoglobin 12.6 g/dL (12-16)
--- NOTE | 2024-05-05 14:57 | PM.HP ---
Providers/Chief Complaint Admitting Physician: Meghan Pulido MD Primary Care Provider: VIOLET Locke Chief Complaint: sob History of Present Illness Nicole Carlos is a 58 year old female who presented to the emergency room with chief complaint of difficulty breathing. Symptoms began several days ago. Initially, she reports experiencing hemoptysis with bright red and significant in volume. The following day it was reduced to specks or clumps and she has not noted any blood in her sputum today. She denies any nosebleeds or other visible airway bleeding. She has had frequent cough and runny nose. She had a low-grade fever before her respiratory symptoms started. Some family have been sick. She took [id number]-[id number] Tylenol with improvement. She has not taken any ktcp-bdu-yrnucyz cough medications. No recent antibiotics or steroids. Over the course of the last few days she has developed pain under the right breast, which worsens with deep inspiration and palpation, but denies any specific exacerbating or alleviating factors otherwise. She has had some posttussive emesis and difficulty keeping medications down. She has been using her BiPAP machine some during the day along with increasing with oxygen requirements over the past few days. She is normally on 2 L during the day and 4 L at night. She continues to smoke about a pack a day but has reduced this recently due to illness. Workup in the emergency room today showed she was requiring 4 L of oxygen by nasal cannula to maintain sats in the low 90s. She continued to wheeze. CTA of the chest was done due to pleuritic pain and hemoptysis but did not show any evidence of PE. She did however have scattered tree-in-bud appearance suggesting inflammatory changes. She received Levaquin, breathing treatments and systemic steroids in the form of dexamethasone. COVID, influenza and RSV were checked and were negative. She also received some potassium replacement orally in the ER. She is being admitted to hospitalist service for further management. Review of Systems General: Reports: Other (ROS as per HPI or as otherwise noted here) Const: Reports: fever(s) Eyes: Denies: change in vision ENMT: Reports: nasal congestion Card: Reports: chest pain (Pleuritic) and dyspnea on exertion Resp: Reports: dyspnea, productive cough, non-productive cough, wheezing, pain on inspiration, change in phlegm color, hemoptysis and chest congestion GI: Reports: nausea and vomiting (Predominantly posttussive) Skin/Breast: Reports: other (Recent skin cancer removal from the nose, nonmelanoma) Neuro: Reports: other (Neuropathic pain hands and feet) Kel/Lymph: Denies: easy bruising or easy bleeding Medications/Allergies Home Medications ?Medication ?Instructions ?Recorded ?Confirmed ?Last Taken ?Type pen needle, diabetic 31 gauge x #100 ea 12/12/21 05/05/24 Unknown Rx / (1st Tier Unifine Pentips) blood sugar diagnostic (OneTouch #100 ea 06/07/22 05/05/24 Unknown Rx Verio test strips) blood-glucose meter (OneTouch #1 ea 06/07/22 05/05/24 Unknown Rx Verio Meter) aspirin 81 mg tablet,delayed 81 mg PO QAM 01/12/23 05/05/24 05/04/24 History release insulin glargine 100 unit/mL (3 See Rx Instructions .Route 05/14/23 05/05/24 Unknown Rx mL) subcutaneous pen (Lantus .COMPLEX #15 mL Solostar U-100 Insulin) fluticasone propionate 50 1 spray intranasal BID PRN 01/15/24 05/05/24 Unknown Rx mcg/actuation nasal Allergic Symptoms #9.9 mL spray,suspension (Flonase Allergy Relief) amlodipine 10 mg tablet 5 mg PO DAILY 01/25/24 05/05/24 05/04/24 History semaglutide 7 mg tablet (Rybelsus) 7 mg PO QAM 90 days #90 tabs 01/25/24 05/05/24 05/04/24 Rx fluticasone fur. 100 mcg-umeclid 1 inh inhalation QAM #60 ea 02/22/24 05/05/24 05/04/24 Rx 62.5 mcg-vilant 25 mcg inhalat.powder (Trelegy Ellipta) pregabalin 150 mg capsule (Lyrica) 150 mg PO BID 30 days #60 caps 04/17/24 05/05/24 05/04/24 Rx albuterol sulfate 90 mcg/actuation 2 puff inhalation Q6H PRN 05/05/24 05/05/24 Unknown History aerosol inhaler Shortness Of Breath baclofen 20 mg tablet 20 mg PO BID PRN Muscle Spasm 05/05/24 05/05/24 05/04/24 History citalopram 10 mg tablet 10 mg PO QAM 05/05/24 05/05/24 05/04/24 History empagliflozin 25 mg tablet 25 mg PO QAM 05/05/24 05/05/24 05/04/24 History (Jardiance) hydrochlorothiazide 25 mg tablet 25 mg PO DAILY 05/05/24 05/05/24 05/04/24 History hydroxyzine HCl 25 mg tablet 25 mg PO QPM PRN Anxiety 05/05/24 05/05/24 05/04/24 History loratadine 10 mg tablet 10 mg PO DAILY 05/05/24 05/05/24 05/04/24 History metoprolol tartrate 50 mg tablet 50 mg PO BID 05/05/24 05/05/24 05/04/24 History montelukast 10 mg tablet 10 mg PO DAILY 05/05/24 05/05/24 05/04/24 History pantoprazole 40 mg tablet,delayed 40 mg PO BID 05/05/24 05/05/24 05/04/24 History release potassium chloride 20 mEq 20 meq PO DAILY 05/05/24 05/05/24 05/04/24 History tablet,extended release(part/cryst) simvastatin 20 mg tablet 20 mg PO QPM 05/05/24 05/05/24 05/04/24 History telmisartan 80 mg tablet 80 mg PO DAILY 05/05/24 05/05/24 05/04/24 History Allergies Allergy/AdvReac Type Severity Reaction Status Date / Time codeine Allergy ALGY-Hives Verified 01/25/24 08:10 PFSH Acute PFSH: Medical History (Updated 05/05/24 @ 16:25 by Meghan Pulido MD) Seasonal allergies Skin cancer of nose s/p excision, non-melanoma History of echocardiogram 08/2019 EF 65% History of PFTs 01/2021 - severe airflow obstruction. There is no significant postbronchodilator response. Lung volumes are consistent with air trapping. Gas exchange (DLCO) is mildly reduced. Mixed anxiety and depressive disorder Diverticulosis Essential hypertension Chronic nausea Neuropathy due to type 2 diabetes mellitus Type 2 diabetes mellitus ELISE (obstructive sleep apnea) bipap with sleep with 4L oxygen Coronary artery disease COPD, very severe Hyperlipidemia Acid reflux Surgical History (Updated 05/05/24 @ 15:21 by Meghan Pulido MD) History of cardiac catheterization 08/2019 nonobstructive disease with tightly stenosed 1st obtuse marginal too small for intervention S/P laparoscopy Hx of removal of ovary History of appendectomy History of esophagogastroduodenoscopy (EGD) (05/2019) History of colonoscopy (05/2019) Family History Father Cancer Lung disease Hypertension Mother Lung disease Grandmother Diabetes Other CAD (coronary artery disease) Denies family history of Stroke Social History (Updated 05/05/24 @ 16:07 by Meghan Pulido MD) Smoking and tobacco/nicotine status: current every day tobacco/nicotine user cigarettes [ Other cigarette details: 1uidw23+yrs] Second hand smoke exposure: Yes Alcohol intake: never Substance/Drug Use: never Lives independently: Yes Household members: spouse Housing: House Marital status: Current occupational status: disabled Pets and animals: Yes Do you think of yourself as: Straight/Heterosexual Current gender identity: Female Selina/Tenriism: Rastafarian Agree to transfusion: Yes Vitals/I&O/Wt Last Vital Signs Temp 98.1 F 05/05/24 08:55 Pulse 100 05/05/24 13:15 Resp 16 05/05/24 09:44 BP 124/70 05/05/24 13:15 Pulse Ox 91 05/05/24 13:15 O2 Del Method Nasal Cannula 05/05/24 13:15 O2 Flow Rate 4 05/05/24 11:40 Weight last 48 hrs Weight 71.668 kg Physical Exam Narrative: Patient is awake and alert, able to provide history. Extraocular movements are intact. Pupils are equally reactive. Nasopharynx with no visible blood. A mixture of clear and mucoid appearing rhinorrhea noted. Healing scars to both sides of nose from recent excisions. Dry oral mucosa. Upper dentures noted. No blood noted in posterior pharynx or oropharynx nor areas of recent bleeding. Neck is supple. Lungs with inspiratory and expiratory wheezes, prolonged expiratory phase. No rhonchi or rails noted. Wheezes are heard throughout but louder on the right versus left. Tenderness palpation in right upper chest anteriorly and under the right breast anteriorly and laterally. Cardiovascular exam reveals a tachycardic but regular rhythm. Abdomen is soft with positive bowel sounds. Extremities no pitting edema. Speech is clear, face symmetric, moves all extremities. Data 05/05/24 09:15 05/05/24 09:15 Other Labs: Radiology Impressions Chest X-Ray 05/05/24 09:07 IMPRESSION: Trace atelectasis or scar noted in the right lung base. Chest CTA 05/05/24 09:12 IMPRESSION: 1. No evidence for pulmonary embolus. 2. Bilateral scattered tree-in-bud opacities nonspecific but likely inflammatory similar to the prior studies Laboratory Results WBC 12.49 10^3/uL (3.29-11.43) H 05/05/24 09:15 RBC 5.31 10^6/uL (3.85-5.65) 05/05/24 09:15 Hgb 14.00 g/dL (11.27-16.99) 05/05/24 09:15 Hct 45.8 % (36-47) 05/05/24 09:15 MCV 86.3 fl (85-98) 05/05/24 09:15 MCH 26.4 pg (27-33) L 05/05/24 09:15 MCHC 30.6 g/dL (30-55) 05/05/24 09:15 RDW 15.8 % (12.1-15.1) H 05/05/24 09:15 Plt Count 250 10^3/cmm (157-399) 05/05/24 09:15 MPV 10.0 fL (7.4-10.4) 05/05/24 09:15 Neut % (Auto) 82.2 % 05/05/24 09:15 Lymph % (Auto) 13.1 % 05/05/24 09:15 [place] % (Auto) 3.4 % 05/05/24 09:15 Eos % (Auto) 0.8 % 05/05/24 09:15 Baso % (Auto) 0.2 % 05/05/24 09:15 Neut # (Auto) 10.26 10^3/uL (1.8-7.7) H 05/05/24 09:15 Lymph # (Auto) 1.6 10^3/uL (0.8-4.8) 05/05/24 09:15 [place] # (Auto) 0.4 10^3/uL (0.2-0.9) 05/05/24 09:15 Eos # (Auto) 0.1 10^3/uL (0.0-0.8) 05/05/24 09:15 Baso # (Auto) 0.0 10^3/uL (0.0-0.1) 05/05/24 09:15 Nucleated RBC % (auto) 0 % 05/05/24 09:15 Nucleated RBCs # 0.0 /100WBC 05/05/24 09:15 Specimen Type Arterial 05/05/24 13:57 Sample Site Brachial, left 05/05/24 13:57 ABG pH 7.41 (7.35-7.45) 05/05/24 13:57 ABG pCO2 57.6 mmHg (35-45) H 05/05/24 13:57 ABG pO2 80.1 mmHg (80.0-100.0) 05/05/24 13:57 ABG PO2/FiO2 Ratio 250 05/05/24 13:57 ABG HCO3 36.5 mmol/L (22-26) H 05/05/24 13:57 ABG O2 Saturation 96.7 05/05/24 13:57 ABG Base Excess 9.8 mmol/L (-2.0-2.0) H 05/05/24 13:57 Nabor Test N/a 05/05/24 13:57 A-a O2 Gradient 10.0 mmHg (5-10) 05/05/24 13:57 Hematocrit 38.6 % (37-47) 05/05/24 13:57 Hgb O2 Saturation 92.4 % (95-100) L 05/05/24 13:57 Carboxyhemoglobin 4.1 %THgb (0.4-20.1) 05/05/24 13:57 Methemoglobin 0.4 % (0.4-1.5) 05/05/24 13:57 Total Hemoglobin 12.6 g/dL (12-16) 05/05/24 13:57 Sodium 142.0 mmol/L (131-143) 05/05/24 13:57 Potassium 3.2 mmol/L (3.5-5.0) L 05/05/24 13:57 Glucose 222.0 mg/dL (70-115) H 05/05/24 13:57 Ionized Calcium 1.2 mmol/L (1.1-1.4) 05/05/24 13:57 O2 Delivery Device Nc 05/05/24 13:57 O2 Liters/Min 3.0 % 05/05/24 13:57 FiO2 32.0 % 05/05/24 13:57 Hard Hat Diver ID Amh 05/05/24 13:57 Sodium 140 mmol/L (136-145) 05/05/24 09:15 Potassium 2.8 mmol/L (3.5-5.1) L* 05/05/24 09:15 Chloride 94 mmol/L (98-107) L 05/05/24 09:15 Carbon Dioxide 31 mmol/L (22-29) H 05/05/24 09:15 Anion Gap 17.8 (5-19) 05/05/24 09:15 BUN 11 mg/dL (6-20) 05/05/24 09:15 Creatinine 0.8 mg/dL (0.5-0.9) 05/05/24 09:15 GFR Calculation Not Reportable 05/05/24 09:15 Glucose 212 mg/dL (65-115) H 05/05/24 09:15 Calculated Osmolality 296 mOsm/kg (285-295) H 05/05/24 09:15 Calcium 9.2 mg/dL (8.5-10.5) 05/05/24 09:15 Magnesium 1.7 mg/dL (1.7-2.3) 05/05/24 09:15 Total Bilirubin 0.7 mg/dL (0.15-1.2) 05/05/24 09:15 AST 9 U/L (0-32) 05/05/24 09:15 ALT 6 U/L (0-33) 05/05/24 09:15 Alkaline Phosphatase 112 U/L (35-105) H 05/05/24 09:15 Troponin T Baseline < 6 ng/L (0-10) 05/05/24 09:15 Troponin T 120 Minute 6.16 ng/L (0-10) 05/05/24 11:25 Delta Troponin T 0.00426 ABS# (0-10) 05/05/24 11:25 Total Protein 8.0 g/dL (6.6-8.7) 05/05/24 09:15 Albumin 3.8 g/dL (3.5-5.2) 05/05/24 09:15 Globulin 4.2 g/dL (1.3-4.6) 05/05/24 09:15 Influenza A (PCR) Negative (Negative) 05/05/24 09:02 Influenza Type B (PCR) Negative (Negative) 05/05/24 09:02 RSV (PCR) Negative (Negative) 05/05/24 09:02 SARS-CoV-2 (PCR) Negative (Negative) 05/05/24 09:02 A&P Assessment and plan (1) Acute exacerbation of chronic obstructive airways disease: With cough productive of increasing amounts of sputum, increasing oxygen requirement, wheezing along with paroxysms of coughing and posttussive emesis. Rapid screening negative for influenza, COVID and RSV. CTA of the chest shows some patchy scattered tree-in-bud opacities described as nonspecific but likely inflammatory and similar to prior CTA study from May 2021. Chest x-ray showed atelectasis or scarring in the right base. Has improved significantly with breathing treatments and administration of steroids from her perspective. -Continue scheduled and as needed breathing treatments including inhaled steroids -Continue systemic steroids in the form of prednisone -Will continue Levaquin initiated in the emergency room though switched to oral -Attempt to wean oxygen to usual home oxygen of 2 L by nasal cannula during the day and 4 L by nasal cannula at night -Monitor response to treatment, adjusting management accordingly (2) Hemoptysis: Reported by patient for the first 2 days of her symptoms initially what she describes as a lot of bright red blood tapering to specks of blood and not noted today. Has normal platelet count and hemoglobin. No signs of gross bleeding noted on physical exam. Significance at this point in time unclear. -Monitor for recurrent hemoptysis -Given resolution of hemoptysis do plan on initiating pharmacological DVT prophylaxis (3) Pleuritic chest pain: Right-sided and reproducible on examination with palpation and deep breathing. CTA of the chest without evidence of pulmonary emboli. Most likely costochondritis in the setting of frequent cough. Does have a history of nonobstructive coronary artery disease with baseline and 2-hour troponins unremarkable and EKGs only showing sinus tachycardia at this point in time. Had cardiac catheterization in 2019 and is on aspirin, beta-blockade and statin therapy chronically. -Supportive care -Continue home aspirin (4) Hypokalemia: Low potassium likely related to medications (hctz) and increased use of albuterol last few days, takes oral potassium chronically but did not have today. Is on multiple antihypertensive medications but no known history of adrenal axis causes of low potassium. -Recheck potassium now after replacement given in ED -Increase daily potassium for 3 days -Recheck potassium in am (5) Type 2 diabetes mellitus: Chronically on oral semaglutide and Jardiance with improved blood sugar control. Takes Lantus if needed if blood sugars are greater than 140 or so and typically only takes once a day 20 to 25 units rather than 40 units twice daily as was originally prescribed. Last hemoglobin A1c in December 2023 was 6.3. -Given planned steroid administration will administer Lantus 15 units twice a day with parameters to hold if blood sugar is less than 120 -Moderate dose sliding scale insulin -As oral semaglutide and empagliflozin are nonformulary these are currently held -Monitor sugars for need to adjust management Qualifiers: Diabetes mellitus ferry terminal supervisor insulin use: with ferry terminal supervisor use Diabetes mellitus complication status: with neurologic complications Diabetes mellitus complication detail: with polyneuropathy Qualified Code(s): E11.42 - Type 2 diabetes mellitus with diabetic polyneuropathy; 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 Did not take medications this morning and has normal blood pressures thus far today. -Will continue half of usual metoprolol dosing and usual amlodipine dosing -Currently holding hydrochlorothiazide and telmisartan -Monitor blood pressures for optimal timing to resume usual dosing regimen (8) Hyperlipidemia: Chronically on simvastatin -Continuing home statin therapy Qualifiers: Hyperlipidemia type: mixed hyperlipidemia Qualified Code(s): E78.2 - Mixed hyperlipidemia (9) Acid reflux: Chronically on Protonix -Continue home PPI Qualifiers: Esophagitis presence: without esophagitis Qualified Code(s): K21.9 - Gastro-esophageal reflux disease without esophagitis (10) Mixed anxiety and depressive disorder: Chronically on citalopram and as needed hydroxyzine -Continue citalopram 10 mg daily with as needed hydroxyzine for anxiety (11) Seasonal allergies: Chronically on montelukast and loratadine -Continue home Singulair and Claritin -Resume home Flonase which she has been out of (12) Smoker: Typically smokes about a pack a day -Nicotine patch if needed (13) ELISE (obstructive sleep apnea): Chronically on BiPAP with sleep with 4 L of oxygen -Continue BiPAP therapy (14) On home oxygen therapy: Chronically on 2 L during the day and 4 L at night -Weaned to usual oxygen flow as able (15) Obesity, Class I, BMI 30-34.9: Plan Observation admission VTE prophylaxis: Lovenox GI Prophylaxis: PPI Antibiotics: levaquin empirically started on 05/05/24 Pending studies: repeat potassium level, am labs for 05/06, sputum culture and gram stain pending collection Telemetry: ordered due to tachycardia with respiratory issues [place]: not currently indicated Line(s): peripheral IVs Disposition plan: Home with outpatient follow up to primary care anticipated, short course of antibiotics and steroids, closer monitoring of blood sugars while on steroids. Depending on whether additional hemoptysis is seen, may benefit from pulmonary outpt follow up as well Code Status: Full Code Supportive care otherwise Findings, concerns and plans were discussed with patient and she was given an opportunity to ask questions PDMP PDMP Reviewed: Last Reviewed 05/05/24 15:29 by Meghan Pulido MD Attestations Medical Necessity Statement*: Currently anticipated hospital stay less than 2 midnights in this patient requiring increased amount of oxygen from baseline and has known COPD with acute exacerbation as evidenced on history, presentation and physical examination. She has not received antibiotics or steroids prior to today so hoping that her symptoms will improve quickly with initiation of management. She herself is already stating an improvement from a severity of 10 when she came in to 4 or 5 currently. The one concerning caveat is that she reports initially having a significant amount of bright red blood in the sputum. This has not been noted today. No findings on CTA of the chest really would account for this beyond noted inflammatory changes. No clear visible source of bleeding from upper airways. DVT prophylaxis has been ordered and she will be closely monitored. Diagnoses Acute exacerbation of chronic obstructive airways disease J44.1 Hemoptysis R04.2 Pleuritic chest pain R07.81 Hypokalemia E87.6 Type 2 diabetes mellitus with diabetic polyneuropathy, with long-term current use of insulin E11.42; Z79.4 Diabetes mellitus ferry terminal supervisor insulin use: with correction use Diabetes mellitus complication status: with neurologic complications Diabetes mellitus complication detail: with polyneuropathy Neuropathy due to type 2 diabetes mellitus E11.40 Essential hypertension I10 Mixed hyperlipidemia E78.2 Hyperlipidemia type: mixed hyperlipidemia Gastroesophageal reflux disease without esophagitis K21.9 Esophagitis presence: without esophagitis Mixed anxiety and depressive disorder F41.8 Seasonal allergies J30.2 Smoker F17.200 ELISE (obstructive sleep apnea) G47.33 On home oxygen therapy Z99.81 Obesity, Class I, BMI 30-34.9 E66.9
--- NOTE | 2024-05-05 15:06 | ECG_ITS ---
[facility]24[facility] Pat Name: Nicole Carlos Department: Room: ED Gender: Female Plate Printer: : [id number] Requested By: Burak Orantes Order Number: [id number] Reading MD: PAMELLA HOOVER Measurements Intervals [place] Rate: 89 P: 86 GA: 175 QRS: 81 QRSD: 86 T: 80 QT: 384 QTc: 470 Interpretive Statements SINUS RHYTHM Compared to ECG 05/05/2024 11:09:27 Sinus tachycardia no longer present Electronically Signed On 05-06-2024 23:47:47 CLIENT DEVELOPMENT MANAGER by PAMELLA HOOVER [id number] [id number]
[2024-05-05 16:00] LABS: Troponin 5 6HR Delta 0.00001 ng/L (0-12)
[2024-05-05] MEDS: fluticasone nasal spray 16gm Btl 2 SPRAY INTRANASAL (17:13)
[2024-05-05] MEDS: sodium chloride 0.9% 1,000 ML 75 ML IV (17:13)
[2024-05-05] MEDS: insulin lispro 100 unit/1 mL SUBCUT ×2 (17:13→20:58)
[2024-05-05] MEDS: atorvastatin 40 mg Tablet 20 MG PO (17:13)
[2024-05-05] MEDS: enoxaparin 40 mg/0.4 mL Syringe SUBCUT (17:13)
[2024-05-05] MEDS: pregabalin 150 mg Capsule PO (17:14)
[2024-05-05] MEDS: pantoprazole DR 40 mg Tablet PO (17:14)
[2024-05-05 17:43] LABS: Glucose Point of Care 202 mg/dL (70-110)
[2024-05-05 19:40] LABS: Anion Gap 14.3 (5-19); Blood Urea Nitrogen 13 mg/dL (6-20); Calcium 8.3 mg/dL (8.5-10.5); Carbon Dioxide 31 mmol/L (22-29); Chloride 98 mmol/L (98-107); Creatinine Clr Calc Pharmacy 53.4177; Glomerular Filtration Rate 57.1 mL/min (90-130); Glucose 240 mg/dL (65-115); Osmolality Calculated 298 mOsm/kg (285-295); Potassium 3.3 mmol/L (3.5-5.1); Sodium 140 mmol/L (136-145)
[2024-05-05] MEDS: budesonide 0.5 mg/2 mL Neb INHALATION (20:03)
[2024-05-05 20:36] LABS: Glucose Point of Care 174 mg/dL (70-110)
[2024-05-05] MEDS: metoprolol tartrate 50 mg Tablet 25 MG PO (20:57)
[2024-05-05] MEDS: insulin glargine 100 units/1 mL 8 UNIT SUBCUT (20:58)
[2024-05-06] VITALS (11 sets, daily range): BP systolic 112–137; BP diastolic 68–81; PULSE 70–95; RESP 14–20; TEMP 36.4–36.6; O2SAT 88–100
[2024-05-06 04:12] LABS: Basophils % 0.1 %; Lymphocytes % 10.6 %; Mean Corpuscular HGB Conc 31.1 g/dL (30-55); Mean Corpuscular Hemoglobin 26.7 pg (27-33); Monocytes # 0.3 10^3/uL (0.2-0.9); Monocytes % 2.7 %; Neutrophils # 7.92 10^3/uL (1.8-7.7); Neutrophils % 85.9 %; Nucleated Red Blood Cells % 0 %; Platelet Count 262 10^3/cmm (157-399); Red Blood Count 4.42 10^6/uL (3.85-5.65); White Blood Count 9.22 10^3/uL (3.29-11.43)
[2024-05-06 04:33] LABS: Anion Gap 13.2 (5-19); Blood Urea Nitrogen 14 mg/dL (6-20); Calcium 8.7 mg/dL (8.5-10.5); Carbon Dioxide 33 mmol/L (22-29); Chloride 99 mmol/L (98-107); Glomerular Filtration Rate 64.5 mL/min (90-130); Glucose 173 mg/dL (65-115); Magnesium 1.5 mg/dL (1.7-2.3); Osmolality Calculated 299 mOsm/kg (285-295); Phosphorus 3.5 mg/dL (2.5-4.5); Potassium 3.2 mmol/L (3.5-5.1); Sodium 142 mmol/L (136-145)
[2024-05-06] MEDS: levoFLOXacin 750 mg Tablet PO (05:31)
[2024-05-06] MEDS: aspirin 81 mg EC Tablet PO (05:32)
[2024-05-06 06:42] LABS: Glucose Point of Care 180 mg/dL (70-110)
[2024-05-06] MEDS: ipratropium-albuterol 3 mL Neb INHALATION ×2 (07:32→11:01)
[2024-05-06] MEDS: budesonide 0.5 mg/2 mL Neb INHALATION (07:32)
[2024-05-06] MEDS: insulin lispro 100 unit/1 mL SUBCUT (08:43)
[2024-05-06] MEDS: insulin glargine 100 units/1 mL 8 UNIT SUBCUT (08:43)
[2024-05-06] MEDS: fluticasone nasal spray 16gm Btl 2 SPRAY INTRANASAL (08:43)
[2024-05-06] MEDS: amlodipine 10 mg Tablet 5 MG PO (08:44)
[2024-05-06] MEDS: pantoprazole DR 40 mg Tablet PO (08:44)
[2024-05-06] MEDS: predniSONE 20 mg Tablet 40 MG PO (08:44)
[2024-05-06] MEDS: metoprolol tartrate 50 mg Tablet 25 MG PO (08:44)
[2024-05-06] MEDS: citalopram 20 mg Tablet 10 MG PO (08:44)
[2024-05-06] MEDS: pregabalin 150 mg Capsule PO (08:44)
[2024-05-06] MEDS: montelukast sodium 10 mg Tablet PO (08:44)
[2024-05-06] MEDS: loratadine 10 mg Tablet PO (08:44)
[2024-05-06] MEDS: potassium chloride ER 20 mEq Tablet 40 MEQ PO (08:45)
--- NOTE | 2024-05-06 10:13 | PC.CHAP ---
Pastoral Care Encounter/Spiritual Assessment Type of Contact [] Declined merchandising director visit [] Patient/Family/Request visit [] Outpatient visit [] Follow-up visit [] Physician referral [] Code/Alert [x] Routine visit [] Staff referral [] Actively dying [] Patient sleeping [] Family support [] [] Out of room [] Palliative care [] [] Receiving care in room [] Pre-surgical visit [] Trauma [] Long length of stay [] ICU visit [] Other: Relational/Emotional Strength [x] Patient feels connected with others/family/visitors/staff [] Distress [] Loneliness/isolation [] Abandonment Spirituality of Patient [x] Person of Selina [] Attends Jainism of their Selina [x] Believes in Prayer [] Reads Bible or Yarsani materials [] There are Spiritual issues to be addressed Tube Skiver Interventions [x] Prayer [x] Active listening [] Non-anxious presence [x] Spiritual/emotional support [] Crisis/trauma care [] Spiritual counseling [] Bereavement support [] Provided bereavement packet [] Provided Bible/devotional materials [] Provided toy/stuffed animal, coloring book to patient or family member [] Provided Communion [] Anointing/[place] [] Salvation [x] Completed spiritual assessment [] Other: Impact on Illness or Injury [] Angry [] Fearful [] Anxious [] Often cries [] Exhaustion [] Unable to work [] Unable to attend rastafarian [] Unable to walk/stand [] Unable to read [] Unable to drive [] Unable to eat/drink [] Unable to sleep [] Unable to be with family [] Patient intubated [] Other: Summary Time spent with patient 5 min
--- NOTE | 2024-05-06 11:16 | P.DS_ITS ---
Discharge Providers Date of Admission: 05/05/24 15:56 Date of Discharge: May 06, 2024 Attending Provider at Admission: Meghan Pulido MD Attending Provider at Discharge: Nico Cornell Primary Care Provider: VIOLET Locke Diagnoses at Discharge Discharge Diagnosis (1) Acute exacerbation of chronic obstructive airways disease: Status: Acute (2) Hemoptysis: Status: Acute (3) Pleuritic chest pain: Status: Acute (4) Hypokalemia: Status: Acute (5) Type 2 diabetes mellitus: Status: Chronic Qualifiers: Diabetes mellitus complication detail: with polyneuropathy Diabetes mellitus complication status: with neurologic complications 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 Qualified Code(s): E11.42 - Type 2 diabetes mellitus with diabetic polyneuropathy; Z79.4 - [facility] (current) use of insulin (6) 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 (7) Essential hypertension: Status: Chronic (8) Hyperlipidemia: Status: Chronic Qualifiers: Hyperlipidemia type: mixed hyperlipidemia Qualified Code(s): E78.2 - Mixed hyperlipidemia (9) Acid reflux: Status: Chronic Qualifiers: Esophagitis presence: without esophagitis Qualified Code(s): K21.9 - Gastro-esophageal reflux disease without esophagitis (10) Mixed anxiety and depressive disorder: Status: Chronic (11) Seasonal allergies: Status: Chronic (12) Smoker: Status: Acute (13) ELISE (obstructive sleep apnea): Status: Chronic Permanent problem details: bipap with sleep with 4L oxygen (14) On home oxygen therapy: Status: Chronic Permanent problem details: 2L bnc at baseline; 4L at night (15) Obesity, Class I, BMI 30-34.9: Status: Chronic Reason for Visit Reason for Visit: sob Hospital Course Hospital Course Pleasant 58-year-old lady with history of COPD, chronically on 2 L of oxygen, 4 L at night, with BiPAP at home, has a nebulizer as well, presented due to shortness of breath, productive cough, hemoptysis, had a low-grade fever before respiratory symptoms started. COVID-19, influenza, RSV PCR were checked and were negative at presentation. CT angiogram chest with some tree-in-bud opacities suggesting inflammatory changes, without PE, without consolidation. She was started on treatment for severe dissipation of COPD with productive cough, dyspnea, increasing oxygen requirement, wheezing, posttussive emesis. Received treatment with prednisone, Levaquin, breathing treatments, oxygen support, BiPAP support. Today she is feeling much better. She has ambulated in the room. She still requiring more oxygen than usual at 4 L, still having productive cough, mild wheeze on exam. Discussed with her consideration of additional treatment in the hospital, versus discharge home. She is adamant she is feeling quite better and would like to return to continue her convalescence at home. Home oxygen reassessment is requested. She will complete a prednisone taper completed course of Levaquin, continue breathing treatments at home, she states she has ample supply of medication. Continue to target oxygen saturation 88-92, taper oxygen as appropriate. BiPAP support as needed and at night. Follow-up with primary provider for reassessment. So far hemoptysis has resolved and appears to have been related to her acute COPD exacerbation. Please revisit to confirm resolution. She is encouraged to continue monitoring blood glucose, blood pressure, particular with corticosteroid therapy. Please reassess, assess if may need further adjustment in her treatment regimens. During hospitalization received supplementation of potassium, magnesium. Please reassess. Physical Exam Narrative: Thick purulent green-colored sputum in the basin without any blood sitting on her table. She is sitting up in bed, nasal cannula on. She is comfortable speaking in full sentences. Const: COMMON NORMALS: patient oriented x3 and alert GENERAL APPEARANCE: cooperative ORIENTATION/CONSCIOUSNESS: Yes awake HENMT: COMMON NORMALS: oropharynx normal Neck/C-Spine: COMMON NORMALS: no JVD Resp: COMMON NORMALS: normal respiratory effort AUSCULTATION: wheezes (Mild wheeze right lower lobe) Cardio: COMMON NORMALS: no JVD, regular rhythm, S1 normal heart sound present, S2 normal heart sound present and No murmurs present (Cardio) RHYTHM: regular rhythm HEART SOUNDS: S1 normal heart sound present and S2 normal heart sound present GI: COMMON NORMALS: Normal to inspection, nondistended, normoactive bowel sounds present, Soft to palpation and non-tender PALPATION: Yes Soft to palpation Extremity: COMMON NORMALS: no joint enlargement and no pedal edema Neuro: COMMON NORMALS: patient oriented x3 and moves all extremities SENSORIUM/ORIENTATION: Yes alert Skin: COMMON NORMALS: no rashes or lesions noted GENERAL SKIN EXAM: no rashes or lesions noted Discharge Data Studies Completed and Pending Completed Studies During Hospitalization Category Date Time Status CT angio chest PE protcl [id number] Stat Cat Scan 05/05/24 09:12 Completed XR chest 1V portable [id number] Stat Exams 05/05/24 09:07 Completed Pending at discharge Category Date Time Status Sputum Culture and Gram Stain Stat Lab 05/05/24 09:54 Results Radiology Impressions Chest X-Ray 05/05/24 09:07 IMPRESSION: Trace atelectasis or scar noted in the right lung base. Chest CTA 05/05/24 09:12 IMPRESSION: 1. No evidence for pulmonary embolus. 2. Bilateral scattered tree-in-bud opacities nonspecific but likely inflammatory similar to the prior studies Laboratory Results WBC 9.22 10^3/uL (3.29-11.43) 05/06/24 03:58 RBC 4.42 10^6/uL (3.85-5.65) 05/06/24 03:58 Hgb 11.80 g/dL (11.27-16.99) 05/06/24 03:58 Hct 38.0 % (36-47) 05/06/24 03:58 MCV 86.0 fl (85-98) 05/06/24 03:58 MCH 26.7 pg (27-33) L 05/06/24 03:58 MCHC 31.1 g/dL (30-55) 05/06/24 03:58 RDW 16.0 % (12.1-15.1) H 05/06/24 03:58 Plt Count 262 10^3/cmm (157-399) 05/06/24 03:58 MPV 10.0 fL (7.4-10.4) 05/06/24 03:58 Neut % (Auto) 85.9 % 05/06/24 03:58 Lymph % (Auto) 10.6 % 05/06/24 03:58 Arthur % (Auto) 2.7 % 05/06/24 03:58 Eos % (Auto) 0.0 % 05/06/24 03:58 Baso % (Auto) 0.1 % 05/06/24 03:58 Neut # (Auto) 7.92 10^3/uL (1.8-7.7) H 05/06/24 03:58 Lymph # (Auto) 1.0 10^3/uL (0.8-4.8) 05/06/24 03:58 Arthur # (Auto) 0.3 10^3/uL (0.2-0.9) 05/06/24 03:58 Eos # (Auto) 0.0 10^3/uL (0.0-0.8) 05/06/24 03:58 Baso # (Auto) 0.0 10^3/uL (0.0-0.1) 05/06/24 03:58 Nucleated RBC % (auto) 0 % 05/06/24 03:58 Nucleated RBCs # 0.0 /100WBC 05/06/24 03:58 Specimen Type Arterial 05/05/24 13:57 Sample Site Brachial, left 05/05/24 13:57 ABG pH 7.41 (7.35-7.45) 05/05/24 13:57 ABG pCO2 57.6 mmHg (35-45) H 05/05/24 13:57 ABG pO2 80.1 mmHg (80.0-100.0) 05/05/24 13:57 ABG PO2/FiO2 Ratio 250 05/05/24 13:57 ABG HCO3 36.5 mmol/L (22-26) H 05/05/24 13:57 ABG O2 Saturation 96.7 05/05/24 13:57 ABG Base Excess 9.8 mmol/L (-2.0-2.0) H 05/05/24 13:57 Nabor Test N/a 05/05/24 13:57 A-a O2 Gradient 10.0 mmHg (5-10) 05/05/24 13:57 Hematocrit 38.6 % (37-47) 05/05/24 13:57 Hgb O2 Saturation 92.4 % (95-100) L 05/05/24 13:57 Carboxyhemoglobin 4.1 %THgb (0.4-20.1) 05/05/24 13:57 Methemoglobin 0.4 % (0.4-1.5) 05/05/24 13:57 Total Hemoglobin 12.6 g/dL (12-16) 05/05/24 13:57 Sodium 142.0 mmol/L (131-143) 05/05/24 13:57 Potassium 3.2 mmol/L (3.5-5.0) L 05/05/24 13:57 Glucose 222.0 mg/dL (70-115) H 05/05/24 13:57 Ionized Calcium 1.2 mmol/L (1.1-1.4) 05/05/24 13:57 O2 Delivery Device Nc 05/05/24 13:57 O2 Liters/Min 3.0 % 05/05/24 13:57 FiO2 32.0 % 05/05/24 13:57 [employer] House Supervisor ID Amh 05/05/24 13:57 Sodium 142 mmol/L (136-145) 05/06/24 03:58 Potassium 3.2 mmol/L (3.5-5.1) L 05/06/24 03:58 Chloride 99 mmol/L (98-107) 05/06/24 03:58 Carbon Dioxide 33 mmol/L (22-29) H 05/06/24 03:58 Anion Gap 13.2 (5-19) 05/06/24 03:58 BUN 14 mg/dL (6-20) 05/06/24 03:58 Creatinine 0.9 mg/dL (0.5-0.9) 05/06/24 03:58 GFR Calculation 64.5 mL/min (90-130) L 05/06/24 03:58 Glucose 173 mg/dL (65-115) H 05/06/24 03:58 POC Glucose 180 mg/dL (70-110) H 05/06/24 06:36 Calculated Osmolality 299 mOsm/kg (285-295) H 05/06/24 03:58 Calcium 8.7 mg/dL (8.5-10.5) 05/06/24 03:58 Phosphorus 3.5 mg/dL (2.5-4.5) 05/06/24 03:58 Magnesium 1.5 mg/dL (1.7-2.3) L 05/06/24 03:58 Total Bilirubin 0.7 mg/dL (0.15-1.2) 05/05/24 09:15 AST 9 U/L (0-32) 05/05/24 09:15 ALT 6 U/L (0-33) 05/05/24 09:15 Alkaline Phosphatase 112 U/L (35-105) H 05/05/24 09:15 Troponin T Baseline < 6 ng/L (0-10) 05/05/24 09:15 Troponin T 120 Minute 6.16 ng/L (0-10) 05/05/24 11:25 Delta Troponin T 0.47005 ABS# (0-10) 05/05/24 11:25 Troponin T Hi Sens 6Hr 6.00 ng/L (0-10) 05/05/24 15:11 Troponin T Hi Sens 6Hr Delta 0.75183 ng/L (0-12) 05/05/24 15:11 Total Protein 8.0 g/dL (6.6-8.7) 05/05/24 09:15 Albumin 3.8 g/dL (3.5-5.2) 05/05/24 09:15 Globulin 4.2 g/dL (1.3-4.6) 05/05/24 09:15 Influenza A (PCR) Negative (Negative) 05/05/24 09:02 Influenza Type B (PCR) Negative (Negative) 05/05/24 09:02 RSV (PCR) Negative (Negative) 05/05/24 09:02 SARS-CoV-2 (PCR) Negative (Negative) 05/05/24 09:02 Vitals Last Vital Signs Temp 97.6 F 05/06/24 07:48 Pulse 81 05/06/24 11:02 Resp 18 05/06/24 10:59 BP 137/81 05/06/24 07:48 Pulse Ox 95 05/06/24 10:59 O2 Del Method Nasal Cannula 05/06/24 10:59 O2 Flow Rate 4 05/06/24 10:59 FiO2 40 05/06/24 07:33 Discharge Plan Discharge Patient Disposition: Home Condition: Stable Prescriptions: New levofloxacin 750 mg Tablet 750 mg PO DAILY@0600 Qty: 6 0RF prednisone 20 mg Tablet See Rx Instructions .ROUTE .COMPLEX Qty: 20 0RF Rx Instructions: 3 tab daily for 3 days, then 2 tab for 3 days, then 1 tab for 3 days, then 1/2 tab for 4 days. Continued Lantus Solostar U-100 Insulin 100 unit/mL (3 mL) insulin pen See Rx Instructions .ROUTE .COMPLEX Qty: 15 1RF Dose Instruction: INJECT 40 UNITS UNDER THE SKIN TWICE DAILY. Rx Instructions: INJECT 40 UNITS UNDER THE SKIN TWICE DAILY NEEDED. (DME) pen needle, diabetic [1st Tier Unifine Pentips] 31 gauge x 1/4 needle See Rx Instructions .Route Qty: 100 1RF Rx Instructions: As directed amlodipine 10 mg tablet 5 mg PO DAILY Rybelsus 7 mg tablet 7 mg PO QAM 90 Days Qty: 90 1RF (DME) OneTouch Verio test strips Strip See Rx Instructions .Route Qty: 100 0RF Rx Instructions: test 3 times daily (DME) blood-glucose meter [OneTouch Verio Meter] Misc See Rx Instructions .Route Qty: 1 0RF Rx Instructions: test blood sugar 3 times daily Flonase Allergy Relief 50 mcg/actuation spray,suspension 1 spray intranasal BID PRN (Reason: Allergic Symptoms) Qty: 9.9 0RF Rx Instructions: administer into each nostril Trelegy Ellipta 100-62.5-25 mcg blister with device 1 inh inhalation QAM Qty: 60 2RF Lyrica 150 mg capsule 150 mg PO BID 30 Days Qty: 60 2RF aspirin 81 mg tablet,delayed release (DR/EC) 81 mg PO QAM citalopram 10 mg tablet 10 mg PO QAM baclofen 20 mg tablet 20 mg PO BID PRN (Reason: Muscle Spasm) potassium chloride 20 mEq tablet,ER particles/crystals 20 meq PO DAILY pantoprazole 40 mg tablet,delayed release (DR/EC) 40 mg PO BID simvastatin 20 mg tablet 20 mg PO QPM telmisartan 80 mg tablet 80 mg PO DAILY metoprolol tartrate 50 mg tablet 50 mg PO BID montelukast 10 mg tablet 10 mg PO DAILY hydroxyzine HCl 25 mg tablet 25 mg PO QPM PRN (Reason: Anxiety) hydrochlorothiazide 25 mg tablet 25 mg PO DAILY albuterol sulfate 90 mcg/actuation HFA aerosol inhaler 2 puff inhalation Q6H PRN (Reason: Shortness Of Breath) loratadine 10 mg tablet 10 mg PO DAILY Jardiance 25 mg tablet 25 mg PO QAM Discharge Orders: Discharge Order (Routine); Ordered 05/06/24 Ordered By: Nico Cornell Referrals: Reji Faulkner FNP [Primary Care Provider] - 4-7 days Discharge Diet: Cardiac and Diabetic Discharge Activity: Increase activity as tolerated and Oxygen as instructed Patient Instructions: COPD (Chronic Obstructive Pulmonary Disease) (GEN), Opioid Safety Activity Restrictions/Additional Instructions: Follow-up with your primary doctor for reassessment after COPD exacerbation. Continue oxygen support at home, target oxygen saturation around 90% (88-92%). Continue breathing treatments at home. Follow-up with your primary doctor for reassessment of potassium and magnesium. Continue potassium supplementation. Supplement magnesium 200-400 mg a day. Watch out for diarrhea with higher doses of magnesium. Continue to monitor blood sugars at home, expecting there may be increase in blood sugars with corticosteroid (prednisone) treatment. Continue consistent carbohydrate diet. You may need to increase insulin dose if you units which you may and then be able to decrease back down once you are done with the corticosteroid. Continue to monitor blood pressures, anticipate possible increase in blood pr essure with corticosteroid. Continue cardiac diet. Follow-up with your primary provider for reassessment. As discussed, seek medical attention in case of worsening or new concerning symptoms. Seek medical attention in case of return of coughing up blood. Discharge Attestations Time Spent in Discharge Care*: greater than 30 min Quality Metrics Clinical Quality Measures [ No reported AMI, CVA or VTE this stay] Coding Level of Care Code 06417 Total time (in minutes) for Discharge: 40 Diagnoses Acute exacerbation of chronic obstructive airways disease J44.1 Hemoptysis R04.2 Pleuritic chest pain R07.81 Hypokalemia E87.6 Type 2 diabetes mellitus with diabetic polyneuropathy, with long-term current use of insulin E11.42; Z79.4 Diabetes mellitus complication detail: with polyneuropathy Diabetes mellitus complication status: with neurologic complications 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
[2024-05-06 11:24] LABS: Glucose Point of Care 111 mg/dL (70-110)
[2024-05-06] MEDS: magnesium sulfate premix 2 GM/50 ML PIGGYBACK IV (11:52)
--- NOTE | 2024-05-06 13:32 | PC.NURSE ---
Discharge instructions provided to pt at this time. No questions or concerns voiced. Pt to private vehicle with all belongings, including he own oxygen tank.
== END 2024-05-06 13:34 | disposition home or self-care (01) ==
LOC: ER 14:14 → ER IP 15:56 → MEDSURG 16:06
PROVIDERS: Admitting Provider Hospitalist; Emergency Provider Family Medicine; PCP Registered Nurse; Visit Provider Internal Medicine
DX: J44.1 Chronic obstructive pulmonary disease with (acute) exacerbation (principal); R04.2 Hemoptysis; Z79.82 Long term (current) use of aspirin; Z88.5 Allergy status to narcotic agent; I10 Essential (primary) hypertension; E11.40 Type 2 diabetes mellitus with diabetic neuropathy, unspecified; G47.33 Obstructive sleep apnea (adult) (pediatric); Z90.721 Acquired absence of ovaries, unilateral; F17.210 Nicotine dependence, cigarettes, uncomplicated; Z11.52 Encounter for screening for COVID-19; Z79.4 Long term (current) use of insulin; Z99.81 Dependence on supplemental oxygen; Z79.85 Long-term (current) use of injectable non-insulin antidiabetic drugs; Z79.84 Long term (current) use of oral hypoglycemic drugs; Z85.820 Personal history of malignant melanoma of skin; F41.8 Other specified anxiety disorders; I25.10 Atherosclerotic heart disease of native coronary artery without angina pectoris; K21.9 Gastro-esophageal reflux disease without esophagitis; R00.0 Tachycardia, unspecified; J30.2 Other seasonal allergic rhinitis; E87.6 Hypokalemia; E78.2 Mixed hyperlipidemia; Z79.899 Other long term (current) drug therapy; E66.811 Obesity, class 1; Z68.30 Body mass index [BMI] 30.0-30.9, adult
CPT/HCPCS: 36415; 36416; 71045; 71275; 80048; 80051; 80053; 82330; 82805; 82962; 83735; 84100; 84484; 85025; 87070; 87077; 87186; 87205; 87637; 93005; 94640; 94660; 94664; 94760; 96365; 96367; 96372; 99285; G0378; J1100; J1650; J1815; J1956; J3475; J7030; J7512; J7626

== ENCOUNTER → 2024-05-15 09:28 | Outpatient (BNVA) | payer MEDICARE, SELFPAY | PROVIDERS: PCP Registered Nurse; Visit Provider Registered Nurse | DX: E11.42 Type 2 diabetes mellitus with diabetic polyneuropathy (principal); Z79.4 Long term (current) use of insulin; E11.9 Type 2 diabetes mellitus without complications | CPT/HCPCS: 80053; 83036; 85025 ==

== ENCOUNTER → 2024-05-19 10:00 | Outpatient (BNVA) | payer MEDICARE, SELFPAY | PROVIDERS: PCP Registered Nurse; Referring Provider Registered Nurse; Visit Provider Student in an Organized Health Care Education/Training Program | DX: Z12.11 Encounter for screening for malignant neoplasm of colon (principal); R12 Heartburn; R03.0 Elevated blood-pressure reading, without diagnosis of hypertension | CPT/HCPCS: 99204 ==

== ENCOUNTER 2024-06-01 09:00 | Inpatient (IN) | payer MEDICARE, SELFPAY ==
[2024-06-01] VITALS (26 sets, daily range): BP systolic 86–143; BP diastolic 46–84; PULSE 69–112; RESP 16–32; TEMP 36.5–37.1; O2SAT 92–98; BMI 28.7
--- NOTE | 2024-06-01 09:23 | XRR_ITS ---
PROCEDURE INFORMATION: Exam: XR Chest Exam date and time: 06/01/2024 9:26 AM Age: 58 years old Clinical indication: Cough TECHNIQUE: Imaging protocol: Radiologic exam of the chest. Views: 1 view. COMPARISON: CR XR chest 1V portable [id number] 05/05/2024 9:30 AM FINDINGS: Lungs: There is consolidation at the lateral right base compatible with pneumonia. Pleural spaces: No pleural effusion. No pneumothorax. Heart/Mediastinum: The cardiac silhouette is unchanged. No gross evidence of pneumomediastinum. Bones/joints: No gross acute fracture. Old bilateral rib fractures. XR/XR chest 1V portable [id number] IMPRESSION: Consolidation at the lateral right base compatible with pneumonia.
--- NOTE | 2024-06-01 09:29 | W.ED.NAVMDI ---
HPI - Nausea/Vomiting/Diarrhea General: Chief complaint: Nausea/Vomiting/Diarrhea Stated complaint: n/v, fever Time Seen by Provider: 06/01/24 09:04 Source: patient Mode of arrival: ambulatory Limitations: no limitations History of Present Illness: 58-year-old female who states over the last 3 to 4 days she has been having increasing cough along with shortness of breath states she been having a fever states she started having some right sided rib pain it is very sharp as well. States she woke up this morning is been having some nausea and vomiting she denies any abdominal pain states that on the right side of her chest. Does have a history of COPD does wear oxygen at home Associated nausea: Yes Associated symtoms: Reports chest pain and nausea; Denies dysuria or headache(s) Related Data Home Medications ?Medication ?Instructions ?Recorded ?Confirmed aspirin 81 mg tablet,delayed 81 mg PO QAM 01/12/23 06/01/24 release montelukast 10 mg tablet 10 mg PO DAILY 05/05/24 06/01/24 pantoprazole 40 mg tablet,delayed 40 mg PO BID 05/05/24 06/01/24 release potassium chloride 20 mEq 20 meq PO DAILY 05/05/24 06/01/24 tablet,extended release(part/cryst) insulin glargine 100 unit/mL (3 40 unit SUBCUT BID PRN high sugar 05/28/24 06/01/24 mL) subcutaneous pen (Lantus Solostar U-100 Insulin) Previous Rx's ?Medication ?Instructions ?Recorded fluticasone propionate 50 1 spray intranasal BID PRN 01/15/24 mcg/actuation nasal Allergic Symptoms #9.9 mL spray,suspension (Flonase Allergy Relief) pregabalin 150 mg capsule (Lyrica) 150 mg PO BID 30 days #60 caps 04/17/24 amlodipine 10 mg tablet 5 mg (1/2 x 10 mg) PO DAILY 90 05/15/24 days #90 tabs citalopram 10 mg tablet 10 mg PO QAM 90 days #90 tabs 05/15/24 empagliflozin 25 mg tablet 25 mg PO QAM 90 days #90 tabs 05/15/24 (Jardiance) hydrochlorothiazide 25 mg tablet 25 mg PO DAILY 90 days #90 tabs 05/15/24 hydroxyzine HCl 25 mg tablet 25 mg PO QPM PRN Anxiety 90 days 05/15/24 #90 tabs metoprolol tartrate 50 mg tablet 50 mg PO BID 90 days #180 tabs 05/15/24 semaglutide 7 mg tablet (Rybelsus) 7 mg PO QAM 90 days #90 tabs 05/15/24 simvastatin 20 mg tablet 20 mg PO QPM 90 days #90 tabs 05/15/24 telmisartan 80 mg tablet 80 mg PO DAILY 90 days #90 tabs 05/15/24 albuterol sulfate 90 mcg/actuation 2 puff inhalation Q6H PRN 05/19/24 aerosol inhaler Shortness Of Breath #6.7 grams fluticasone fur. 100 mcg-umeclid 1 inh inhalation QAM #60 ea 05/19/24 62.5 mcg-vilant 25 mcg inhalat.powder (Trelegy Ellipta) baclofen 20 mg tablet 20 mg PO BID PRN Muscle Spasm #45 05/26/24 tabs loratadine 10 mg tablet 10 mg PO DAILY #90 tabs 05/26/24 Allergies Allergy/AdvReac Type Severity Reaction Status Date / Time codeine Allergy ALGY-Hives Verified 06/01/24 09:30 Review of Systems Const: Denies: fever(s), chills, body aches or change in appetite ENMT: Denies: throat pain or dental pain Card: Reports: chest pain Resp: Reports: dyspnea and non-productive cough GI: Reports: abdominal pain, nausea and vomiting; Denies: diarrhea : Denies: dysuria Musc: Denies: neck pain or back pain Skin/Breast: Denies: rash Neuro: Denies: headache(s) PFSH ED PFSH: Medical History Seasonal allergies Skin cancer of nose s/p excision, non-melanoma History of echocardiogram 08/2019 EF 65% History of PFTs 01/2021 - severe airflow obstruction. There is no significant postbronchodilator response. Lung volumes are consistent with air trapping. Gas exchange (DLCO) is mildly reduced. Mixed anxiety and depressive disorder Diverticulosis Essential hypertension Chronic nausea Neuropathy due to type 2 diabetes mellitus Type 2 diabetes mellitus ELISE (obstructive sleep apnea) bipap with sleep with 4L oxygen Coronary artery disease COPD, very severe Hyperlipidemia Acid reflux Surgical History S/P laparoscopy Hx of removal of ovary History of appendectomy History of esophagogastroduodenoscopy (EGD) (05/2019) History of colonoscopy (05/2019) Family History Father Cancer Lung disease Hypertension Mother Lung disease Grandmother Diabetes Other CAD (coronary artery disease) Denies family history of Stroke Social History Smoking and tobacco/nicotine status: current every day tobacco/nicotine user cigarettes [ Other cigarette details: [id number]+yrs] Second hand smoke exposure: Yes Alcohol intake: never Substance/Drug Use: never Lives independently: Yes Household members: spouse Housing: House Marital status: Current occupational status: disabled Pets and animals: Yes Do you think of yourself as: Straight/Heterosexual Current gender identity: Female Selina/Episcopalian: Amish Agree to transfusion: Yes Physical Exam Const: COMMON NORMALS: patient oriented x3 HENMT: COMMON NORMALS: normocephalic and atraumatic HEAD & SCALP: normocephalic and atraumatic Eye: COMMON NORMALS: conjunctivae normal CONJUNCTIVA: Yes conjunctivae normal Neck/C-Spine: COMMON NORMALS: full ROM and supple Chest: COMMONS NORMALS: normal inspection of the chest OTHER: Point tender over right lateral rib Resp: COMMON NORMALS: No retractions and No use of accessory muscles EFFORT & INSPECTION: Yes respiratory distress AUSCULTATION: crackles Laterality: right Cardio: COMMON NORMALS: regular rate, regular rhythm and No murmurs present (Cardio) RATE: regular rate RHYTHM: regular rhythm GI: COMMON NORMALS: Normal to inspection, nondistended, normoactive bowel sounds present, Soft to palpation, non-tender and no masses PALPATION: Yes Soft to palpation Extremity: COMMON NORMALS: normal to inspection and full ROM Neuro: COMMON NORMALS: patient oriented x3, moves all extremities and no focal motor deficits Psych: COMMON NORMALS: mental status grossly normal, Normal thought process present and cooperative THOUGHT PROCESS: Normal thought process present Skin: COMMON NORMALS: no rashes or lesions noted and no wounds GENERAL SKIN EXAM: no rashes or lesions noted Course Vital Signs: Vital signs: Vital Signs Temperature 98.7 F 06/01/24 09:18 Pulse Rate 93 06/01/24 10:30 Respiratory Rate 20 H 06/01/24 10:30 Blood Pressure 99/52 06/01/24 10:30 Pulse Oximetry 94 06/01/24 10:30 Oxygen Delivery Me thod Nasal Cannula 06/01/24 09:18 Oxygen Flow Rate 3 06/01/24 09:18 MDM - Nausea/Vomiting/Diarrhea Medical Decision Making Patient presents here with pneumonia x-ray shows right lower lobe pneumonia blood work here is normal patient is well-appearing here she is stable for discharge follow-up PCP return if worsening. Medical Records I reviewed the patient's medical records. Lab Data I reviewed the patient's lab results. 06/01/24 09:36 06/01/24 09:36 Radiology Impressions Chest X-Ray 06/01/24 09:23 IMPRESSION: Consolidation at the lateral right base compatible with pneumonia. Laboratory Results WBC 18.72 10^3/uL (3.29-11.43) H 06/01/24 09:36 RBC 4.71 10^6/uL (3.85-5.65) 06/01/24 09:36 Hgb 12.70 g/dL (11.27-16.99) 06/01/24 09:36 Hct 39.3 % (36-47) 06/01/24 09:36 MCV 83.4 fl (85-98) L 06/01/24 09:36 MCH 27.0 pg (27-33) 06/01/24 09:36 MCHC 32.3 g/dL (30-55) 06/01/24 09:36 RDW 17.0 % (12.1-15.1) H 06/01/24 09:36 Plt Count 160 10^3/cmm (157-399) 06/01/24 09:36 MPV 9.7 fL (7.4-10.4) 06/01/24 09:36 Neut % (Auto) 84.7 % 06/01/24 09:36 Lymph % (Auto) 9.6 % 06/01/24 09:36 [place] % (Auto) 4.5 % 06/01/24 09:36 Eos % (Auto) 0.1 % 06/01/24 09:36 Baso % (Auto) 0.2 % 06/01/24 09:36 Neut # (Auto) 15.88 10^3/uL (1.8-7.7) H 06/01/24 09:36 Lymph # (Auto) 1.8 10^3/uL (0.8-4.8) 06/01/24 09:36 [place] # (Auto) 0.8 10^3/uL (0.2-0.9) 06/01/24 09:36 Eos # (Auto) 0.0 10^3/uL (0.0-0.8) 06/01/24 09:36 Baso # (Auto) 0.0 10^3/uL (0.0-0.1) 06/01/24 09:36 Nucleated RBC % (auto) 0 % 06/01/24 09:36 Nucleated RBCs # 0.0 /100WBC 06/01/24 09:36 Sodium 139 mmol/L (136-145) 06/01/24 09:36 Potassium 3.4 mmol/L (3.5-5.1) L 06/01/24 09:36 Chloride 101 mmol/L (98-107) 06/01/24 09:36 Carbon Dioxide 26 mmol/L (22-29) 06/01/24 09:36 Anion Gap 15.4 (5-19) 06/01/24 09:36 BUN 15 mg/dL (6-20) 06/01/24 09:36 Creatinine 1.2 mg/dL (0.5-0.9) H 06/01/24 09:36 GFR Calculation 46.3 mL/min (90-130) L 06/01/24 09:36 Glucose 179 mg/dL (65-115) H 06/01/24 09:36 Calculated Osmolality 293 mOsm/kg (285-295) 06/01/24 09:36 Lactic Acid 1.2 mmol/L (0.5-2.2) 06/01/24 09:36 Calcium 8.4 mg/dL (8.5-10.5) L 06/01/24 09:36 Total Bilirubin 1.0 mg/dL (0.15-1.2) 06/01/24 09:36 AST 8 U/L (0-32) 06/01/24 09:36 ALT 8 U/L (0-33) 06/01/24 09:36 Alkaline Phosphatase 78 U/L (35-105) 06/01/24 09:36 Total Protein 6.6 g/dL (6.6-8.7) 06/01/24 09:36 Albumin 3.5 g/dL (3.5-5.2) 06/01/24 09:36 Globulin 3.1 g/dL (1.3-4.6) 06/01/24 09:36 Lipase 19 U/L (13-60) 06/01/24 09:36 Influenza A (PCR) Negative (Negative) 06/01/24 09:44 Influenza Type B (PCR) Negative (Negative) 06/01/24 09:44 RSV (PCR) Negative (Negative) 06/01/24 09:44 SARS-CoV-2 (PCR) Negative (Negative) 06/01/24 09:44 All radiology interpretation(s) finalized by discharge EKG Data EKG 1: I personally reviewed and interpreted this EKG as follows: EKG interpretation date: 06/01/24 EKG interpretation time: 10:00 Interpretation: nsr hr [address] elevation qrs 85 qtc 410 Discharge Plan Discharge Patient Disposition: Admitted As Inpatient Clinical Impression: Pneumonia Condition: Stable Prescriptions: No Action amlodipine 10 mg tablet 5 mg PO DAILY 90 Days Qty: 90 1RF citalopram 10 mg tablet 10 mg PO QAM 90 Days Qty: 90 1RF Jardiance 25 mg tablet 25 mg PO QAM 90 Days Qty: 90 1RF hydrochlorothiazide 25 mg tablet 25 mg PO DAILY 90 Days Qty: 90 1RF hydroxyzine HCl 25 mg tablet 25 mg PO QPM PRN (Reason: Anxiety) 90 Days Qty: 90 1RF metoprolol tartrate 50 mg tablet 50 mg PO BID 90 Days Qty: 180 1RF telmisartan 80 mg tablet 80 mg PO DAILY 90 Days Qty: 90 1RF simvastatin 20 mg tablet 20 mg PO QPM 90 Days Qty: 90 0RF Rybelsus 7 mg tablet 7 mg PO QAM 90 Days Qty: 90 1RF Flonase Allergy Relief 50 mcg/actuation spray,suspension 1 spray intranasal BID PRN (Reason: Allergic Symptoms) Qty: 9.9 0RF Rx Instructions: administer into each nostril Lyrica 150 mg capsule 150 mg PO BID 30 Days Qty: 60 2RF albuterol sulfate 90 mcg/actuation HFA aerosol inhaler 2 puff inhalation Q6H PRN (Reason: Shortness Of Breath) Qty: 6.7 0RF Trelegy Ellipta 100-62.5-25 mcg blister with device 1 inh inhalation QAM Qty: 60 2RF baclofen 20 mg tablet 20 mg PO BID PRN (Reason: Muscle Spasm) Qty: 45 0RF loratadine 10 mg tablet 10 mg PO DAILY Qty: 90 0RF aspirin 81 mg tablet,delayed release (DR/EC) 81 mg PO QAM insulin glargine [Lantus Solostar U-100 Insulin] 100 unit/mL (3 mL) insulin pen 40 unit SUBCUT BID PRN (Reason: high sugar) potassium chloride 20 mEq tablet,ER particles/crystals 20 meq PO DAILY pantoprazole 40 mg tablet,delayed release (DR/EC) 40 mg PO BID montelukast 10 mg tablet 10 mg PO DAILY Referrals: Reji Faulkner, CITIZEN PARTICIPATION SPECIALIST [Primary Care Provider] - Print Language: Luxembourgish Coding Level of Care Code ED Data Processing Consultant for Daryg Darren
[2024-06-01 09:43] LABS: Basophils % 0.2 %; Eosinophils % 0.1 %; Hematocrit 39.3 % (36-47); Lymphocytes # 1.8 10^3/uL (0.8-4.8); Lymphocytes % 9.6 %; Mean Corpuscular HGB Conc 32.3 g/dL (30-55); Mean Corpuscular Volume 83.4 fl (85-98); Mean Platelet Volume 9.7 fL (7.4-10.4); Monocytes # 0.8 10^3/uL (0.2-0.9); Monocytes % 4.5 %; Neutrophils # 15.88 10^3/uL (1.8-7.7); Neutrophils % 84.7 %; Nucleated Red Blood Cells % 0 %; Platelet Count 160 10^3/cmm (157-399); Red Blood Count 4.71 10^6/uL (3.85-5.65); White Blood Count 18.72 10^3/uL (3.29-11.43)
--- NOTE | 2024-06-01 10:00 | ECG_ITS ---
[facility] Test Date: 2024-06-01 Pat Name: Nicole Carlos Department: Room: Gender: Female Beverage Manager: : 1965 Requested By: Chuyita Villa Order Number: [id number] Roman MD: Getachew Noriega M.D. Measurements Intervals [place] Rate: 94 P: 28 ME: 145 QRS: 70 QRSD: 85 T: 67 QT: 358 QTc: 448 Interpretive Statements SINUS RHYTHM Compared to ECG 05/05/2024 16:00:09 No significant changes Electronically Signed On 06-01-2024 22:41:42 CDT by Getachew Noriega M.D. [email or web address]
[2024-06-01 10:03] LABS: Alanine Aminotransferase 8 U/L (0-33); Albumin Level 3.5 g/dL (3.5-5.2); Alkaline Phosphatase 78 U/L (35-105); Anion Gap 15.4 (5-19); Aspartate Amino Transferase 8 U/L (0-32); Blood Urea Nitrogen 15 mg/dL (6-20); Calcium 8.4 mg/dL (8.5-10.5); Carbon Dioxide 26 mmol/L (22-29); Chloride 101 mmol/L (98-107); Creatinine Clr Calc Pharmacy 44.0702; Globulin 3.1 g/dL (1.3-4.6); Glomerular Filtration Rate 46.3 mL/min (90-130); Glucose 179 mg/dL (65-115); Lipase 19 U/L (13-60); Osmolality Calculated 293 mOsm/kg (285-295); Potassium 3.4 mmol/L (3.5-5.1); Sodium 139 mmol/L (136-145); Total Protein 6.6 g/dL (6.6-8.7)
[2024-06-01 10:04] LABS: Lactic Sepsis W/Reflex 1.2 mmol/L (0.5-2.2)
[2024-06-01 10:31] LABS: Influenza A NEGATIVE (Negative); Influenza B NEGATIVE (Negative); Respiratory Syncytial Virus Ce NEGATIVE (Negative); SARS-CoV-2 PCR NEGATIVE (Negative)
[2024-06-01] MEDS: HYDROmorphone 0.5 MG/0.5 ML INJ 1 MG IVP (10:32)
[2024-06-01] MEDS: ondansetron 2 mg/ML SDV 2 mL 4 MG IVP (10:33)
[2024-06-01] MEDS: sodium chloride 0.9% 1,000 ML 999 ML IV ×2 (10:33)
[2024-06-01] MEDS: acetaminophen 325 mg Tablet 650 MG PO (10:33)
[2024-06-01] MEDS: AZITHROMYCIN ADD-Vantage 500 MG in 0.9% NaCl ADD-Vantage 250 ML 250 MG IV (10:33)
[2024-06-01] MEDS: cefTRIAXone 1,000 mg SDV 1000 MG IVP (10:34)
[2024-06-01 10:45] LABS: Bilirubin Urine 1+ (Negative); Blood Urine Trace (Negative); Glucose Urine UA 2+ (Normal); Ketones Urine 1+ (Negative); Leukocyte Esterase Urine Trace (Negative); Nitrate Urine Negative (Negative); Protein Urine 3+ (Negative); Specific Gravity, Urine 1.022 (1.005-1.030); Urine Appearance Clear (CLEAR); Urine Color Dark Yellow (Yellow)
[2024-06-01 10:50] LABS: Add Urine Microscopic? YES; Hyaline Casts Urine 7.85 /lpf; WBC Urine 0-5 /hpf (0-5)
--- NOTE | 2024-06-01 10:55 | PM.HP ---
Providers/Chief Complaint Primary Care Provider: VIOLET Locke Chief Complaint: n/v, fever History of Present Illness Nicole Carlos is a 58 year old female With past medical history of COPD on 2 to 3 L nasal cannula at baseline, diabetes, hypertension, no longer on insulin presented to the hospital today for feeling sick since yesterday. She has been bringing up yellow phlegm. She has been feeling cold and having chills. Denies chest pain shortness of breath nausea vomiting diarrhea. Just feeling really cold at this time. For diabetes she is taking Rybelsus and Jardiance. No longer takes insulin. Her A1c last time checked was in the 5 range as per patient. Feel member present at bedside. ER course: Patient was hypotensive upon arrival. She did receive 2 L normal saline bolus. Procalcitonin 1.01, creatinine 1.2, potassium 3.4, WBC count 18,000. Flu COVID RSV is negative. Patient received ceftriaxone azithromycin and influenza vaccine. Medications/Allergies Home Medications ?Medication ?Instructions ?Recorded ?Confirmed ?Last Taken ?Type aspirin 81 mg tablet,delayed 81 mg PO QAM 01/12/23 06/01/24 05/31/24 History release fluticasone propionate 50 1 spray intranasal BID PRN 01/15/24 06/01/24 05/28/24 Rx mcg/actuation nasal Allergic Symptoms #9.9 mL spray,suspension (Flonase Allergy Relief) pregabalin 150 mg capsule (Lyrica) 150 mg PO BID 30 days #60 caps 04/17/24 06/01/24 05/31/24 Rx montelukast 10 mg tablet 10 mg PO DAILY 05/05/24 06/01/24 05/28/24 History pantoprazole 40 mg tablet,delayed 40 mg PO BID 05/05/24 06/01/24 05/31/24 History release potassium chloride 20 mEq 20 meq PO DAILY 05/05/24 06/01/24 05/31/24 History tablet,extended release(part/cryst) amlodipine 10 mg tablet 5 mg (1/2 x 10 mg) PO DAILY 90 05/15/24 06/01/24 05/31/24 Rx days #90 tabs citalopram 10 mg tablet 10 mg PO QAM 90 days #90 tabs 05/15/24 06/01/24 05/31/24 Rx empagliflozin 25 mg tablet 25 mg PO QAM 90 days #90 tabs 05/15/24 06/01/24 05/31/24 Rx (Jardiance) hydrochlorothiazide 25 mg tablet 25 mg PO DAILY 90 days #90 tabs 05/15/24 06/01/24 05/31/24 Rx hydroxyzine HCl 25 mg tablet 25 mg PO QPM PRN Anxiety 90 days 05/15/24 06/01/24 05/31/24 Rx #90 tabs metoprolol tartrate 50 mg tablet 50 mg PO BID 90 days #180 tabs 05/15/24 06/01/24 05/31/24 Rx semaglutide 7 mg tablet (Rybelsus) 7 mg PO QAM 90 days #90 tabs 05/15/24 06/01/24 05/31/24 Rx simvastatin 20 mg tablet 20 mg PO QPM 90 days #90 tabs 05/15/24 06/01/24 05/31/24 Rx telmisartan 80 mg tablet 80 mg PO DAILY 90 days #90 tabs 05/15/24 06/01/24 05/31/24 Rx albuterol sulfate 90 mcg/actuation 2 puff inhalation Q6H PRN 05/19/24 06/01/24 05/31/24 Rx aerosol inhaler Shortness Of Breath #6.7 grams fluticasone fur. 100 mcg-umeclid 1 inh inhalation QAM #60 ea 05/19/24 06/01/24 05/31/24 Rx 62.5 mcg-vilant 25 mcg inhalat.powder (Trelegy Ellipta) baclofen 20 mg tablet 20 mg PO BID PRN Muscle Spasm #45 05/26/24 06/01/24 05/31/24 Rx tabs loratadine 10 mg tablet 10 mg PO DAILY #90 tabs 05/26/24 06/01/24 05/27/24 Rx insulin glargine 100 unit/mL (3 40 unit SUBCUT BID PRN high sugar 05/28/24 06/01/24 Unknown History mL) subcutaneous pen (Lantus Solostar U-100 Insulin) magnesium 100 mg tablet 100 mg PO DAILY 06/01/24 06/01/24 1 Day Ago History ~05/31/24 1 tablet Allergies Allergy/AdvReac Type Severity Reaction Status Date / Time codeine Allergy ALGY-Hives Verified 06/01/24 09:30 PFSH Acute PFSH: Medical History Seasonal allergies Skin cancer of nose s/p excision, non-melanoma History of echocardiogram 08/2019 EF 65% History of PFTs 01/2021 - severe airflow obstruction. There is no significant postbronchodilator response. Lung volumes are consistent with air trapping. Gas exchange (DLCO) is mildly reduced. Mixed anxiety and depressive disorder Diverticulosis Essential hypertension Chronic nausea Neuropathy due to type 2 diabetes mellitus Type 2 diabetes mellitus ELISE (obstructive sleep apnea) bipap with sleep with 4L oxygen Coronary artery disease COPD, very severe Hyperlipidemia Acid reflux Surgical History S/P laparoscopy Hx of removal of ovary History of appendectomy History of esophagogastroduodenoscopy (EGD) (05/2019) History of colonoscopy (05/2019) Family History Father Cancer Lung disease Hypertension Mother Lung disease Grandmother Diabetes Other CAD (coronary artery disease) Denies family history of Stroke Social History Smoking and tobacco/nicotine status: current every day tobacco/nicotine user cigarettes [ Other cigarette details: [id number]+yrs] Second hand smoke exposure: Yes Alcohol intake: never Substance/Drug Use: never Lives independently: Yes Household members: spouse Housing: House Marital status: Current occupational status: disabled Pets and animals: Yes Do you think of yourself as: Straight/Heterosexual Current gender identity: Female Selina/Druze: [employer]ybeterian Agree to transfusion: Yes Vitals/I&O/Wt Last Vital Signs Temp 98.7 F 06/01/24 09:18 Pulse 93 06/01/24 10:30 Resp 20 H 06/01/24 10:30 BP 99/52 06/01/24 10:30 Pulse Ox 94 06/01/24 10:30 O2 Del Method Nasal Cannula 06/01/24 09:18 O2 Flow Rate 3 06/01/24 09:18 Weight last 48 hrs Weight 66.678 kg Physical Exam Narrative: Laying in bed appearing cold laying in position with 2 blankets on her. On 3 L of cannula at this time. Const: COMMON NORMALS: patient oriented x3 and alert GENERAL APPEARANCE: cooperative ORIENTATION/CONSCIOUSNESS: Yes awake HENMT: COMMON NORMALS: oropharynx normal Neck/C-Spine: COMMON NORMALS: no JVD Resp: COMMON NORMALS: normal respiratory effort AUSCULTATION: wheezes (Mild wheeze right lower lobe) Cardio: COMMON NORMALS: no JVD, regular rhythm, S1 normal heart sound present, S2 normal heart sound present and No murmurs present (Cardio) RHYTHM: regular rhythm HEART SOUNDS: S1 normal heart sound present and S2 normal heart sound present GI: COMMON NORMALS: Normal to inspection, nondistended, normoactive bowel sounds present, Soft to palpation and non-tender PALPATION: Yes Soft to palpation Extremity: COMMON NORMALS: no joint enlargement and no pedal edema Neuro: COMMON NORMALS: patient oriented x3 and moves all extremities SENSORIUM/ORIENTATION: Yes alert Skin: COMMON NORMALS: no rashes or lesions noted GENERAL SKIN EXAM: no rashes or lesions noted Data 06/01/24 09:36 06/01/24 09:36 Micro: Microbiology 06/01/24 09:56 Blood Culture - Preliminary Blood SPECIMEN COLLECTED 06/01/24 09:50 Blood Culture - Preliminary Blood SPECIMEN COLLECTED A&P Assessment and plan (1) Pneumonia: (2) Essential hypertension: (3) Coronary artery disease: Qualifiers: Coronary Disease-Associated Artery/Lesion type: [place] artery [place] vs. transplanted heart: [place] heart Associated angina: with unspecified angina Qualified Code(s): I25.119 - Atherosclerotic heart disease of [place] coronary artery with unspecified angina pectoris (4) Hyperlipidemia: Qualifiers: Hyperlipidemia type: mixed hyperlipidemia Qualified Code(s): E78.2 - Mixed hyperlipidemia (5) Type 2 diabetes mellitus: Qualifiers: Diabetes mellitus terminal superintendent insulin use: with terminal superintendent use Diabetes mellitus complication status: with neurologic complications Diabetes mellitus complication detail: with polyneuropathy Qualified Code(s): E11.42 - Type 2 diabetes mellitus with diabetic polyneuropathy; Z79.4 - skilled nursing (current) use of insulin (6) Pleuritic chest pain: (7) COPD, very severe: (8) Smoker: Plan #Sepsis secondary to right lower lobe pneumonia (criteria met by tachycardia hypotension, creatinine 1.2, fluid responsive, leukocytosis) #COPD, severe #Hypertension #Diabetes ? Hold antihypertensives ? Hold baclofen, Lyrica ? Hold telmisartan ? Do not order Lantus. A1c last time checked was in the 5 range as per patient. Will recheck today. Will only keep patient on moderate dose intensity sliding scale for now. ? Continue simvastatin ? Placed on ceftriaxone azithromycin ? DuoNeb every 6 hours as needed ? Check blood cultures, sputum culture Gram stain - Check bacterial antigen strep and Legionella. -Check labs daily ? Placed on IV fluids normal saline 75 cc/h. ? Patient's blood pressure has been on the softer side however did respond to fluids initially when she came in. ? Did receive a call from the ER later on that patient's blood pressure again dropped. She may require Levophed going forward. Will transfer to ICU and order Levophed. -Will place on Solu-Medrol 40 IV twice daily due to severity of infection and underlying COPD.. Full code DVT prophylaxis: Heparin SQ twice daily PDMP PDMP Reviewed: Not Reviewed Attestations Medical Necessity Statement*: Pneumonia, would likely require greater than 48 hours stay for management of pneumonia. Diagnoses Pneumonia J18.9 Essential hypertension I10 Coronary artery disease involving [place] coronary artery of [place] heart with angina pectoris I25.119 Coronary Disease-Associated Artery/Lesion type: [place] artery [place] vs. transplanted heart: [place] heart Associated angina: with unspecified angina Mixed hyperlipidemia E78.2 Hyperlipidemia type: mixed hyperlipidemia Type 2 diabetes mellitus with diabetic polyneuropathy, with long-term current use of insulin E11.42; Z79.4 Diabetes mellitus terminal superintendent insulin use: with terminal superintendent use Diabetes mellitus complication status: with neurologic complications Diabetes mellitus complication detail: with polyneuropathy Pleuritic chest pain R07.81 COPD, very severe J44.9 Smoker F17.200
[2024-06-01 11:08] LABS: Bacteria Urine 1+ /hpf; UA Slide Review UA Slide Review Perf
[2024-06-01 11:09] LABS: Add Urine Culture? Yes
[2024-06-01 11:19] LABS: Estmated Average Glucose 157; Hemoglobin A1C 7.1 % (4.0-6.0)
[2024-06-01 11:27] LABS: Procalcitonin 1.01 ng/mL (0-0.5)
--- NOTE | 2024-06-01 11:31 | PC.NURSE ---
pt report taken from Karin PATTERSON at this time.
[2024-06-01 11:52] LABS: Glucose Point of Care 200 mg/dL (70-110)
[2024-06-01] MEDS: insulin lispro 100 unit/1 mL SUBCUT ×3 (12:48→21:03)
[2024-06-01] MEDS: heparin 5,000 unit/mL INJ 1 mL 5000 UNIT SUBCUT (12:59)
[2024-06-01] MEDS: sodium chloride 0.9% 1,000 ML 100 ML IV (12:59)
--- OUTSIDE RECORDS SUMMARY | 2024-06-01 13:41 | XMS_ITS | Clinical Summary ---
Author Organization [facility] Address [address] [place] [address] Care Team Providers Care Night Guard Name Role Phone Reji Faulkner VIOLET Primary Care Provider [phone] Allergies Active Allergy Reactions Criticality Noted Date Comments Codecordell Santiago High 07/07/2013 Medications umeclidinium (INCRUSE ELLIPTA) 62.5 mcg/actuation Disk with Device Take 1 Puff by inhalation daily. 30 Each 0 9 Active amLODIPine (NORVASC) 5 mg tablet Take 5 mg by mouth daily. 0 Active albuterol HFA 90 mcg inhaler Take 2 Puffs by inhalation every 6 hours as needed for Shortness of Breath or Wheezing. 8.5 Gram 0 9 Active aspirin (MAGAN CHEWABLE) 81 mg Tablet, Chewable Take 81 mg by mouth daily. 0 Active fluticasone/umec lidin/vilanter (TRELEGY ELLIPTA INHALATION) Take by inhalation. 1 Active ketorolac tromethamine (Acular) 0.5 % solutionIndicati ons:Cystoid macular edema of right eye Administer 1 Drop in right eye 3 times daily. 10 mL 3 1 Active prednisoLONE acetate (PRED FORTE) 1 % suspensionIndica tions:Cystoid macular edema of right eye Administer 1 Drop in right eye 3 times daily. 10 mL 3 1 Active oxygen home delivery Administer 4 L/min in each nostril continuously. 9 Active empagliflozin (Jardiance) 25 mg tablet Take 1 Tablet by mouth daily. 0 9 Active pantoprazole (PROTONIX) 40 mg Tablet, Delayed Release (E.C.) Take 40 mg by mouth daily. 9 Active insulin glargine (LANTUS) 100 unit/mL injection Inject 40 Units by subcutaneous injection 2 times daily. 9 Active pregabalin (LYRICA) 150 mg Capsule Take 150 mg by mouth 3 times daily. 9 Active albuterol sulfate (VENTOLIN HFA) 90 mcg/Actuation inhaler Take 2 Puffs by inhalation 4 times daily as needed. 6 9 Active ondansetron (ZOFRAN) 4 mg Tablet Take 4 mg by mouth 2 times daily as needed. 9 Active albuterol (PROVENTIL,BHAVESH RUPERTO) 2.5 mg /3 mL (0.083 %) Solution for Nebulization Take 2.5 mg by inhalation 4 times daily as needed. 3 9 Active baclofen (LIORESAL) 20 mg tablet Take 20 mg by mouth daily. 3 9 Active meloxicam (MOBIC) 15 mg tablet Take 1 Tablet by mouth daily. 0 9 Active HYDROcodone-acet aminophen (NORCO) 7.5-325 mg Tablet Take 1 Tablet by mouth every 6 hours as needed. 0 9 Active Active Problems Problem Noted Date Diagnosed Date Posterior dislocation of iol (intraocular lens), right eye 08/30/2020 Background diabetic retinopa thy associated with type 2 diabetes mellitus 08/30/2020 Lens dislocation and subluxation, right 07/21/19 21 Overview (08/25/2020): Pars plana vitrectomy, lens exchange with Meliton MTA4UO +15.5 D Pneumonia due to infectious organism 11/11/2018 Acute metabolic encephalopathy 11/10/2018 DDD (degenerative disc disease), cervical 2018 COPD with exacerbation 11/10/2018 Current smoker 11/10/2018 IDDM (insulin dependent diabetes mellitus) 11/10 FAYE (acute kidney injury) 11/10/2018 Immunizations Immunization Administration Dates Next Due (HoozOn)(12 YR UP) COVID-19 VACCINE - EMERGENCY USE AUTHORIZATION, MRNA, [id number]) 30 MCG/0.3 ML IM SUSP 07/09/2020,06/18/2020 Influenza Seasonal Unspecified Formulation IM Family History Medical History Relation Name Comments Breast Cancer Maternal Aunt 1 Diabetes Maternal Aunt 1 Diabetes Maternal Grandfather Diabetes Maternal Grandmother Breast Cancer Paternal Grandmother Breast Cancer Sister Relation Name Status Comments Maternal Aunt 1 Maternal Aunt 2 Alive Maternal Grandfather Maternal Grandmother Paternal Grandmother Sister Social History Tobacco Use Types Packs/Day Years Used Date Smoking Tobacco: Every Day Cigarettes Smokeless Tobacco: Never Alcohol Use Standard Drinks/Week Comments No 0 (1 standard drink = 0.6 oz pur e alcohol) Comments Unknown Sex and Gender Information Value Date Recorded Sex Assigned at Not on file Legal Sex 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 Gender Identity Not on file Sexual Orientation Not on file Last Filed Vital Signs Vital Sign Reading Time Taken Comments Blood Pressure 115/64 07/20/2020 11:19 AM CDT Pulse 74 07/20/2020 11:19 AM CDT Temperature 36.6 ??C (97.8 ??F) 07/20/2020 11:18 AM C DT Respiratory Rate 18 07/20/2020 7:47 AM CDT Oxygen Saturation - - Inhaled Oxygen Concentration - - Weight 73.5 kg (162 lb) 10/18/2020 1:57 PM CDT P er pt Height 152.4 cm (5') 10/18/2020 1:57 PM CDT Per Pt Body Mass Index 31.64 10/18/2020 1:57 PM CDT Plan of Treatment Health Maintenance Due Date Last Done Comments DIABETES ANNUAL FOOT EXAM 1984 DIABETES MICROALBUMIN ANNUAL SCREEN 1984 LDL CHOLESTEROL ANNUAL 1984 DTAP/TDAP/TD VACCINES (1 - Tdap) 1985 HEPATITIS B VACCINES (1 of 3 - 19+ 3-dose series) 1985 PAP SMEAR 1996 COLORECTAL SCREENING 12/28/2011 Colorectal Cancer Screening 12/28/2011 FIT-DNA Q 3 years 12/28/2011 FIT/FOBT Q 1 year 12/28/2011 Flex Sig/CT Colonography Q 5 years 12/28/2011 ZOSTER VACCINE (1 of 2) 2016 DIABETES HBA1C Q 6 MONTHS 08/02/2019 02/01/2019 DIABETES ANNUAL RETINAL EXAM 01/24/2022, 01/24/2021, 01/24/2021, Additional history exists BREAST CANCER SCREENING 07/04/2023 07/03/2022 INFLUENZA VACCINE (#1) 2023 12/23/2019 COVID-19 Vaccine (3 - 2023-2 5 season) 2023 07/09/2020, 06/18/2020 [place] Preventative Visit/Annual Wellness Visit 03/12/2024 Medical Devices Implanted Type Area Gas Leak Tester Device Identifier Shelf Expiration Date Model / Serial / Lot Lens Io Bi-Aspheric Softechd+21.5 - [id number] Implanted:Qty: 1 on 02/25/2020 by Boo Fragoso MD Eye Left: Eye [employer] 09/21/2024 SOFTECHD+21 .5 / [id number] / [id number] Lens Io Mta4u0 15.5 - [id number] Implanted:Qty: 1 on 07/20/2020 by Aristides Larson MD Eye Right: Eye [employer] 06/10/2023 MTA4U0.155 / [id number] / Explanted Type Area Gas Leak Tester Device Identifier Shelf Expiration Date Model / Serial / Lot Lens Io Bi-Aspheric Softechd+21.5 - [id number] Implanted:Qty: 1 on 05/26/2020 by Boo Fragoso MD Explanted:Qty: 1 on 07/20/2020 by Aristides Larson MD Eye Right: Eye [employer] 02/10/2025 SOFTECHD+21 .5 / [id number] / Procedures Procedure Name Priority Date/Time Associated Diagnosis Comments MAMMO 3D ASH SCREEN BILAT W OR WO CAD Routine 07/03/2022 2:56 PM CDT Breast cancer screening by mammogram from Last 3 Months or Most Recently Relevant to Health Maintenance Results * MAMMO SCRN BILAT 3D ASH W OR WO CAD (07/03/2022 2:56 PM CDT) Anatomical Region Laterality Modality Breast Bilateral Mammography Impressions 07/18/2022 1:21 PM CDT : ??No mammographic evidence of malignancy. BI-RADS ASSESSMENT: ??1 - Negative RECOMMENDATION: Routine annual screening mammography. Narrative 07/18/2022 1:21 PM CDT EXAM: ??MAMMO SCRN BILAT 3D ASH W OR WO CAD INDICATION: ??Screening COMPARISON: ??10/09/2011 MAMMO PRIOR STUDY BREAST COMPOSITION: ??There are scattered areas of fibroglandular density. FINDINGS: RIGHT BREAST: There are no suspicious masses, calcifications, or areas of architectural distortion. LEFT BREAST: ??There are no suspicious masses, calcifications, or areas of architectural distortion. Reji Faulkner RADIOLOGY PHYSICIAN MAMMO ORDERABLES Final Resu lt from Last 3 Months or Most Recently Relevant to Health Maintenance Insurance [employer] MCR DISABILITY DETERMINATION Care Teams Night Guard Relationship Specialty Start Date End Date Reji Faulkner FNP [address] [place] [address] PCP - General Nurse Practitioner Family 08/29/18
[2024-06-01] MEDS: sodium chloride 0.9% 500 ML 999 ML IV (13:42)
--- OUTSIDE RECORDS SUMMARY | 2024-06-01 13:42 | XMS_ITS | Encounter Summary ---
Author Organization [facility] Address [address] [place] [address] Care Team Providers Care Technical Sales Representative Name Role Phone Reji Faulkner Primary Care Provider Encounter Details Date Type Department Care Team (Latest Contact Info) Description 01/22/2019 Ancillary Orders [facility] Admitting [address] [place] [address] Reji Faulkner FNP [address] [place] [address] COPD with exacerbation (CMS/HCC) Social History Tobacco Use Types Packs/Day Years Used Date Smoking Tobacco: Every Day Cigarettes Smokeless Tobacco: Never Alcohol Use Standard Drinks/Week Comments No 0 (1 standard drink = 0.6 oz pur e alcohol) Comments No Sex and Gender Information Value Date Recorded Sex Assigned at Not on file Legal Sex Female 2:27 PM CDT Gender Identity Not on file Sexual Orientation Not on file documented as of this encounter Plan of Treatment Not on file documented as of this encounter Results * XR CHEST PA AND LATERAL 2 VW (01/22/2019 11:49 AM HUNTER SKIN DIVER) Anatomical Region Laterality Modality Chest Computed Radiogr aphy 01/22/2019 11:4 9 AM HUNTER SKIN DIVER Impressions 01/22/2019 1:58 PM HUNTER SKIN DIVER IMPRESSION: Please see below. Exam: XR CHEST PA AND LATERAL 2 VW Date/Time of Exam: 01/22/2019 11:49 AM Reason For Exam: ??See Diagnosis. Diagnosis: COPD with exacerbation. Comparison: 06/20/2017. Findings: The heart size is normal. No infiltrates. The small vague density overlying the right lateral lung base is not well defined on the lateral view and a nipple shadow or additional summation artifact is favored over a discrete pulmonary nodule. No pleural fluid. Mild thoracic spine degenerative changes. [id number] ? Narrative Procedure Note Hans Fu MD - 01/22/2019 IMPRESSION: Please see below. Exam: XR CHEST PA AND LATERAL 2 VW Date/Time of Exam: 01/22/2019 11:49 AM Reason For Exam: See Diagnosis. Diagnosis: COPD with exacerbation. Comparison: 06/20/2017. Findings: The heart size is normal. No infiltrates. The small vague density overlying the right lateral lung base is not well defined on the lateral view and a nipple shadow or additional summation artifact is favored over a discrete pulmonary nodule. No pleural fluid. Mild thoracic spine degenerative changes. [id number] Reji [facility] ORDERABL ES Final Result documented in this encounter Visit Diagnoses Diagnosis COPD with exacerbation (CMS/HCC) Obstructive chronic bronchitis with exacerbation COPD with exacerbation (CMS/HCC) Obstructive chronic bronchitis with exacerbation documented in this encounter Care Teams Technical Sales Representative Relationship Specialty Start Date End Date Reji Faulkner FNP [address] [place] [address] PCP - General Nurse Practitioner Family 08/29/18 documented as of this encounter
--- OUTSIDE RECORDS SUMMARY | 2024-06-01 13:42 | XMS_ITS | Encounter Summary ---
Author Organization [employer] [facility] Address [address] [place] [address] Care Team Providers Care Circular Gang Saw Operator Name Role Phone LucieReji lin [facility] Primary Care Provider Encounter Details Date Type Department Care Team (Late st Contact Info) Description 06/20/2017 [facility] [address] [place] [address] [facility] , Jim Rivas [facility] [address] [place] [address] Unilateral emphysema (CMS/HCC) Social History Tobacco Use Types Packs/Day Years Used Date Smoking Tobacco: Every Day Cigarettes Alcohol Use Standard Drinks/Week Comments No 0 [...] XR CHEST PA AND LATERAL 2 VW (06/20/2017 11:06 AM CDT) Anatomical Region Laterality Modality Chest Computed Radiogr aphy 06/20/2017 11:0 6 AM CDT Impressions 06/20/2017 5:14 PM CDT IMPRESSION: Please see below. Exam: XR CHEST PA AND LATERAL 2 VW Date/Time of Exam: 06/20/2017 11:06 AM Reason For Exam: ??Unilateral emphysema Comparison: ??12/28/2014. Findings: Hyperaeration with mild flattening of the hemidiaphragms and increase in retrosternal airspace is noted. Old healed fracture deformity of the posterolateral right seventh rib is present. A stable cardiomediastinal silhouette without acute airspace disease, effusion, or pneumothorax is identified. Impression: 1. ??Negative for acute cardiopulmonary process. 2. ??Radiographic findings suggestive of underlying chronic obstructive pulmonary disease. Clinical correlation is recommended. [id number] ? Narrative Procedure Note Jean Pierre Jackson MD - 06/20/2017 IMPRESSION: Please see below. Exam: XR CHEST PA AND LATERAL 2 VW Date/Time of Exam: 06/20/2017 11:06 AM Reason For Exam: Unilateral emphysema Comparison: 12/28/2014. Findings: Hyperaeration with mild flattening of the hemidiaphragms and increase in retrosternal airspace is noted. Old healed fracture deformity of the posterolateral right seventh rib is present. A stable cardiomediastinal silhouette without acute airspace disease, effusion, or pneumothorax is identified. Impression: 1. Negative for acute cardiopulmonary process. 2. Radiographic findings suggestive of underlying chronic obstructive pulmonary disease. Clinical correlation is recommended. [id number] Jim Diaz Sr., WAREHOUSE SHIPPING ASSOCIATE DIAGNOSTIC IMAGIN G ORDERABLES Final Result documented in this encounter Visit Diagnoses Diagnosis Unilateral emphysema (CMS/HCC) Other emphysema Unilateral emphysema (CMS/HCC) Other emphysema documented in this encounter Care Teams Circular Gang Saw Operator Relationship Specialty Start Date End Date Reji Faulkner FNP [address] [place] [phone] PCP - General Nurse Practitioner Family 08/29/18 documented as of this encounter
--- OUTSIDE RECORDS SUMMARY | 2024-06-01 13:42 | XMS_ITS | Encounter Summary ---
Author Organization [facility] Address [address] [place] [address] Care Team Providers Care Sleeping Bag Filler Name Role Phone Reji Faulkner [facility] Primary Care Provider Encounter Details Date Type Department Care Team (Late st Contact Info) Description 11/02/2014 Ancillary Orders [facility] Admitting [address] [place] [address] Sasha Martin, [facility] [address] [place] [phone] Right shoulder pain (Primary Dx) Social History Tobacco Use Types Packs/Day Years [...] as of this encounter Results * XR SHOULDER 2+ VW RIGHT (11/02/2014 11:17 AM CDT) Anatomical Region Laterality Modality Upper Extremity Computed Radiogr aphy 11/02/2014 11:1 3 AM CDT Narrative 11/02/2014 1:00 PM CDT PROCEDURE XR RIGHT SHOULDER, 3 views, 02 November 2014 DESCRIPTION AP, Grashey, and tangential scapular lateral views of the right shoulder show no acute fracture, dislocation or the formerly. ??No significant degenerative change is seen. ??No acromioclavicular separation is evident. ?? IMPRESSION normal right shoulder views Procedure Note Nathanael Sevilla MD - 11/02/2014 PROCEDURE XR RIGHT SHOULDER, 3 views, 02 November 2014 DESCRIPTION AP, Grashey, and tangential scapular lateral views of the right shoulder show no acute fracture, dislocation or the formerly. No significant degenerative change is seen. No acromioclavicular separation is evident. IMPRESSION normal right shoulder views us Sasha [facility] JAI EDMONDSON Final Result documented in this encounter Visit Diagnoses Diagnosis Right shoulder pain- Primary Pain in joint, shoulder region Right shoulder pain Pain in joint, shoulder region documented in this encounter Care Teams Sleeping Bag Filler Relationship Specialty Start Date End Date Reji Faulkner FNP [address] [place] [phone] PCP - General Nurse Practitioner Family 08/29/18 documented as of this encounter
--- OUTSIDE RECORDS SUMMARY | 2024-06-01 13:42 | XMS_ITS | Encounter Summary ---
Author Organization [employer] [facility] Address [address] [place] [address] Care Team Providers Care Game Agent Name Role Phone Reji Faulkner Primary Care Provider Encounter Details Date Type Department Care Team (Late st Contact Info) Description 08/29/2018 Ancillary [facility] [address] [place] [address] Reji Faulkner FNP [address] [place] [address] Neuropathy, cervical (radicular) Social History Tobacco Use Types Packs/Day Years [...] as of this encounter Results * XR NECK SOFT TISSUE (08/29/2018 1:47 PM CDT) Anatomical Region Laterality Modality Neck Computed Radiogr aphy 08/29/2018 1:47 PM CDT Impressions 08/29/2018 2:41 PM CDT IMPRESSION: See below. Exam: XR NECK SOFT TISSUE Date/Time of Exam: 08/29/2018 1:47 PM Reason For Exam: See Diagnosis. Diagnosis: Neuropathy, cervical (radicular). Findings: There is straightening of the spine alignment. No spondylolisthesis. There are moderate degenerative endplate and facet joint changes. Disc height loss is present at C4-5 and C5-6. Note that the lower cervical spine is not completely visualized on the lateral view. There is no thickening of the prevertebral soft tissues. [id number] ? Narrative Procedure Note Noe Maciel MD - 08/29/2018 IMPRESSION: See below. Exam: XR NECK SOFT TISSUE Date/Time of Exam: 08/29/2018 1:47 PM Reason For Exam: See Diagnosis. Diagnosis: Neuropathy, cervical (radicular). Findings: There is straightening of the spine alignment. No spondylolisthesis. There are moderate degenerative endplate and facet joint changes. Disc height loss is present at C4-5 and C5-6. Note that the lower cervical spine is not completely visualized on the lateral view. There is no thickening of the prevertebral soft tissues. [id number] Reji [facility] ORDERABL ES Final Result documented in this encounter Visit Diagnoses Diagnosis Neuropathy, cervical (radicular) Brachial neuritis or radiculitis nos Neuropathy, cervical (radicular) Brachial neuritis or radiculitis nos documented in this encounter Care Teams Game Agent Relationship Specialty Start Date End Date Reji Faulkner FNP [address] [place] [address] PCP - General Nurse Practitioner Family 08/29/18 documented as of this encounter
--- OUTSIDE RECORDS SUMMARY | 2024-06-01 13:42 | XMS_ITS | Encounter Summary ---
Author Organization [employer] [facility] Address [address] [place] [address] Care Team Providers Care Die Reamer Name Role Phone Reji Faulkner Primary Care Provider Encounter Details Date Type Department Care Team (Late st Contact Info) Description 02/09/2020 Ancillary Orders [facility] [address] [place] [address] Reji Faulkner FNP [address] [place] [address] Shoulder injury, right, initial encounter Social History Tobacco Use Types Packs/Day Years [...] on file Sexual Orientation Not on file COVID-19 Exposure Response Date Recorded In the last month, have you been in contact with someone who was confirmed or suspected to have Coronavirus / COVID-19? No / Unsure 02/09/2020 11:26 AM COOK HELPER JUICE documented as of this encounter Plan of Treatment Not on file documented as of this encounter Results * XR SHOULDER 2+ VW RIGHT (02/09/2020 12:16 PM COOK HELPER JUICE) Anatomical Region Laterality Modality Upper Extremity Computed Radiogr aphy 02/09/2020 12:1 6 PM COOK HELPER JUICE Impressions 02/10/2020 2:09 PM COOK HELPER JUICE IMPRESSION: Degenerative changes without acute fracture. Narrative 02/10/2020 2:09 PM COOK HELPER JUICE Exam: XR SHOULDER 2+ VW RIGHT Date/Time of Exam: 02/09/2020 12:16 PM Reason For Exam: See Diagnosis. Diagnosis: Shoulder injury, right, initial encounter. Findings: The osseous structures are intact without acute fracture or malalignment. Mild enthesopathic the noted of the greater tuberosity. Amorphous calcification superior to the humeral head likely reflects a sequela of calcific tendinitis. Mild degenerative changes are also present in the AC joint. The visualized right lung field is clear. Remote right rib fractures are redemonstrated. Procedure Note Ad Armenta MD - 02/10/2020 Exam: XR SHOULDER 2+ VW RIGHT Date/Time of Exam: 02/09/2020 12:16 PM Reason For Exam: See Diagnosis. Diagnosis: Shoulder injury, right, initial encounter. Findings: The osseous structures are intact without acute fracture or malalignment. Mild enthesopathic the noted of the greater tuberosity. Amorphous calcification superior to the humeral head likely reflects a sequela of calcific tendinitis. Mild degenerative changes are also present in the AC joint. The visualized right lung field is clear. Remote right rib fractures are redemonstrated. IMPRESSION: Degenerative changes without acute fracture. Reji [facility] ORDERABL ES Final Result documented in this encounter Visit Diagnoses Diagnosis Shoulder injury, right, initial encounter Shoulder injury, right, initial encounter documented in this encounter Care Teams Die Reamer Relationship Specialty Start Date End Date Reji Faulkner FNP [address] [place] [address] PCP - General Nurse Practitioner Family 08/29/18 documented as of this encounter
--- OUTSIDE RECORDS SUMMARY | 2024-06-01 13:42 | XMS_ITS | Clinical Summary ---
Author Organization [facility] Address [address] [place] [address] Care Team Providers Care Area Safety Manager Name Role Phone Reji Faulkner VIOLET Primary Care Provider Allergies Active Allergy Reactions Criticality Noted Date Comments Keli Santiago High 07/07/2013 Medications metoprolol tartrate (LOPRESSOR) 50 mg tablet Take 50 mg by mouth 2 times daily. Active simvastatin (ZOCOR) 10 mg tablet Take 10 mg by mouth Daily LATE. Active oxygen home delivery Administer 4 L/min in each nostril continuously. Active insulin glargine (LANTUS) 100 unit/mL injection Inject 40 Units by subcutaneous injection 2 times daily. Active albuterol (PROVENTIL,BHAVESH RUPERTO) 2.5 mg /3 mL (0.083 %) Solution for Nebulization Take 2.5 mg by inhalation 4 times daily as needed. 3 9 Active VENTOLIN HFA 90 mcg/actuation inhaler Take 2 Puffs by inhalation 4 times daily as needed. 6 9 Active baclofen (LIORESAL) 20 mg tablet Take 20 mg by mouth daily. 3 9 Active JARDIANCE 25 mg tablet Take 1 Tablet by mouth daily. 0 9 Active HYDROcodone-acet aminophen (NORCO) 7.5-325 mg Tablet Take 1 Tablet by mouth every 6 hours as needed. 0 9 Active meloxicam (MOBIC) 15 mg tablet Take 1 Tablet by mouth daily. 0 9 Active ondansetron (ZOFRAN) 4 mg Tablet Take 4 mg by mouth 2 times daily as needed. Active pantoprazole (PROTONIX) 40 mg Tablet, Delayed Release (E.C.) Take 40 mg by mouth daily. Active pregabalin (LYRICA) 150 mg Capsule Take 150 mg by mouth 3 times daily. Active umeclidinium (INCRUSE ELLIPTA) 62.5 mcg/actuation Disk with Device Take 1 Puff by inhalation daily. 30 Each Active albuterol HFA 90 mcg inhaler Take 2 Puffs by inhalation every 6 hours as needed for Shortness of Breath or Wheezing. 8.5 Gram 9 Active amLODIPine (NORVASC) 5 mg tablet Take 5 mg by mouth daily. Active aspirin (MAGAN CHEWABLE) 81 mg Tablet, Chewable Take 81 mg by mouth daily. Active fluticasone/umec lidin/vilanter (TRELEGY ELLIPTA INHALATION) Take by inhalation. Active Active Problems Problem Noted Date Diagnosed Date Posterior dislocation of iol (intraocular lens), right eye 08/30/2020 Background diabetic retinopa thy associated with type 2 diabetes mellitus 08/30/2020 Lens dislocation and subluxation, right 07/21/19 21 Overview (07/20/2020): Pars plana vitrectomy, lens exchange with Meliton MTA4UO +15.5 D Pneumonia due to infectious organism 11/11/2018 Acute metabolic encephalopathy 11/10/2018 COPD with exacerbation 11/10/2018 IDDM (insulin dependent diabetes mellitus) 11/10 DDD (degenerative disc disease), cervical 2018 Current smoker 11/10/2018 FAYE (acute kidney injury) 11/10/2018 Immunizations Immunization Administration Dates Next Due ([employer])(12 YR UP) COVID-19 VACCINE - EMERGENCY USE AUTHORIZATION, MRNA, [id number](PF) 30 MCG/0.3 ML IM SUSP 07/09/2020,06/18/2020 Influenza Seasonal Unspecified Formulation IM Family History Medical History Relation Name Comments Diabetes Maternal Aunt Diabetes Maternal Grandfather Diabetes Maternal Grandmother Relation Name Status Comments Maternal Aunt Maternal Grandfather Maternal Grandmother Social History Tobacco Use Types Packs/Day Years [...] 18 07/20/2020 7:47 AM CDT Oxygen Saturation 98% 07/20/2020 11:19 AM CDT Inhaled Oxygen Concentration - - Weight 75.5 kg (166 lb 8 oz) 07/20/2020 7:47 AM CDT Height 152.4 cm (5') 07/19/2020 11:20 AM CDT Body Mass Index 32.52 07/19/2020 11:20 AM CDT Plan of Treatment Health Maintenance Due Date Last Done Comments PNEUMOCOCCAL VACCINE 0-49 YE ARS (1 of 2 - PCV) 1972 DIABETES ANNUAL FOOT EXAM 1984 DIABETES MICROALBUMIN ANNUAL SCREEN 1984 LDL CHOLESTEROL ANNUAL 1984 DTAP/TDAP/TD VACCINES (1 - Tdap) 1985 HEPATITIS B VACCINES (1 of 3 - 19+ 3-dose series) 1985 PAP SMEAR 12/28/1987 CERVICAL CANCER SCREENING 1996 HPV/Cotest 1996 PAP SMEAR 1996 BREAST CANCER SCREENING 2006 COLORECTAL SCREENING 12/28/2011 Colorectal Cancer Screening 12/28/2011 FIT-DNA Q 3 years 12/28/2011 FIT/FOBT Q 1 year 12/28/2011 Flex Sig/CT Colonography Q 5 years 12/28/2011 ZOSTER VACCINE (1 of 2) 2016 DIABETES HBA1C Q 6 MONTHS 08/02/2019 02/01/2019 DIABETES ANNUAL RETINAL EXAM 08/30/2021, 08/30/2020, 08/30/2020, Additional history exists INFLUENZA VACCINE (#1) 2023 12/23/2019 COVID-19 Vaccine (2023-2 5 season) 2023 07/09/2020, 06/18/2020 Medical Devices Implanted Type Area Tail Ripper Device Identifier Shelf Expiration Date Model / Serial / Lot Lens Io Bi-Aspheric Softechd+21.5 - [id number] Implanted:Qty: 1 on 02/25/2020 by Boo Fragoso MD at [facility] Eye Left: Eye [employer] 09/21/2024 SOFTECHD+21 .5 / [id number] / [id number] Lens Io Mta4u0 15.5 - [id number] Implanted:Qty: 1 on 07/20/2020 by Aristides Larson MD at [facility] Eye Right: Eye [employer] 06/10/2023 MTA4U0.155 / [id number] / Explanted Type Area Tail Ripper Device Identifier Shelf Expiration Date Model / Serial / Lot Lens Io Bi-Aspheric Softechd+21.5 - [id number] Implanted:Qty: 1 on 05/26/2020 by Boo Fragoso MD at [facility] Explanted:Qty: 1 on 07/20/2020 by Aristides Larson MD at [facility] Eye Right: Eye [employer] 02/10/2025 SOFTECHD+ 21 .5 / [id number] / Insurance HUMANA GOLD PLUS [id number] HMO Advance Directives For more information, please contact: [phone] * Full Code (Latest Code Status on File) Date Activated Date Inactivated Comments 05/26/2020 9:51 AM 05/26/2020 1:19 PM Care Teams Area Safety Manager Relationship Specialty Start Date End Date Reji Faulkner FNP [address] [place] [address] PCP - General Nurse Practitioner Family 08/29/18
--- OUTSIDE RECORDS SUMMARY | 2024-06-01 13:42 | XMS_ITS | Encounter Summary ---
Author Organization [facility] Address [address] [place] [address] Care Team Providers Care Moisture Machine Tender Name Role Phone LucieReji lin MASK INSPECTOR Primary Care Provider Encounter Details Date Type Department Care Team (Late st Contact Info) Description 09/22/2014 Ancillary Orders [facility] Admitting [address] [place] [address] [facility] , Jim Rivas MASK INSPECTOR [address] [place] [address] SOB (shortness of breath) (Primary Dx) Social History Tobacco Use Types [...] Results * XR CHEST PA AND LATERAL (09/22/2014 11:44 AM CDT) Anatomical Region Laterality Modality Chest Computed Radiogr aphy 09/22/2014 11:3 7 AM CDT Narrative 09/22/2014 12:26 PM CDT PROCEDURE XR CHEST, 2 views, 22 September 2014 COMPARISON Current: PA and lateral chest Prior: PA and lateral chest, 07 July 2013 DESCRIPTION Frontal view of the chest shows no infiltrate or atelectasis and the cardiomediastinal silhouette appears normal. ??No significant interval change is seen. ?? On the lateral view, no infiltrate or spine sign is seen. Costophrenic angles are clear of effusion posteriorly, tangentially clipped on the right. ?? IMPRESSION no acute infiltrate or interval change seen Procedure Note Nathaneal Sevilal MD - 09/22/2014 PROCEDURE XR CHEST, 2 views, 22 September 2014 COMPARISON Current: PA and lateral chest Prior: PA and lateral chest, 07 July 2013 DESCRIPTION Frontal view of the chest shows no infiltrate or atelectasis and the cardiomediastinal silhouette appears normal. No significant interval change is seen. On the lateral view, no infiltrate or spine sign is seen. Costophrenic angles are clear of effusion posteriorly, tangentially clipped on the right. IMPRESSION no acute infiltrate or interval change seen Jim Diaz Sr., MASK INSPECTOR DIAGNOSTIC IMAGIN G ORDERABLES Final Result documented in this encounter Visit Diagnoses Diagnosis SOB (shortness of breath)- Primary Shortness of breath SOB (shortness of breath) Shortness of breath documented in this encounter Care Teams Moisture Machine Tender Relationship Specialty Start Date End Date Reji Faulkner FNP [address] [place] [address] PCP - General Nurse Practitioner Family 08/29/18 documented as of this encounter
--- OUTSIDE RECORDS SUMMARY | 2024-06-01 13:42 | XMS_ITS | Encounter Summary ---
Author Organization [facility] Address [address] [place] [address] Care Team Providers Care Rn Family Name Role Phone LucieReji lin BREWERY PUMPER Primary Care Provider Encounter Details Date Type Department Care Team (Late st Contact Info) Description 12/28/2014 Ancillary Orders [facility] Admitting [address] [place] [address] [facility] , Jim Rivas BREWERY PUMPER [address] [place] [address] Dyspnea (Primary Dx); COPD (chronic obstructive pulmonary disease) (CMS/HCC) Social History Tobacco Use Types Packs/Day [...] Results * XR CHEST PA AND LATERAL (12/28/2014 1:51 PM CDT) Anatomical Region Laterality Modality Chest Computed Radiogr aphy 12/28/2014 1:48 PM CDT Narrative 12/28/2014 4:57 PM CDT PROCEDURE XR CHEST, 2 views, 28 December 2014 COMPARISON Current: PA and lateral chest Prior: PA and lateral chest, 22 September 2014 DESCRIPTION Frontal view of the chest shows no infiltrate or atelectasis and the cardiomediastinal silhouette appears normal. ??No significant interval changes appreciated. ?? On the lateral view, no infiltrate or spine sign is seen. Costophrenic angles are gross clear of effusion posteriorly, clipped on the right. IMPRESSION no acute infiltrate or interval change seen Procedure Note Nathanael Sevilla MD - 12/28/2014 PROCEDURE XR CHEST, 2 views, 28 December 2014 COMPARISON Current: PA and lateral chest Prior: PA and lateral chest, 22 September 2014 DESCRIPTION Frontal view of the chest shows no infiltrate or atelectasis and the cardiomediastinal silhouette appears normal. No significant interval changes appreciated. On the lateral view, no infiltrate or spine sign is seen. Costophrenic angles are gross clear of effusion posteriorly, clipped on the right. IMPRESSION no acute infiltrate or interval change seen us Jim Diaz Sr., BREWERY PUMPER DIAGNOSTIC IMAGIN G ORDERABLES Final Result documented in this encounter Visit Diagnoses Diagnosis Dyspnea- Primary Other dyspnea and respiratory abnormality COPD (chronic obstructive pulmonary disease) (CMS/HCC) Chronic airway obstruction, not elsewhere classified Dyspnea Other dyspnea and respiratory abnormality COPD (chronic obstructive pulmonary disease) (CMS/HCC) Chronic airway obstruction, not elsewhere classified documented in this encounter Care Teams Rn Family Relationship Specialty Start Date End Date Reji Faulkner FNP [address] [place] [phone] PCP - General Nurse Practitioner Family 08/29/18 documented as of this encounter
[2024-06-01] MEDS: methylPREDNISolone sod succ 40 mg/mL INJ IVP (17:08)
[2024-06-01] MEDS: atorvastatin 40 mg Tablet 20 MG PO (17:08)
[2024-06-01] MEDS: pantoprazole DR 40 mg Tablet PO (17:09)
[2024-06-01 17:18] LABS: Glucose Point of Care 178 mg/dL (70-110)
[2024-06-01 21:02] LABS: Glucose Point of Care 210 mg/dL (70-110)
[2024-06-02] VITALS (32 sets, daily range): BP systolic 123–158; BP diastolic 57–106; PULSE 59–250; RESP 4–28; TEMP 36.2–37.2; O2SAT 93–99
[2024-06-02] MEDS: heparin 5,000 unit/mL INJ 1 mL 5000 UNIT SUBCUT ×3 (00:14→23:14)
--- NOTE | 2024-06-02 03:37 | ECG_ITS ---
[facility] Date: 2024-06-02 Pat Name: Nicole Carlos Department: Room: [facility] Gender: Female Welding Instructor: : 1965 Requested By: Tasha Foreman Order Number: [id number] Roman MD: Getachew Noriega M.D. Measurements Intervals Lafe Rate: 62 P: 10 AK: 151 QRS: 62 QRSD: 88 T: 51 QT: 427 QTc: 434 Interpretive Statements SINUS RHYTHM Compared to ECG 06/01/2024 10:00:04 No significant changes Electronically Signed On 06-02-2024 21:02:52 CDT by Getachew Noriega M.D. [email or web address]
--- NOTE | 2024-06-02 03:52 | PC.NURSE ---
03:27 Patient sleeping at time - monitor alerted vt rate 250's, into see patient startled awake, denies chest pain - rhythm immediately converted back to sinus rhythm. vitals taken stable. 148/88, HR 63, RR16, sat 98% T97.8 VT approximately 30 seconds upon review- Called to Dr. Foreman - ordered labs drawn now - potassium and magnesium- stat ekg. Orders completed - vt strip sent to Dr. Foreman by voalte - ordered to start amiodarone drip of goes back into sustain vt.
[2024-06-02] MEDS: lidocaine 1% 5 ML in potassium chloride premix 100 ML 25 ML IV (04:18)
[2024-06-02] MEDS: methylPREDNISolone sod succ 40 mg/mL INJ IVP ×2 (04:19→15:21)
[2024-06-02 04:23] LABS: Basophils % 0.1 %; Hematocrit 39.4 % (36-47); Lymphocytes # 0.8 10^3/uL (0.8-4.8); Mean Corpuscular Hemoglobin 26.9 pg (27-33); Mean Corpuscular Volume 86.8 fl (85-98); Mean Platelet Volume 10.7 fL (7.4-10.4); Monocytes # 0.1 10^3/uL (0.2-0.9); Monocytes % 1.1 %; Neutrophils # 10.64 10^3/uL (1.8-7.7); Neutrophils % 91.1 %; Nucleated Red Blood Cells % 0 %; Platelet Count 130 10^3/cmm (157-399); Red Blood Count 4.54 10^6/uL (3.85-5.65); Red Cell Distribution Width 16.9 % (12.1-15.1); White Blood Count 11.68 10^3/uL (3.29-11.43)
[2024-06-02 04:32] LABS: Anion Gap 12.2 (5-19); Blood Urea Nitrogen 15 mg/dL (6-20); Calcium 8.3 mg/dL (8.5-10.5); Carbon Dioxide 27 mmol/L (22-29); Chloride 110 mmol/L (98-107); Creatinine Clr Calc Pharmacy 67.9534; Glomerular Filtration Rate 73.9 mL/min (90-130); Glucose 189 mg/dL (65-115); Magnesium 1.5 mg/dL (1.7-2.3); Osmolality Calculated 306 mOsm/kg (285-295); Phosphorus 2.3 mg/dL (2.5-4.5); Potassium 4.2 mmol/L (3.5-5.1); Sodium 145 mmol/L (136-145)
--- NOTE | 2024-06-02 04:53 | PC.NURSE ---
kcl 4.2 per lab this am, potassium infusing per md order, call placed new order discontinue potassium drip now and give 2 mg mag iv. for mag level 1.5
[2024-06-02] MEDS: magnesium sulfate premix 2 GM/50 ML PIGGYBACK IV (05:44)
--- OUTSIDE RECORDS SUMMARY | 2024-06-02 06:24 | XMS_ITS | Encounter Summary ---
Author Organization [employer] [facility] Address [address] [place] [address] Care Team Providers Care Cocoa Bean Roaster Name Role Phone Reji Faulkner Primary Care Provider Encounter Details Date Type Department Care Team (Late st Contact Info) Description 08/29/2018 Ancillary Orders [facility] [address] [place] [address] Reji Faulkner FNP [address] [place] [address] Neuropathy, cervical (radicular) Social History [...] no thickening of the prevertebral soft tissues. [id number] ? Narrative Procedure Note Noe Maciel MD [...] no thickening of the prevertebral soft tissues. [id number] Reji [facility] DIAGNOSTIC IMAGING ORDERABL ES Final Result documented in this encounter Visit Diagnoses Diagnosis Neuropathy, cervical (radicular) Brachial neuritis or radiculitis nos Neuropathy, cervical (radicular) Brachial neuritis or radiculitis nos documented in this encounter Care Teams Cocoa Bean Roaster Relationship Specialty Start Date End Date Reji Faulkner FNP [address] [place] [address] PCP - General Nurse Practitioner Family 08/29/18 documented as of this encounter
--- OUTSIDE RECORDS SUMMARY | 2024-06-02 06:24 | XMS_ITS | Encounter Summary ---
Author Organization [facility] Address [address] [place] [address] Care Team Providers Care E Commerce Director Name Role Phone Reji Faulkner Primary Care Provider [phone] Encounter Details Date Type Department Care Team (Late st Contact Info) Description 02/09/2020 Ancillary [facility] [address] [place] [address] Reji Faulkner FNP [address] [place] [address] Shoulder injury, right, initial encounter [...] COVID-19? No / Unsure 02/09/2020 11:26 AM BAKERY ASSISTANT documented as of this encounter Plan of Treatment Not on file documented as of this encounter Results * XR SHOULDER 2+ VW RIGHT (02/09/2020 12:16 PM BAKERY ASSISTANT) Anatomical Region Laterality Modality Upper Extremity Computed Radiogr aphy 02/09/2020 12:1 6 PM BAKERY ASSISTANT Impressions 02/10/2020 2:09 PM BAKERY ASSISTANT IMPRESSION: Degenerative changes without acute fracture. Narrative 02/10/2020 2:09 PM BAKERY ASSISTANT Exam: XR SHOULDER 2+ VW RIGHT Date/Time [...] encounter documented in this encounter Care Teams E Commerce Director Relationship Specialty Start Date End Date Reji Faulkner FNP [address] [place] [address] PCP - General Nurse Practitioner Family 08/29/18 documented as of this encounter
--- OUTSIDE RECORDS SUMMARY | 2024-06-02 06:24 | XMS_ITS | Encounter Summary ---
Author Organization [facility] Address [address] [place] [address] Care Team Providers Care Stone Banker Name Role Phone Reji Faulkner Primary Care Provider Encounter Details Date Type Department Care Team (Latest Contact Info) Description 01/22/[address] [facility] Admitting [address] [place] [address] Reji Faulkner FNP [address] [place] [address] COPD with exacerbation (CMS/HCC) Social [...] AND LATERAL 2 VW (01/22/2019 11:49 AM BRICKMASON CONTRACTOR) Anatomical Region Laterality Modality Chest Computed Radiogr aphy 01/22/2019 11:4 9 AM BRICKMASON CONTRACTOR Impressions 01/22/2019 1:58 PM BRICKMASON CONTRACTOR IMPRESSION: Please see below. Exam: XR CHEST [...] pleural fluid. Mild thoracic spine degenerative changes. [id number] ? Narrative Procedure Note Hans Fu MD [...] pleural fluid. Mild thoracic spine degenerative changes. [id number] Reji [facility]ZO DIAGNOSTIC IMAGING ORDERABL ES Final Result documented in this encounter Visit Diagnoses Diagnosis COPD with exacerbation (CMS/HCC) Obstructive chronic bronchitis with exacerbation COPD with exacerbation (CMS/HCC) Obstructive chronic bronchitis with exacerbation documented in this encounter Care Teams Stone Banker Relationship Specialty Start Date End Date Reji Faulkner FNP [address] [place] [address] PCP - General Nurse Practitioner Family 08/29/18 documented as of this encounter
--- OUTSIDE RECORDS SUMMARY | 2024-06-02 06:24 | XMS_ITS | Clinical Summary ---
Author Organization [facility] Address [address] [place] [address] Care Team Providers Care Silviculture Forester Name Role Phone Reji Faulkner VIOLET Primary [...] 11/10/2018 Immunizations Immunization Administration Dates Next Due ([employer])(12 YR UP) COVID-19 VACCINE - EMERGENCY USE AUTHORIZATION, MRNA, [id number](PF) 30 MCG/0.3 ML IM SUSP 07/09/2020,06/18/2020 Influenza [...] on file Legal Sex Female 10:54 AM REMOTE INPATIENT CODER Gender Identity Not on file Sexual Orientation [...] 5 season) 2023 07/09/2020, 06/18/2020 Medicare Ad[place]age ([place]) Preventative Visit/Annual Wellness Visit 03/12/2024 Medical Devices Implanted Type Area Brand Marketing Manager Device Identifier Shelf Expiration Date Model / Serial / Lot Lens Io Bi-Aspheric Softechd+21.5 - [id number] Implanted:Qty: 1 on 02/25/2020 by Boo Fragoso MD Eye Left: Eye [employer] 09/21/2024 SOFTECHD+21 .5 / [id number] / [id number] Lens Io Mta4u0 15.5 - [id number] Implanted:Qty: 1 on 07/20/2020 by Aristides Larson MD Eye Right: Eye [employer] 06/10/2023 MTA4U0.155 / [id number] / Explanted Type Area Brand Marketing Manager Device Identifier Shelf Expiration Date Model / Serial / Lot Lens Io Bi-Aspheric Softechd+21.5 - [id number] Implanted:Qty: 1 on 05/26/2020 by Boo Fragoso MD Explanted:Qty: 1 on 07/20/2020 by Aristides Larson MD Eye Right: Eye [employer] 02/10/2025 SOFTECHD+21 .5 / [id number] / Procedures Procedure Name Priority Date/Time Associated [...] or areas of architectural distortion. Reji Faulkner PAID SEARCH MARKETING ANALYST MAMMO ORDERABLES Final Resu lt from Last 3 Months or Most Recently Relevant to Health Maintenance Insurance [email or web address] PLUS O MCR DISABILITY DETERMINATION Care Teams Silviculture Forester Relationship Specialty Start Date End Date Reji Faulkner FNP [address] [place] [address] PCP - General Nurse Practitioner Family 08/29/18
--- OUTSIDE RECORDS SUMMARY | 2024-06-02 06:25 | XMS_ITS | Encounter Summary ---
Author Organization [facility] Address [address] [place] [address] Care Team Providers Care Spoon Maker Name Role Phone LucieReji lin MANAGER STAFFING Primary Care Provider Encounter Details Date Type Department Care Team (Late st Contact Info) Description 12/28/2014 Ancillary Orders [facility] Admitting [address] [place] [address] [facility] , Jim Rivas MANAGER STAFFING [address] [place] [address] Dyspnea (Primary Dx); COPD (chronic [...] interval change seen us Jim Diaz Sr., MANAGER STAFFING DIAGNOSTIC IMAGIN G ORDERABLES Final Result documented in this encounter Visit Diagnoses Diagnosis Dyspnea- Primary Other dyspnea and respiratory abnormality COPD (chronic obstructive pulmonary disease) (CMS/HCC) Chronic airway obstruction, not elsewhere classified Dyspnea Other dyspnea and respiratory abnormality COPD (chronic obstructive pulmonary disease) (CMS/HCC) Chronic airway obstruction, not elsewhere classified documented in this encounter Care Teams Spoon Maker Relationship Specialty Start Date End Date Reji Faulkner FNP [address] [place] [address] PCP - General Nurse Practitioner Family 08/29/18 documented as of this encounter
--- OUTSIDE RECORDS SUMMARY | 2024-06-02 06:25 | XMS_ITS | Encounter Summary ---
Author Organization [facility] Address [address] [place] [address] Care Team Providers Care Barrel Rifler Button Name Role Phone LucieReji lin AGRICULTURIST Primary Care Provider [phone] Encounter Details Date Type Department Care Team (Late st Contact Info) Description 09/22/2014 Ancillary Orders [facility] Admitting [address] [place] [address] [facility] , Jim Rivas AGRICULTURIST [address] [place] [address] SOB (shortness of breath) (Primary [...] seen Procedure Note Nathanael Sevilla MD - 09/22/2014 PROCEDURE XR CHEST, 2 [...] or interval change seen Jim Diaz Sr., AGRICULTURIST DIAGNOSTIC IMAGIN G ORDERABLES Final Result documented in this encounter Visit Diagnoses Diagnosis SOB (shortness of breath)- Primary Shortness of breath SOB (shortness of breath) Shortness of breath documented in this encounter Care Teams Barrel Rifler Button Relationship Specialty Start Date End Date Reji Faulkner FNP [address] [place] [address] PCP - General Nurse Practitioner Family 08/29/18 documented as of this encounter
--- OUTSIDE RECORDS SUMMARY | 2024-06-02 06:25 | XMS_ITS | Encounter Summary ---
Author Organization [employer] [facility] Address [address] [place] [address] Care Team Providers Care Molding Cutter Name Role Phone LucieReji lin [facility] Primary Care Provider Encounter Details Date Type Department Care Team (Late st Contact Info) Description 06/20/2017 [facility] [address] [place] [address] [facility] , Jim Rivas [facility] [address] [place] [address] Unilateral emphysema (CMS/HCC) Social History [...] obstructive pulmonary disease. Clinical correlation is recommended. [id number] ? Narrative Procedure Note Jean Pierre Jackson [...] obstructive pulmonary disease. Clinical correlation is recommended. [id number] Jim Diaz Sr., TIRE INSTALLER DIAGNOSTIC IMAGIN G ORDERABLES Final Result documented in this encounter Visit Diagnoses Diagnosis Unilateral emphysema (CMS/HCC) Other emphysema Unilateral emphysema (CMS/HCC) Other emphysema documented in this encounter Care Teams Molding Cutter Relationship Specialty Start Date End Date Reji Faulkner FNP [address] [place] [address] PCP - General Nurse Practitioner Family 08/29/18 documented as of this encounter
--- OUTSIDE RECORDS SUMMARY | 2024-06-02 06:25 | XMS_ITS | Clinical Summary ---
Author Organization [facility] Address [address] [place] [address] Care Team Providers Care Residential Direct Support Professional Name Role Phone Reji Faulkner VIOLET Primary [...] 11/10/2018 Immunizations Immunization Administration Dates Next Due ([employer])(12 YR UP) COVID-19 VACCINE - EMERGENCY USE AUTHORIZATION, MRNA, [id number](PF) 30 MCG/0.3 ML IM SUSP 07/09/2020,06/18/2020 Influenza [...] 07/09/2020, 06/18/2020 Medical Devices Implanted Type Area Juvenile Probation Officer Device Identifier Shelf Expiration Date Model / Serial / Lot Lens Io Bi-Aspheric Softechd+21.5 - [id number] Implanted:Qty: 1 on 02/25/2020 by Boo Fragoso MD at [facility] Eye Left: Eye [employer] 09/21/2024 SOFTECHD+21 .5 / [id number] / [id number] Lens Io Mta4u0 15.5 - [id number] Implanted:Qty: 1 on 07/20/2020 by Aristides Larson MD at [facility] Eye Right: Eye [employer] 06/10/2023 MTA4U0.155 / [id number] / Explanted Type Area Juvenile Probation Officer Device Identifier Shelf Expiration Date Model / Serial / Lot Lens Io Bi-Aspheric Softechd+21.5 - [id number] Implanted:Qty: 1 on 05/26/2020 by Boo Fragoso MD at [facility] Explanted:Qty: 1 on 07/20/2020 by Aristides Larson MD at [facility] Eye Right: Eye [employer] 02/10/2025 SOFTECHD+ 21 .5 / [id number] / Insurance HU[employer]NA GOLD PLUS [id number] HMO Advance Directives For more information, please contact: [phone] * Full Code (Latest Code Status on File) Date Activated Date Inactivated Comments 05/26/2020 9:51 AM 05/26/2020 1:19 PM Care Teams Residential Direct Support Professional Relationship Specialty Start Date End Date Reji Faulkner FNP [address] [place] [address] PCP - General Nurse Practitioner Family 08/29/18
--- OUTSIDE RECORDS SUMMARY | 2024-06-02 06:25 | XMS_ITS | Encounter Summary ---
Author Organization [facility] Address [address] [place] [address] Care Team Providers Care Director Hospice Operations Name Role Phone Reji Faulkner [facility] Primary Care Provider Encounter Details Date Type Department Care Team (Late st Contact Info) Description 11/02/2014 Ancillary Orders [facility] Admitting [address] [place] [address] Sasha Martin, [facility] [address] [place] [phone] Right shoulder pain (Primary Dx) Social [...] region documented in this encounter Care Teams Director Hospice Operations Relationship Specialty Start Date End Date Reji Faulkner FNP [address] [place] [id number] PCP - General Nurse Practitioner Family 08/29/18 documented as of this encounter
[2024-06-02 07:33] LABS: Glucose Point of Care 183 mg/dL (70-110)
[2024-06-02] MEDS: citalopram 20 mg Tablet 10 MG PO (08:03)
[2024-06-02] MEDS: aspirin 81 mg EC Tablet PO (08:03)
[2024-06-02] MEDS: azithromycin 250 mg Tablet 500 MG PO (08:03)
[2024-06-02] MEDS: magnesium oxide 400 mg tablet PO ×2 (08:04→17:34)
[2024-06-02] MEDS: pantoprazole DR 40 mg Tablet PO ×2 (08:04→17:34)
[2024-06-02] MEDS: insulin lispro 100 unit/1 mL SUBCUT ×4 (08:04→21:16)
--- NOTE | 2024-06-02 09:48 | PC.NURSE ---
Flu vaccine held per verbal orders from Dr. García due to being contraindicated while having current active infection.
[2024-06-02] MEDS: ipratropium-albuterol 3 mL Neb INHALATION (10:20)
[2024-06-02] MEDS: cefTRIAXone 1,000 mg SDV 1000 MG IVP (11:26)
[2024-06-02 11:27] LABS: Glucose Point of Care 305 mg/dL (70-110)
--- NOTE | 2024-06-02 12:47 | P.PN_ITS ---
Subjective 2 Subjective: Seen this morning. No acute events overnight Patient says she is starting to feel slightly better. Still expectorating thick green sputum. Continues to complain of pleuritic chest pain on the right side. She states if she holds a cushion to her chest and coughs she feels slightly better.. Pressure stable overnight. Patient did not require any Levophed. Vitals/I&O/Wt Last Vital Signs Temp 98.0 F 06/02/24 11:58 Pulse 76 06/02/24 12:00 Resp 28 H 06/02/24 12:00 BP 135/65 06/02/24 12:00 Pulse Ox 95 06/02/24 12:00 O2 Del Method Nasal Cannula 06/02/24 10:19 O2 Flow Rate 2 06/02/24 10:19 FiO2 35 06/02/24 04:10 06/01/24 06/02/24 06/02/24 22:59 06:59 14:59 Intake Total 330 / 2580 1015.417 / 3595.417 650 / 650 Output Total 450 / 450 250 / 700 Balance -120 / 2130 765.417 / 2895.417 650 / 650 Weight last 48 hrs Weight 70.261 kg Weight 70.45 kg Weight 66.678 kg Physical Exam 2 Narrative: Alert drainage x 3 sitting up in bed with cushion wedged in right axilla has a cough guard Const: COMMON NORMALS: patient oriented x3 and alert GENERAL APPEARANCE: c ooperative ORIENTATION/CONSCIOUSNESS: Yes awake HENMT: COMMON NORMALS: oropharynx normal Neck/C-Spine: COMMON NORMALS: no JVD Resp: COMMON NORMALS: normal respiratory effort AUSCULTATION: wheezes (Mild wheeze right lower lobe) Cardio: COMMON NORMALS: no JVD, regular rhythm, S1 normal heart sound present, S2 normal heart sound present and No murmurs present (Cardio) RHYTHM: regular rhythm HEART SOUNDS: S1 normal heart sound present and S2 normal heart sound present GI: COMMON NORMALS: Normal to inspection, nondistended, normoactive bowel sounds present, Soft to palpation and non-tender PALPATION: Yes Soft to palpation Extremity: COMMON NORMALS: no joint enlargement and no pedal edema Neuro: COMMON NORMALS: patient oriented x3 and moves all extremities S ENSORIUM/ORIENTATION: Yes alert Skin: COMMON NORMALS: no rashes or lesions noted GENERAL SKIN EXAM: no rashes or lesions noted Data 06/02/24 03:52 06/02/24 03:52 Micro: Microbiology 06/01/24 09:56 Blood Culture - Preliminary Blood NEGATIVE TO DATE 06/01/24 09:50 Blood Culture - Preliminary Blood NEGATIVE TO DATE 06/01/24 10:11 Urine Culture - Final Urine,Clean Catch 06/02/24 08:55 Bacterial Antigens - Final Urine,Clean Catch 06/02/24 08:55 Legionella Urinary Antigen - Final Urine,Clean Catch A&P Assessment and plan (1) Pneumonia: (2) Essential hypertension: (3) Coronary artery disease: Qualifiers: Coronary Disease-Associated Artery/Lesion type: [place] artery [place] vs. transplanted heart: [place] heart Associated angina: with unspecified angina Qualified Code(s): I25.119 - Atherosclerotic heart disease of [place] coronary artery with unspecified angina pectoris (4) Hyperlipidemia: Qualifiers: Hyperlipidemia type: mixed hyperlipidemia Qualified Code(s): E78.2 - Mixed hyperlipidemia (5) Type 2 diabetes mellitus: Qualifiers: Diabetes mellitus manager terminal insulin use: with manager terminal use Diabetes mellitus complication status: with neurologic complications Diabetes mellitus complication detail: with polyneuropathy Qualified Code(s): E11.42 - Type 2 diabetes mellitus with diabetic polyneuropathy; Z79.4 - MCFP (current) use of insulin (6) Pleuritic chest pain: (7) COPD, very severe: (8) Smoker: Plan #Sepsis secondary to right lower lobe pneumonia (criteria met by tachycardia hypotension, creatinine 1.2, fluid responsive, leukocytosis) #COPD, severe #Hypertension #Diabetes ? Hold antihypertensives ? Hold baclofen, Lyrica ? Hold telmisartan ? Do not order Lantus. A1c last time checked was in the 5 range as per patient. Will recheck today. Will only keep patient on moderate dose intensity sliding scale for now. ? Continue simvastatin ? Placed on ceftriaxone azithromycin ? DuoNeb every 6 hours as needed ? Check blood cultures, sputum culture Gram stain - Check bacterial antigen strep and Legionella. -Check labs daily ? Placed on IV fluids normal saline 75 cc/h. ? Patient's blood pressure has been on the softer side however did respond to fluids initially when she came in. ? Did receive a call from the ER later on that patient's blood pressure again dropped. She may require Levophed going forward. Will transfer to ICU and order Levophed. -Will place on Solu-Medrol 40 IV twice daily due to severity of infection and underlying COPD.. Full code DVT prophylaxis: Heparin SQ twice daily 06/02/2024 Continue to monitor off antihypertensives Continue ceftriaxone azithromycin Continue DuoNeb every 6 hours as needed Blood culture sputum culture Gram stain pending at this time. I will stop IV fluids. Encourage oral intake Continue Solu-Medrol 40 IV twice daily. If patient continues to improve may consider discharge home in a.m. Transfer to floor today. PDMP PDMP Reviewed: Not Reviewed Attestations 2 Medical Necessity Statement*: Pneumonia, would likely require greater than 48 hours stay for management of pneumonia. Diagnoses Pneumonia J18.9 Essential hypertension I10 Coronary artery disease involving [place] coronary artery of [place] heart with angina pectoris I25.119 Coronary Disease-Associated Artery/Lesion type: [place] artery [place] vs. transplanted heart: [place] heart Associated angina: with unspecified angina Mixed hyperlipidemia E78.2 Hyperlipidemia type: mixed hyperlipidemia Type 2 diabetes mellitus with diabetic polyneuropathy, with long-term current use of insulin E11.42; Z79.4 Diabetes mellitus manager terminal insulin use: with manager terminal use Diabetes mellitus complication status: with neurologic complications Diabetes mellitus complication detail: with polyneuropathy Pleuritic chest pain R07.81 COPD, very severe J44.9 Smoker F17.200
[2024-06-02 17:31] LABS: Glucose Point of Care 230 mg/dL (70-110)
[2024-06-02] MEDS: atorvastatin 40 mg Tablet 20 MG PO (17:33)
[2024-06-02 21:17] LABS: Glucose Point of Care 232 mg/dL (70-110)
--- NOTE | 2024-06-02 21:50 | PC.NURSE ---
Transfer Patient transferred to [place] [address]. All belongings taken with patient. Patient transported on 2L [place]. [facility] staff at bedside.
[2024-06-03] VITALS (7 sets, daily range): BP systolic 149–171; BP diastolic 72–86; PULSE 60–73; RESP 16–21; TEMP 36.4–36.6; O2SAT 95–98
[2024-06-03] MEDS: methylPREDNISolone sod succ 40 mg/mL INJ IVP (03:14)
[2024-06-03 05:23] LABS: Basophils % 0.1 %; Hematocrit 34.7 % (36-47); Lymphocytes # 0.8 10^3/uL (0.8-4.8); Lymphocytes % 7.8 %; Mean Corpuscular HGB Conc 31.7 g/dL (30-55); Mean Corpuscular Hemoglobin 27.3 pg (27-33); Mean Corpuscular Volume 86.1 fl (85-98); Mean Platelet Volume 10.7 fL (7.4-10.4); Monocytes # 0.2 10^3/uL (0.2-0.9); Monocytes % 1.7 %; Neutrophils # 9.29 10^3/uL (1.8-7.7); Neutrophils % 89.7 %; Nucleated Red Blood Cells % 0 %; Platelet Count 146 10^3/cmm (157-399); Red Blood Count 4.03 10^6/uL (3.85-5.65); Red Cell Distribution Width 16.6 % (12.1-15.1); White Blood Count 10.36 10^3/uL (3.29-11.43)
[2024-06-03 05:42] LABS: Anion Gap 11.9 (5-19); Blood Urea Nitrogen 17 mg/dL (6-20); Calcium 8.7 mg/dL (8.5-10.5); Carbon Dioxide 25 mmol/L (22-29); Chloride 105 mmol/L (98-107); Creatinine Clr Calc Pharmacy 77.8984; Glomerular Filtration Rate 86.2 mL/min (90-130); Glucose 219 mg/dL (65-115); Magnesium 1.9 mg/dL (1.7-2.3); Osmolality Calculated 294 mOsm/kg (285-295); Potassium 3.9 mmol/L (3.5-5.1); Sodium 138 mmol/L (136-145)
[2024-06-03] MEDS: ipratropium-albuterol 3 mL Neb INHALATION (07:59)
[2024-06-03] MEDS: azithromycin 250 mg Tablet 500 MG PO (09:29)
[2024-06-03] MEDS: pantoprazole DR 40 mg Tablet PO (09:29)
[2024-06-03] MEDS: magnesium oxide 400 mg tablet PO (09:29)
[2024-06-03] MEDS: citalopram 20 mg Tablet 10 MG PO (09:29)
[2024-06-03] MEDS: aspirin 81 mg EC Tablet PO (09:29)
--- NOTE | 2024-06-03 10:21 | PM.DCS ---
Discharge Providers Date of Admission: 06/01/24 11:29 Date of Discharge: June 03, 2024 Attending Provider at Admission: Jocelyne García MD Attending Provider at Discharge: Jocelyne García MD Primary Care Provider: VIOLET Locke Diagnoses at Discharge Discharge Diagnosis (1) Pneumonia: Status: Acute (2) Essential hypertension: Status: Chronic (3) Coronary artery disease: Status: Chronic Qualifiers: Associated angina: with unspecified angina Coronary Disease-Associated Artery/Lesion type: [place] artery [place] vs. transplanted heart: [place] heart Qualified Code(s): I25.119 - Atherosclerotic heart disease of [place] coronary artery with unspecified angina pectoris (4) Hyperlipidemia: Status: Chronic Qualifiers: Hyperlipidemia type: mixed hyperlipidemia Qualified Code(s): E78.2 - Mixed hyperlipidemia (5) Type 2 diabetes mellitus: Status: Chronic Qualifiers: Diabetes mellitus complication detail: with polyneuropathy Diabetes mellitus complication status: with neurologic complications Diabetes mellitus halfway insulin use: with halfway use Qualified Code(s): E11.42 - Type 2 diabetes mellitus with diabetic polyneuropathy; 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 She was treated with antibiotics and steroids. Patient felt better and improved at time of discharge and will be sent home in stable condition. Blood pressure was soft at admission and she was given IV fluids. Her antihypertensives were held. She will be discharged home in stable condition at this time. Pleuritic chest pain is also improved. Please see H&P and progress notes for further details. Explained to her the importance of checking blood pressure at home. Will restart telmisartan however hold hydrochlorothiazide at this time. Will hold potassium as well. Patient will check at home and restart gradually. She will also follow-up with primary care doctor. Physical Exam Narrative: Alert oriented x 3 sitting up in the chair. Const: COMMON NORMALS: patient oriented x3 and alert GENERAL APPEARANCE: cooperative ORIENTATION/CONSCIOUSNESS: Yes awake HENMT: COMMON NORMALS: oropharynx normal Neck/C-Spine: COMMON NORMALS: no JVD Resp: COMMON NORMALS: normal respiratory effort and clear to auscultation bilaterally AUSCULTATION: clear to auscultation bilaterally, no rales, no rhonchi and no wheezes Cardio: COMMON NORMALS: no JVD, regular rhythm, S1 normal heart sound present, S2 normal heart sound present and No murmurs present (Cardio) RHYTHM: regular rhythm HEART SOUNDS: S1 normal heart sound present and S2 normal heart sound present GI: COMMON NORMALS: Normal to inspection, nondistended, normoactive bowel sounds present, Soft to palpation and non-tender PALPATION: Yes Soft to palpation Extremity: COMMON NORMALS: no joint enlargement and no pedal edema Neuro: COMMON NORMALS: patient oriented x3 and moves all extremities SENSORIUM/ORIENTATION: Yes alert Skin: COMMON NORMALS: no rashes or lesions noted GENERAL SKIN EXAM: no rashes or lesions noted Discharge Data Studies Completed and Pending Completed Studies During Hospitalization Category Date Time Status XR chest 1V portable [id number] Stat Exams 06/01/24 09:23 Completed Pending at discharge Category Date Time Status Blood Culture Stat Lab 06/01/24 09:56 Results Sputum Culture and Gram Stain Stat Lab 06/01/24 10:59 Results Radiology Impressions Chest X-Ray 06/01/24 09:23 IMPRESSION: Consolidation at the lateral right base compatible with pneumonia. Laboratory Results WBC 10.36 10^3/uL (3.29-11.43) 06/03/24 04:54 Corrected WBC Cancelled 06/02/24 02:50 RBC 4.03 10^6/uL (3.85-5.65) 06/03/24 04:54 Hgb 11.00 g/dL (11.27-16.99) L 06/03/24 04:54 Hct 34.7 % (36-47) L 06/03/24 04:54 MCV 86.1 fl (85-98) 06/03/24 04:54 MCH 27.3 pg (27-33) 06/03/24 04:54 MCHC 31.7 g/dL (30-55) 06/03/24 04:54 RDW 16.6 % (12.1-15.1) H 06/03/24 04:54 Plt Count 146 10^3/cmm (157-399) L 06/03/24 04:54 MPV 10.7 fL (7.4-10.4) H 06/03/24 04:54 Gran % Cancelled 06/02/24 02:50 Neut % (Auto) 89.7 % 06/03/24 04:54 Lymph % (Auto) 7.8 % 06/03/24 04:54 [place] % (Auto) 1.7 % 06/03/24 04:54 Eos % (Auto) 0.0 % 06/03/24 04:54 Baso % (Auto) 0.1 % 06/03/24 04:54 Neut # (Auto) 9.29 10^3/uL (1.8-7.7) H 06/03/24 04:54 Lymph # (Auto) 0.8 10^3/uL (0.8-4.8) 06/03/24 04:54 Spencer # (Auto) 0.2 10^3/uL (0.2-0.9) 06/03/24 04:54 Eos # (Auto) 0.0 10^3/uL (0.0-0.8) 06/03/24 04:54 Baso # (Auto) 0.0 10^3/uL (0.0-0.1) 06/03/24 04:54 Absolute Gran (auto) Cancelled 06/02/24 02:50 Nucleated RBC % (auto) 0 % 06/03/24 04:54 Nucleated RBCs # 0.0 /100WBC 06/03/24 04:54 Sodium 138 mmol/L (136-145) 06/03/24 04:54 Potassium 3.9 mmol/L (3.5-5.1) 06/03/24 04:54 Chloride 105 mmol/L (98-107) 06/03/24 04:54 Carbon Dioxide 25 mmol/L (22-29) 06/03/24 04:54 Anion Gap 11.9 (5-19) 06/03/24 04:54 BUN 17 mg/dL (6-20) 06/03/24 04:54 Creatinine 0.7 mg/dL (0.5-0.9) 06/03/24 04:54 GFR Calculation 86.2 mL/min (90-130) L 06/03/24 04:54 Glucose 219 mg/dL (65-115) H 06/03/24 04:54 POC Glucose 232 mg/dL (70-110) H 06/02/24 21:12 Estimat Average Glucose 157 06/01/24 09:36 Hemoglobin A1c 7.1 % (4.0-6.0) H 06/01/24 09:36 Calculated Osmolality 294 mOsm/kg (285-295) 06/03/24 04:54 Lactic Acid 1.2 mmol/L (0.5-2.2) 06/01/24 09:36 Calcium 8.7 mg/dL (8.5-10.5) 06/03/24 04:54 Phosphorus 2.3 mg/dL (2.5-4.5) L 06/02/24 03:52 Magnesium 1.9 mg/dL (1.7-2.3) 06/03/24 04:54 Total Bilirubin 1.0 mg/dL (0.15-1.2) 06/01/24 09:36 AST 8 U/L (0-32) 06/01/24 09:36 ALT 8 U/L (0-33) 06/01/24 09:36 Alkaline Phosphatase 78 U/L (35-105) 06/01/24 09:36 Total Protein 6.6 g/dL (6.6-8.7) 06/01/24 09:36 Albumin 3.5 g/dL (3.5-5.2) 06/01/24 09:36 Globulin 3.1 g/dL (1.3-4.6) 06/01/24 09:36 Lipase 19 U/L (13-60) 06/01/24 09:36 Procalcitonin 1.01 ng/mL (0-0.5) H 06/01/24 09:36 Urine Color Dark yellow (Yellow) A 06/01/24 10:11 Urine Appearance Clear (CLEAR) 06/01/24 10:11 Urine pH 6.0 (5-7) 06/01/24 10:11 Ur Specific [place] 1.022 (1.005-1.030) 06/01/24 10:11 Urine Protein 3+ (Negative) A 06/01/24 10:11 Urine Glucose (UA) 2+ (Normal) H 06/01/24 10:11 Urine Ketones 1+ (Negative) H 06/01/24 10:11 Urine Blood Trace (Negative) A 06/01/24 10:11 Urine Nitrate Negative (Negative) 06/01/24 10:11 Urine Bilirubin 1+ (Negative) H 06/01/24 10:11 Urine Urobilinogen 1.0 mg/dL (Negative) 06/01/24 10:11 Ur Leukocyte Esterase Trace (Negative) A 06/01/24 10:11 Urine RBC 3-5 /hpf (0-2) 06/01/24 10:11 Urine WBC 0-5 /hpf (0-5) 06/01/24 10:11 Ur Squamous Epith Cells 11-20 /hpf (0-5) H 06/01/24 10:11 Amorphous Sediment Not Reportable 06/01/24 10:11 Urine Bacteria 1+ /hpf (NONE) H 06/01/24 10:11 Hyaline Casts 7.85 /lpf 06/01/24 10:11 Urine Yeast 1+ /hpf H 06/01/24 10:11 Influenza A (PCR) Negative (Negative) 06/01/24 09:44 Influenza Type B (PCR) Negative (Negative) 06/01/24 09:44 RSV (PCR) Negative (Negative) 06/01/24 09:44 SARS-CoV-2 (PCR) Negative (Negative) 06/01/24 09:44 Vitals Last Vital Signs Temp 97.8 F 06/03/24 07:36 Pulse 61 06/03/24 08:06 Resp 18 06/03/24 08:00 BP 171/86 06/03/24 07:36 Pulse Ox 98 06/03/24 08:00 O2 Del Method BiPAP 06/03/24 08:00 O2 Flow Rate 2 06/03/24 04:00 FiO2 35 06/03/24 08:00 Discharge Plan Discharge Patient Disposition: Home Condition: Stable Prescriptions: New azithromycin 250 mg Tablet 500 mg PO DAILY Qty: 6 0RF cefdinir 300 mg capsule 300 mg PO BID 7 Days Qty: 14 0RF benzonatate 100 mg capsule 100 mg PO TID PRN (Reason: cough) Qty: 7 0RF prednisone 20 mg tablet 40 mg PO DAILY Qty: 6 0RF Continued amlodipine 10 mg tablet 5 mg PO DAILY 90 Days Qty: 90 1RF citalopram 10 mg tablet 10 mg PO QAM 90 Days Qty: 90 1RF Jardiance 25 mg tablet 25 mg PO QAM 90 Days Qty: 90 1RF hydroxyzine HCl 25 mg tablet 25 mg PO QPM PRN (Reason: Anxiety) 90 Days Qty: 90 1RF metoprolol tartrate 50 mg tablet 50 mg PO BID 90 Days Qty: 180 1RF telmisartan 80 mg tablet 80 mg PO DAILY 90 Days Qty: 90 1RF simvastatin 20 mg tablet 20 mg PO QPM 90 Days Qty: 90 0RF Rybelsus 7 mg tablet 7 mg PO QAM 90 Days Qty: 90 1RF Flonase Allergy Relief 50 mcg/actuation spray,suspension 1 spray intranasal BID PRN (Reason: Allergic Symptoms) Qty: 9.9 0RF Rx Instructions: administer into each nostril Lyrica 150 mg capsule 150 mg PO BID 30 Days Qty: 60 2RF albuterol sulfate 90 mcg/actuation HFA aerosol inhaler 2 puff inhalation Q6H PRN (Reason: Shortness Of Breath) Qty: 6.7 0RF Trelegy Ellipta 100-62.5-25 mcg blister with device 1 inh inhalation QAM Qty: 60 2RF aspirin 81 mg tablet,delayed release (DR/EC) 81 mg PO QAM magnesium 100 mg Tablet 100 mg PO DAILY pantoprazole 40 mg tablet,delayed release (DR/EC) 40 mg PO BID montelukast 10 mg tablet 10 mg PO DAILY Held hydrochlorothiazide 25 mg tablet 25 mg PO DAILY 90 Days Qty: 90 1RF Hold Instructions: may resume in 48-72 hours as directed baclofen 20 mg tablet 20 mg PO BID PRN (Reason: Muscle Spasm) Qty: 45 0RF Hold Instructions: see pcp potassium chloride 20 mEq tablet,ER particles/crystals 20 meq PO DAILY Hold Instructions: see pcp Discontinued loratadine 10 mg tablet 10 mg PO DAILY Qty: 90 0RF insulin glargine [Lantus Solostar U-100 Insulin] 100 unit/mL (3 mL) insulin pen 40 unit SUBCUT BID PRN (Reason: high sugar) Discharge Orders: Discharge Order (Routine); Ordered 06/03/24 Ordered By: Jocelyne García Referrals: Reji Faulkner FNP [Primary Care Provider] - 06/09/24 9:00 am () Discharge Diet: Cardiac and Diabetic Discharge Activity: Resume usual activity and Oxygen as instructed Patient Instructions: Benzonatate (By mouth), Azithromycin (By mouth), Cefdinir (By mouth), Opioid Safety, Pneumonia Stoplight Discharge Attestations Time Spent in Discharge Care*: greater than 30 min Quality Metrics Clinical Quality Measures [ No reported AMI, CVA or VTE this stay] Coding Level of Care Code 04631 Total time (in minutes) for Discharge: 35 Diagnoses Pneumonia J18.9 Essential hypertension I10 Coronary artery disease involving [place] coronary artery of [place] heart with angina pectoris I25.119 Associated angina: with unspecified angina Coronary Disease-Associated Artery/Lesion type: [place] artery [place] vs. transplanted heart: [place] heart Mixed hyperlipidemia E78.2 Hyperlipidemia type: mixed hyperlipidemia Type 2 diabetes mellitus with diabetic polyneuropathy, with long-term current use of insulin E11.42; Z79.4 Diabetes mellitus complication detail: with polyneuropathy Diabetes mellitus complication status: with neurologic complications Diabetes mellitus termination clerk insulin use: with halfway use Pleuritic chest pain R07.81 COPD, very severe J44.9 Smoker F17.200
== END 2024-06-03 12:55 | disposition home or self-care (01) | DRG 871 ==
LOC: ER 10:43 → ER IP 11:51 → ICU 14:15 → MEDSURG 06-02 21:29
PROVIDERS: Admitting Provider Internal Medicine; Emergency Provider Emergency Medicine; PCP Registered Nurse; Visit Provider Internal Medicine
DX: A41.9 Sepsis, unspecified organism (principal); J18.9 Pneumonia, unspecified organism; J44.0 Chronic obstructive pulmonary disease with (acute) lower respiratory infection; I10 Essential (primary) hypertension; I25.10 Atherosclerotic heart disease of native coronary artery without angina pectoris; E78.5 Hyperlipidemia, unspecified; E11.42 Type 2 diabetes mellitus with diabetic polyneuropathy; Z79.84 Long term (current) use of oral hypoglycemic drugs; F17.200 Nicotine dependence, unspecified, uncomplicated; G47.33 Obstructive sleep apnea (adult) (pediatric); F41.8 Other specified anxiety disorders; Z99.81 Dependence on supplemental oxygen; Z79.82 Long term (current) use of aspirin
CPT/HCPCS: 36415; 36416; 71045; 80048; 80053; 81001; 82962; 83036; 83605; 83690; 83735; 84100; 84145; 85025; 86403; 87040; 87070; 87086; 87205; 87449; 87637; 93005; 94640; 94660; 96372; 96374; 96376; J0456; J0696; J1171; J1644; J1815; J2405; J2919; J3475; J3480; J7030; J7040; J7050; J9999; Q0144

== ENCOUNTER → 2024-06-12 13:24 | Outpatient (BNVA) | payer MEDICARE, SELFPAY | PROVIDERS: PCP Registered Nurse; Visit Provider Registered Nurse | DX: N39.0 Urinary tract infection, site not specified (principal) | CPT/HCPCS: 81000 ==

== ENCOUNTER 2024-07-16 08:06 | Outpatient (CLI) | payer MEDICARE, SELFPAY ==
[2024-07-16 08:20] VITALS: PULSE 77; RESP 18; O2SAT 93
[2024-07-16] MEDS: albuterol 2.5 mg/3 mL Neb INHALATION (08:20)
== END 2024-07-16 08:07 | disposition home or self-care (01) ==
LOC: RT 08:07
PROVIDERS: PCP Registered Nurse; Visit Provider Registered Nurse
DX: J44.9 Chronic obstructive pulmonary disease, unspecified (principal); J98.8 Other specified respiratory disorders; R94.2 Abnormal results of pulmonary function studies
CPT/HCPCS: 94060; 94726; 94729; J7613

== ENCOUNTER → 2024-07-17 13:43 | Outpatient (BNVA) | payer MEDICARE, SELFPAY | PROVIDERS: PCP Registered Nurse; Visit Provider Registered Nurse | DX: N39.0 Urinary tract infection, site not specified (principal) | CPT/HCPCS: 81000; 87086 ==

== ENCOUNTER 2024-08-06 09:35 | Inpatient (IN) | payer MEDICARE, MEDICAID, SELFPAY ==
[2024-08-06] VITALS (16 sets, daily range): BP systolic 92–111; BP diastolic 50–74; PULSE 68–117; RESP 13–25; TEMP 37.1; O2SAT 89–98; BMI 29.1
--- NOTE | 2024-08-06 09:54 | ECG_ITS ---
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: : 1965 Requested By: Devin Fu Order Number: [id number] Reading MD: PAMELLA HOOVER Measurements Intervals [place] Rate: 116 P: 76 [place]: 149 QRS: 73 QRSD: 78 T: 77 QT: 324 QTc: 451 Interpretive Statements SINUS TACHYCARDIA POSSIBLE LEFT ATRIAL ENLARGEMENT [-0.1mV P-WAVE IN V1/V2] NONSPECIFIC ST & T-WAVE ABNORMALITY ABNORMAL RHYTHM ECG Compared to ECG 06/02/2024 03:46:37 T-wave abnormality now present Sinus rhythm no longer present Electronically Signed On 08-13-2024 22:46:45 CDT by PAMELLA HOOVER [email or web address]
--- NOTE | 2024-08-06 10:22 | ECG_ITS ---
[facility] Date: 2024-08-06 Pat Name: Nicole Carlos Department: Room: Gender: Female Manager Pathology: : 1965 Requested By: Devin Fu Order Number: [id number] Reading MD: PAMELLA HOOVER Measurements Intervals [place] Rate: 114 P: 56 [place]: 141 QRS: 73 QRSD: 80 T: 64 QT: 322 QTc: 443 Interpretive Statements SINUS TACHYCARDIA NONSPECIFIC ST & T-WAVE ABNORMALITY ABNORMAL RHYTHM ECG Compared to ECG 06/02/2024 03:46:37 T-wave abnormality now present Sinus rhythm no longer present Electronically Signed On 08-13-2024 22:47:05 CDT by PAMELLA HOOVER [email or web address]
--- NOTE | 2024-08-06 10:23 | XR_ITS ---
WS: [id number] Portable AP upright chest, 08/06/2024 Clinical Data: chest pain Comparison: Portable chest, 06/01/2024 Findings: Minimal interstitial markings are seen throughout both lungs. No nodules, masses or effusions are seen. The heart is normal. The pulmonary vascularity is not increased. No pneumothorax is seen. The diaphragms are flattened. The aortic arch shows mild calcification. XR/XR chest 1V portable [id number] Impression: 1. Atherosclerosis and hyperinflation. 2. Minimal interstitial markings seen throughout both lungs.
--- NOTE | 2024-08-06 10:26 | ED_ITS ---
HPI - SOB/Dyspnea 2 General: Chief Complaint: Shortness of Breath/Dyspnea Stated Complaint: SOB, back and rib pain Time Seen by Provider: 08/06/24 10:13 History of Present Illness: HPI Narrative: Chief plaint shortness of breath and left-sided pain. The patient states she is not any fall or trauma but she states she has had a sharp pain that started in the left low rib posteriorly and has wrapped around the left side. She states is not in the abdomen. It hurts to breathe and move. She is also had increased shortness of breath. Her cough is chronic and unchanged but she is coughing up yellow thick sputum now which is new. She states she had a low-grade fever last night. No headache. No history of heart problems. No leg pain or swelling or recent mobility or history of PE or DVT. No hemoptysis. Related Data Home Medications ?Medication ?Instructions ?Recorded ?Confirmed aspirin 81 mg tablet,delayed 81 mg PO QAM 01/12/2311/03 release potassium chloride 20 mEq 20 meq PO DAILY 05/05/2411/03 tablet,extended release(part/cryst) Held on 06/03/24. Instructions: see pcp magnesium 100 mg tablet 100 mg PO DAILY 06/01/2411/03 Previous Rx's ?Medication ?Instructions ?Recorded fluticasone propionate 50 1 spray intranasal BID PRN 1 03/16/23 mcg/actuation nasal Allergic Symptoms #9.9 mL spray,suspension (Flonase Allergy Relief) semaglutide 7 mg tablet (Rybelsus) 7 mg PO QAM 90 days #90 tabs 05/15/24 simvastatin 20 mg tablet 20 mg PO QPM 90 days #90 tab s 05/15/24 telmisartan 80 mg tablet 80 mg PO DAILY 90 days #90 t abs 05/15/24 albuterol sulfate 90 mcg/actuation 2 puff inhalation Q 6H PRN 05/19/24 aerosol inhaler Shortness Of Breath #6.7 gra ms pregabalin 150 mg capsule (Lyrica) 150 mg PO BID 30 da ys #60 caps 06/04/24 amlodipine 10 mg tablet 5 mg (1/2 x 10 mg) PO DAILY 90 06/11/24 days #90 tabs citalopram 10 mg tablet 10 mg PO QAM 90 days #90 tab s 06/11/24 empagliflozin 25 mg tablet 25 mg PO QAM 90 days #90 ta bs 06/11/24 (Jardiance) hydrochlorothiazide 25 mg tablet 25 mg PO DAILY 90 day s #90 tabs 06/11/24 hydroxyzine HCl 25 mg tablet 25 mg PO QPM PRN Anxiety 90 days 06/11/24 #90 tabs metoprolol tartrate 50 mg tablet 50 mg PO BID 90 days #180 tabs 06/11/24 montelukast 10 mg tablet 10 mg PO DAILY #90 tabs 05/06 pantoprazole 40 mg tablet,delayed See Rx Instructions .Route 06/11/24 release .COMPLEX #180 tabs fluticasone fur. 100 mcg-umeclid 1 inh inhalation QAM #60 ea 06/12/24 62.5 mcg-vilant 25 mcg inhalat.powder (Trelegy Ellipta) cephalexin 500 mg capsule 500 mg PO BID 7 days #14 cap s 07/17/24 baclofen 20 mg tablet See Rx Instructions .Route 0 07/22/24 .COMPLEX #45 tabs Allergies Allergy/AdvReac Type Severity Reaction Status Date / Time codeine Allergy ALGY-Hives Verified 07/17/24 13:05 [facility] ED 2 PFS: Medical History Seasonal allergies Skin cancer of nose s/p excision, non-melanoma History of echocardiogram 08/2019 EF 65% History of PFTs 01/2021 - severe airflow obstruction. There is no significant postbronchodilator response. Lung volumes are consistent with air trapping. Gas exchange (DLCO) is mildly reduced. Mixed anxiety and depressive disorder Diverticulosis Essential hypertension Chronic nausea Neuropathy due to type 2 diabetes mellitus Type 2 diabetes mellitus ELISE (obstructive sleep apnea) bipap with sleep with 4L oxygen Coronary artery disease COPD, very severe Hyperlipidemia Acid reflux Surgical History S/P laparoscopy Hx of removal of ovary History of appendectomy History of esophagogastroduodenoscopy (EGD) (05/2019) History of colonoscopy (05/2019) Family History Father Cancer Lung disease Hypertension Mother Lung disease Grandmother Diabetes Other CAD (coronary artery disease) Denies family history of Stroke Social History Smoking and tobacco/nicotine status: current every day tobacco/nicotine user cigarettes [ Other cigarette details: [id number]+yrs] Second hand smoke exposure: Yes Alcohol intake: never Substance/Drug Use: never Lives independently: Yes Household members: spouse Housing: House Marital status: Current occupational status: disabled Pets and animals: Yes Do you think of yourself as: Straight/Heterosexual Current gender identity: Female Sleina/Gnosticism: Hoahaoism Agree to transfusion: Yes Physical Exam 2 Narrative: EXAM NARRATIVE: Patient is in moderate distress with tachypnea and accessory muscle use. She has prolonged expiratory phase and bilateral expiratory wheezing and diminished breath sounds bilaterally with retractions and accessory muscle use. Neck is supple. Conjunctive is normal. Moist mucous membranes. Heart regular rhythm. Abdomen soft nontender. She has focal tenderness over the left lateral ribs lower. No CVA tenderness. No vertebral tenderness on her back. Extremities warm well-perfused with no calf tenderness no pitting edema. No rash in exposed areas. Speech is clear. She shows ability to reason. Course 2 Vital Signs: Vital signs: Vital Signs Temperature 98.8 F 08/06/24 09:38 Pulse Rate 115 H 08/06/24 12:17 Respiratory Rate 20 H 08/06/24 12:17 Blood Pressure 111/70 08/06/24 10:54 Pulse Oximetry 89 L 08/06/24 12:17 Oxygen Delivery Me thod Nasal Cannula 08/06/24 12:17 Oxygen Flow Rate 5 08/06/24 12:17 MDM - SOB/Dyspnea Medical Decision Making Patient presents with increased work of breathing and shortness of breath and sharp pain in the left posterior rib area low and wraparound to the side. Clear reproducible with movement palpation and may represent rib fracture and not suggestive of cardiac ischemia however with the location we will get a troponin and an EKG. She has had constant symptoms for more than 24 hours now and a single negative troponin would make cardiac ischemia very unlikely. PE considered however symptoms reproducible with palpation making this less likely. She denies history of PE or recent mobility or leg pain or swelling or hemoptysis. Pneumonia certainly considered and will get a chest x-ray. Patient states she is normally on 2 to 3 L of oxygen at home however she is currently on 4 L and pulse ox is 90%. I ordered DuoNeb and albuterol 5 mg nebulized treatment, 125 mg Solu-Medrol IV and after informed discussion with the patient 25 mcg of fentanyl IV for pain and 4 mg Zofran IV and IV 1 L normal saline fluid bolus. Will check CBC CMP lipase troponin EKG chest x-ray. No significant infiltrate on chest x-ray to warrant her pain so I ordered CT angio to evaluate for PE. White count is elevated. BUN and creatinine mildly elevated. Troponin was not elevated. CT showed findings consistent with bronchial pneumonia per radiology. Patient is tachycardic however I suspect this is more related to her respiratory distress and COPD exacerbation rather than sepsis. I did add a lactic. The patient's blood pressure is improved. Patient's pulse ox has worsened however. She is looking much better however on exam she is sitting up watching TV breathing much more comfortable and her lung sounds are markedly improved. Will continue breathing treatments and place her on high flow to see if this improves her hypoxia. Will get ABG. Plan to admit for pneumonia and COPD exacerbation and acute respiratory failure. I consulted with Dr. Vera who will admit and continue patient care. Lab Data 08/06/24 10:10 08/06/24 10:10 Labs/Radiology: Radiology Impressions Chest X-Ray 08/06/24 10:23 Impression: 1. Atherosclerosis and hyperinflation. 2. Minimal interstitial markings seen throughout both lungs. Chest CTA 08/06/24 11:22 IMPRESSION: 1. No pulmonary embolism. 2. Extensive bilateral tree-in-bud airspace disease and reticular nodular opacifications which have progressed since 05/05/2024 along with reactive lymphadenopathy. Most likely endobronchial pneumonia. Recommend follow-up CT evaluation after appropriate treatment. Laboratory Results WBC 16.88 10^3/uL (3.29-11.43) H 08/06/24 10:10 RBC 5.45 10^6/uL (3.85-5.65) 08/06/24 10:10 Hgb 15.20 g/dL (11.27-16.99) 08/06/24 10:10 Hct 48.5 % (36-47) H 08/06/24 10:10 MCV 89.0 fl (85-98) 08/06/24 10:10 MCH 27.9 pg (27-33) 08/06/24 10:10 MCHC 31.3 g/dL (30-55) 08/06/24 10:10 RDW 16.3 % (12.1-15.1) H 08/06/24 10:10 Plt Count 194 10^3/cmm (157-399) 08/06/24 10:10 MPV 11.0 fL (7.4-10.4) H 08/06/24 10:10 Neut % (Auto) 81.5 % 08/06/24 10:10 Lymph % (Auto) 11.7 % 08/06/24 10:10 [place] % (Auto) 5.8 % 08/06/24 10:10 Eos % (Auto) 0.1 % 08/06/24 10:10 Baso % (Auto) 0.5 % 08/06/24 10:10 Neut # (Auto) 13.75 10^3/uL (1.8-7.7) H 08/06/24 10:10 Lymph # (Auto) 2.0 10^3/uL (0.8-4.8) 08/06/24 10:10 [place] # (Auto) 1.0 10^3/uL (0.2-0.9) H 08/06/24 10:10 Eos # (Auto) 0.0 10^3/uL (0.0-0.8) 08/06/24 10:10 Baso # (Auto) 0.1 10^3/uL (0.0-0.1) 08/06/24 10:10 Nucleated RBC % (auto) 0 % 08/06/24 10:10 Nucleated RBCs # 0.0 /100WBC 08/06/24 10:10 PT 15.00 SECONDS (12.1-14.9) H 08/06/24 10:10 INR 1.10 (0.8-1.2) 08/06/24 10:10 Sodium 138 mmol/L (136-145) 08/06/24 10:10 Potassium 3.3 mmol/L (3.5-5.1) L 08/06/24 10:10 Chloride 95 mmol/L (98-107) L 08/06/24 10:10 Carbon Dioxide 27 mmol/L (22-29) 08/06/24 10:10 Anion Gap 19.3 (5-19) H 08/06/24 10:10 BUN 21 mg/dL (6-20) H 08/06/24 10:10 Creatinine 1.1 mg/dL (0.5-0.9) H 08/06/24 10:10 GFR Calculation 51.2 mL/min (90-130) L 08/06/24 10:10 Glucose 220 mg/dL (65-115) H 08/06/24 10:10 Calculated Osmolality 296 mOsm/kg (285-295) H 08/06/24 10:10 Calcium 8.9 mg/dL (8.5-10.5) 08/06/24 10:10 Total Bilirubin 0.9 mg/dL (0.15-1.2) 08/06/24 10:10 AST 10 U/L (0-32) 08/06/24 10:10 ALT 7 U/L (0-33) 08/06/24 10:10 Alkaline Phosphatase 100 U/L (35-105) 08/06/24 10:10 Troponin T Baseline 7 ng/L (0-10) 08/06/24 10:10 Troponin T 120 Minute < 6.0 ng/L (0-10) 08/06/24 12:29 Delta Troponin T -1.19650 ABS# (0-10) L 08/06/24 12:29 NT-Pro-B Natriuret Pep 397 pg/mL (0-125) H 08/06/24 10:10 Total Protein 7.2 g/dL (6.6-8.7) 08/06/24 10:10 Albumin 3.6 g/dL (3.5-5.2) 08/06/24 10:10 Globulin 3.6 g/dL (1.3-4.6) 08/06/24 10:10 Lipase 16 U/L (13-60) 08/06/24 10:10 HCG, Qual Negative (Negative) 08/06/24 10:10 Influenza A (PCR) Negative (Negative) 08/06/24 10:33 Influenza Type B (PCR) Negative (Negative) 08/06/24 10:33 RSV (PCR) Negative (Negative) 08/06/24 10:33 SARS-CoV-2 (PCR) Negative (Negative) 08/06/24 10:33 XR interpretation done by ED provider, pending radiology final review Discharge Plan Discharge Patient Disposition: Admitted As Inpatient Clinical Impression: COPD, very severe, Community acquired pneumonia, Acute hypoxemic respiratory failure Condition: Serious Coding Level of Care Code ED Afternoon Nanny for Precious Banks
[2024-08-06 10:38] LABS: Basophils # 0.1 10^3/uL (0.0-0.1); Basophils % 0.5 %; Eosinophils % 0.1 %; Hematocrit 48.5 % (36-47); Lymphocytes % 11.7 %; Mean Corpuscular HGB Conc 31.3 g/dL (30-55); Mean Corpuscular Hemoglobin 27.9 pg (27-33); Monocytes % 5.8 %; Neutrophils # 13.75 10^3/uL (1.8-7.7); Neutrophils % 81.5 %; Nucleated Red Blood Cells % 0 %; Platelet Count 194 10^3/cmm (157-399); Red Blood Count 5.45 10^6/uL (3.85-5.65); Red Cell Distribution Width 16.3 % (12.1-15.1); White Blood Count 16.88 10^3/uL (3.29-11.43)
[2024-08-06 10:41] LABS: HCG, Serum Qual Negative (Negative)
[2024-08-06 10:49] LABS: Troponin(5th) Baseline 7 ng/L (0-10)
[2024-08-06] MEDS: ondansetron 2 mg/ML SDV 2 mL 4 MG IVP (10:52)
[2024-08-06] MEDS: methylPREDNISolone sod succ 125 mg/2 mL INJ IV (10:53)
[2024-08-06] MEDS: sodium chloride 0.9% 1,000 ML 999 ML IV (10:54)
[2024-08-06 10:56] LABS: Alanine Aminotransferase 7 U/L (0-33); Albumin Level 3.6 g/dL (3.5-5.2); Alkaline Phosphatase 100 U/L (35-105); Anion Gap 19.3 (5-19); Aspartate Amino Transferase 10 U/L (0-32); Blood Urea Nitrogen 21 mg/dL (6-20); Calcium 8.9 mg/dL (8.5-10.5); Carbon Dioxide 27 mmol/L (22-29); Chloride 95 mmol/L (98-107); Creatinine Clr Calc Pharmacy 48.2384; Globulin 3.6 g/dL (1.3-4.6); Glomerular Filtration Rate 51.2 mL/min (90-130); Glucose 220 mg/dL (65-115); Lipase 16 U/L (13-60); NT Pro B Type Natriuretic Pept 397 pg/mL (0-125); Osmolality Calculated 296 mOsm/kg (285-295); Potassium 3.3 mmol/L (3.5-5.1); Sodium 138 mmol/L (136-145); Total Bilirubin 0.9 mg/dL (0.15-1.2); Total Protein 7.2 g/dL (6.6-8.7)
[2024-08-06] MEDS: albuterol 2.5 mg/3 mL Neb 5 MG INHALATION (11:02)
[2024-08-06] MEDS: ipratropium-albuterol 3 mL Neb INHALATION ×3 (11:02→19:55)
[2024-08-06 11:17] LABS: Slide Review Slide Review Perform
--- NOTE | 2024-08-06 11:22 | CT_ITS ---
WS: [id number] CT CHEST ANGIOGRAPHY WITH REFORMATS HISTORY: chest pain TECHNIQUE: Contiguous axial images are obtained through the chest during arterial injection of intravenous contrast. Images are reconstructed to evaluate the pulmonary arteries. MIP imaging also reviewed. All CT scans at [facility] use at least one of these dose optimization techniques: automated exposure control; mA and/or kV adjustment per patient size (includes targeted exams where dose is matched to clinical indication); or iterative reconstruction. CONTRAST: Omnipaque 350; 100 mL IV. DLP: 314.48 mGy.cm COMPARISON: 05/05/2024 Good opacification of the pulmonary arteries. No pulmonary embolism. Mild atherosclerosis aorta. Normal size aorta. No RIGHT heart strain. Mild cardiomegaly. No pericardial or pleural effusion. Scattered tree-in-bud airspace disease throughout both lungs has progressed since 05/05/2024. There are superimposed reticular nodular opacifications now present. Greatest involvement in the RIGHT lower lobe. Bilateral mediastinal and hilar lymphadenopathy. Largest lymph node RIGHT hilum 11 mm. 13 mm subcarinal lymph node. LEFT hilar lymph nodes and AP window and paratracheal lymph nodes. Lymph nodes in the anterior mediastinum. These lymph nodes have progressed in size and number. Developing bronchiectasis RIGHT lower lobe. Small hiatal hernia. No adrenal mass. Splenic artery calcifications. Healed rib fractures on the RIGHT. CT/CT angio chest PE protcl [id number] IMPRESSION: 1. No pulmonary embolism. 2. Extensive bilateral tree-in-bud airspace disease and reticular nodular opac ifications which have progressed since 05/05/2024 along with reactive lymphadeno yesenia. Most likely endobronchial pneumonia. Recommend follow-up CT evaluation a fter appropriate treatment.
[2024-08-06 11:35] LABS: Influenza A NEGATIVE (Negative); Influenza B NEGATIVE (Negative); Respiratory Syncytial Virus Ce NEGATIVE (Negative); SARS-CoV-2 PCR NEGATIVE (Negative)
[2024-08-06] MEDS: iohexol 350 mg/mL 500 mL Btl (per mL) IV (11:43)
[2024-08-06] MEDS: albuterol 2.5 MG/0.5 ML NEB 5 MG INHALATION (12:16)
[2024-08-06] MEDS: AZITHROMYCIN ADD-Vantage 500 MG in 0.9% NaCl ADD-Vantage 250 ML 250 MG IV (12:18)
[2024-08-06 13:09] LABS: Troponin 5 2HR < 6.0 ng/L (0-10)
[2024-08-06 13:12] LABS: Troponin 5 2HR Delta -1.00001 ABS# (0-10)
[2024-08-06 13:28] LABS: ABG PCO2 51.3 mmHg (35-45); ABG PH Result 7.38 (7.35-7.45); Alveolar-Arterial Oxygen Gradi 24.8 mmHg (5-10); Arterial Blood Gas Hematocrit 44.6 % (37-47); Base Excess ABG 4.2 mmol/L (-2.0-2.0); Blood Gas Operator Identificat AMH; Blood Gas Sample Site Brachial, right; Blood Gas Sample Type Arterial; Carboxyhemoglobin 4.5 %THgb (0.4-20.1); HCO3 ABG 30.5 mmol/L (22-26); HGB O2 Sat 86.7 % (95-100); Ionized Calcium Level - ABG 1.1 mmol/L (1.1-1.4); Methemoglobin 0.4 % (0.4-1.5); Oxygen Device NC; Oxygen Saturation ABG 91.1; PO2 ABG 61.4 mmHg (80.0-100.0); PO2 FiO2 Ratio Arterial Blood 139; Total Hemoglobin 14.5 g/dL (12-16)
--- NOTE | 2024-08-06 14:03 | P.HP_ITS ---
Providers/Chief Complaint 2 Admitting Physician: Iesha Vera MD Primary Care Provider: VIOLET Locke Chief Complaint: SOB, back and rib pain History of Present Illness Nicole Carlos is a 58 year old female with a past medical history of COPD, diabetes mellitus, typically on 2 L/min supplemental O2 who is presenting to the hospital today with chief complaints of left-sided chest discomfort. Patient states that she has been experiencing left discomfort for at least the past 1 week. It has been very tender. Taking a deep breath appears to make it worse. She has tenderness on palpation of the left chest wall. Denies any abdominal pain nausea or vomiting. Since yesterday she has also started experiencing increasing dyspnea. She has chronic cough related to her COPD does not think this is worse than before. She was noted to be hypoxic upon admission. ABG showed a PO2 in the 50s on 5 L/min supplemental O2. Eventually she needed to be placed on a heated high flow nasal cannula in the emergency room. At the time of this assessment she is on 50% FiO2 at 55 L/min. CTA of the chest is negative for PE. Possibly noted tree-in-bud opacities which may be union contract representative of pneumonia, however were also seen on CT dated back to April 2024. EKG does not show any acute ST-T wave changes. Baseline and 2-hour troponin are within normal range. Review of Systems 2 General: Reports: 10 or more systems reviewed and unremarkable except in HPI and below Const: Denies: fever(s), chills or body aches Eyes: Denies: change in vision, blurry vision or photophobia ENMT: Reports: hoarseness; Denies: throat pain, enlarged tonsils, odynophagia or nasal congestion Card: Denies: chest pain, palpitations, irregular heart rhythm, edema, swelling of feet/ankles, lightheadedness, pre-syncope, dyspnea on exertion or orthopnea Resp: Denies: dyspnea, productive cough, non-productive cough, wheezing, stridor, pain on inspiration, change in phlegm color, hemoptysis or chest congestion GI: Denies: abdominal pain, nausea, vomiting, hematemesis, coffee ground emesis, dysphagia, heartburn, diarrhea, constipation, GI cramping, change in stool character, hematochezia or melena : Denies: flank pain, difficulty voiding, dysuria, urinary frequency, urinary urgency, urinary hesitancy or hematuria Musc: Denies: neck pain, back pain, extremity pain, joint swelling, joint warmth or deformity Neuro: Denies: headache(s), numbness in extremities, weakness in extremities, sensory changes, difficulty walking, frequent falls, dizziness, vertigo, behavioral changes, Slurred speech present or seizure-like activity Psych: Denies: anxiety, depression, suicidal ideation or homicidal ideation Endo: Denies: polyuria, polydipsia, tired all the time, cold intolerance or hot flashes Kel/Lymph: Denies: easy bruising or easy bleeding Medications/Allergies Home Medications ?Medication ?Instructions ?Recorded ?Confirmed ?Last Taken ?Type aspirin 81 mg tablet,delayed 81 mg PO QAM 01/12/2311/0305/31/24 History release fluticasone propionate 50 1 spray intranasal BID PRN 1 03/16/23 07/17/24 05/28/24 Rx mcg/actuation nasal Allergic Symptoms #9.9 mL spray,suspension (Flonase Allergy Relief) potassium chloride 20 mEq 20 meq PO DAILY 05/05/2411/0305/31/24 History tablet,extended release(part/cryst) Held on 06/03/24. Instructions: see pcp semaglutide 7 mg tablet (Rybelsus) 7 mg PO QAM 90 days #90 tabs 05/15/24 07/17/24 05/31/24 Rx simvastatin 20 mg tablet 20 mg PO QPM 90 days #90 tab s 05/15/24 07/17/24 05/31/24 Rx telmisartan 80 mg tablet 80 mg PO DAILY 90 days #90 t abs 05/15/24 07/17/24 05/31/24 Rx albuterol sulfate 90 mcg/actuation 2 puff inhalation Q 6H PRN 05/19/24 07/17/24 05/31/24 Rx aerosol inhaler Shortness Of Breath #6.7 gra ms magnesium 100 mg tablet 100 mg PO DAILY 06/01/2411/03 1 Day Ago History ~05/31/24 1 tablet pregabalin 150 mg capsule (Lyrica) 150 mg PO BID 30 da ys #60 caps 06/04/24 07/17/24 Unknown Rx amlodipine 10 mg tablet 5 mg (1/2 x 10 mg) PO DAILY 90 06/11/24 07/17/24 Unknown Rx days #90 tabs citalopram 10 mg tablet 10 mg PO QAM 90 days #90 tab s 06/11/24 07/17/24 Unknown Rx empagliflozin 25 mg tablet 25 mg PO QAM 90 days #90 ta bs 06/11/24 07/17/24 Unknown Rx (Jardiance) hydrochlorothiazide 25 mg tablet 25 mg PO DAILY 90 day s #90 tabs 06/11/24 07/17/24 Unknown Rx hydroxyzine HCl 25 mg tablet 25 mg PO QPM PRN Anxiety 90 days 06/11/24 07/17/24 Unknown Rx #90 tabs metoprolol tartrate 50 mg tablet 50 mg PO BID 90 days #180 tabs 06/11/24 07/17/24 Unknown Rx montelukast 10 mg tablet 10 mg PO DAILY #90 tabs 05/0607/17/24 Unknown Rx pantoprazole 40 mg tablet,delayed See Rx Instructions .Route 06/11/24 07/17/24 Unknown Rx release .COMPLEX #180 tabs fluticasone fur. 100 mcg-umeclid 1 inh inhalation QAM #60 ea 06/12/24 07/17/24 Unknown Rx 62.5 mcg-vilant 25 mcg inhalat.powder (Trelegy Ellipta) cephalexin 500 mg capsule 500 mg PO BID 7 days #14 cap s 07/17/24 07/17/24 Unknown Rx baclofen 20 mg tablet See Rx Instructions .Route 0 07/22/24 Unknown Rx .COMPLEX #45 tabs Allergies Allergy/AdvReac Type Severity Reaction Status Date / Time codeine Allergy ALGY-Hives Verified 07/17/24 13:05 PFSH Acute 2 PFSH: Medical History Seasonal allergies Skin cancer of nose s/p excision, non-melanoma History of echocardiogram 08/2019 EF 65% History of PFTs 01/2021 - severe airflow obstruction. There is no significant postbronchodilator response. Lung volumes are consistent with air trapping. Gas exchange (DLCO) is mildly reduced. Mixed anxiety and depressive disorder Diverticulosis Essential hypertension Chronic nausea Neuropathy due to type 2 diabetes mellitus Type 2 diabetes mellitus ELISE (obstructive sleep apnea) bipap with sleep with 4L oxygen Coronary artery disease COPD, very severe Hyperlipidemia Acid reflux Surgical History S/P laparoscopy Hx of removal of ovary History of appendectomy History of esophagogastroduodenoscopy (EGD) (05/2019) History of colonoscopy (05/2019) Family History Father Cancer Lung disease Hypertension Mother Lung disease Grandmother Diabetes Other CAD (coronary artery disease) Denies family history of Stroke Social History Smoking and tobacco/nicotine status: current every day tobacco/nicotine user cigarettes [ Other cigarette details: [id number]+yrs] Second hand smoke exposure: Yes Alcohol intake: never Substance/Drug Use: never Lives independently: Yes Household members: spouse Housing: House Marital status: Current occupational status: disabled Pets and animals: Yes Do you think of yourself as: Straight/Heterosexual Current gender identity: Female Selina/Adventist: Faith Agree to transfusion: Yes Vitals/I&O/Wt Last Vital Signs Temp 98.8 F 08/06/24 09:38 Pulse 111 H 08/06/24 13:41 Resp 20 H 08/06/24 13:41 BP 111/70 08/06/24 10:54 Pulse Ox 91 08/06/24 13:41 O2 Del Method Heated High Flow 08/06/24 13:41 O2 Flow Rate 40 08/06/24 13:41 FiO2 60 08/06/24 13:41 Weight last 48 hrs Weight 67.132 kg Physical Exam 2 Narrative: General: Currently on a heated high flow, tachypneic in conversation with respiratory rate up to 25/min HEENT: PERRLA, pupils bilaterally equal and reactive, pallors not present Chest: Diffuse wheezing to auscultation bilaterally all areas CVS: S1-S2 regular, no murmurs, no tachycardia, no gallops, no rubs Abdomen: Soft, tender to palpation along the left chest wall along the 12th rib and the left upper quadrant. Neuro: No focal deficits, no facial deformity, AO x3, power 5/5 in all limbs Data 08/06/24 10:10 08/06/24 10:10 Micro: Microbiology 08/06/24 10:33 Gram Stain - Final Sputum - Expectorated Sputum 08/06/24 10:43 Blood Culture - Preliminary Blood SPECIMEN COLLECTED 08/06/24 10:10 Blood Culture - Preliminary Blood SPECIMEN COLLECTED A&P Assessment and plan (1) Acute on chronic hypoxic respiratory failure: (2) Pneumonia: (3) Acute exacerbation of chronic obstructive airways disease: (4) Diabetes mellitus: Plan 58-year-old lady with past medical history as above presented to the hospital with chief complaints of worsening shortness of breath and left-sided chest pain. CTA is negative for PE. Shows bilateral scattered tree-in-bud opacities which may be indicative of bronchopneumonia, however these do appear to be present even more chronically dating back to April of this year. Since pneumonia is not excluded, we will go ahead and begin treatment with ceftriaxone 1 g IV every 24 hours and azithromycin 500 mg p.o. daily. Given history of COPD, additionally evaluate for PCP and pulmonary MAC with mycobacterial sputum culture and PJP PCR. Respiratory viral panel negative for COVID flu and RSV Methylprednisolone 40 mg IV every 8 hours duoneb q6h, budesonide q12h Currently on a heated high flow nasal cannula. May need to be placed on BiPAP ventilation if continues to have worsening tachypnea and respiratory distress. ABG reviewed, CO2 at 51.3, likely baseline given normal pH. PO2 of 61.4 with O2 sat of 86.7 on 6 L/min nasal cannula. Maintain supplemental O2 at 90%. Insulin sliding scale for diabetes mellitus Will admit patient to ICU given need for heated high flow and anticipated need of BiPAP ventilation. Patient has diffuse tenderness to palpation over the left lower chest wall and in the right left upper quadrant. Lipase is normal therefore less likely to be acute pancreatitis. Will obtain dedicated imaging of the abdomen to evaluate for any underlying kidney stones which may be potentially contributing. With negative CTA, negative EKG and troponins, likely that this may be musculoskeletal pain. As needed Toradol and as needed Dilaudid added for pain management. DVT prophylaxis: Lovenox 40 mg subcutaneously every 24 hours Full code PDMP PDMP Reviewed: Not Reviewed Attestations 2 Medical Necessity Statement*: Greater than 2 midnight admission is anticipated Coding Level of Care Code Acute Code for Chg Fwd High MDM includes number and complexity of problems actively addressed during encounter, amount and/or complexity of data reviewed/ordered and described risk of complication, morbidity or mortality of management as documented Diagnoses Acute on chronic hypoxic respiratory failure J96.21 Pneumonia J18.9 Acute exacerbation of chronic obstructive airways disease J44.1 Diabetes mellitus E11.9
[2024-08-06] MEDS: piperacillin-tazobactam 4.5 GM in sodium chloride 0.9% (plus) 50 ML IV (14:05)
[2024-08-06] MEDS: enoxaparin 40 mg/0.4 mL Syringe SUBCUT (14:30)
[2024-08-06 14:35] LABS: Lactic Sepsis W/Reflex 1.7 mmol/L (0.5-2.2)
--- NOTE | 2024-08-06 14:35 | CT_ITS ---
WS: [id number] CT ABDOMEN AND PELVIS NONCONTRAST HISTORY: intractable pain LUQ TECHNIQUE: Imaging performed through the abdomen and pelvis. Coronal and sagittal reformats are submitted. All CT scans at [facility] use at least one of these dose optimization techniques: automated exposure control; mA and/or kV adjustment per patient size (includes targeted exams where dose is matched to clinical indication); or iterative reconstruction. DLP: 523.25 mGy.cm COMPARISON: 09/07/2019 Lower thorax: Tree-in-bud airspace disease at the lung bases was identified and described on the recent chest CTA. Heart is normal. Small hiatal hernia. Liver: Hepatic steatosis. Gallbladder: Normal gallbladder. No pericholecystic fluid or cholelithiasis. No gallbladder wall thickening. Pancreas: Normal size and attenuation. Normal pancreatic duct. No pancreatitis or mass. Spleen: Normal. Adrenal glands: Normal. No mass. Right kidney: Normal size kidney with no mass or hydronephrosis. Left kidney: Normal size kidney with no mass or hydronephrosis. Aorta: Moderate to severe atherosclerosis abdominal aorta. No aneurysm. Atherosclerosis continues into the common iliac arteries. No free fluid, intraperitoneal air or significant lymphadenopathy. GI tract: Stomach is not dilated. There is a focal air collection in the central abdomen which appears to be a large diverticulum associated with the small bowel. This air-filled collection measures 6.1 x 4.1 cm. The adjacent small bowel is slightly tethered. There is no obstruction. Several diverticula of the descending and sigmoid colon. No evidence for acute diverticulitis. Abdominal wall: Negative. No hernia. Pelvis: Urinary bladder is well distended. No free fluid. Osseous structures: Unremarkable. CT/CT abdomen pelvis wo con [id number] IMPRESSION: 1. There is a large air-filled collection in the central abdomen which is like ly a small bowel large diverticulum. There is slight tethering of small bowel l oops at the same location centrally. There is no obstruction. Consider further evaluation following oral contrast to evaluate for any possible stricture or ne oplasm. 2. No ascites or adenopathy. 3. Moderate atherosclerosis aorta. 4. Mild colonic reticulosis. No acute diverticulitis.
[2024-08-06 17:07] LABS: Glucose Point of Care 291 mg/dL (70-110)
[2024-08-06] MEDS: methylPREDNISolone sod succ 40 mg/mL INJ IVP (17:14)
[2024-08-06] MEDS: insulin lispro 100 unit/1 mL SUBCUT ×2 (17:14→20:35)
[2024-08-06 19:41] LABS: Troponin 5 6HR < 6.0 ng/L (0-10)
[2024-08-06 19:46] LABS: Troponin 5 6HR Delta -1.00001 ng/L (0-12)
[2024-08-06] MEDS: budesonide 0.5 mg/2 mL Neb INHALATION (19:55)
[2024-08-06] MEDS: cefTRIAXone 1,000 mg SDV 1000 MG IVP (21:00)
[2024-08-06 21:20] LABS: MRSA PCR OZH (swab) NOT DETECTED (Not Detecte)
[2024-08-07] VITALS (28 sets, daily range): BP systolic 95–142; BP diastolic 54–96; PULSE 64–98; RESP 12–27; TEMP 36.1–36.6; O2SAT 90–99
[2024-08-07] MEDS: ipratropium-albuterol 3 mL Neb INHALATION ×4 (02:05→21:19)
[2024-08-07] MEDS: methylPREDNISolone sod succ 40 mg/mL INJ IVP ×3 (02:30→17:37)
[2024-08-07 03:10] LABS: Basophils % 0.1 %; Hematocrit 42.5 % (36-47); Lymphocytes # 0.9 10^3/uL (0.8-4.8); Lymphocytes % 8.3 %; Mean Corpuscular HGB Conc 31.1 g/dL (30-55); Mean Corpuscular Hemoglobin 28.3 pg (27-33); Mean Platelet Volume 10.8 fL (7.4-10.4); Monocytes # 0.2 10^3/uL (0.2-0.9); Monocytes % 2.2 %; Neutrophils # 9.59 10^3/uL (1.8-7.7); Nucleated Red Blood Cells % 0 %; Platelet Count 155 10^3/cmm (157-399); Red Blood Count 4.67 10^6/uL (3.85-5.65); Red Cell Distribution Width 16.2 % (12.1-15.1); White Blood Count 10.77 10^3/uL (3.29-11.43)
[2024-08-07 03:27] LABS: Alanine Aminotransferase 7 U/L (0-33); Albumin Level 3.2 g/dL (3.5-5.2); Alkaline Phosphatase 104 U/L (35-105); Aspartate Amino Transferase 9 U/L (0-32); Blood Urea Nitrogen 24 mg/dL (6-20); Calcium 8.6 mg/dL (8.5-10.5); Carbon Dioxide 29 mmol/L (22-29); Chloride 102 mmol/L (98-107); Creatinine Clr Calc Pharmacy 44.4037; Globulin 3.6 g/dL (1.3-4.6); Glomerular Filtration Rate 46.3 mL/min (90-130); Glucose 252 mg/dL (65-115); Osmolality Calculated 309 mOsm/kg (285-295); Sodium 143 mmol/L (136-145); Total Bilirubin 0.3 mg/dL (0.15-1.2); Total Protein 6.8 g/dL (6.6-8.7)
[2024-08-07 04:04] LABS: Slide Review Slide Review Perform
[2024-08-07 07:58] LABS: Glucose Point of Care 215 mg/dL (70-110)
[2024-08-07 07:58] LABS: Glucose Point of Care 430 mg/dL (70-110)
[2024-08-07] MEDS: budesonide 0.5 mg/2 mL Neb INHALATION ×2 (08:18→21:19)
[2024-08-07] MEDS: insulin lispro 100 unit/1 mL SUBCUT ×4 (08:48→21:32)
[2024-08-07] MEDS: pantoprazole DR 40 mg Tablet PO (08:49)
[2024-08-07] MEDS: azithromycin 250 mg Tablet 500 MG PO (08:49)
[2024-08-07 11:15] LABS: Glucose Point of Care 285 mg/dL (70-110)
--- NOTE | 2024-08-07 12:50 | PM.CONSULT ---
Providers/Reason For Consult Consulting Physician/Specialty*: General Surgery Reason for Consult*: CT findings of possible diverticulum Attending Physician: Iesha Vera MD Primary Care Provider: VIOLET Locke History of Present Illness History of Present Illness Nicole Carlos is a 58 year old female Admitted with COPD that has been complaining of left flank pain and she got a CT scan of the abdomen pelvis for evaluation of this and incidentally it was read as having large diverticulum of the small bowel with some tethering of the small bowel at that level. I was consulted for this finding. Patient is currently asymptomatic no abdominal pain only pain is on the left side chest wall/flank. Not constipated having regular bowel function. Review of Systems General: Reports: 10 or more systems reviewed and unremarkable except in HPI and below Medications/Allergies Home Medications ?Medication ?Instructions ?Recorded ?Confirmed ?Last Taken ?Type aspirin 81 mg tablet,delayed 81 mg PO QAM 01/12/23 08/07/24 08/06/24 History release fluticasone propionate 50 1 spray intranasal BID PRN 01/15/24 08/07/24 05/28/24 Rx mcg/actuation nasal Allergic Symptoms #9.9 mL spray,suspension (Flonase Allergy Relief) potassium chloride 20 mEq 20 meq PO DAILY 05/05/24 08/07/24 08/05/24 History tablet,extended release(part/cryst) Held on 06/03/24. Instructions: see pcp semaglutide 7 mg tablet (Rybelsus) 7 mg PO QAM 90 days #90 tabs 05/15/24 08/07/24 08/05/24 Rx simvastatin 20 mg tablet 20 mg PO QPM 90 days #90 tabs 05/15/24 08/07/24 08/05/24 Rx telmisartan 80 mg tablet 80 mg PO DAILY 90 days #90 tabs 05/15/24 08/07/24 08/05/24 Rx albuterol sulfate 90 mcg/actuation 2 puff inhalation Q6H PRN 05/19/24 08/07/24 05/31/24 Rx aerosol inhaler Shortness Of Breath #6.7 grams pregabalin 150 mg capsule (Lyrica) 150 mg PO BID 30 days #60 caps 06/04/24 08/07/24 08/05/24 Rx amlodipine 10 mg tablet 5 mg (1/2 x 10 mg) PO DAILY 90 06/11/24 08/07/24 08/05/24 Rx days #90 tabs citalopram 10 mg tablet 10 mg PO QAM 90 days #90 tabs 06/11/24 08/07/24 08/05/24 Rx empagliflozin 25 mg tablet 25 mg PO QAM 90 days #90 tabs 06/11/24 08/07/24 08/06/24 Rx (Jardiance) hydrochlorothiazide 25 mg tablet 25 mg PO DAILY 90 days #90 tabs 06/11/24 08/07/24 08/05/24 Rx hydroxyzine HCl 25 mg tablet 25 mg PO QPM PRN Anxiety 90 days 06/11/24 08/07/24 Unknown Rx #90 tabs metoprolol tartrate 50 mg tablet 50 mg PO BID 90 days #180 tabs 06/11/24 08/07/24 08/05/24 Rx montelukast 10 mg tablet 10 mg PO DAILY #90 tabs 06/11/24 08/07/24 08/05/24 Rx fluticasone fur. 100 mcg-umeclid 1 inh inhalation QAM #60 ea 06/12/24 08/07/24 08/05/24 Rx 62.5 mcg-vilant 25 mcg inhalat.powder (Trelegy Ellipta) baclofen 20 mg tablet 20 mg PO BID PRN Muscle Spasm 08/07/24 08/07/24 08/05/24 History magnesium 200 mg tablet 200 mg PO DAILY 08/07/24 08/07/24 08/05/24 History pantoprazole 40 mg tablet,delayed 40 mg PO BID 08/07/24 08/07/24 08/05/24 History release Allergies Allergy/AdvReac Type Severity Reaction Status Date / Time codeine Allergy ALGY-Hives Verified 07/17/24 13:05 Current Medications Generic Name Dose Route Start Last Admin Trade Name Olivia PRN Reason Stop Dose Admin Albuterol/Ipratropium 3 ml 08/06/24 14:00 08/07/24 08:18 Ipratropium-Albuterol 3 Ml Neb INHALATION 3 ml Q6H SAHRA Administration Azithromycin 500 mg 08/07/24 09:00 08/07/24 08:49 Azithromycin 250 Mg Tablet PO 500 mg DAILY SAHRA Administration Protocol Budesonide 0.5 mg 08/06/24 20:00 08/07/24 08:18 Budesonide 0.5 Mg/2 Ml Neb INHALATION 0.5 mg BID.RESPIRATORY SAHRA Administration Ceftriaxone Sodium 1,000 mg 08/06/24 22:00 08/06/24 21:00 Ceftriaxone 1,000 Mg Sdv IVP 1,000 mg Q24H SAHRA Administration Protocol Enoxaparin Sodium 40 mg 08/06/24 14:00 08/06/24 14:30 Enoxaparin 40 Mg/0.4 Ml Syringe SUBCUT 40 mg Q24H SAHRA Administration Insulin Human Lispro 0 unit 08/06/24 18:00 08/07/24 11:32 Insulin Lispro 100 Unit/1 Ml SUBCUT 10 unit WM&BEDTIME SAHRA Administration Protocol Methylprednisolone Sodium Succinate 40 mg 08/06/24 18:00 08/07/24 08:56 Methylprednisolone Sod Succ 40 Mg/Ml Inj IVP 40 mg Q8H SAHRA Administration Pantoprazole Sodium 40 mg 08/07/24 09:00 08/07/24 08:[address] 40 Mg Tablet PO 40 mg DAILY SAHRA Administration PFSH Acute PFSH: Medical History Seasonal allergies Skin cancer of nose s/p excision, non-melanoma History of echocardiogram 08/2019 EF 65% History of PFTs 01/2021 - severe airflow obstruction. There is no significant postbronchodilator response. Lung volumes are consistent with air trapping. Gas exchange (DLCO) is mildly reduced. Mixed anxiety and depressive disorder Diverticulosis Essential hypertension Chronic nausea Neuropathy due to type 2 diabetes mellitus Type 2 diabetes mellitus ELISE (obstructive sleep apnea) bipap with sleep with 4L oxygen Coronary artery disease COPD, very severe Hyperlipidemia Acid reflux Surgical History S/P laparoscopy Hx of removal of ovary History of appendectomy History of esophagogastroduodenoscopy (EGD) (05/2019) History of colonoscopy (05/2019) Family History Father Cancer Lung disease Hypertension Mother Lung disease Grandmother Diabetes Other CAD (coronary artery disease) Denies family history of Stroke Social History (Reviewed 08/06/24 @ 16:45 by BENTLEY Block Smoking and tobacco/nicotine status: current every day tobacco/nicotine user cigarettes [ Other cigarette details: [id number]] Second hand smoke exposure: Yes Alcohol intake: never Substance/Drug Use: never Lives independently: Yes Household members: spouse Housing: House Marital status: Current occupational status: disabled Pets and animals: Yes Do you think of yourself as: Straight/Heterosexual Current gender identity: Female Selina/Zoroastrianism: [employer] Agree to transfusion: Yes Vitals/I&O/Wt Last Vital Signs Temp 97 F L 08/07/24 04:00 Pulse 75 08/07/24 12:00 Resp 18 08/07/24 11:28 BP 126/77 08/07/24 12:00 Pulse Ox 90 08/07/24 12:00 O2 Del Method High Flow Nasal Cannula 08/07/24 08:18 O2 Flow Rate 50 08/07/24 11:28 FiO2 50 08/07/24 11:28 08/06/24 08/07/24 08/07/24 22:59 06:59 14:59 Intake Total 1740 / 1740 100 / 1840 200 / 200 Output Total 400 / 400 Balance 1340 / 1340 100 / 1440 200 / 200 Weight last 48 hrs Weight 151 lb 3.2 oz Weight 149 lb 4 oz Weight 148 lb Physical Exam GI: OTHER: The abdomen soft nontender nondistended. Data 08/07/24 02:46 08/07/24 02:46 Micro: Microbiology 08/06/24 10:43 Blood Culture - Preliminary Blood NEGATIVE TO DATE 08/06/24 10:10 Blood Culture - Preliminary Blood NEGATIVE TO DATE 08/06/24 10:33 Gram Stain - Final Sputum - Expectorated Sputum A&P Assessment and plan (1) Mobile cecum: Plan After complete history physical examination and review of all available clinical data the following is my assessment. I did my independent review of imaging and I do not think this finding actually represents a true diverticulum of the small bowel. He does appear to me that the imaging finding most likely represents a mobile cecum that has deflected at worst towards the mid abdomen, there is no evidence of fat stranding or any other concerning features the patient is not constipated and having normal bowel function. I recommend that she gets a colonoscopy as outpatient she can follow-up in my clinic for this. No other surgical intervention is indicated. PDMP PDMP Reviewed: Not Reviewed Coding Level of Care Code Acute Code for Chg Fwd Diagnoses Mobile cecum Q43.3
[2024-08-07] MEDS: enoxaparin 40 mg/0.4 mL Syringe SUBCUT (13:48)
[2024-08-07 17:24] LABS: Glucose Point of Care 197 mg/dL (70-110)
--- NOTE | 2024-08-07 18:33 | P.PN_ITS ---
Subjective 2 Subjective: Continues to be on a heated high flow this morning. Diffuse wheezing to auscultation still present. Vitals/I&O/Wt Last Vital Signs Temp 97 F L 08/07/24 04:00 Pulse 81 08/07/24 16:00 Resp 20 H 08/07/24 16:00 BP 132/88 08/07/24 16:00 Pulse Ox 98 08/07/24 16:00 O2 Del Method High Flow Nasal Cannula 08/07/24 13:29 O2 Flow Rate 50 08/07/24 13:40 FiO2 50 08/07/24 13:40 08/07/24 08/07/24 08/07/24 06:59 14:59 22:59 Intake Total 100 / 1840 400 / 400 Balance 100 / 1440 400 / 400 Weight last 48 hrs Weight 68.583 kg Weight 67.699 kg Weight 67.132 kg Physical Exam 2 Narrative: General: Currently on a heated high flow, tachypneic in conversation with respiratory rate up to 25/min HEENT: PERRLA, pupils bilaterally equal and reactive, pallors not present Chest: Diffuse wheezing to auscultation bilaterally all areas CVS: S1-S2 regular, no murmurs, no tachycardia, no gallops, no rubs Abdomen: Soft, tender to palpation along the left chest wall along the 12th rib and the left upper quadrant. Neuro: No focal deficits, no facial deformity, AO x3, power 5/5 in all limbs Data 08/07/24 02:46 08/07/24 02:46 Micro: Microbiology 08/06/24 10:33 Gram Stain - Final Sputum - Expectorated Sputum Sputum Culture - Preliminary 08/06/24 10:43 Blood Culture - Preliminary Blood NEGATIVE TO DATE 08/06/24 10:10 Blood Culture - Preliminary Blood NEGATIVE TO DATE A&P Assessment and plan (1) Acute on chronic hypoxic respiratory failure: (2) Pneumonia: (3) Acute exacerbation of chronic obstructive airways disease: (4) Diabetes mellitus: Plan 58-year-old lady with past medical history as above presented to the hospital with chief complaints of worsening shortness of breath and left-sided chest pain. CTA is negative for PE. Shows bilateral scattered tree-in-bud opacities which may be indicative of bronchopneumonia, however these do appear to be present even more chronically dating back to April of this year. Since pneumonia is not excluded, we will go ahead and begin treatment with ceftriaxone 1 g IV every 24 hours and azithromycin 500 mg p.o. daily. Given history of COPD, additionally evaluate for PCP and pulmonary MAC with mycobacterial sputum culture and PJP PCR. Respiratory viral panel negative for COVID flu and RSV Methylprednisolone 40 mg IV every 8 hours duoneb q6h, budesonide q12h Currently on a heated high flow nasal cannula. May need to be placed on BiPAP ventilation if continues to have worsening tachypnea and respiratory distress. ABG reviewed, CO2 at 51.3, likely baseline given normal pH. PO2 of 61.4 with O2 sat of 86.7 on 6 L/min nasal cannula. Maintain supplemental O2 at 90%. Insulin sliding scale for diabetes mellitus Will admit patient to ICU given need for heated high flow and anticipated need of BiPAP ventilation. Patient has diffuse tenderness to palpation over the left lower chest wall and in the right left upper quadrant. Lipase is normal therefore less likely to be acute pancreatitis. Will obtain dedicated imaging of the abdomen to evaluate for any underlying kidney stones which may be potentially contributing. With negative CTA, negative EKG and troponins, likely that this may be musculoskeletal pain. As needed Toradol and as needed Dilaudid added for pain management. DVT prophylaxis: Lovenox 40 mg subcutaneously every 24 hours Full code August 07, 2024 Continues to have significant wheezing to auscultation bilaterally. Increase steroids to methylprednisolone 60 mg IV every 8 hours. Sputum culture is currently awaited. MRSA DNA not detected. Continue ceftriaxone and azithromycin. Creatinine stable at 1.2. Abdomen and pelvis CT showed a large air-filled collection in the central abdomen likely a small bowel large diverticulum. There are no signs of obstruction. General surgery consulted, uncertain of the clinical relevance of these findings however patient does have some tenderness in the left lateral chest which is of uncertain etiology. PDMP PDMP Reviewed: Not Reviewed Attestations 2 Medical Necessity Statement*: Continued admission for COPD exacerbation, currently on heated nasal cannula, on BiPAP overnight. Needs continued respiratory support. Coding Level of Care Code Acute Code for Chg Fwd High MDM includes number and complexity of problems actively addressed during encounter, amount and/or complexity of data reviewed/ordered and described risk of complication, morbidity or mortality of management as documented Diagnoses Acute on chronic hypoxic respiratory failure J96.21 Pneumonia J18.9 Acute exacerbation of chronic obstructive airways disease J44.1 Diabetes mellitus E11.9
[2024-08-07] MEDS: acetaminophen 325 mg Tablet 650 MG PO (19:21)
[2024-08-07 21:06] LABS: Glucose Point of Care 196 mg/dL (70-110)
[2024-08-07] MEDS: cefTRIAXone 1,000 mg SDV 1000 MG IVP (21:32)
[2024-08-08] VITALS (32 sets, daily range): BP systolic 117–176; BP diastolic 62–99; PULSE 66–107; RESP 10–24; TEMP 36.6–36.9; O2SAT 91–98
[2024-08-08] MEDS: methylPREDNISolone sod succ 125 mg/2 mL INJ 60 MG IVP ×3 (01:50→17:43)
[2024-08-08] MEDS: ipratropium-albuterol 3 mL Neb INHALATION ×4 (02:38→20:06)
[2024-08-08] MEDS: budesonide 0.5 mg/2 mL Neb INHALATION ×2 (07:41→20:06)
[2024-08-08 07:47] LABS: Glucose Point of Care 251 mg/dL (70-110)
[2024-08-08] MEDS: azithromycin 250 mg Tablet 500 MG PO (08:43)
[2024-08-08] MEDS: insulin lispro 100 unit/1 mL SUBCUT ×4 (08:43→22:20)
[2024-08-08] MEDS: pantoprazole DR 40 mg Tablet PO ×2 (08:44→17:43)
[2024-08-08 11:08] LABS: Glucose Point of Care 365 mg/dL (70-110)
[2024-08-08] MEDS: enoxaparin 40 mg/0.4 mL Syringe SUBCUT (14:03)
--- NOTE | 2024-08-08 15:56 | PC.SOCIAL ---
IMM updated IMM dated and initialed copy given to patient and Copy placed in chart.
--- NOTE | 2024-08-08 16:20 | P.PN_ITS ---
Subjective 2 Subjective: Oxygen requirements are improving today to high flow nasal cannula at 6 L/min. Patient is less tachypneic. Medications: Reviewed: Yes Vitals/I&O/Wt Last Vital Signs Temp 98.1 F 08/08/24 04:00 Pulse 79 08/08/24 15:00 Resp 21 H 08/08/24 15:00 BP 140/78 08/08/24 15:00 Pulse Ox 91 08/08/24 15:00 O2 Del Method High Flow Nasal Cannula 08/08/24 14:38 O2 Flow Rate 4 08/08/24 14:38 FiO2 40 08/08/24 02:40 08/08/24 08/08/24 08/08/24 06:59 14:59 22:59 Intake Total 250 / 850 500 / 500 Output Total 400 / 800 250 / 250 Balance -150 / 50 250 / 250 Weight last 48 hrs Weight 68.946 kg Weight 68.583 kg Weight 67.699 kg Physical Exam 2 Narrative: General: Currently on a heated high flow, tachypneic in conversation with respiratory rate up to 25/min HEENT: PERRLA, pupils bilaterally equal and reactive, pallors not present Chest: Diffuse wheezing to auscultation bilaterally all areas CVS: S1-S2 regular, no murmurs, no tachycardia, no gallops, no rubs Abdomen: Soft, tender to palpation along the left chest wall along the 12th rib and the left upper quadrant. Neuro: No focal deficits, no facial deformity, AO x3, power 5/5 in all limbs Data 08/07/24 02:46 08/07/24 02:46 Micro: Microbiology 08/06/24 10:33 Gram Stain - Final Sputum - Expectorated Sputum Sputum Culture - Final A&P Assessment and plan (1) Acute on chronic hypoxic respiratory failure: (2) Pneumonia: (3) Acute exacerbation of chronic obstructive airways disease: (4) Diabetes mellitus: Plan 58-year-old lady with past medical history as above presented to the hospital with chief complaints of worsening shortness of breath and left-sided chest pain. CTA is negative for PE. Shows bilateral scattered tree-in-bud opacities which may be indicative of bronchopneumonia, however these do appear to be present even more chronically dating back to April of this year. Since pneumonia is not excluded, we will go ahead and begin treatment with ceftriaxone 1 g IV every 24 hours and azithromycin 500 mg p.o. daily. Given history of COPD, additionally evaluate for PCP and pulmonary MAC with mycobacterial sputum culture and PJP PCR. Respiratory viral panel negative for COVID flu and RSV Methylprednisolone 40 mg IV every 8 hours duoneb q6h, budesonide q12h Currently on a heated high flow nasal cannula. May need to be placed on BiPAP ventilation if continues to have worsening tachypnea and respiratory distress. ABG reviewed, CO2 at 51.3, likely baseline given normal pH. PO2 of 61.4 with O2 sat of 86.7 on 6 L/min nasal cannula. Maintain supplemental O2 at 90%. Insulin sliding scale for diabetes mellitus Will admit patient to ICU given need for heated high flow and anticipated need of BiPAP ventilation. Patient has diffuse tenderness to palpation over the left lower chest wall and in the right left upper quadrant. Lipase is normal therefore less likely to be acute pancreatitis. Will obtain dedicated imaging of the abdomen to evaluate for any underlying kidney stones which may be potentially contributing. With negative CTA, negative EKG and troponins, likely that this may be musculoskeletal pain. As needed Toradol and as needed Dilaudid added for pain management. DVT prophylaxis: Lovenox 40 mg subcutaneously every 24 hours Full code August 07, 2024 Continues to have significant wheezing to auscultation bilaterally. Increase steroids to methylprednisolone 60 mg IV every 8 hours. Sputum culture is currently awaited. MRSA DNA not detected. Continue ceftriaxone and azithromycin. Creatinine stable at 1.2. Abdomen and pelvis CT showed a large air-filled collection in the central abdomen likely a small bowel large diverticulum. There are no signs of obstruction. General surgery consulted, uncertain of the clinical relevance of these findings however patient does have some tenderness in the left lateral chest which is of uncertain etiology. 08/08/2024 Continues to have extensive wheezing bilaterally, however improved compared to yesterday. Weaned down to 6 L/min high flow nasal cannula from heated high flow yesterday. Patient has an oxygen concentrator at home with maximum capacity at 5 L/min. Continue methylprednisolone 60 mg IV every 8 hours. Continue scheduled nebulization with DuoNeb and budesonide. Add Xopenex for breakthrough wheezing. Resume home medications including metoprolol, pregabalin PDMP PDMP Reviewed: Not Reviewed Attestations 2 Medical Necessity Statement*: transfer out of ICU, iv steroids, scheduled nebs, slowly improving today Coding Level of Care Code Acute Code for Chg Fwd Diagnoses Acute on chronic hypoxic respiratory failure J96.21 Pneumonia J18.9 Acute exacerbation of chronic obstructive airways disease J44.1 Diabetes mellitus E11.9
[2024-08-08 16:53] LABS: Glucose Point of Care 298 mg/dL (70-110)
[2024-08-08] MEDS: ATORVASTATIN 10 MG TABLET PO (17:42)
[2024-08-08] MEDS: pregabalin 150 mg Capsule PO (17:43)
[2024-08-08] MEDS: metoprolol tartrate 50 mg Tablet PO (17:43)
[2024-08-08 22:13] LABS: Glucose Point of Care 376 mg/dL (70-110)
[2024-08-08] MEDS: cefTRIAXone 1,000 mg SDV 1000 MG IVP (22:20)
[2024-08-09] VITALS (10 sets, daily range): BP systolic 140–155; BP diastolic 72–89; PULSE 64–86; RESP 13–18; TEMP 36.1; O2SAT 93–98
[2024-08-09] MEDS: methylPREDNISolone sod succ 125 mg/2 mL INJ 60 MG IVP ×2 (01:17→08:30)
[2024-08-09] MEDS: ipratropium-albuterol 3 mL Neb INHALATION ×2 (01:29→07:39)
[2024-08-09 04:21] LABS: Basophils % 0.2 %; Lymphocytes # 0.9 10^3/uL (0.8-4.8); Lymphocytes % 9.1 %; Mean Corpuscular HGB Conc 30.7 g/dL (30-55); Mean Corpuscular Hemoglobin 28.1 pg (27-33); Mean Corpuscular Volume 91.5 fl (85-98); Mean Platelet Volume 10.9 fL (7.4-10.4); Monocytes # 0.4 10^3/uL (0.2-0.9); Monocytes % 3.6 %; Neutrophils # 8.86 10^3/uL (1.8-7.7); Nucleated Red Blood Cells % 0 %; Platelet Count 167 10^3/cmm (157-399); Red Blood Count 4.48 10^6/uL (3.85-5.65); Red Cell Distribution Width 16.2 % (12.1-15.1)
[2024-08-09 04:51] LABS: Alanine Aminotransferase 6 U/L (0-33); Albumin Level 3.2 g/dL (3.5-5.2); Alkaline Phosphatase 91 U/L (35-105); Anion Gap 11.5 (5-19); Aspartate Amino Transferase 6 U/L (0-32); Blood Urea Nitrogen 28 mg/dL (6-20); Calcium 9.1 mg/dL (8.5-10.5); Carbon Dioxide 31 mmol/L (22-29); Chloride 103 mmol/L (98-107); Creatinine Clr Calc Pharmacy 76.8189; Globulin 3.2 g/dL (1.3-4.6); Glomerular Filtration Rate 86.2 mL/min (90-130); Glucose 167 mg/dL (65-115); Osmolality Calculated 303 mOsm/kg (285-295); Potassium 3.5 mmol/L (3.5-5.1); Sodium 142 mmol/L (136-145); Total Bilirubin 0.2 mg/dL (0.15-1.2); Total Protein 6.4 g/dL (6.6-8.7)
[2024-08-09] MEDS: aspirin 81 mg EC Tablet PO (05:21)
[2024-08-09] MEDS: citalopram 20 mg Tablet 10 MG PO (05:21)
[2024-08-09] MEDS: budesonide 0.5 mg/2 mL Neb INHALATION (07:39)
[2024-08-09 07:53] LABS: Glucose Point of Care 204 mg/dL (70-110)
[2024-08-09] MEDS: insulin lispro 100 unit/1 mL SUBCUT (08:29)
[2024-08-09] MEDS: pantoprazole DR 40 mg Tablet PO (08:30)
[2024-08-09] MEDS: azithromycin 250 mg Tablet 500 MG PO (08:30)
[2024-08-09] MEDS: metoprolol tartrate 50 mg Tablet PO (08:30)
[2024-08-09] MEDS: hydroCHLOROthiazide 25 mg Tablet PO (08:30)
[2024-08-09] MEDS: pregabalin 150 mg Capsule PO (08:30)
--- NOTE | 2024-08-09 10:05 | PC.NURSE ---
AO x4, appropriate and follows commands. all d/c instructions educated to patient, iv removed. patient drove her self to hospital and is to drive herself home, take to vehicle by wc got into vehicle independently
--- NOTE | 2024-08-09 10:35 | PM.DCS ---
Discharge Providers Date of Admission: 08/06/24 15:28 Date of Discharge: August 10, 2024 Attending Provider at Admission: Iesha Vera MD Attending Provider at Discharge: Iesha Vera MD Primary Care Provider: VIOLET Locke Diagnoses at Discharge Discharge Diagnosis (1) Acute on chronic hypoxic respiratory failure: Status: Acute (2) Pneumonia: Status: Acute (3) Acute exacerbation of chronic obstructive airways disease: Status: Inactive (4) Diabetes mellitus: Status: Acute Reason for Visit Reason for Visit: SOB, back and rib pain Hospital Course Hospital Course Nicole Carlos is a 58 year old female with a past medical history of COPD, diabetes mellitus, typically on 2 L/min supplemental O2 who is presenting to the hospital with chief complaints of left-sided chest discomfort. Patient states that she has been experiencing left discomfort for at least the past 1 week. It has been very tender. Taking a deep breath appears to make it worse.She was noted to be hypoxic upon admission. ABG showed a PO2 in the 50s on 5 L/min supplemental O2. Eventually she needed to be placed on a heated high flow nasal cannula in the emergency room. CTA of the chest is negative for PE. 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 She was admitted in view of acute on chronic hypoxemic respiratory failure related to COPD exacerbation, need for heated high flow and BiPAP ventilation upon admission. She was treated with high-dose IV steroids, scheduled nebulization with DuoNeb, budesonide and as needed albuterol additionally. She was given cough suppressants due to suspected musculoskeletal nature of her left-sided pain. Much improved by the time of discharge. CTA of the chest was negative for PE. Troponin series and EKG did not show any signs of ACS. CT of the abdomen and pelvis was performed to evaluate further for this pain, it showed a dilated bowel loop which was suspected to be either a diverticula from small intestine versus a mobile cecum. Since patient did not have any reported altered bowel habits, nausea vomiting or other abdominal symptoms most likely this was an incidental finding. Surgical evaluation was sought, she was recommended to follow-up as an outpatient once recovered for routine colonoscopy. Levofloxacin and steroid taper was added at discharge. Today patient is back at her baseline oxygen requirement of 2 L/min and feels back to baseline. She is eager to be discharged home. Wheezing is nearly resolved. Physical Exam Narrative: General: No acute distress, AO x3 HEENT: PERRLA, pupils bilaterally equal and reactive, pallors not present Chest: Normal vesicular breath sounds, no added sounds, equal good air entry bilaterally CVS: S1-S2 regular, no murmurs, no tachycardia, no gallops, no rubs Abdomen: Soft, nontender, no organomegaly, bowel sounds present Neuro: No focal deficits, no facial deformity, AO x3, power 5/5 in all limbs Discharge Data Studies Completed and Pending Completed Studies During Hospitalization Category Date Time Status CT abdomen pelvis wo con [id number] Routine Cat Scan 08/06/24 14:35 Completed CTA PE [CT angio chest PE protcl [id number]] Stat Cat Scan 08/06/24 11:22 Completed XR chest 1V portable [id number] Stat Exams 08/06/24 10:23 Completed Pending at discharge Category Date Time Status Bacterial Antigen Routine Lab 08/06/24 14:16 Ordered Blood Culture Stat Lab 08/06/24 10:43 Results Legionella Antigen STAT Routine Lab 08/06/24 14:16 Ordered Mycobacteria, Culture w/Fluor Routine Lab 08/06/24 14:16 Received PJP PCR [Pneumocystis jirovecii, QT PCR] Stat Lab 08/07/24 19:05 Received Pneumocystis jiroveci Qual PCR Routine Lab 08/06/24 14:02 Received Radiology Impressions Chest X-Ray 08/06/24 10:23 Impression: 1. Atherosclerosis and hyperinflation. 2. Minimal interstitial markings seen throughout both lungs. Chest CTA 08/06/24 11:22 IMPRESSION: 1. No pulmonary embolism. 2. Extensive bilateral tree-in-bud airspace disease and reticular nodular opacifications which have progressed since 05/05/2024 along with reactive lymphadenopathy. Most likely endobronchial pneumonia. Recommend follow-up CT evaluation after appropriate treatment. Abdomen/Pelvis CT 08/06/24 14:35 IMPRESSION: 1. There is a large air-filled collection in the central abdomen which is likely a small bowel large diverticulum. There is slight tethering of small bowel loops at the same location centrally. There is no obstruction. Consider further evaluation following oral contrast to evaluate for any possible stricture or neoplasm. 2. No ascites or adenopathy. 3. Moderate atherosclerosis aorta. 4. Mild colonic reticulosis. No acute diverticulitis. Laboratory Results WBC 10.30 10^3/uL (3.29-11.43) 08/09/24 03:59 RBC 4.48 10^6/uL (3.85-5.65) 08/09/24 03:59 Hgb 12.60 g/dL (11.27-16.99) 08/09/24 03:59 Hct 41.0 % (36-47) 08/09/24 03:59 MCV 91.5 fl (85-98) 08/09/24 03:59 MCH 28.1 pg (27-33) 08/09/24 03:59 MCHC 30.7 g/dL (30-55) 08/09/24 03:59 RDW 16.2 % (12.1-15.1) H 08/09/24 03:59 Plt Count 167 10^3/cmm (157-399) 08/09/24 03:59 MPV 10.9 fL (7.4-10.4) H 08/09/24 03:59 Neut % (Auto) 86.0 % 08/09/24 03:59 Lymph % (Auto) 9.1 % 08/09/24 03:59 Bladen % (Auto) 3.6 % 08/09/24 03:59 Eos % (Auto) 0.0 % 08/09/24 03:59 Baso % (Auto) 0.2 % 08/09/24 03:59 Neut # (Auto) 8.86 10^3/uL (1.8-7.7) H 08/09/24 03:59 Lymph # (Auto) 0.9 10^3/uL (0.8-4.8) 08/09/24 03:59 Bladen # (Auto) 0.4 10^3/uL (0.2-0.9) 08/09/24 03:59 Eos # (Auto) 0.0 10^3/uL (0.0-0.8) 08/09/24 03:59 Baso # (Auto) 0.0 10^3/uL (0.0-0.1) 08/09/24 03:59 Nucleated RBC % (auto) 0 % 08/09/24 03:59 Nucleated RBCs # 0.0 /100WBC 08/09/24 03:59 PT 15.00 SECONDS (12.1-14.9) H 08/06/24 10:10 INR 1.10 (0.8-1.2) 08/06/24 10:10 Specimen Type Arterial 08/06/24 13:16 Sample Site Brachial, right 08/06/24 13:16 ABG pH 7.38 (7.35-7.45) 08/06/24 13:16 ABG pCO2 51.3 mmHg (35-45) H 08/06/24 13:16 ABG pO2 61.4 mmHg (80.0-100.0) L 08/06/24 13:16 ABG PO2/FiO2 Ratio 139 08/06/24 13:16 ABG HCO3 30.5 mmol/L (22-26) H 08/06/24 13:16 ABG O2 Saturation 91.1 08/06/24 13:16 ABG Base Excess 4.2 mmol/L (-2.0-2.0) H 08/06/24 13:16 Nabor Test N/a 08/06/24 13:16 A-a O2 Gradient 24.8 mmHg (5-10) H 08/06/24 13:16 Hematocrit 44.6 % (37-47) 08/06/24 13:16 Hgb O2 Saturation 86.7 % (95-100) L 08/06/24 13:16 Carboxyhemoglobin 4.5 %THgb (0.4-20.1) 08/06/24 13:16 Methemoglobin 0.4 % (0.4-1.5) 08/06/24 13:16 Total Hemoglobin 14.5 g/dL (12-16) 08/06/24 13:16 Sodium 140.0 mmol/L (131-143) 08/06/24 13:16 Potassium 3.0 mmol/L (3.5-5.0) L 08/06/24 13:16 Glucose 177.0 mg/dL (70-115) H 08/06/24 13:16 Ionized Calcium 1.1 mmol/L (1.1-1.4) 08/06/24 13:16 O2 Delivery Device Nc 08/06/24 13:16 O2 Liters/Min 6.0 % 08/06/24 13:16 FiO2 44.0 % 08/06/24 13:16 Reading Teacher ID Amh 08/06/24 13:16 Sodium 142 mmol/L (136-145) 08/09/24 03:59 Potassium 3.5 mmol/L (3.5-5.1) 08/09/24 03:59 Chloride 103 mmol/L (98-107) 08/09/24 03:59 Carbon Dioxide 31 mmol/L (22-29) H 08/09/24 03:59 Anion Gap 11.5 (5-19) 08/09/24 03:59 BUN 28 mg/dL (6-20) H 08/09/24 03:59 Creatinine 0.7 mg/dL (0.5-0.9) 08/09/24 03:59 GFR Calculation 86.2 mL/min (90-130) L 08/09/24 03:59 Glucose 167 mg/dL (65-115) H 08/09/24 03:59 POC Glucose 204 mg/dL (70-110) H 08/09/24 07:50 Calculated Osmolality 303 mOsm/kg (285-295) H 08/09/24 03:59 Lactic Acid 1.7 mmol/L (0.5-2.2) 08/06/24 13:27 Calcium 9.1 mg/dL (8.5-10.5) 08/09/24 03:59 Total Bilirubin 0.2 mg/dL (0.15-1.2) 08/09/24 03:59 AST 6 U/L (0-32) 08/09/24 03:59 ALT 6 U/L (0-33) 08/09/24 03:59 Alkaline Phosphatase 91 U/L (35-105) 08/09/24 03:59 Troponin T Baseline 7 ng/L (0-10) 08/06/24 10:10 Troponin T 120 Minute < 6.0 ng/L (0-10) 08/06/24 12:29 Delta Troponin T -1.80925 ABS# (0-10) L 08/06/24 12:29 Troponin T Hi Sens 6Hr < 6.0 ng/L (0-10) 08/06/24 18:56 Troponin T Hi Sens 6Hr Delta -1.59125 ng/L (0-12) L 08/06/24 18:56 NT-Pro-B Natriuret Pep 397 pg/mL (0-125) H 08/06/24 10:10 Total Protein 6.4 g/dL (6.6-8.7) L 08/09/24 03:59 Albumin 3.2 g/dL (3.5-5.2) L 08/09/24 03:59 Globulin 3.2 g/dL (1.3-4.6) 08/09/24 03:59 Lipase 16 U/L (13-60) 08/06/24 10:10 HCG, Qual Negative (Negative) 08/06/24 10:10 Nasal MRSA (PCR) Not detected (Not Detecte) 08/06/24 16:51 Influenza A (PCR) Negative (Negative) 08/06/24 10:33 Influenza Type B (PCR) Negative (Negative) 08/06/24 10:33 RSV (PCR) Negative (Negative) 08/06/24 10:33 SARS-CoV-2 (PCR) Negative (Negative) 08/06/24 10:33 Vitals Last Vital Signs Temp 97.0 F L 08/09/24 05:26 Pulse 86 08/09/24 10:06 Resp 18 08/09/24 07:40 BP 142/88 08/09/24 10:06 Pulse Ox 93 08/09/24 10:06 O2 Del Method Nasal Cannula 08/09/24 07:40 O2 Flow Rate 2 08/09/24 07:40 FiO2 40 08/09/24 03:35 Discharge Plan Discharge Patient Disposition: Home Condition: Stable Prescriptions: New benzonatate 100 mg Capsule 100 mg PO TID PRN (Reason: Cough) 7 Days Qty: 21 0RF prednisone 10 mg tablet See Taper PO BID Qty: 42 0RF Taper: predniSONE 60-10 60 mg Daily for 2 Days and 0 Hour 50 mg Daily for 2 Days and 0 Hour 40 mg Daily for 2 Days and 0 Hour 30 mg Daily for 2 Days and 0 Hour 20 mg Daily for 2 Days and 0 Hour 10 mg Daily for 2 Days and 0 Hour levofloxacin 750 mg tablet 750 mg PO DAILY 4 Days Qty: 4 0RF Continued telmisartan 80 mg tablet 80 mg PO DAILY 90 Days Qty: 90 1RF simvastatin 20 mg tablet 20 mg PO QPM 90 Days Qty: 90 0RF Rybelsus 7 mg tablet 7 mg PO QAM 90 Days Qty: 90 1RF Flonase Allergy Relief 50 mcg/actuation spray,suspension 1 spray intranasal BID PRN (Reason: Allergic Symptoms) Qty: 9.9 0RF Rx Instructions: administer into each nostril albuterol sulfate 90 mcg/actuation HFA aerosol inhaler 2 puff inhalation Q6H PRN (Reason: Shortness Of Breath) Qty: 6.7 0RF Lyrica 150 mg capsule 150 mg PO BID 30 Days Qty: 60 2RF metoprolol tartrate 50 mg tablet 50 mg PO BID 90 Days Qty: 180 0RF hydroxyzine HCl 25 mg tablet 25 mg PO QPM PRN (Reason: Anxiety) 90 Days Qty: 90 0RF Jardiance 25 mg tablet 25 mg PO QAM 90 Days Qty: 90 0RF citalopram 10 mg tablet 10 mg PO QAM 90 Days Qty: 90 0RF amlodipine 10 mg tablet 5 mg PO DAILY 90 Days Qty: 90 0RF montelukast 10 mg tablet 10 mg PO DAILY Qty: 90 0RF hydrochlorothiazide 25 mg tablet 25 mg PO DAILY 90 Days Qty: 90 0RF Trelegy Ellipta 100-62.5-25 mcg blister with device 1 inh inhalation QAM Qty: 60 2RF aspirin 81 mg tablet,delayed release (DR/EC) 81 mg PO QAM potassium chloride 20 mEq tablet,ER particles/crystals 20 meq PO DAILY magnesium 200 mg Tablet 200 mg PO DAILY baclofen 20 mg tablet 20 mg PO BID PRN (Reason: Muscle Spasm) pantoprazole 40 mg tablet,delayed release (DR/EC) 40 mg PO BID Discharge Orders: Discharge Order (Routine); Ordered 08/09/24 Ordered By: Iesha Vera Referrals: Reji Faulkner FNP [Primary Care Provider, Family Practice] Manuel Sandy MD [Physician, General Surgery] - 2 weeks Referral Note: colonoscopy Discharge Diet: Usual diet Discharge Activity: Resume usual activity Patient Instructions: Benzonatate (By mouth) (Tessalon Perles, Zonatuss), Prednisone (By mouth) (Prednisone Intensol, Prednicot, Deltasone, Rae), Levofloxacin (By mouth) (Levaquin, Levaquin Leva-angle), Opioid Safety Activity Restrictions/Additional Instructions: Please call Sunday to schedule follow-up appointment with your primary care provider. Discharge Attestations Time Spent in Discharge Care*: greater than 30 min Quality Metrics Clinical Quality Measures [ No reported AMI, CVA or VTE this stay] Coding Level of Care Code Acute Code for Chg Fwd Diagnoses Acute on chronic hypoxic respiratory failure J96.21 Pneumonia J18.9 Acute exacerbation of chronic obstructive airways disease J44.1 Diabetes mellitus E11.9
[2024-08-15 01:50] LABS: P. Jirovecii DNA QL PCR NOT DETECTED; P. Jirovecii DNA QL PCR Source SPUTUM
== END 2024-08-09 10:08 | disposition home or self-care (01) | DRG 193 ==
LOC: ER 13:23 → ICU 15:29
PROVIDERS: Admitting Provider Student in an Organized Health Care Education/Training Program; Emergency Provider Emergency Medicine; PCP Registered Nurse; Visit Provider Student in an Organized Health Care Education/Training Program
DX: J18.9 Pneumonia, unspecified organism (principal); J96.21 Acute and chronic respiratory failure with hypoxia; J44.0 Chronic obstructive pulmonary disease with (acute) lower respiratory infection; J44.1 Chronic obstructive pulmonary disease with (acute) exacerbation; Q43.3 Congenital malformations of intestinal fixation; E11.40 Type 2 diabetes mellitus with diabetic neuropathy, unspecified; F41.8 Other specified anxiety disorders; K57.10 Diverticulosis of small intestine without perforation or abscess without bleeding; I10 Essential (primary) hypertension; G47.33 Obstructive sleep apnea (adult) (pediatric); I25.10 Atherosclerotic heart disease of native coronary artery without angina pectoris; E78.5 Hyperlipidemia, unspecified; F17.210 Nicotine dependence, cigarettes, uncomplicated; Z99.81 Dependence on supplemental oxygen; Z79.84 Long term (current) use of oral hypoglycemic drugs; Z79.82 Long term (current) use of aspirin; Z79.51 Long term (current) use of inhaled steroids; Z79.85 Long-term (current) use of injectable non-insulin antidiabetic drugs; Z85.828 Personal history of other malignant neoplasm of skin
CPT/HCPCS: 12345; 36415; 36416; 36600; 71045; 71275; 74176; 80051; 80053; 82330; 82805; 82962; 83605; 83690; 83880; 84484; 84703; 85025; 85610; 87015; 87040; 87070; 87116; 87205; 87206; 87637; 87798; 87799; 87801; 93005; 94640; 94660; 96365; 96367; 96372; 96375; 96376; 99285; J0456; J0696; J1650; J1815; J2405; J2543; J2919; J7030; J7050; J7611; J7613; J7626; J9999; Q0144

== ENCOUNTER 2024-09-03 06:46 | Outpatient (CLI) | payer MEDICARE, MEDICAID, SELFPAY ==
--- NOTE | 2024-09-03 08:30 | CT_ITS ---
WS: [id number] CT CHEST, ABDOMEN AND PELVIS WITH CONTRAST HISTORY: K57.10 - Diverticulosis of small intestine without perforation. LEFT abdominal pain for 3 weeks. TECHNIQUE: Contiguous 5 mm axial imaging performed through the chest, abdomen and pelvis with IV contrast, oral contrast has been provided. Coronal and sagittal reformats chest. Coronal and sagittal reformats through the abdomen and pelvis. All CT scans at [facility] use at least one of these dose optimization techniques: automated exposure control; mA and/or kV adjustment per patient size (includes targeted exams where dose is matched to clinical indication); or iterative reconstruction. CONTRAST: Omnipaque 350; 100 mL IV. DLP: 688.07 mGy.cm COMPARISON: 08/06/2024 CT abdomen and pelvis. CT angiogram chest 08/06/[address]: Significant interval improvement of aeration involving both lungs since 08/06/2024. Pulmonary opacifications and tree-in-bud airspace disease has resolved. No mass or nodule. Mild atherosclerosis aorta. Aneurysmal dilatation. Normal size pulmonary artery. Normal size heart. No adenopathy. Small hiatal hernia. Abdomen CT: Normal liver and spleen. No intrahepatic duct dilatation. Normal portal vein. Negative gallbladder and pancreas. No adrenal mass. No renal obstruction. Moderate atherosclerotic plaque abdominal aorta. Mild calcification in the mesenteric arteries but no obstruction. No ascites or adenopathy. Stomach is distended with oral contrast. No small bowel obstruction. Prior appendectomy. Reidentified is the central abdominal mass containing air and oral contrast on today's exam. This is probably a large diverticulum. Mass is smaller on today's examination with less air. There is oral contrast present. Mass is closely associated with the distal small bowel and the cecum. There is mild circumferential soft tissue thickening involving the cecum. No obstruction. Mild descending and sigmoid colon diverticular disease without acute diverticulitis. There is a small diverticulum distally best seen on image 64 series 5 with increased attenuation. This is probably filled with debris. This diverticulum wa s also present in 2021 without increase in size. Pelvic CT: No free fluid. Urinary bladder is minimally distended. L4 anterolisthesis by 3 mm. Facet joint arthritis at L4-5. Bilateral femoral head osteonecrosis. CT/CT chest abdpel w/*[id number] IMPRESSION: 1. Reidentified is the air-filled collection in the central abdomen which is s maller on today's exam compared to 08/06/2024. There is oral contrast layering. Suspect this is probably a diverticulum which is changing in size. This diverti culum is closely associated with the distal small bowel and the cecum. 2. Mild circumferential soft tissue thickening at the cecum. This may be lito l peristalsis. If pain continues consider evaluation by colonoscopy of the cecu m. No adjacent lymph nodes. 3. Mild diverticular burden in the sigmoid and descending colon. No acute dive rticulitis. 4. Prior appendectomy. 5. Moderate atherosclerosis abdominal aorta, mesenteric arteries and iliac art eries. No GI tract ischemia. 6. No renal obstruction. 7. Resolved pneumonia. 8. Focal bilateral femoral head avascular necrosis.
[2024-09-03] MEDS: iohexol 350 mg/mL 500 mL Btl (per mL) PO (09:05)
[2024-09-03] MEDS: iohexol 350 mg/mL 500 mL Btl (per mL) IV (09:05)
== END 2024-09-03 06:47 | disposition home or self-care (01) ==
PROVIDERS: PCP Registered Nurse; Visit Provider Registered Nurse
DX: K57.10 Diverticulosis of small intestine without perforation or abscess without bleeding (principal); R93.89 Abnormal findings on diagnostic imaging of other specified body structures; K57.30 Diverticulosis of large intestine without perforation or abscess without bleeding; Z98.890 Other specified postprocedural states; I70.0 Atherosclerosis of aorta; K55.1 Chronic vascular disorders of intestine; I70.8 Atherosclerosis of other arteries; K44.9 Diaphragmatic hernia without obstruction or gangrene; M47.896 Other spondylosis, lumbar region
CPT/HCPCS: 71260; 74177

== ENCOUNTER → 2024-09-29 11:23 | Outpatient (BNVA) | payer MEDICARE, MEDICAID, SELFPAY | PROVIDERS: PCP Registered Nurse; Visit Provider Registered Nurse | DX: E11.9 Type 2 diabetes mellitus without complications (principal); Z79.4 Long term (current) use of insulin; E11.42 Type 2 diabetes mellitus with diabetic polyneuropathy | CPT/HCPCS: 80053; 80061; 81000; 83036; 85025 ==

== ENCOUNTER → 2024-10-13 13:49 | Outpatient (BNVA) | payer MEDICARE, SELFPAY | PROVIDERS: PCP Registered Nurse; Referring Provider Registered Nurse; Visit Provider Student in an Organized Health Care Education/Training Program | DX: Z12.11 Encounter for screening for malignant neoplasm of colon (principal) | CPT/HCPCS: 99024; 99214 ==

== ENCOUNTER → 2024-10-15 08:45 | Outpatient (BNVA) | payer MEDICARE, SELFPAY | PROVIDERS: PCP Registered Nurse; Visit Provider Internal Medicine | DX: J44.9 Chronic obstructive pulmonary disease, unspecified (principal); G47.33 Obstructive sleep apnea (adult) (pediatric); F17.210 Nicotine dependence, cigarettes, uncomplicated; Z99.89 Dependence on other enabling machines and devices | CPT/HCPCS: 99205; 99215 ==

== ENCOUNTER → 2024-10-16 08:31 | Outpatient (BNVA) | payer MEDICARE, SELFPAY | PROVIDERS: PCP Registered Nurse; Visit Provider Nurse Practitioner | DX: M16.11 Unilateral primary osteoarthritis, right hip (principal); M70.61 Trochanteric bursitis, right hip | CPT/HCPCS: 20610; 73502; 99204; J1100; J2795; J3301; J9999 ==

== ENCOUNTER 2024-11-18 09:10 | Day surgery (SDC) | payer MEDICARE, SELFPAY ==
[2024-11-18 09:27] VITALS: BP 121/72; PULSE 81; RESP 16; TEMP 36.4; O2SAT 92; BMI 28.6
--- NOTE | 2024-11-18 10:32 | ANES.PREANE2 ---
Pre-Anesthetic Assessment Height/Weight: Height 1.5 m Weight 64.41 kg Temp Pulse Resp BP Pulse Ox O2 Del Method O2 Flow Rate 97.6 F 81 16 121/72 92 Nasal Cannula 2 11/18/24 09:27 11/18/24 09:27 11/18/24 09:27 11/18/24 09:27 11/18/24 09:27 11/18/24 09:27 11/18/24 09:27 Operation Date: 11/18/24 10:45 Proposed Procedures p Colonoscopy 55639 G0121 Z12.11(Not Applicable) - Bryan Jansen MD Familial anesthetic complications: none Was Beta Christiano taken within 24 hours: Yes (metoprolol) Was Clonidine taken within 24 hours: N/A Last intake: Intake Last Liquid Date 11/17/24 Last Liquid Time 20:00 Last Solid Date 11/16/24 Last Solid Time 19:00 Social Tobacco (1 PPD x 43 years) and No alcohol Exam alert, oriented x 3, clear to auscultation bilaterally and regular rate & rhythm Airway Submandibular: within normal limits Cervical ROM: within normal limits Mallampati: Class II Dentition: false (upper denture - lower intact) and partials History/ROS No significant history except as noted Pulmonary Chronic Obstructive Pulmonary Disease CV/HEM Hypertension denies cp None reported Hepatic None reported GI None reported Metabolic Diabetes Mellitus (NIDDM - accu check 113 (9.9.25 am)) Musc/skel Lower Back Pain and Osteoarthritis/DJD (neck paid) Neuropsych Neuropathy (x 4 ext) Anesthetic Plan ASA status: 3 Anesthesia: MAC Risk of > 500 ml blood loss (7ml/kg in children): No Medications/Allergies Home Medications ?Medication ?Instructions ?Recorded ?Confirmed ?Last Taken ?Type aspirin 81 mg tablet,delayed 81 mg PO QAM 01/12/23 11/18/24 11/17/24 History release fluticasone propionate 50 1 spray intranasal BID PRN 01/15/24 11/18/24 05/28/24 Rx mcg/actuation nasal Allergic Symptoms #9.9 mL spray,suspension (Flonase Allergy Relief) potassium chloride 20 mEq 20 meq PO DAILY 05/05/24 11/18/24 11/17/24 History tablet,extended release(part/cryst) albuterol sulfate 90 mcg/actuation 2 puff inhalation Q6H PRN 05/19/24 11/18/24 11/18/24 Rx aerosol inhaler Shortness Of Breath #6.7 grams amlodipine 10 mg tablet 5 mg (1/2 x 10 mg) PO DAILY 90 06/11/24 11/18/24 11/18/24 Rx days #90 tabs hydrochlorothiazide 25 mg tablet 25 mg PO DAILY 90 days #90 tabs 06/11/24 11/18/24 11/18/24 Rx hydroxyzine HCl 25 mg tablet 25 mg PO QPM PRN Anxiety 90 days 06/11/24 11/18/24 11/17/24 Rx #90 tabs magnesium 200 mg tablet 200 mg PO DAILY 08/07/24 11/18/24 11/17/24 History pantoprazole 40 mg tablet,delayed 40 mg PO BID 08/07/24 11/18/24 11/17/24 History release empagliflozin 25 mg tablet 25 mg PO QAM 90 days #90 tabs 09/17/24 11/18/24 11/17/24 Rx (Jardiance) citalopram 10 mg tablet 10 mg PO QAM 90 days #90 tabs 09/29/24 11/18/24 11/17/24 Rx metoprolol tartrate 50 mg tablet 50 mg PO BID 90 days #180 tabs 09/29/24 11/18/24 11/18/24 Rx pregabalin 150 mg capsule (Lyrica) 150 mg PO BID 30 days #60 caps 09/29/24 11/18/24 11/17/24 Rx semaglutide 7 mg tablet (Rybelsus) 7 mg PO QAM 90 days #90 tabs 09/29/24 11/18/24 11/17/24 Rx simvastatin 20 mg tablet 20 mg PO QPM 90 days #90 tabs 09/29/24 11/18/24 11/17/24 Rx telmisartan 80 mg tablet 80 mg PO DAILY 90 days #90 tabs 09/29/24 11/18/24 11/17/24 Rx celecoxib 100 mg capsule (Celebrex) 100 mg PO DAILY #90 caps 10/16/24 11/18/24 11/17/24 Rx ondansetron 8 mg disintegrating 8 mg PO Q8H PRN nausea and 11/11/24 11/18/24 11/17/24 Rx tablet vomiting #3 tabs fluticasone fur. 100 mcg-umeclid 1 inh inhalation QAM #60 ea 11/14/24 11/18/24 11/18/24 Rx 62.5 mcg-vilant 25 mcg inhalat.powder (Trelegy Ellipta) baclofen 20 mg tablet 20 mg PO BID PRN Muscle Spasm 11/17/24 11/18/24 11/14/24 History montelukast 10 mg tablet 10 mg PO DAILY 11/17/24 11/18/24 11/17/24 History Allergies Allergy/AdvReac Type Severity Reaction Status Date / Time codeine Allergy ALGY-Hives Verified 11/18/24 09:24 Current Medications Generic Name Dose Route Start Last Admin Trade Name Freq PRN Reason Stop Dose Admin Sodium Chloride 1,000 mls @ 15 mls/hr 11/18/24 09:12 11/18/24 09:37 Sodium Chloride 0.9% IV 11/19/24 09:11 15 mls/hr .Q24H PRN Administration COLONOSCOPY FLUIDS PFSH Anesthesia Medical History (Updated 10/23/24 @ 16:04 by POLINA Martinez) Seasonal allergies Skin cancer of nose s/p excision, non-melanoma History of echocardiogram 08/2019 EF 65% History of PFTs 01/2021 - severe airflow obstruction. There is no significant postbronchodilator response. Lung volumes are consistent with air trapping. Gas exchange (DLCO) is mildly reduced. Mixed anxiety and depressive disorder Diverticulosis Essential hypertension Chronic nausea Neuropathy due to type 2 diabetes mellitus Type 2 diabetes mellitus ELISE (obstructive sleep apnea) bipap with sleep with 4L oxygen Coronary artery disease COPD, very severe Hyperlipidemia Acid reflux Surgical History S/P laparoscopy Hx of removal of ovary History of appendectomy History of esophagogastroduodenoscopy (EGD) (05/2019) History of colonoscopy (05/2019) Family History Father Cancer Lung disease Hypertension Mother Lung disease Grandmother Diabetes Other CAD (coronary artery disease) Denies family history of Stroke Social History Smoking and tobacco/nicotine status: current every day tobacco/nicotine user cigarettes [ Other cigarette details: [id number]+yrs] Second hand smoke exposure: Yes Alcohol intake: never Substance/Drug Use: never Lives independently: Yes Household members: spouse Housing: House Marital status: Current occupational status: disabled Pets and animals: Yes Do you think of yourself as: Straight/Heterosexual Current gender identity: Female Selina/Church: Anglican Agree to transfusion: Yes Data Anesthesia Cardiac Studies: Echocardiogram Ultrasound 09/06/19
--- NOTE | 2024-11-18 10:37 | W.PM.OPSFHP ---
Same Day Surgery H&P Indication for Procedure/HPI DATE OF PROCEDURE: November 18, 2024 CHIEF COMPLAINT/INDICATIONFOR SURGICAL PROCEDURE: screening colonoscopy PREOP DIAGNOSIS: screening colonoscopy PLANNED PROCEDURE: Operation Date: 11/18/24 10:45 Proposed Procedures p Colonoscopy 62053 G0121 Z12.11(Not Applicable) - Bryan Jansen MD Medications/Allergies* Home Medications ?Medication ?Instructions ?Recorded ?Confirmed ?Type aspirin 81 mg tablet,delayed 81 mg PO QAM 01/12/23 11/18/24 History release potassium chloride 20 mEq 20 meq PO DAILY 05/05/24 11/18/24 History tablet,extended release(part/cryst) magnesium 200 mg tablet 200 mg PO DAILY 08/07/24 11/18/24 History pantoprazole 40 mg tablet,delayed 40 mg PO BID 08/07/24 11/18/24 History release baclofen 20 mg tablet 20 mg PO BID PRN Muscle Spasm 11/17/24 11/18/24 History montelukast 10 mg tablet 10 mg PO DAILY 11/17/24 11/18/24 History Allergies/Adverse Reactions Allergy/AdvReac Type Severity Reaction Status Date / Time codeine Allergy ALGY-Hives Verified 11/18/24 09:24 Current Medications: Generic Name Dose Route Start Last Admin Trade Name Freq PRN Reason Stop Dose Admin Sodium Chloride 1,000 mls @ 15 mls/hr 11/18/24 09:12 11/18/24 09:37 Sodium Chloride 0.9% IV 11/19/24 09:11 15 mls/hr .Q24H PRN Administration COLONOSCOPY FLUIDS Pertinent History/Comorbid Conditions* Medical History (Updated 10/23/24 @ 16:04 by HANK Martinez) Seasonal allergies Skin cancer of nose s/p excision, non-melanoma History of echocardiogram 08/2019 EF 65% History of PFTs 01/2021 - severe airflow obstruction. There is no significant postbronchodilator response. Lung volumes are consistent with air trapping. Gas exchange (DLCO) is mildly reduced. Mixed anxiety and depressive disorder Diverticulosis Essential hypertension Chronic nausea Neuropathy due to type 2 diabetes mellitus Type 2 diabetes mellitus ELISE (obstructive sleep apnea) bipap with sleep with 4L oxygen Coronary artery disease COPD, very severe Hyperlipidemia Acid reflux Surgical History (Updated 05/19/24 @ 10:13 by Bryan Jansen MD) S/P laparoscopy Hx of removal of ovary History of appendectomy History of esophagogastroduodenoscopy (EGD) (05/2019) History of colonoscopy (05/2019) Family History (Updated 09/06/19 @ 12:56 by Jean-Pierre Martinez MD) Diabetes Grandmother CAD (coronary artery disease) Lung disease Father Mother Cancer Father Hypertension Father Denies family history of Stroke Social History Smoking and tobacco/nicotine status: current every day tobacco/nicotine user cigarettes [ Other cigarette details: [id number]+yrs] Second hand smoke exposure: Yes Alcohol intake: never Substance/Drug Use: never Lives independently: Yes Household members: spouse Housing: House Marital status: Current occupational status: disabled Pets and animals: Yes Do you think of yourself as: Straight/Heterosexual Current gender identity: Female Selina/Religious: Christianity Agree to transfusion: Yes Pertinent Exam Findings alert, oriented x 3, clear to auscultation bilaterally, regular rate & rhythm and procedure specific exam findings abdomen soft, nt, nd Recommendations Risks and benefits of procedure reviewed and Patient/family agree to proceed Surgery/Procedure today Coding Level of Care Code Acute Code for Chg Fwd
--- NOTE | 2024-11-18 10:55 | PC.NURSE ---
cecum time 1054
[2024-11-18 11:07] VITALS: BP 96/60; PULSE 70; RESP 10; TEMP 36.3; O2SAT 96
[2024-11-18 11:15] VITALS: BP 104/64; PULSE 66; RESP 18; O2SAT 98
--- NOTE | 2024-11-18 11:16 | PC.NURSE ---
Informed friend, pt had finished procedure. Asked if they could bring the pt O2 tank inside to meat pickler pt... Was informed they did not have one with them, even though they love in [facility]. History states pt wears O2 02/10.
[2024-11-18 11:24] VITALS: BP 94/57; PULSE 67; O2SAT 98
--- NOTE | 2024-11-18 11:40 | ANE.PACU2 ---
Inpatient post-anesthesia follow up: Airway intact: Yes Vital signs: Temperature 97.4 F Pulse Rate 67 Respiratory Rate 18 Blood Pressure 94/57 Pulse Oximetry 98 Oxygen Delivery Me thod Nasal Cannula Oxygen Flow Rate 2 Fraction of Inspir ed Oxygen Hydration adequate: Yes Nausea and vomiting: No Pain level: 1 Mental status: Baseline
== END 2024-11-18 11:40 | disposition home or self-care (01) ==
PROVIDERS: PCP Registered Nurse; Visit Provider Student in an Organized Health Care Education/Training Program
PROC: 0DJD8ZZ Inspection of Lower Intestinal Tract, Via Natural or Artificial Opening Endoscopic (ICD-10-PCS; CPT 45378; principal; 2024-11-18 10:45)
DX: Z12.11 Encounter for screening for malignant neoplasm of colon (principal); K63.5 Polyp of colon; K57.30 Diverticulosis of large intestine without perforation or abscess without bleeding; Z79.82 Long term (current) use of aspirin; K21.9 Gastro-esophageal reflux disease without esophagitis; E11.9 Type 2 diabetes mellitus without complications; G47.33 Obstructive sleep apnea (adult) (pediatric); Z99.89 Dependence on other enabling machines and devices; I25.10 Atherosclerotic heart disease of native coronary artery without angina pectoris; J44.9 Chronic obstructive pulmonary disease, unspecified; E78.5 Hyperlipidemia, unspecified; Z85.828 Personal history of other malignant neoplasm of skin; F17.210 Nicotine dependence, cigarettes, uncomplicated; I10 Essential (primary) hypertension
CPT/HCPCS: 36416; 45385; 82962; 88305; J2704; J7030

== ENCOUNTER → 2024-11-28 09:00 | Outpatient (BNVA) | payer MEDICARE, SELFPAY | PROVIDERS: PCP Registered Nurse; Visit Provider Nurse Practitioner | DX: M70.61 Trochanteric bursitis, right hip (principal); M16.11 Unilateral primary osteoarthritis, right hip | CPT/HCPCS: 99213 ==

== ENCOUNTER 2024-12-09 18:41 | Emergency (ER) | payer MEDICARE, SELFPAY ==
--- OUTSIDE RECORDS SUMMARY | 2024-12-09 18:46 | XMS_ITS | Encounter Summary ---
Author Organization [facility] Address [address] [place] [address] Care Team Providers Care Can Feeder Name Role Phone Reji Faulkner Primary Care Provider Encounter Details Date Type Department Care Team (Late st Contact Info) Description 02/09/2020 Ancillary Orders [facility] [address] [place] [address] Reji Faulkner FNP [address] [place] [address] Shoulder injury, right, initial encounter [...] COVID-19? No / Unsure 02/09/2020 11:26 AM FOLDER INSPECTOR documented as of this encounter Plan of Treatment Not on file documented as of this encounter Results * XR SHOULDER 2+ VW RIGHT (02/09/2020 12:16 PM FOLDER INSPECTOR) Anatomical Region Laterality Modality Upper Extremity Computed Radiogr aphy 02/09/2020 12:1 6 PM FOLDER INSPECTOR Impressions 02/10/2020 2:09 PM FOLDER INSPECTOR IMPRESSION: Degenerative changes without acute fracture. Narrative 02/10/2020 2:09 PM FOLDER INSPECTOR Exam: XR SHOULDER 2+ VW RIGHT Date/Time [...] encounter documented in this encounter Care Teams Can Feeder Relationship Specialty Start Date End Date Reji Faulkner FNP [address] [place] [address] PCP - General Nurse Practitioner Family 08/29/18 documented as of this encounter
--- OUTSIDE RECORDS SUMMARY | 2024-12-09 18:46 | XMS_ITS | Encounter Summary ---
Author Organization [facility] Address [address] [place] [address] Care Team Providers Care Mining Teacher Name Role Phone Reji Faulkner WET ROASTER Primary Care Provider [phone] Encounter Details Date Type Department Care Team (Late st Contact Info) Description 11/02/2014 Ancillary Orders [facility] Admitting [address] [place] [address] Sasha Haskins FNP [address] [facility] [address] [place] [address] Right shoulder pain (Primary Dx) Social History [...] is evident. IMPRESSION normal right shoulder views Procedure Note Nathanael Sevilla MD - 11/02/2014 PROCEDURE XR RIGHT SHOULDER, 3 views, 02 November 2014 DESCRIPTION AP, Grashey, and tangential scapular lateral views of the right shoulder show no acute fracture, dislocation or the formerly. No significant degenerative change is seen. No acromioclavicular separation is evident. IMPRESSION normal right shoulder views Sasha LAZO DIAGNOST[facility] IMAGING ORDERABL ES Final Result documented in this encounter Visit Diagnoses Diagnosis Right shoulder pain- Primary Pain in joint, shoulder region Right shoulder pain Pain in joint, shoulder region documented in this encounter Care Teams Mining Teacher Relationship Specialty Start Date End Date Reji Faulkner FNP [address] [place] [phone] PCP - General Nurse Practitioner Family 08/29/18 documented as of this encounter
--- OUTSIDE RECORDS SUMMARY | 2024-12-09 18:46 | XMS_ITS | Encounter Summary ---
Author Organization [facility] Address [address] [place] [address] Care Team Providers Care Epic Cupid Specialists Name Role Phone LucieReji lin SYSTEMS DESIGN ENGINEER Primary Care Provider [phone] Encounter Details Date Type Department Care Team (Late st Contact Info) Description 12/28/2014 Ancillary Orders [facility] Admitting [address] [place] [address] [facility] , Jim Rivas SYSTEMS DESIGN ENGINEER [address] [place] [address] Dyspnea (Primary Dx); COPD (chronic [...] interval change seen us Jim Diaz Sr., SYSTEMS DESIGN ENGINEER DIAGNOSTIC DIRKIN G ORDERABLES Final Result documented in this encounter Visit Diagnoses Diagnosis Dyspnea- Primary Other dyspnea and respiratory abnormality COPD (chronic obstructive pulmonary disease) Chronic airway obstruction, not elsewhere classified Dyspnea Other dyspnea and respiratory abnormality COPD (chronic obstructive pulmonary disease) Chronic airway obstruction, not elsewhere classified documented in this encounter Care Teams Epic Cupid Specialists Relationship Specialty Start Date End Date Reji Faulkner FNP [address] [place] [address] PCP - General Nurse Practitioner Family 08/29/18 documented as of this encounter
--- OUTSIDE RECORDS SUMMARY | 2024-12-09 18:46 | XMS_ITS | Encounter Summary ---
Author Organization [facility] Address [address] [place] [address] Care Team Providers Care Hogshead Weigher Name Role Phone Reji Faulkner Primary Care Provider Encounter Details Date Type Department Care Team (Latest Contact Info) Description 01/22/2019 Ancillary Orders [facility] Admitting [address] [place] [address] Reji Faulkner FNP [address] [place] [address] COPD with exacerbation (CMS/HCC) Social [...] AND LATERAL 2 VW (01/22/2019 11:49 AM FISHERIES DIVER) Anatomical Region Laterality Modality Chest Computed Radiogr aphy 01/22/2019 11:4 9 AM FISHERIES DIVER Impressions 01/22/2019 1:58 PM FISHERIES DIVER IMPRESSION: Please see below. Exam: XR [...] pleural fluid. Mild thoracic spine degenerative changes. [id number] Narrative Procedure Note Hans Fu MD - [...] pleural fluid. Mild thoracic spine degenerative changes. [id number] Reji LAZO DIAGNOSTIC IMAGING ORDERABL ES Final Result documented in this encounter Visit Diagnoses Diagnosis COPD with exacerbation (CMS/HCC) Obstructive chronic bronchitis with exacerbation COPD with exacerbation (CMS/HCC) Obstructive chronic bronchitis with exacerbation documented in this encounter Care Teams Hogshead Weigher Relationship Specialty Start Date End Date Reji Faulkner FNP [address] [place] [address] PCP - General Nurse Practitioner Family 08/29/18 documented as of this encounter
--- OUTSIDE RECORDS SUMMARY | 2024-12-09 18:46 | XMS_ITS | Encounter Summary ---
Author Organization [employer] [facility] [facility] Address [address] [place] [address] Care Team Providers Care Director Recreation Name Role Phone Reji Faulkner Primary Care Provider Encounter Details Date Type Department Care Team (Late st Contact Info) Description 08/29/2018 Ancillary Orders [facility] [address] [place] [address] Reji Faulkner FNP [address] [place] [address] Neuropathy, cervical (radicular) Social History [...] no thickening of the prevertebral soft tissues. [id number] Narrative Procedure Note Noe Maciel MD - [...] no thickening of the prevertebral soft tissues. [id number] Reji LAZO DIAGNOSTIC IMAGING ORDERABL ES Final Result documented in this encounter Visit Diagnoses Diagnosis Neuropathy, cervical (radicular) Brachial neuritis or radiculitis nos Neuropathy, cervical (radicular) Brachial neuritis or radiculitis nos documented in this encounter Care Teams Director Recreation Relationship Specialty Start Date End Date Reji Faulkner FNP [address] [place] [address] PCP - General Nurse Practitioner Family 08/29/18 documented as of this encounter
--- OUTSIDE RECORDS SUMMARY | 2024-12-09 18:46 | XMS_ITS | Clinical Summary ---
Author Organization [facility] Address [address] [place] [address] Care Team Providers Care Compensation Vice President Name Role Phone Reji Faulkner VIOLET Primary Care Provider Allergies Active Allergy Reactions Criticality Noted Date Comments Keli Santiago High 07/07/2013 Medications umeclidinium (INCRUSE ELLIPTA) [...] mellitus) 11/10 FAYE (acute kidney injury) 11/10/2018 Encounters Date Type Department Care Team Description 11/11/2024 External Device Data STL ABSTRACTION Provider, Abstract 10/15/2024 External Device Data STL ABSTRACTION Provider, Abstract 09/30/2024 External Device Data STL ABSTRACTION Provider, Abstract 09/30/2024 External Device Data STL ABSTRACTION Provider, Abstract 09/29/2024 11:37 AM CDT - 09/29/2024 11:59 PM CDT Hospital Encounter [facility] [address] [place] [phone] Reji Faulkner FNP Discharge Disposition: Home or Self Care 09/29/2024 Orders Only [facility] Admitting [address] [place] [phone] Reji Faulkner FNP Trochanteric bursitis of right hip (Primary Dx) from Last 3 Months Immunizations Immunization Administration Dates Next Due ([employer])(12 YR UP) COVID-19 VACCINE - EMERGENCY USE AUTHORIZATION, MRNA, [id number](PF) 30 MCG/0.3 ML IM SUSP 07/09/2020,06/18/2020 Influenza [...] on file Legal Sex Female 10:54 AM LITIGATION CLAIM REPRESENTATIVE Gender Identity Not on file Sexual Orientation Not on file Last Filed Vital Signs Vital Sign Reading Time Taken Comments Blood Pressure 115/64 07/20/2020 11:19 AM CDT Pulse 74 07/20/2020 11:19 AM CDT Temperature 36.6 C (97.8 F) 07/20/2020 11:18 AM CDT Respiratory Rate 18 07/20/2020 7:47 AM CDT Oxygen Saturation - - Inhaled Oxygen Concentration - - Weight 73.5 kg (162 lb) 10/18/2020 1:57 PM CDT P er pt Height 152.4 cm (5') 10/18/2020 1:57 PM CDT Per Pt Body Mass Index 31.64 10/18/2020 1:57 PM CDT Plan of Treatment Health Maintenance Due Date Last Done Comments DIABETES ANNUAL FOOT EXAM 1984 DIABETES HBA1C Q 6 MONTHS 1984 DIABETES MICROALBUMIN ANNUAL SCREEN 1984 LDL CHOLESTEROL ANNUAL 1984 DTAP/TDAP/TD VACCINES (1 - Tdap) 1985 HEPATITIS B VACCINES (1 of 3 - 19+ 3-dose series) 1985 HPV/Cotest (21-29) 12/28/1987 CERVICAL CANCER SCREENING 1996 HPV/Cotest (30-65) 1996 PAP SMEAR 1996 COLORECTAL SCREENING 12/28/2011 Colorectal Cancer Screening 12/28/2011 FIT-DNA Q 3 years 12/28/2011 FIT/FOBT Q 1 year 12/28/2011 Flex Sig/CT Colonography Q 5 years 12/28/2011 ZOSTER VACCINE (1 of 2) 2016 DIABETES ANNUAL RETINAL EXAM 01/24/2022, 01/24/2021, 01/24/2021, Additional history exists BREAST CANCER SCREENING 07/04/2023 07/03/2022 INFLUENZA VACCINE (#1) 2024 12/23/2019 COVID-19 Vaccine (3 - 2024-2 6 season) 2024 07/09/2020, 06/18/2020 Medical Devices Implanted Type Area Groundskeeping Yardman Device Identifier Shelf Expiration Date Model / Serial / Lot Lens Io Bi-Aspheric Softechd+21.5 - [id number] Implanted:Qty: 1 on 02/25/2020 by Boo Fragoso MD Eye Left: Eye [employer] 09/21/2024 SOFTECHD+21 .5 / [id number] / [id number] Lens Io Mta4u0 15.5 - [id number] Implanted:Qty: 1 on 07/20/2020 by Aristides Larson MD Eye Right: Eye [employer] 06/10/2023 MTA4U0.155 / [id number] / Explanted Type Area Groundskeeping Yardman Device Identifier Shelf Expiration Date Model / Serial / Lot Lens Io Bi-Aspheric Softechd+21.5 - [id number] Implanted:Qty: 1 on 05/26/2020 by Boo Fragoso MD Explanted:Qty: 1 on 07/20/2020 by Aristides Larson MD Eye Right: Eye [employer] 02/10/2025 SOFTECHD+21 .5 / [id number] / Procedures Procedure Name Priority Date/Time Associated Diagnosis Comments XR HIP 2 OR 3 VIEWS RT Routine 09/29/2024 11:46 AM CDT Trochanteric bursitis of right hip MAMMO 3D ASH SCREEN BILAT W OR WO CAD Routine 07/03/2022 2:56 PM CDT Breast cancer screening by mammogram from Last 3 Months or Most Recently Relevant to Health Maintenance Results * XR HIP 2 OR 3 VIEWS RT (09/29/2024 11:46 AM CDT) Anatomical Region Laterality Modality Lower Extremity Right Computed Radiogr aphy 09/29/2024 11:4 6 AM CDT Impressions 09/30/2024 7:19 AM CDT IMPRESSION: Please see below. Exam: XR HIP 2 OR 3 VIEWS RT Date/Time of Exam: 09/29/2024 11:46 AM Reason For Exam: See Diagnosis. Diagnosis: Trochanteric bursitis of right hip. Findings: Mild enthesopathy of right hemipelvis and greater trochanter. No acute osseous pathology or subluxation. Joint space well maintained. Soft tissues nonspecific. Narrative Procedure Note Rich Ballard MD - 09/30/2024 IMPRESSION: Please see below. Exam: XR HIP 2 OR 3 VIEWS RT Date/Time of Exam: 09/29/2024 11:46 AM Reason For Exam: See Diagnosis. Diagnosis: Trochanteric bursitis of right hip. Findings: Mild enthesopathy of right hemipelvis and greater trochanter. No acute osseous pathology or subluxation. Joint space well maintained. Soft tissues nonspecific. Reji Faulkner APPLE TURNER DIAGNOSTIC IMAGING ORDERABL ES Final Result * MAMMO SCRN BILAT 3D ASH W OR WO CAD (07/03/2022 2:56 PM CDT) Anatomical Region Laterality Modality Breast Bilateral Mammography Impressions 07/18/2022 1:21 PM CDT : No mammographic evidence of malignancy. BI-RADS ASSESSMENT: 1 - Negative RECOMMENDATION: Routine annual screening mammography. Narrative 07/18/2022 1:21 PM CDT EXAM: MAMMO SCRN BILAT 3D ASH W OR WO CAD INDICATION: Screening COMPARISON: 10/09/2011 MAMMO PRIOR STUDY BREAST COMPOSITION: There are scattered areas of fibroglandular density. FINDINGS: RIGHT BREAST: There are no suspicious masses, calcifications, or areas of architectural distortion. LEFT BREAST: There are no suspicious masses, calcifications, or areas of architectural distortion. Reji Faulkner APPLE TURNER MAMMO ORDERABLES Final Resu lt from Last 3 Months or Most Recently Relevant to Health Maintenance Insurance [facility] ADVANTAGE O DSNP DISABILITY DETERMINATION [address] [place] [address] Care Teams Compensation Vice President Relationship Specialty Start Date End Date Reji Faulkner FNP [address] [place] [address] PCP - General Nurse Practitioner Family 08/29/18
--- OUTSIDE RECORDS SUMMARY | 2024-12-09 18:46 | XMS_ITS | Clinical Summary ---
Author Organization [facility] Address [address] [place] [address] Care Team Providers Care It Program Manager Name Role Phone Reji Faulkner VIOLET [...] 11/10/2018 Immunizations Immunization Administration Dates Next Due ([employer])(12 YR UP) COVID-19 VACCINE - EMERGENCY USE AUTHORIZATION, MRNA, [id number](PF) 30 MCG/0.3 ML IM SUSP 07/09/2020,06/18/2020 Influenza [...] 1996 HPV/Cotest (30-65) 1996 PAP SMEAR 1996 BREAST CANCER SCREENING 2006 COLORECTAL SCREENING 12/28/2011 Colorectal Cancer Screening 12/28/2011 FIT-DNA Q 3 years 12/28/2011 FIT/FOBT Q 1 year 12/28/2011 Flex Sig/CT Colonography Q 5 years 12/28/2011 ZOSTER VACCINE (1 of 2) 2016 DIABETES HBA1C Q 6 MONTHS 08/02/2019 02/01/2019 DIABETES ANNUAL RETINAL EXAM 08/30/2021, 08/30/2020, 08/30/2020, Additional history exists INFLUENZA VACCINE (#1) 2024 12/23/2019 COVID-19 Vaccine (2024-2 6 season) 2024 07/09/2020, 06/18/2020 Medical Devices Implanted Type Area Log Truck Driver Device Identifier Shelf Expiration Date Model / Serial / Lot Lens Io Bi-Aspheric Softechd+21.5 - [id number] Implanted:Qty: 1 on 02/25/2020 by Boo Fragoso MD at [facility] Eye Left: Eye [employer] 09/21/2024 SOFTECHD+21 .5 / [id number] / [id number] Lens Io Mta4u0 15.5 - [id number] Implanted:Qty: 1 on 07/20/2020 by Aristides Larson MD at [facility] Eye Right: Eye [employer] 06/10/2023 MTA4U0.155 / [id number] / Explanted Type Area Log Truck Driver Device Identifier Shelf Expiration Date Model / Serial / Lot Lens Io Bi-Aspheric Softechd+21.5 - [id number] Implanted:Qty: 1 on 05/26/2020 by Boo Fragoso MD at [facility] Explanted:Qty: 1 on 07/20/2020 by Aristides Larson MD at [facility] Eye Right: Eye [employer] 02/10/2025 SOFTECHD+ 21 .5 / [id number] / Insurance GOLD PLUS [id number] HMO Advance Directives For more information, please contact: [phone] * Full Code (Latest Code Status on File) Date Activated Date Inactivated Comments 05/26/2020 9:51 AM 05/26/2020 1:19 PM Care Teams It Program Manager Relationship Specialty Start Date End Date Reji Faulkner FNP [address] [place] [address] PCP - General Nurse Practitioner Family 08/29/18
--- OUTSIDE RECORDS SUMMARY | 2024-12-09 18:46 | XMS_ITS | Encounter Summary ---
Author Organization [facility] Address [address] [place] [address] Care Team Providers Care Agronomist Name Role Phone LucieReji lin BIT SHARPENER Primary Care Provider Encounter Details Date Type Department Care Team (Late st Contact Info) Description 09/22/[address] [facility] Admitting [address] [place] [address] [facility] , Jim Rivas BIT SHARPENER [address] [place] [address] SOB (shortness of breath) (Primary [...] interval change seen us Jim Diaz Sr., BIT SHARPENER DIAGNOSTIC IMAGIN G ORDERABLES Final Result documented in this encounter Visit Diagnoses Diagnosis SOB (shortness of breath)- Primary Shortness of breath SOB (shortness of breath) Shortness of breath documented in this encounter Care Teams Agronomist Relationship Specialty Start Date End Date Reji Faulkner FNP [address] [place] [phone] PCP - General Nurse Practitioner Family 08/29/18 documented as of this encounter
--- OUTSIDE RECORDS SUMMARY | 2024-12-09 18:46 | XMS_ITS | Encounter Summary ---
Author Organization [facility] Address [address] [place] [address] Care Team Providers Care Package Sealer Name Role Phone LucieReji lin [facility] Primary Care Provider [phone] Encounter Details Date Type Department Care Team (Late st Contact Info) Description 06/20/2017 [facility] [address] [place] [address] [facility] , Jim Rivas [facility] [address] [place] [address] Unilateral emphysema (CMS/HCC) Social History [...] obstructive pulmonary disease. Clinical correlation is recommended. [id number] Narrative Procedure Note Jean Pierre Jackson MD [...] obstructive pulmonary disease. Clinical correlation is recommended. [id number] Jim Diaz Sr., [place] MAN DIAGNOSTIC IMAGIN G ORDERABLES Final Result documented in this encounter Visit Diagnoses Diagnosis Unilateral emphysema Other emphysema Unilateral emphysema Other emphysema documented in this encounter Care Teams Package Sealer Relationship Specialty Start Date End Date Reji Faulkner FNP [address] [place] [phone] PCP - General Nurse Practitioner Family 08/29/18 documented as of this encounter
[2024-12-09 18:48] VITALS: BP 134/74; PULSE 88; RESP 18; TEMP 36.9; O2SAT 90; BMI 27.9
--- NOTE | 2024-12-09 19:17 | XRR_ITS ---
PROCEDURE INFORMATION: Exam: XR Chest Exam date and time: 12/09/2024 7:23 PM Age: 58 years old Clinical indication: Shortness of breath TECHNIQUE: Imaging protocol: Radiologic exam of the chest. Views: 1 view. COMPARISON: 1. CT chest abdpel [id number]/*[id number] 09/03/2024 8:58 AM 2. CR XR chest 1V portable [id number] 08/06/2024 10:26 AM FINDINGS: Lungs: Unremarkable. No consolidation. Pleural spaces: Unremarkable. No pleural effusion. No pneumothorax. Heart/Mediastinum: Unremarkable. No cardiomegaly. Bones/joints: Unchanged healed left lower rib fractures. XR/XR chest 1V portable [id number] IMPRESSION: No acute findings.
== END 2024-12-09 19:43 | disposition left against medical advice (07) ==
PROVIDERS: Emergency Provider Family Medicine; PCP Registered Nurse
DX: Z01.89 Encounter for other specified special examinations (principal); Z53.21 Procedure and treatment not carried out due to patient leaving prior to being seen by health care provider; R06.02 Shortness of breath
CPT/HCPCS: 71045; 93005; 99285

== ENCOUNTER 2024-12-09 21:02 | Emergency (ER) | payer MEDICARE, SELFPAY ==
--- NOTE | 2024-12-09 19:17 | ECG_ITS ---
[facility] Test Date: 2024-12-09 Pat Name: Nicole Carlos Department: Room: Gender: Female Acid Washer Operator: : 1965 Requested By: Emilia Orantes Order Number: [id number] Roman MD: Magen Welch M.D. Measurements Intervals [place] Rate: 92 P: 35 VT: 150 QRS: 49 QRSD: 88 T: 62 QT: 345 QTc: 427 Interpretive Statements SINUS RHYTHM SEPTAL MYOCARDIAL INFARCTION , OF INDETERMINATE AGE [40+ ms Q WAVE IN V1/V2] Compared to ECG 08/06/2024 10:28:45 Myocardial infarct finding now present Sinus tachycardia no longer present T-wave abnormality no longer present Electronically Signed On 12-11-2024 08:38:12 CDT by Magen Welch M.D. [email or web address]
[2024-12-09 21:06] VITALS: BP 123/73; PULSE 87; RESP 20; TEMP 36.8; O2SAT 89; BMI 27.9
--- OUTSIDE RECORDS SUMMARY | 2024-12-09 21:27 | XMS_ITS | Encounter Summary ---
Author Organization [employer] [facility] Address [address] [place] [address] Care Team Providers Care Canary Raiser Name Role Phone Reji Faulkner Primary Care Provider Encounter Details Date Type Department Care Team (Late st Contact Info) Description 02/09/2020 Ancillary [facility] [address] [place] [address] Reji Faulkner FNP [address] [place] [address] Shoulder injury, right, initial encounter [...] COVID-19? No / Unsure 02/09/2020 11:26 AM BEAUTY THERAPIST documented as of this encounter Plan of Treatment Not on file documented as of this encounter Results * XR SHOULDER 2+ VW RIGHT (02/09/2020 12:16 PM BEAUTY THERAPIST) Anatomical Region Laterality Modality Upper Extremity Computed Radiogr aphy 02/09/2020 12:1 6 PM BEAUTY THERAPIST Impressions 02/10/2020 2:09 PM BEAUTY THERAPIST IMPRESSION: Degenerative changes without acute fracture. Narrative 02/10/2020 2:09 PM BEAUTY THERAPIST Exam: XR SHOULDER 2+ VW RIGHT Date/Time [...] encounter documented in this encounter Care Teams Canary Raiser Relationship Specialty Start Date End Date Reji Faulkner FNP [address] [place] [address] PCP - General Nurse Practitioner Family 08/29/18 documented as of this encounter
--- OUTSIDE RECORDS SUMMARY | 2024-12-09 21:27 | XMS_ITS | Clinical Summary ---
Author Organization [facility] Address [address] [place] [address] Care Team Providers Care Deskidding Machine Operator Name Role Phone Reji Faulkner VIOLET Primary [...] 11/10/2018 Immunizations Immunization Administration Dates Next Due ([employer])(12 YR UP) COVID-19 VACCINE - EMERGENCY USE AUTHORIZATION, MRNA, [id number](PF) 30 MCG/0.3 ML IM SUSP 07/09/2020,06/18/2020 Influenza [...] 07/09/2020, 06/18/2020 Medical Devices Implanted Type Area Film Processing Supervisor Device Identifier Shelf Expiration Date Model / Serial / Lot Lens Io Bi-Aspheric Softechd+21.5 - [id number] Implanted:Qty: 1 on 02/25/2020 by Boo Fragoso MD at [facility] Eye Left: Eye [employer] 09/21/2024 SOFTECHD+21 .5 / [id number] / [id number] Lens Io Mta4u0 15.5 - [id number] Implanted:Qty: 1 on 07/20/2020 by Aristides Larson MD at [facility] Eye Right: Eye [employer] 06/10/2023 MTA4U0.155 / [id number] / Explanted Type Area Film Processing Supervisor Device Identifier Shelf Expiration Date Model / Serial / Lot Lens Io Bi-Aspheric Softechd+21.5 - [id number] Implanted:Qty: 1 on 05/26/2020 by Boo Fragoso MD at [facility] Explanted:Qty: 1 on 07/20/2020 by Aristides Larson MD at [facility] Eye Right: Eye [employer] 02/10/2025 SOFTECHD+ 21 .5 / [id number] / Insurance G[employer]US [id number] HMO Advance Directives For more information, please contact: [phone] * Full Code (Latest Code Status on File) Date Activated Date Inactivated Comments 05/26/2020 9:51 AM 05/26/2020 1:19 PM Care Teams Deskidding Machine Operator Relationship Specialty Start Date End Date Reji Faulkner FNP [address] [place] [phone] PCP - General Nurse Practitioner Family 08/29/18
--- OUTSIDE RECORDS SUMMARY | 2024-12-09 21:27 | XMS_ITS | Clinical Summary ---
Author Organization [facility] Address [address] [place] [address] Care Team Providers Care Optical Laboratory Technician Name Role Phone Reji Faulkner VIOLET Primary [...] - 09/29/2024 11:59 PM CDT Hospital Encounter [facility] [address] [place] [phone] Reji Faulkner FNP Discharge Disposition: Home or Self Care 09/29/2024 Orders Only [facility] Admitting [address] [place] [id number] Reji Faulkner FNP Trochanteric bursitis of right hip (Primary Dx) from Last 3 Months Immunizations Immunization Administration Dates Next Due ([employer])(12 YR UP) COVID-19 VACCINE - EMERGENCY USE AUTHORIZATION, MRNA, [id number](PF) 30 MCG/0.3 ML IM SUSP 07/09/2020,06/18/2020 Influenza [...] on file Legal Sex Female 10:54 AM BOILER SETTER Gender Identity Not on file Sexual Orientation [...] 07/09/2020, 06/18/2020 Medical Devices Implanted Type Area Word Processing Operator Device Identifier Shelf Expiration Date Model / Serial / Lot Lens Io Bi-Aspheric Softechd+21.5 - [id number] Implanted:Qty: 1 on 02/25/2020 by Boo Fragoso MD Eye Left: Eye [employer] 09/21/2024 SOFTECHD+21 .5 / [id number] / [id number] Lens Io Mta4u0 15.5 - [id number] Implanted:Qty: 1 on 07/20/2020 by Aristides Larson MD Eye Right: Eye [employer] 06/10/2023 MTA4U0.155 / [id number] / Explanted Type Area Word Processing Operator Device Identifier Shelf Expiration Date Model / Serial / Lot Lens Io Bi-Aspheric Softechd+21.5 - [id number] Implanted:Qty: 1 on 05/26/2020 by Boo Fragoso MD Explanted:Qty: 1 on 07/20/2020 by Aristides Larson MD Eye Right: Eye [employer] 02/10/2025 SOFTECHD+21 .5 / [id number] / Procedures Procedure Name Priority Date/Time Associated [...] well maintained. Soft tissues nonspecific. Reji Faulkner TYING IN MACHINE OPERATOR DIAGNOSTIC IMAGING ORDERABL ES Final Result * [...] or areas of architectural distortion. Reji Faulkner TYING IN MACHINE OPERATOR MAMMO ORDERABLES Final Resu lt from Last 3 Months or Most Recently Relevant to Health Maintenance Insurance [facility] ADVANTAGE O DSNP DISABILITY DETERMINATION [address] [place] [place] [address] Care Teams Optical Laboratory Technician Relationship Specialty Start Date End Date Reji Faulkner FNP [address] [place] [phone] PCP - General Nurse Practitioner Family 08/29/18
--- OUTSIDE RECORDS SUMMARY | 2024-12-09 21:27 | XMS_ITS | Encounter Summary ---
Author Organization [facility] Address [address] [place] [address] Care Team Providers Care Top Cager Name Role Phone LucieReji lin [facility] Primary Care Provider Encounter Details Date Type Department Care Team (Late st Contact Info) Description 06/20/2017 [facility] [address] [place] [address] [facility] , Jim Rivas [facility] [address] [place] [address] Unilateral emphysema (CMS/HCC) Social History [...] obstructive pulmonary disease. Clinical correlation is recommended. [id number] Narrative Procedure Note Jean Pierre Jackson MD [...] obstructive pulmonary disease. Clinical correlation is recommended. [id number] Jim Diaz Sr., CONCRETE BUCKET LOADER DIAGNOSTIC IMAGIN G ORDERABLES Final Result documented in this encounter Visit Diagnoses Diagnosis Unilateral emphysema Other emphysema Unilateral emphysema Other emphysema documented in this encounter Care Teams Top Cager Relationship Specialty Start Date End Date Reji Faulkner FNP [address] [place] [phone] PCP - General Nurse Practitioner Family 08/29/18 documented as of this encounter
--- OUTSIDE RECORDS SUMMARY | 2024-12-09 21:27 | XMS_ITS | Encounter Summary ---
Author Organization [facility] Address [address] [place] [address] Care Team Providers Care Inclusion Paraeducator Name Role Phone Reji Faulkner SUPPLY CHAIN LOGISTICS MANAGER Primary Care Provider Encounter Details Date Type Department Care Team (Late st Contact Info) Description 11/02/2014 Ancillary Orders [facility] Admitting [address] [facility] [address] [place] [address] Sasha Haskins FNP [address] [facility] [address] [place] [address] Right shoulder pain (Primary Dx) [...] region documented in this encounter Care Teams Inclusion Paraeducator Relationship Specialty Start Date End Date Reji Faulkner FNP [address] [place] [phone] PCP - General Nurse Practitioner Family 08/29/18 documented as of this encounter
--- OUTSIDE RECORDS SUMMARY | 2024-12-09 21:27 | XMS_ITS | Encounter Summary ---
Author Organization [facility] Address [address] [place] [address] Care Team Providers Care 8Th Grade Teacher Name Role Phone LucieReji lin HOUSING MANAGEMENT OFFICER Primary Care Provider Encounter Details Date Type Department Care Team (Late st Contact Info) Description 12/28/2014 Ancillary Orders [facility] Admitting [address] [place] [address] [facility] , Jim Rivas HOUSING MANAGEMENT OFFICER [address] [place] [address] Dyspnea (Primary Dx); COPD (chronic [...] interval change seen us Jim Diaz Sr., HOUSING MANAGEMENT OFFICER DIAGNOSTIC DIRKIN G ORDERABLES Final Result documented in this encounter Visit Diagnoses Diagnosis Dyspnea- Primary Other dyspnea and respiratory abnormality COPD (chronic obstructive pulmonary disease) Chronic airway obstruction, not elsewhere classified Dyspnea Other dyspnea and respiratory abnormality COPD (chronic obstructive pulmonary disease) Chronic airway obstruction, not elsewhere classified documented in this encounter Care Teams 8Th Grade Teacher Relationship Specialty Start Date End Date Reji Faulkner FNP [address] [place] [address] PCP - General Nurse Practitioner Family 08/29/18 documented as of this encounter
--- OUTSIDE RECORDS SUMMARY | 2024-12-09 21:27 | XMS_ITS | Encounter Summary ---
Author Organization [facility] Address [address] [place] [address] Care Team Providers Care Rotary Envelope Machine Operator Name Role Phone Reji Faulkner Primary Care Provider Encounter Details Date Type Department Care Team (Latest Contact Info) Description 01/22/2019 Ancillary Orders [facility] Admitting [address] [place] [address] Reji Faulkner FNP [address] [place] [address] COPD with exacerbation (CMS/HCC) Social [...] AND LATERAL 2 VW (01/22/2019 11:49 AM TABLE COVER FOLDER) Anatomical Region Laterality Modality Chest Computed Radiogr aphy 01/22/2019 11:4 9 AM TABLE COVER FOLDER Impressions 01/22/2019 1:58 PM TABLE COVER FOLDER IMPRESSION: Please see below. Exam: XR CHEST [...] pleural fluid. Mild thoracic spine degenerative changes. [id number] Narrative Procedure Note Hans Fu MD - [...] pleural fluid. Mild thoracic spine degenerative changes. [id number] Reji LAZO DIAGNOSTIC IMAGING ORDERABL ES Final Result documented in this encounter Visit Diagnoses Diagnosis COPD with exacerbation (CMS/HCC) Obstructive chronic bronchitis with exacerbation COPD with exacerbation (CMS/HCC) Obstructive chronic bronchitis with exacerbation documented in this encounter Care Teams Rotary Envelope Machine Operator Relationship Specialty Start Date End Date Reji Faulkner FNP [address] [place] [address] PCP - General Nurse Practitioner Family 08/29/18 documented as of this encounter
--- OUTSIDE RECORDS SUMMARY | 2024-12-09 21:27 | XMS_ITS | Encounter Summary ---
Author Organization [facility] Address [address] [place] [address] Care Team Providers Care Yellow Pages Space Salesperson Name Role Phone LucieReji lin GUNSTOCK REPAIRER Primary Care Provider [phone] Encounter Details Date Type Department Care Team (Late st Contact Info) Description 09/22/2014 Ancillary Orders [facility] Admitting [address] [place] [address] [facility] , Jim Rivas GUNSTOCK REPAIRER [address] [place] [address] SOB (shortness of breath) (Primary [...] interval change seen us Jim Diaz Sr., GUNSTOCK REPAIRER DIAGNOSTIC IMAGIN G ORDERABLES Final Result documented in this encounter Visit Diagnoses Diagnosis SOB (shortness of breath)- Primary Shortness of breath SOB (shortness of breath) Shortness of breath documented in this encounter Care Teams Yellow Pages Space Salesperson Relationship Specialty Start Date End Date Reji Faulkner FNP [address] [place] [phone] PCP - General Nurse Practitioner Family 08/29/18 documented as of this encounter
--- OUTSIDE RECORDS SUMMARY | 2024-12-09 21:27 | XMS_ITS | Encounter Summary ---
Author Organization [facility] Address [address] [place] [address] Care Team Providers Care Supervisor Fish Processing Name Role Phone Reji Faulkner Primary Care Provider Encounter Details Date Type Department Care Team (Late st Contact Info) Description 08/29/2018 Ancillary [facility] [address] [place] [address] Reji Faulkner FNP [address] [place] [address] Neuropathy, cervical (radicular) Social History [...] no thickening of the prevertebral soft tissues. [id number] Narrative Procedure Note Noe Maciel MD - [...] no thickening of the prevertebral soft tissues. [id number] Reji LAZO DIAGNOSTIC IMAGING ORDERABL ES Final Result documented in this encounter Visit Diagnoses Diagnosis Neuropathy, cervical (radicular) Brachial neuritis or radiculitis nos Neuropathy, cervical (radicular) Brachial neuritis or radiculitis nos documented in this encounter Care Teams Supervisor Fish Processing Relationship Specialty Start Date End Date Reji Faulkner FNP [address] [place] [address] PCP - General Nurse Practitioner Family 08/29/18 documented as of this encounter
--- NOTE | 2024-12-09 21:58 | PC.NURSE ---
pt assessment pt states she is having trouble breathing. pt states her throat is sore and she is coughing up yellow mucus. she is having cp with her shortness of breath.
[2024-12-09 22:13] VITALS: BP 139/70; PULSE 76; RESP 19; O2SAT 96
--- NOTE | 2024-12-09 22:34 | ED_ITS ---
HPI - Fever 2 General: Chief Complaint: Fever Stated Complaint: Fever, sore throat, Whole body hurts Time Seen by Provider: 12/09/24 21:56 Source: patient Mode of arrival: ambulatory Limitations: no limitations History of Present Illness: Patient is a 58-year-old female presenting to the emergency department complaining of shortness of breath onset tonight. Reports a history of COPD, is chronically on 2 to 3 L of oxygen. She also notes that she has a sore throat and has been coughing up yellow mucus. Reports chest pain along with shortness of breath, actively having chest pain at this time. No peripheral edema reported. No abdominal pain or nausea/vomiting/diarrhea. States that she possibly has had sick contact exposure with family member who she picked up from school. Currently at this time 96% on her chronic 2-1/2 L, rest of her vital stable and she is afebrile. However she does note that she took Tylenol for headache earlier as well. Reporting subjective fevers at home along with chills. MD elicited complaint: fever Onset (ago): hour(s) Context: sick contacts Associated symptoms: Reports chills, chest pain and headache(s); Deny abdominal pain, flank pain, diarrhea, dysuria, nausea or vomiting Related Data Home Medications ?Medication ?Instructions ?Recorded ?Confirmed aspirin 81 mg tablet,delayed 81 mg PO QAM 01/12/23 release potassium chloride 20 mEq 20 meq PO DAILY 05/05/24 tablet,extended release(part/cryst) magnesium 200 mg tablet 200 mg PO DAILY 08/07/24 pantoprazole 40 mg tablet,delayed 40 mg PO BID 5 11/28/24 release baclofen 20 mg tablet 20 mg PO BID PRN Muscle Spas m 11/17/24 11/28/24 montelukast 10 mg tablet 10 mg PO DAILY 11/17/2411/10 Previous Rx's ?Medication ?Instructions ?Recorded fluticasone propionate 50 1 spray intranasal BID PRN 1 03/16/23 mcg/actuation nasal Allergic Symptoms #9.9 mL spray,suspension (Flonase Allergy Relief) albuterol sulfate 90 mcg/actuation 2 puff inhalation Q 6H PRN 05/19/24 aerosol inhaler Shortness Of Breath #6.7 gra ms amlodipine 10 mg tablet 5 mg (1/2 x 10 mg) PO DAILY 90 06/11/24 days #90 tabs hydrochlorothiazide 25 mg tablet 25 mg PO DAILY 90 day s #90 tabs 06/11/24 hydroxyzine HCl 25 mg tablet 25 mg PO QPM PRN Anxiety 90 days 06/11/24 #90 tabs empagliflozin 25 mg tablet 25 mg PO QAM 90 days #90 ta bs 09/17/24 (Jardiance) citalopram 10 mg tablet 10 mg PO QAM 90 days #90 tab s 09/29/24 metoprolol tartrate 50 mg tablet 50 mg PO BID 90 days #180 tabs 09/29/24 pregabalin 150 mg capsule (Lyrica) 150 mg PO BID 30 da ys #60 caps 09/29/24 semaglutide 7 mg tablet (Rybelsus) 7 mg PO QAM 90 days #90 tabs 09/29/24 simvastatin 20 mg tablet 20 mg PO QPM 90 days #90 tab s 09/29/24 telmisartan 80 mg tablet 80 mg PO DAILY 90 days #90 t abs 09/29/24 celecoxib 100 mg capsule (Celebrex) 100 mg PO DAILY #9 0 caps 10/16/24 ondansetron 8 mg disintegrating 8 mg PO Q8H PRN nausea and 11/11/24 tablet vomiting #3 tabs fluticasone fur. 100 mcg-umeclid 1 inh inhalation QAM #60 ea 11/14/24 62.5 mcg-vilant 25 mcg inhalat.powder (Trelegy Ellipta) prednisone 20 mg tablet See Rx Instructions PO .COMP BENJAMIN 11/28/24 #10 tabs albuterol sulfate 90 mcg/actuation 1 inh inhalation Q6 H PRN shortness 12/09/24 aerosol inhaler of breath or wheezing #6.7 g susanne doxycycline hyclate 100 mg tablet 100 mg PO BID 7 days #14 tabs 12/09/24 prednisone 20 mg tablet 40 mg (2 x 20 mg) PO ONCE 5 days 12/09/24 #10 tabs Allergies Allergy/AdvReac Type Severity Reaction Status Date / Time codeine Allergy ALGY-Hives Verified 12/09/24 21:13 Review of Systems 2 General: Reports: 10 or more systems reviewed and unremarkable except in HPI and below Const: Reports: fever(s) and chills; Denies: fatigue Eyes: Denies: change in vision ENMT: Reports: throat pain; Denies: ear or mastoid pain or nasal discharge Card: Reports: chest pain; Denies: palpitations, swelling of feet/ankles or lightheadedness Resp: Reports: dyspnea, productive cough and wheezing GI: Denies: abdominal pain, nausea, vomiting, diarrhea or constipation : Denies: flank pain, difficulty voiding, dysuria or urinary frequency Musc: Denies: neck pain, back pain or joint pain Skin/Breast: Denies: rash Neuro: Reports: headache(s); Denies: numbness in extremities or weakness in extremities PFSH ED 2 PFSH: Medical History Seasonal allergies Skin cancer of nose s/p excision, non-melanoma History of echocardiogram 08/2019 EF 65% History of PFTs 01/2021 - severe airflow obstruction. There is no significant postbronchodilator response. Lung volumes are consistent with air trapping. Gas exchange (DLCO) is mildly reduced. Mixed anxiety and depressive disorder Diverticulosis Essential hypertension Chronic nausea Neuropathy due to type 2 diabetes mellitus Type 2 diabetes mellitus ELISE (obstructive sleep apnea) bipap with sleep with 4L oxygen Coronary artery disease COPD, very severe Hyperlipidemia Acid reflux Surgical History S/P laparoscopy Hx of removal of ovary History of appendectomy History of esophagogastroduodenoscopy (EGD) (05/2019) History of colonoscopy (05/2019) Family History Father Cancer Lung disease Hypertension Mother Lung disease Grandmother Diabetes Other CAD (coronary artery disease) Denies family history of Stroke Social History Smoking and tobacco/nicotine status: current every day tobacco/nicotine user cigarettes [ Other cigarette details: [id number]+yrs] Second hand smoke exposure: Yes Alcohol intake: never Substance/Drug Use: never Lives independently: Yes Household members: spouse Housing: House Marital status: Current occupational status: disabled Pets and animals: Yes Do you think of yourself as: Straight/Heterosexual Current gender identity: Female Selina/Anglican: Samaritan Agree to transfusion: Yes Physical Exam 2 Const: COMMON NORMALS: no acute distress, patient oriented x3 and no limitations GENERAL APPEARANCE: cooperative and well developed O RIENTATION/CONSCIOUSNESS: Yes awake, Yes oriented to person, Yes oriented to place and Yes oriented to time OTHER: Mildly lethargic, no significant respiratory distress HENMT: COMMON NORMALS: normocephalic, atraumatic and hearing grossly normal bilaterally HEAD & SCALP: normocephalic and atraumatic Eye: COMMON NORMALS: Equal, round and reactive pupils present, EOMs intact bilaterally and conjunctivae normal CONJUNCTIVA: Yes conjunctivae normal P UPIL: Yes Equal, round and reactive pupils present Neck/C-Spine: COMMON NORMALS: full ROM and supple Resp: COMMON NORMALS: No retractions and No use of accessory muscles EFFORT & INSPECTION: Yes tachypneic (Mild) and Yes audible wheezes AUSCULTATION: w heezes expiratory wheezes and throughout Cardio: COMMON NORMALS: regular rate, regular rhythm, No clicks present (Cardio), No murmurs present (Cardio) and No rub (Cardio) RATE: regular rate RHYTHM: regular rhythm GI: COMMON NORMALS: Normal to inspection, nondistended, normoactive bowel sounds present, Soft to palpation and non-tender AUSCULTATION: Yes normoactive bowel sounds PALPATION: Yes Soft to palpation RECTAL EXAM: d eferred Extremity: COMMON NORMALS: normal to inspection, full ROM, capillary refill normal and no pedal edema Neuro: COMMON NORMALS: patient oriented x3, moves all extremities, no focal motor deficits and no sensory deficits noted SENSORIUM/ORIENTATION: Yes oriented to person, Yes oriented to place and Yes oriented to time Psych: COMMON NORMALS: mental status grossly normal and Normal thought process present THOUGHT PROCESS: Normal thought process present Skin: COMMON NORMALS: no rashes or lesions noted GENERAL SKIN EXAM: no rashes or lesions noted Course 2 Vital Signs: Vital signs: Vital Signs Temperature 98.3 F 12/09/24 21:06 Pulse Rate 75 12/09/24 23:30 Respiratory Rate 18 12/09/24 23:22 Blood Pressure 143/74 12/09/24 23:00 Pulse Oximetry 95 12/09/24 23:22 Oxygen Delivery Me thod Nasal Cannula 12/09/24 23:22 Oxygen Flow Rate 2 12/09/24 23:22 MDM - Fever Medical Decision Making This is a 58-year-old female with history of COPD presenting with productive cough, malaise, and dyspnea. Workup included chest x-ray without infiltrate, viral swab negative, troponin and EKG normal, and labs notable only for leukocytosis with white blood cell count of 20, which may be related to recent steroid use. Also has elevated glucose at 213. She had no reports of fevers, chills, or increased oxygen requirement beyond her baseline of 2 L. Patient received multiple nebulizer treatments prior to ED, had a DuoNeb here in the emergency department improvement, noted to be resting comfortably afterwards, and stable on her baseline oxygen. Given clinical stability, absence of new hypoxemia, and primarily from patient preference of treating at home, she is appropriate for outpatient management. She is prescribed doxycycline 100 mg to take twice a day, prednisone, and albuterol inhaler/nebulizer for home use. Return precautions were reviewed, which includes worsening shortness of breath, chest pain, increased butyrin production, new fever, confusion, or any increased oxygen requirement. Patient verbalizes understanding and agrees with the plan. Lab Data 12/09/24 22:15 12/09/24 22:15 Laboratory Results WBC 20.53 10^3/uL (3.29-11.43) H 12/09/24 22:15 RBC 4.94 10^6/uL (3.85-5.65) 12/09/24 22:15 Hgb 14.50 g/dL (11.27-16.99) 12/09/24 22:15 Hct 44.1 % (36-47) 12/09/24 22:15 MCV 89.3 fl (85-98) 12/09/24 22:15 MCH 29.4 pg (27-33) 12/09/24 22:15 MCHC 32.9 g/dL (30-55) 12/09/24 22:15 RDW 15.3 % (12.1-15.1) H 12/09/24 22:15 Plt Count 193 10^3/cmm (157-399) 12/09/24 22:15 MPV 10.3 fL (7.4-10.4) 12/09/24 22:15 Neut % (Auto) 87.5 % 12/09/24 22:15 Lymph % (Auto) 7.9 % 12/09/24 22:15 Bonner % (Auto) 3.9 % 12/09/24 22:15 Eos % (Auto) 0.1 % 12/09/24 22:15 Baso % (Auto) 0.2 % 12/09/24 22:15 Neut # (Auto) 17.94 10^3/uL (1.8-7.7) H 12/09/24 22:15 Lymph # (Auto) 1.6 10^3/uL (0.8-4.8) 12/09/24 22:15 Bonner # (Auto) 0.8 10^3/uL (0.2-0.9) 12/09/24 22:15 Eos # (Auto) 0.0 10^3/uL (0.0-0.8) 12/09/24 22:15 Baso # (Auto) 0.1 10^3/uL (0.0-0.1) 12/09/24 22:15 Nucleated RBC % (auto) 0 % 12/09/24 22:15 Nucleated RBCs # 0.0 /100WBC 12/09/24 22:15 Sodium 140 mmol/L (136-145) 12/09/24 22:15 Potassium 4.1 mmol/L (3.5-5.1) 12/09/24 22:15 Chloride 100 mmol/L (98-107) 12/09/24 22:15 Carbon Dioxide 28 mmol/L (22-29) 12/09/24 22:15 Anion Gap 16.1 (5-19) 12/09/24 22:15 BUN 18 mg/dL (6-20) 12/09/24 22:15 Creatinine 0.9 mg/dL (0.5-0.9) 12/09/24 22:15 GFR Calculation 64.5 mL/min (90-130) L 12/09/24 22:15 Glucose 213 mg/dL (65-115) H 12/09/24 22:15 Calculated Osmolality 298 mOsm/kg (285-295) H 12/09/24 22:15 Lactic Acid 1.5 mmol/L (0.5-2.2) 12/09/24 22:15 Calcium 9.0 mg/dL (8.5-10.5) 12/09/24 22:15 Total Bilirubin 0.7 mg/dL (0.15-1.2) 12/09/24 22:15 AST 10 U/L (0-32) 12/09/24 22:15 ALT 13 U/L (0-33) 12/09/24 22:15 Alkaline Phosphatase 89 U/L (35-105) 12/09/24 22:15 Troponin T Baseline 7 ng/L (0-10) 12/09/24 22:15 NT-Pro-B Natriuret Pep 319 pg/mL (0-125) H 12/09/24 22:15 Total Protein 6.6 g/dL (6.6-8.7) 12/09/24 22:15 Albumin 4.2 g/dL (3.5-5.2) 12/09/24 22:15 Globulin 2.4 g/dL (1.3-4.6) 12/09/24 22:15 Urine Color Yellow (Yellow) 12/09/24 23:14 Urine Appearance Clear (CLEAR) 12/09/24 23:14 Urine pH 7.0 (5-7) 12/09/24 23:14 Ur Specific [place] 1.011 (1.005-1.030) 12/09/24 23:14 Urine Protein 2+ (Negative) A 12/09/24 23:14 Urine Glucose (UA) 3+ (Normal) H 12/09/24 23:14 Urine Ketones Negative (Negative) 12/09/24 23:14 Urine Blood Negative (Negative) 12/09/24 23:14 Urine Nitrate Negative (Negative) 12/09/24 23:14 Urine Bilirubin Negative (Negative) 12/09/24 23:14 Urine Urobilinogen 1.0 mg/dL (Negative) 12/09/24 23:14 Ur Leukocyte Esterase Negative (Negative) 12/09/24 23:14 Urine RBC 0-4 /hpf (0-2) H 12/09/24 23:14 Urine WBC 0-4 /hpf (0-5) H 12/09/24 23:14 Ur Squamous Epith Cells 0-4 /hpf (0-5) H 12/09/24 23:14 Amorphous Sediment Not Reportable 12/09/24 23:14 Urine Bacteria None /hpf (NONE) 12/09/24 23:14 Influenza A (PCR) Negative (Negative) 12/09/24 22:10 Influenza Type B (PCR) Negative (Negative) 12/09/24 22:10 RSV (PCR) Negative (Negative) 12/09/24 22:10 SARS-CoV-2 (PCR) Negative (Negative) 12/09/24 22:10 All radiology interpretation(s) finalized by discharge Discharge Plan Discharge Patient Disposition: Home Clinical Impression: COPD with acute exacerbation Condition: Stable Prescriptions: New prednisone 20 mg tablet 40 mg PO ONCE 5 Days Qty: 10 0RF albuterol sulfate 90 mcg/actuation HFA aerosol inhaler 1 inh inhalation Q6H PRN (Reason: shortness of breath or wheezing) Qty: 6.7 0RF doxycycline hyclate 100 mg tablet 100 mg PO BID 7 Days Qty: 14 0RF No Action prednisone 20 mg tablet See Rx Instructions PO .COMPLEX Qty: 10 0RF Rx Instructions: Days 1-3: 2 tabs. Days 4-6: 1 tab. Days 7&8: 0.5tab. orally daily; Take in AM with food. citalopram 10 mg tablet 10 mg PO QAM 90 Days Qty: 90 1RF metoprolol tartrate 50 mg tablet 50 mg PO BID 90 Days Qty: 180 1RF Lyrica 150 mg capsule 150 mg PO BID 30 Days Qty: 60 2RF Rybelsus 7 mg tablet 7 mg PO QAM 90 Days Qty: 90 1RF simvastatin 20 mg tablet 20 mg PO QPM 90 Days Qty: 90 4RF telmisartan 80 mg tablet 80 mg PO DAILY 90 Days Qty: 90 1RF celecoxib [Celebrex] 100 mg capsule 100 mg PO DAILY Qty: 90 0RF Flonase Allergy Relief 50 mcg/actuation spray,suspension 1 spray intranasal BID PRN (Reason: Allergic Symptoms) Qty: 9.9 0RF Rx Instructions: administer into each nostril albuterol sulfate 90 mcg/actuation HFA aerosol inhaler 2 puff inhalation Q6H PRN (Reason: Shortness Of Breath) Qty: 6.7 0RF hydroxyzine HCl 25 mg tablet 25 mg PO QPM PRN (Reason: Anxiety) 90 Days Qty: 90 0RF amlodipine 10 mg tablet 5 mg PO DAILY 90 Days Qty: 90 0RF hydrochlorothiazide 25 mg tablet 25 mg PO DAILY 90 Days Qty: 90 0RF Jardiance 25 mg tablet 25 mg PO QAM 90 Days Qty: 90 0RF ondansetron 8 mg tablet,disintegrating 8 mg PO Q8H PRN (Reason: nausea and vomiting) Qty: 3 0RF Trelegy Ellipta 100-62.5-25 mcg blister with device 1 inh inhalation QAM Qty: 60 2RF aspirin 81 mg tablet,delayed release (DR/EC) 81 mg PO QAM baclofen 20 mg tablet 20 mg PO BID PRN (Reason: Muscle Spasm) Rx Instructions: TAKE 1 TABLET BY MOUTH TWICE DAILY NEEDED FOR MUSCLE SPASMS montelukast 10 mg tablet 10 mg PO DAILY Rx Instructions: TAKE 1 TABLET BY MOUTH DAILY potassium chloride 20 mEq tablet,ER particles/crystals 20 meq PO DAILY magnesium 200 mg Tablet 200 mg PO DAILY pantoprazole 40 mg tablet,delayed release (DR/EC) 40 mg PO BID Discharge Orders: Discharge ED (Routine); Ordered 12/09/24 Ordered By: Manuel Stanley Referrals: Reji Faulkner FNP [Primary Care Provider, Family Practice] Patient Instructions: Patient Portal & Jena Instructions Activity Restrictions/Additional Instructions: COPD Exacerbation Discharge Diagnosis: Acute exacerbation of chronic obstructive pulmonary disease (COPD), moderate severity, managed in the emergency department. Leukocytosis likely secondary to systemic corticosteroid use. No new increased oxygen requirement. Discharge Medications and Instructions: - Doxycycline 100 mg PO BID x 7 days - Rationale: Empiric antibiotic therapy is recommended for moderate exacerbations with increased sputum purulence or volume. Doxycycline is a first- line agent per guideline recommendations. - Duration: 7 days is supported by the [place] [employer] and GOLD guidelines. - Monitor for rash, GI upset, or signs of allergic reaction. - Prednisone 40 mg PO daily x 5 days - Rationale: Short courses (3?7 days) of systemic corticosteroids are as effective as longer regimens, with fewer adverse effects. - Monitor for hyperglycemia, mood changes, insomnia, and GI symptoms. - Albuterol inhaler (metered-dose) - Use 2 puffs every 4?6 hours as needed for dyspnea or wheezing. - Ensure proper inhaler technique; consider a spacer device if technique is suboptimal. - Short-acting beta2-agonists are recommended as first-line bronchodilator therapy during exacerbations. Additional Management: - Continue baseline COPD maintenance therapy unless otherwise directed. - Pulmonary rehabilitation should be considered for patients with functional impairment, as it improves outcomes post-exacerbation. Monitoring and Follow-up: - Schedule outpatient follow-up within 1?2 weeks to reassess symptoms, medication adherence, and inhaler technique. - Monitor for adverse effects of antibiotics and corticosteroids. Strict Return Precautions: - Return to the emergency department or seek urgent medical attention for any of the following: - Worsening or new onset of dyspnea at rest, tachypnea, or inability to speak in full sentences. - Persistent or increasing hypoxemia (if home pulse oximetry available, SpO? <88%). - Chest pain, hemoptysis, or new/worsening lower extremity edema. - Fever or chills, especially if associated with pleuritic chest pain (to rule out pneumonia). - Altered mental status, confusion, or somnolence. - Failure to improve or worsening symptoms after 48?72 hours of therapy. - Signs of anaphylaxis or severe allergic reaction to medications. Patient Education: - Review inhaler technique and reinforce adherence to prescribed regimen. - Advise on smoking cessation if applicable. - Discuss the importance of early recognition of exacerbation symptoms and prompt medical attention. Summary of Evidence: - Short courses of systemic corticosteroids and antibiotics are effective in reducing treatment failure and relapse rates in moderate COPD exacerbations managed outpatient. - Short-acting bronchodilators are recommended for symptom relief. - Early follow-up and strict return precautions are essential to identify severe exacerbations requiring escalation of care. Print Language: Surinamese Coding Level of Care Code ED Hat Blocking Machine Operator for Precious Banks
[2024-12-09 22:37] LABS: Hematocrit 44.1 % (36-47); Hemoglobin 14.50 g/dL (11.27-16.99); Mean Corpuscular HGB Conc 32.9 g/dL (30-55); Mean Corpuscular Hemoglobin 29.4 pg (27-33); Mean Corpuscular Volume 89.3 fl (85-98); Nucleated Red Blood Cells % 0 %; Platelet Count 193 10^3/cmm (157-399); Red Blood Count 4.94 10^6/uL (3.85-5.65); White Blood Count 20.53 10^3/uL (3.29-11.43)
[2024-12-09 22:54] LABS: Respiratory Syncytial Virus Ce NEGATIVE (Negative); SARS-CoV-2 PCR NEGATIVE (Negative)
[2024-12-09 22:59] LABS: Lactic Sepsis W/Reflex 1.5 mmol/L (0.5-2.2)
[2024-12-09 23:00] VITALS: BP 143/74; PULSE 73; RESP 19; O2SAT 96
[2024-12-09 23:01] LABS: Troponin(5th) Baseline 7 ng/L (0-10)
[2024-12-09 23:10] LABS: Alanine Aminotransferase 13 U/L (0-33); Albumin Level 4.2 g/dL (3.5-5.2); Alkaline Phosphatase 89 U/L (35-105); Anion Gap 16.1 (5-19); Aspartate Amino Transferase 10 U/L (0-32); Blood Urea Nitrogen 18 mg/dL (6-20); Calcium 9.0 mg/dL (8.5-10.5); Carbon Dioxide 28 mmol/L (22-29); Chloride 100 mmol/L (98-107); Creatinine Clr Calc Pharmacy 57.9703; Globulin 2.4 g/dL (1.3-4.6); Glucose 213 mg/dL (65-115); NT Pro B Type Natriuretic Pept 319 pg/mL (0-125); Osmolality Calculated 298 mOsm/kg (285-295); Potassium 4.1 mmol/L (3.5-5.1); Sodium 140 mmol/L (136-145); Total Protein 6.6 g/dL (6.6-8.7)
[2024-12-09 23:21] LABS: Glucose Urine UA 3+ (Normal); Nitrate Urine Negative (Negative); Specific Gravity, Urine 1.011 (1.005-1.030)
[2024-12-09 23:22] VITALS: PULSE 78; RESP 18; O2SAT 95
[2024-12-09 23:30] VITALS: PULSE 75
[2024-12-09 23:31] LABS: Add Urine Microscopic? YES
[2024-12-10 00:29] VITALS: BP 143/74; PULSE 76; RESP 16; O2SAT 95
== END 2024-12-10 00:30 | disposition home or self-care (01) ==
PROVIDERS: Emergency Provider Physician Assistant; PCP Registered Nurse
DX: J44.1 Chronic obstructive pulmonary disease with (acute) exacerbation (principal); Z79.82 Long term (current) use of aspirin; Z11.52 Encounter for screening for COVID-19; F17.210 Nicotine dependence, cigarettes, uncomplicated; E78.5 Hyperlipidemia, unspecified; E11.40 Type 2 diabetes mellitus with diabetic neuropathy, unspecified; I25.10 Atherosclerotic heart disease of native coronary artery without angina pectoris; I10 Essential (primary) hypertension; Z85.828 Personal history of other malignant neoplasm of skin
CPT/HCPCS: 36415; 80053; 81001; 83605; 83880; 84484; 85025; 87040; 87637; 93005; 94640; 99285; J9999

== ENCOUNTER 2025-01-17 20:43 | Inpatient (IN) | payer MEDICARE, SELFPAY ==
[2025-01-17 20:49] VITALS: BP 137/65; PULSE 110; RESP 18; TEMP 36.9; O2SAT 86; BMI 28.5
--- OUTSIDE RECORDS SUMMARY | 2025-01-17 20:49 | XMS_ITS | Clinical Summary ---
Author Organization [facility] Address [address] [place] [address] Care Team Providers Care Corporate Quality Engineer Name Role Phone Reji Faulkner VIOLET Primary Care Provider [phone] Allergies Active Allergy Reactions Criticality Noted Date [...] 11/10/2018 Immunizations Immunization Administration Dates Next Due ([employer])(12 YR UP) COVID-19 VACCINE - EMERGENCY USE AUTHORIZATION, MRNA, [id number]) 30 MCG/0.3 ML IM SUSP 07/09/2020,06/18/2020 Influenza [...] 07/09/2020, 06/18/2020 Medical Devices Implanted Type Area Sugar Drier Device Identifier Shelf Expiration Date Model / Serial / Lot Lens Io Bi-Aspheric Softechd+21.5 - [id number] Implanted:Qty: 1 on 02/25/2020 by Boo Fragoso MD at [facility] Eye Left: Eye [employer] 09/21/2024 SOFTECHD+21 .5 / [id number] / [id number] Lens Io [id number] 15.5 - [id number] Implanted:Qty: 1 on 07/20/2020 by Aristides Larson MD at [facility] Eye Right: Eye [employer] 06/10/2023 [id number] / [id number] / Explanted Type Area Sugar Drier Device Identifier Shelf Expiration Date Model / Serial / Lot Lens Io Bi-Aspheric Softechd+21.5 - [id number] Implanted:Qty: 1 on 05/26/2020 by Boo Fragoso MD at [facility] Explanted:Qty: 1 on 07/20/2020 by Aristides Larson MD at [facility] Eye Right: Eye [employer] 02/10/2025 SOFTECHD+ 21 .5 / [id number] / Insurance GOLD PLUS [id number] HMO Advance Directives For more information, please contact: [phone] * Full Code (Latest Code Status on File) Date Activated Date Inactivated Comments 05/26/2020 9:51 AM 05/26/2020 1:19 PM Care Teams Corporate Quality Engineer Relationship Specialty Start Date End Date Reji Faulkner FNP [address] [place] [id number] PCP - General Nurse Practitioner Family 08/29/18
--- OUTSIDE RECORDS SUMMARY | 2025-01-17 20:50 | XMS_ITS | Encounter Summary ---
Author Organization [facility] Address [address] [place] [address] Care Team Providers Care Race Relations Adviser Name Role Phone LucieReji lin WASHER BLANKET Primary Care Provider Encounter Details Date Type Department Care Team (Late st Contact Info) Description 12/28/2014 Ancillary Orders [facility] Admitting [address] [place] [address] [facility] , Jim Rivas WASHER BLANKET [address] [place] [address] Dyspnea (Primary Dx); COPD (chronic [...] interval change seen us Jim Diaz Sr., [employer] DI[facility]NOSTIC [facility]AG[facility] G ORDERABLES Final Result documented in this encounter Visit Diagnoses Diagnosis Dyspnea- Primary Other dyspnea and respiratory abnormality COPD (chronic obstructive pulmonary disease) (CMS/HCC) Chronic airway obstruction, not elsewhere classified Dyspnea Other dyspnea and respiratory abnormality COPD (chronic obstructive pulmonary disease) (CMS/HCC) Chronic airway obstruction, not elsewhere classified documented in this encounter Care Teams Race Relations Adviser Relationship Specialty Start Date End Date Reji Faulkner FNP [address] [place] [phone] PCP - General Nurse Practitioner Family 08/29/18 documented as of this encounter
--- OUTSIDE RECORDS SUMMARY | 2025-01-17 20:50 | XMS_ITS | Encounter Summary ---
Author Organization [facility] Address [address] [place] [address] Care Team Providers Care Farm Facility Manager Name Role Phone Reji Faulkner Primary Care Provider Encounter Details Date Type Department Care Team (Late st Contact Info) Description 01/13/2025 External Device Data [facility] ABSTRACTION Provider, Abstract NO ADDRESS ON FILE Social History Tobacco Use Types Packs/Day Years Used Date Smoking Tobacco: Every Day Cigarettes Smokeless Tobacco: Never Alcohol Use Standard Drinks/Week Comments No 0 (1 standard drink = 0.6 oz pur e alcohol) Comments Unknown Sex and Gender Information Value Date Recorded Sex Assigned at Not on file Legal Sex Female 10:54 AM 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
--- OUTSIDE RECORDS SUMMARY | 2025-01-17 20:50 | XMS_ITS | Encounter Summary ---
Author Organization [facility] Address [address] [place] [address] Care Team Providers Care Local City Driver Name Role Phone Reji Faulkner Primary Care Provider [phone] Encounter Details Date Type Department Care Team (Latest Contact Info) Description 01/22/2019 Ancillary Orders [facility] Admitting [address] [place] [address] Reji Faulkner FNP [address] [place] [address] COPD with exacerbation (CMS/HCC) Social [...] AND LATERAL 2 VW (01/22/2019 11:49 AM FRONT DESK SUPERVISOR) Anatomical Region Laterality Modality Chest Computed Radiogr aphy 01/22/2019 11:4 9 AM FRONT DESK SUPERVISOR Impressions 01/22/2019 1:58 PM FRONT DESK SUPERVISOR IMPRESSION: Please see below. Exam: XR CHEST [...] pleural fluid. Mild thoracic spine degenerative changes. [id number] Narrative Procedure Note Hans Fu MD - [...] pleural fluid. Mild thoracic spine degenerative changes. [id number] Reji [facility] ORDERABL ES Final Result documented in this encounter Visit Diagnoses Diagnosis COPD with exacerbation (CMS/HCC) Obstructive chronic bronchitis with exacerbation COPD with exacerbation (CMS/HCC) Obstructive chronic bronchitis with exacerbation documented in this encounter Care Teams Local City Driver Relationship Specialty Start Date End Date Reji Faulkner FNP [address] [place] [address] PCP - General Nurse Practitioner Family 08/29/18 documented as of this encounter
--- OUTSIDE RECORDS SUMMARY | 2025-01-17 20:50 | XMS_ITS | Clinical Summary ---
Author Organization [facility] Address [address] [place] [id number] Care Team Providers Care Contract Designer Name Role Phone Reji Faulkner VIOLET Primary [...] Encounters Date Type Department Care Team Description 01/13/2025 External Device Data STL ABSTRACTION Provider, Abstract 11/11/2024 External Device Data STL ABSTRACTION Provider, Abstract from Last 3 Months Immunizations Immunization Administration Dates Next Due ([employer])(12 YR UP) COVID-19 VACCINE - EMERGENCY USE AUTHORIZATION, MRNA, [id number]) 30 MCG/0.3 ML IM SUSP 07/09/2020,06/18/2020 Influenza [...] on file Legal Sex Female 10:54 AM CARROT BUNCHER Gender Identity Not on file Sexual Orientation [...] 07/09/2020, 06/18/2020 Medical Devices Implanted Type Area Naturopathic Oncology Provider Device Identifier Shelf Expiration Date Model / Serial / Lot Lens Io Bi-Aspheric Softechd+21.5 - [id number] Implanted:Qty: 1 on 02/25/2020 by Boo Fragoso MD Eye Left: Eye [employer] 09/21/2024 SOFTECHD+21 .5 / [id number] / [id number] Lens Io Mta4u0 15.5 - [id number] Implanted:Qty: 1 on 07/20/2020 by Aristides Larson MD Eye Right: Eye [employer] 06/10/2023 MTA4U0.155 / [id number] / Explanted Type Area Naturopathic Oncology Provider Device Identifier Shelf Expiration Date Model / Serial / Lot Lens Io Bi-Aspheric Softechd+21.5 - [id number] Implanted:Qty: 1 on 05/26/2020 by Boo Fragoso MD Explanted:Qty: 1 on 07/20/2020 by Aristides Larson MD Eye Right: Eye [employer] 02/10/2025 SOFTECHD+21 .5 / [id number] / Procedures Procedure Name Priority Date/Time Associated [...] or areas of architectural distortion. Reji Faulkner DENTISTRY TEACHER MAMMO ORDERABLES Final Resu lt from Last 3 Months or Most Recently Relevant to Health Maintenance Insurance [facility] DUAL ADVANTAGE O DSNP DISABILITY DETERMINATION [address] [place] [address] Care Teams Contract Designer Relationship Specialty Start Date End Date Reji Faulkner FNP [address] [place] [phone] PCP - General Nurse Practitioner Family 08/29/18
--- OUTSIDE RECORDS SUMMARY | 2025-01-17 20:50 | XMS_ITS | Encounter Summary ---
Author Organization [employer] [facility] Address [address] [place] [address] Care Team Providers Care Soft Water Mechanic Name Role Phone Reji Faulkner Primary Care Provider [phone] Encounter Details Date Type Department Care Team (Late st Contact Info) Description 02/09/2020 Ancillary Orders [facility] [address] [place] [address] Reji Faulkner FNP [address] [place] [address] Shoulder injury, right, initial encounter [...] COVID-19? No / Unsure 02/09/2020 11:26 AM NAVAL INSPECTOR documented as of this encounter Plan of Treatment Not on file documented as of this encounter Results * XR SHOULDER 2+ VW RIGHT (02/09/2020 12:16 PM NAVAL INSPECTOR) Anatomical Region Laterality Modality Upper Extremity Computed Radiogr aphy 02/09/2020 12:1 6 PM NAVAL INSPECTOR Impressions 02/10/2020 2:09 PM NAVAL INSPECTOR IMPRESSION: Degenerative changes without acute fracture. Narrative 02/10/2020 2:09 PM NAVAL INSPECTOR Exam: XR SHOULDER 2+ VW RIGHT [...] encounter documented in this encounter Care Teams Soft Water Mechanic Relationship Specialty Start Date End Date Reji Faulkner FNP [address] [place] [address] PCP - General Nurse Practitioner Family 08/29/18 documented as of this encounter
--- OUTSIDE RECORDS SUMMARY | 2025-01-17 20:50 | XMS_ITS | Encounter Summary ---
Author Organization [facility] Address [address] [place] [address] Care Team Providers Care Alto Singer Name Role Phone Reji Faulkner MECHANIST Primary Care Provider Encounter Details Date Type Department Care Team (Late st Contact Info) Description 11/02/2014 Ancillary Orders [facility] Admitting [address] [facility] [address] [place] [address] Sasha Haskins FNP [address] [facility] [address] [place] [address] Right shoulder pain (Primary Dx) [...] region documented in this encounter Care Teams Alto Singer Relationship Specialty Start Date End Date Reji Faulkner FNP [address] [place] [phone] PCP - General Nurse Practitioner Family 08/29/18 documented as of this encounter
--- OUTSIDE RECORDS SUMMARY | 2025-01-17 20:50 | XMS_ITS | Encounter Summary ---
Author Organization [employer] [facility] Address [address] [place] [address] Care Team Providers Care Treasury Agent Name Role Phone LucieReji lin [facility] Primary Care Provider [phone] Encounter Details Date Type Department Care Team (Late st Contact Info) Description 06/20/2017 [facility] [address] [place] [address] [facility] , Jim Rivas [facility] [address] [place] [address] Unilateral emphysema (CMS/HCC) Social History [...] obstructive pulmonary disease. Clinical correlation is recommended. [id number] Narrative Procedure Note Jean Pierre Jackson MD [...] obstructive pulmonary disease. Clinical correlation is recommended. [id number] Jim Diaz Sr., DIESEL TECHNICIAN DIAGNOSTIC IMAGIN G ORDERABLES Final Result documented in this encounter Visit Diagnoses Diagnosis Unilateral emphysema (CMS/HCC) Other emphysema Unilateral emphysema (CMS/HCC) Other emphysema documented in this encounter Care Teams Treasury Agent Relationship Specialty Start Date End Date Reji Faulkner FNP [address] [place] [phone] PCP - General Nurse Practitioner Family 08/29/18 documented as of this encounter
--- OUTSIDE RECORDS SUMMARY | 2025-01-17 20:50 | XMS_ITS | Encounter Summary ---
Author Organization [employer] [facility] Address [address] [place] [address] Care Team Providers Care Kettle Coordinator Name Role Phone Reji Faulkner Primary Care Provider Encounter Details Date Type Department Care Team (Late st Contact Info) Description 08/29/2018 Ancillary Orders [facility] [address] [place] [address] Reji Faulkner FNP [address] [place] [address] Neuropathy, cervical (radicular) Social History [...] no thickening of the prevertebral soft tissues. [id number] Narrative Procedure Note Noe Maciel MD - [...] no thickening of the prevertebral soft tissues. [id number] Reji LAZO DIAGNOSTIC IMAGING ORDERABL ES Final Result documented in this encounter Visit Diagnoses Diagnosis Neuropathy, cervical (radicular) Brachial neuritis or radiculitis nos Neuropathy, cervical (radicular) Brachial neuritis or radiculitis nos documented in this encounter Care Teams Kettle Coordinator Relationship Specialty Start Date End Date Reji Faulkner FNP [address] [place] [address] PCP - General Nurse Practitioner Family 08/29/18 documented as of this encounter
--- OUTSIDE RECORDS SUMMARY | 2025-01-17 20:50 | XMS_ITS | Encounter Summary ---
Author Organization [facility] Address [address] [place] [address] Care Team Providers Care Nurse Practitioner Per Diem Name Role Phone LucieReji lin [employer] Primary Care Provider [phone] Encounter Details Date Type Department Care Team (Late st Contact Info) Description 09/22/2014 Ancillary Orders [facility] Admitting [address] [place] [address] [facility] , Jim Rivas [employer] ADVERTISING [address] [place] [address] SOB (shortness of breath) (Primary [...] interval change seen us Jim Diaz Sr., HEAD OF ADVERTISING DIAGNOSTIC IMAGIN G ORDERABLES Final Result documented in this encounter Visit Diagnoses Diagnosis SOB (shortness of breath)- Primary Shortness of breath SOB (shortness of breath) Shortness of breath documented in this encounter Care Teams Nurse Practitioner Per Diem Relationship Specialty Start Date End Date Reji Faulkner FNP [address] [place] [phone] PCP - General Nurse Practitioner Family 08/29/18 documented as of this encounter
--- NOTE | 2025-01-17 22:37 | XRR_ITS ---
PROCEDURE INFORMATION: Exam: XR Chest Exam date and time: 01/17/2025 10:41 PM Age: 59 years old Clinical indication: Fever and shortness of breath; SOB with fever; Additional info: Fever SOB TECHNIQUE: Imaging protocol: Radiologic exam of the chest. Views: 1 view. COMPARISON: CR XR chest 1V portable [id number] 12/09/2024 7:23 PM FINDINGS: Lungs: Unremarkable. No consolidation. Pleural spaces: Unremarkable. No pleural effusion. No pneumothorax. Heart/Mediastinum: Unremarkable. No cardiomegaly. Bones/joints: Unremarkable. XR/XR chest 1V portable [id number] IMPRESSION: No acute findings.
[2025-01-17] MEDS: piperacillin-tazobactam 4.5 GM in sodium chloride 0.9% (plus) 50 ML IV (22:45)
[2025-01-17 22:54] VITALS: PULSE 87; RESP 18; O2SAT 93
[2025-01-17 22:59] VITALS: PULSE 90; RESP 18; O2SAT 92
[2025-01-17 23:01] VITALS: BP 125/63; PULSE 90; RESP 16; O2SAT 95
[2025-01-17 23:22] LABS: Hematocrit 37.9 % (36-47); Hemoglobin 12.40 g/dL (11.27-16.99); Mean Corpuscular HGB Conc 32.7 g/dL (30-55); Mean Corpuscular Hemoglobin 28.4 pg (27-33); Mean Corpuscular Volume 86.7 fl (85-98); Nucleated Red Blood Cells % 0 %; Platelet Count 271 10^3/cmm (157-399); Red Blood Count 4.37 10^6/uL (3.85-5.65); White Blood Count 15.35 10^3/uL (3.29-11.43)
[2025-01-17 23:30] LABS: Glucose Urine UA 3+ (Normal); Nitrate Urine Negative (Negative); Specific Gravity, Urine 1.012 (1.005-1.030)
[2025-01-17 23:35] LABS: Add Urine Microscopic? YES
[2025-01-17 23:38] LABS: Lactic Sepsis W/Reflex 1.0 mmol/L (0.5-2.2)
[2025-01-17 23:46] LABS: Alanine Aminotransferase 7 U/L (0-33); Albumin Level 3.5 g/dL (3.5-5.2); Alkaline Phosphatase 99 U/L (35-105); Anion Gap 14.8 (5-19); Aspartate Amino Transferase 7 U/L (0-32); Blood Urea Nitrogen 15 mg/dL (6-20); Calcium 8.4 mg/dL (8.5-10.5); Carbon Dioxide 31 mmol/L (22-29); Chloride 98 mmol/L (98-107); Creatinine Clr Calc Pharmacy 65.0892; Globulin 3.6 g/dL (1.3-4.6); Glucose 136 mg/dL (65-115); NT Pro B Type Natriuretic Pept 91 pg/mL (0-125); Osmolality Calculated 295 mOsm/kg (285-295); Sodium 141 mmol/L (136-145); Total Protein 7.1 g/dL (6.6-8.7)
[2025-01-17 23:47] LABS: Potassium 2.8 mmol/L (3.5-5.1)
[2025-01-18] VITALS (16 sets, daily range): BP systolic 105–127; BP diastolic 54–71; PULSE 76–91; RESP 15–24; TEMP 36.6–36.7; O2SAT 90–99; BMI 28.5
--- NOTE | 2025-01-18 00:14 | W.ED.FEVER ---
HPI - Fever General: Chief Complaint: Fever Stated Complaint: fever chilling week+ eye infection Time Seen by Provider: 01/17/25 22:06 History of Present Illness: Patient is a 59-year-old female with history of COPD who presents with fever for the past three nights. She reports initially having a sinus infection 2-3 weeks ago, which was followed by an eye infection for which she was prescribed Ceflex (cephalexin) by a provider named Chung. Despite taking the antibiotic twice daily as prescribed, she developed high fevers, particularly at night, with associated chills ('freezes to at night'). She reports productive cough with yellow-green sputum, headaches, and increasing dyspnea with chest congestion. Patient also notes nausea without vomiting, describing it as more of a 'gagging type thing.' She additionally complains of pain in her back, specifically under her shoulder blade. Patient states that her respiratory symptoms are not responding to her usual inhalers, stating 'it's like nothing's getting in there.' She confirms using her prescribed oxygen (2-3 liters), BiPAP at night with oxygen, and respiratory treatments, but with minimal relief of symptoms. Patient mentions that family members including 'Melissa and her kids' and her mother have also been sick recently. Related Data Home Medications ?Medication ?Instructions ?Recorded ?Confirmed aspirin 81 mg tablet,delayed 81 mg PO QAM 01/12/23 01/18/25 release potassium chloride 20 mEq 20 meq PO DAILY 05/05/24 01/18/25 tablet,extended release(part/cryst) magnesium 200 mg tablet 200 mg PO BEDTIME 08/07/24 01/18/25 baclofen 20 mg tablet 20 mg PO BID PRN Muscle Spasm 11/17/24 01/18/25 montelukast 10 mg tablet 10 mg PO DAILY 11/17/24 01/18/25 acetaminophen 325 mg tablet 650 mg PO QID PRN Fever Or Pain 01/18/25 01/18/25 (Tylenol) Previous Rx's ?Medication ?Instructions ?Recorded fluticasone propionate 50 1 spray intranasal BID PRN 01/15/24 mcg/actuation nasal Allergic Symptoms #9.9 mL spray,suspension (Flonase Allergy Relief) albuterol sulfate 90 mcg/actuation 2 puff inhalation Q6H PRN 05/19/24 aerosol inhaler Shortness Of Breath #6.7 grams amlodipine 10 mg tablet 5 mg (1/2 x 10 mg) PO DAILY 90 06/11/24 days #90 tabs hydrochlorothiazide 25 mg tablet 25 mg PO DAILY 90 days #90 tabs 06/11/24 empagliflozin 25 mg tablet 25 mg PO QAM 90 days #90 tabs 09/17/24 (Jardiance) metoprolol tartrate 50 mg tablet 50 mg PO BID 90 days #180 tabs 09/29/24 pregabalin 150 mg capsule (Lyrica) 150 mg PO BID 30 days #60 caps 09/29/24 semaglutide 7 mg tablet (Rybelsus) 7 mg PO QAM 90 days #90 tabs 09/29/24 simvastatin 20 mg tablet 20 mg PO QPM 90 days #90 tabs 09/29/24 telmisartan 80 mg tablet 80 mg PO DAILY 90 days #90 tabs 09/29/24 celecoxib 100 mg capsule (Celebrex) 100 mg PO DAILY #90 caps 10/16/24 fluticasone fur. 100 mcg-umeclid 1 inh inhalation QAM #60 ea 11/14/24 62.5 mcg-vilant 25 mcg inhalat.powder (Trelegy Ellipta) nebulizer kit & supplies #1 ea 12/12/24 pantoprazole 40 mg tablet,delayed 40 mg PO BID #180 tabs 12/17/24 release hydroxyzine HCl 25 mg tablet See Rx Instructions .Route 12/19/24 .COMPLEX #90 tabs cephalexin 500 mg capsule 500 mg PO BID 7 days #14 caps 01/14/25 [id number]-tzlkhimpp-yrfxhurm 3.5 2 drp ophthalmic (eye) TID 7 days 01/14/25 mg/mL-10,000 unit/mL-0.1% eye drops #5 mL citalopram 20 mg tablet 20 mg PO DAILY 30 days #30 tabs 01/15/25 Allergies Allergy/AdvReac Type Severity Reaction Status Date / Time codeine Allergy ALGY-Hives Verified 01/14/25 09:12 [facility] ED PFSH: Medical History (Updated 01/18/25 @ 16:01 by Washington Crowe DO) Acute hypoxemic respiratory failure Seasonal allergies Skin cancer of nose s/p excision, non-melanoma History of echocardiogram 08/2019 EF 65% History of PFTs 01/2021 - severe airflow obstruction. There is no significant postbronchodilator response. Lung volumes are consistent with air trapping. Gas exchange (DLCO) is mildly reduced. Mixed anxiety and depressive disorder Diverticulosis Essential hypertension Chronic nausea Neuropathy due to type 2 diabetes mellitus Type 2 diabetes mellitus ELISE (obstructive sleep apnea) bipap with sleep with 4L oxygen Coronary artery disease COPD, very severe Hyperlipidemia Acid reflux Surgical History S/P laparoscopy Hx of removal of ovary History of appendectomy History of esophagogastroduodenoscopy (EGD) (05/2019) History of colonoscopy (05/2019) Family History Father Cancer Lung disease Hypertension Mother Lung disease Grandmother Diabetes Other CAD (coronary artery disease) Denies family history of Stroke Social History Smoking and tobacco/nicotine status: current every day tobacco/nicotine user cigarettes [ Other cigarette details: 6qnnl90+yrs] Second hand smoke exposure: Yes Alcohol intake: never Substance/Drug Use: never Lives independently: Yes Household members: spouse Housing: House Marital status: Current occupational status: disabled Pets and animals: Yes Do you think of yourself as: Straight/Heterosexual Current gender identity: Female Selina/Anabaptism: Taoist Agree to transfusion: Yes Physical Exam Const: GENERAL APPEARANCE: cooperative and ill appearing; not frail appearing HENMT: COMMON NORMALS: normocephalic, atraumatic and Normal external nose present HEAD & SCALP: normocephalic and atraumatic FACE & SINUS: normal facial exam and face symmetric NOSE: Normal external nose present Eye: COMMON NORMALS: Equal, round and reactive pupils present and EOMs intact bilaterally PUPIL: Yes Equal, round and reactive pupils present Neck/C-Spine: GENERAL: Yes trachea midline Chest: CHEST: Yes Symmetrical chest wall rise Resp: EFFORT & INSPECTION: Yes tachypneic and Yes labored AUSCULTATION: wheezes and diminished lung sounds Cardio: COMMON NORMALS: regular rhythm RATE: tachycardic RHYTHM: regular rhythm GI: COMMON NORMALS: Normal to inspection, nondistended, normoactive bowel sounds present Neuro: CLAU COMA SCALE: document GCS findings [place] coma scale eye opening: Spontaneous [place] coma scale verbal response: Orientated [place] coma scale motor response: Obey commands [place] coma scale total score: 15 SENSORY EXAM: Yes extremities (intact) Psych: COMMON NORMALS: speech normal SPEECH: Yes normal speech Skin: COMMON NORMALS: no rashes or lesions noted GENERAL SKIN EXAM: no rashes or lesions noted Course Vital Signs: Vital signs: Vital Signs Temperature 97.8 F 01/18/25 11:11 Pulse Rate 82 01/18/25 15:25 Respiratory Rate 18 01/18/25 15:25 Blood Pressure 119/71 01/18/25 11:11 Pulse Oximetry 95 01/18/25 15:25 Oxygen Delivery Me thod Nasal Cannula 01/18/25 15:25 Oxygen Flow Rate 3 01/18/25 15:25 Fraction of Inspir ed Oxygen 36 01/18/25 11:42 MDM - Fever Medical Decision Making 59-year-old female with significant fever, weakness, shortness of breath. Just x-ray is red is negative, but it appears to me to have a faint right lower lobe infiltrate. Her white blood cell count is 15, with 80% neutrophils. Swabs are negative for viral respiratory illness. Your analysis is negative. CRP is 106. Lactic acid is one. She is hypokalemic, which is repeated. She?s requiring a significant amount of oxygen. She says that she does not have oxygen at home, and is on 6 L currently here. She is wheezing. She is given a breathing treatment here with some improvement. So you, Avery. She will be admitted to the floor. Hospitalist has seen the patient in the ER. Anabiotic coverage was started after blood cultures. Lab Data 01/17/25 22:50 01/18/25 08:08 Radiology Impressions Chest X-Ray 01/17/25 22:37 IMPRESSION: No acute findings. Laboratory Results WBC 15.35 10^3/uL (3.29-11.43) H 01/17/25 22:50 RBC 4.37 10^6/uL (3.85-5.65) 01/17/25 22:50 Hgb 12.40 g/dL (11.27-16.99) 01/17/25 22:50 Hct 37.9 % (36-47) 01/17/25 22:50 MCV 86.7 fl (85-98) 01/17/25 22:50 MCH 28.4 pg (27-33) 01/17/25 22:50 MCHC 32.7 g/dL (30-55) 01/17/25 22:50 RDW 14.0 % (12.1-15.1) 01/17/25 22:50 Plt Count 271 10^3/cmm (157-399) 01/17/25 22:50 MPV 10.0 fL (7.4-10.4) 01/17/25 22:50 Neut % (Auto) 80.1 % 01/17/25 22:50 Lymph % (Auto) 12.6 % 01/17/25 22:50 [place] % (Auto) 6.3 % 01/17/25 22:50 Eos % (Auto) 0.3 % 01/17/25 22:50 Baso % (Auto) 0.2 % 01/17/25 22:50 Neut # (Auto) 12.30 10^3/uL (1.8-7.7) H 01/17/25 22:50 Lymph # (Auto) 1.9 10^3/uL (0.8-4.8) 01/17/25 22:50 [place] # (Auto) 1.0 10^3/uL (0.2-0.9) H 01/17/25 22:50 Eos # (Auto) 0.1 10^3/uL (0.0-0.8) 01/17/25 22:50 Baso # (Auto) 0.0 10^3/uL (0.0-0.1) 01/17/25 22:50 Nucleated RBC % (auto) 0 % 01/17/25 22:50 Nucleated RBCs # 0.0 /100WBC 01/17/25 22:50 Sodium 141 mmol/L (136-145) 01/17/25 22:50 Potassium 2.8 mmol/L (3.5-5.1) L* 01/17/25 22:50 Chloride 98 mmol/L (98-107) 01/17/25 22:50 Carbon Dioxide 31 mmol/L (22-29) H 01/17/25 22:50 Anion Gap 14.8 (5-19) 01/17/25 22:50 BUN 15 mg/dL (6-20) 01/17/25 22:50 Creatinine 0.8 mg/dL (0.5-0.9) 01/17/25 22:50 GFR Calculation 73.7 mL/min (90-130) L 01/17/25 22:50 Glucose 136 mg/dL (65-115) H 01/17/25 22:50 Calculated Osmolality 295 mOsm/kg (285-295) 01/17/25 22:50 Lactic Acid 1.0 mmol/L (0.5-2.2) 01/17/25 22:50 Calcium 8.4 mg/dL (8.5-10.5) L 01/17/25 22:50 Magnesium 1.7 mg/dL (1.7-2.3) 01/17/25 22:50 Total Bilirubin 0.4 mg/dL (0.15-1.2) 01/17/25 22:50 AST 7 U/L (0-32) 01/17/25 22:50 ALT 7 U/L (0-33) 01/17/25 22:50 Alkaline Phosphatase 99 U/L (35-105) 01/17/25 22:50 C-Reactive Protein 106.4 mg/L (0.0-4.9) H 01/17/25 22:50 NT-Pro-B Natriuret Pep 91 pg/mL (0-125) 01/17/25 22:50 Total Protein 7.1 g/dL (6.6-8.7) 01/17/25 22:50 Albumin 3.5 g/dL (3.5-5.2) 01/17/25 22:50 Globulin 3.6 g/dL (1.3-4.6) 01/17/25 22:50 Urine Color Yellow (Yellow) 01/17/25 23:15 Urine Appearance Clear (CLEAR) 01/17/25 23:15 Urine pH 5.5 (5-7) 01/17/25 23:15 Ur Specific [place] 1.012 (1.005-1.030) 01/17/25 23:15 Urine Protein Negative (Negative) 01/17/25 23:15 Urine Glucose (UA) 3+ (Normal) H 01/17/25 23:15 Urine Ketones Negative (Negative) 01/17/25 23:15 Urine Blood Negative (Negative) 01/17/25 23:15 Urine Nitrate Negative (Negative) 01/17/25 23:15 Urine Bilirubin Negative (Negative) 01/17/25 23:15 Urine Urobilinogen 0.2 mg/dL (Negative) 01/17/25 23:15 Ur Leukocyte Esterase Negative (Negative) 01/17/25 23:15 Urine RBC 0-2 /hpf (0-2) 01/17/25 23:15 Urine WBC 0-5 /hpf (0-5) 01/17/25 23:15 Ur Squamous Epith Cells 0-5 /hpf (0-5) 01/17/25 23:15 Amorphous Sediment Not Reportable 01/17/25 23:15 Urine Bacteria None seen /hpf (NONE) 01/17/25 23:15 Hyaline Casts 0-4 /lpf H 01/17/25 23:15 Adenovirus (PCR) Not detected (NOT DETECT) 01/17/25 22:59 C. pneumoniae DNA (PCR) Not detected (NOT DETECT) 01/17/25 22:59 Coronavirus 229E (PCR) Not detected (NOT DETECT) 01/17/25 22:59 Human Metapneumovir PCR Not detected (NOT DETECT) 01/17/25 22:59 Influenza A (H1) PCR Not detected (NOT DETECT) 01/17/25 22:59 Influ A (H1/09) PCR Not detected (NOT DETECT) 01/17/25 22:59 Influenza A (H3) PCR Not detected (NOT DETECT) 01/17/25 22:59 Influenza Type A (PCR) Not detected (NOT DETECT) 01/17/25 22:59 Influenza Type B (PCR) Not detected (NOT DETECT) 01/17/25 22:59 M. pneumoniae (PCR) Not detected (NOT DETECT) 01/17/25 22:59 Parainfluenza 1 (PCR) Not detected (NOT DETECT) 01/17/25 22:59 Parainfluenza 2 (PCR) Not detected (NOT DETECT) 01/17/25 22:59 Parainfluenza 3 (PCR) Not detected (NOT DETECT) 01/17/25 22:59 Parainfluenza 4 (PCR) Not detected (NOT DETECT) 01/17/25 22:59 RSV Type A (PCR) Not detected (NOT DETECT) 01/17/25 22:59 RSV Type B (PCR) Not detected (NOT DETECT) 01/17/25 22:59 Entero/Rhino (PCR) Not detected (NOT DETECT) 01/17/25 22:59 SARS-CoV-2 (PCR) Not detected (NOT DETECT) 01/17/25 22:59 All radiology interpretation(s) finalized by discharge Discharge Plan Discharge Patient Disposition: Admitted As Inpatient Admit Provider: Effie Dowling Clinical Impression: COPD exacerbation, Acute hypoxemic respiratory failure, Hypokalemia Condition: Stable Coding Level of Care Code ED Film Process Operator for Precious Banks
[2025-01-18 00:43] LABS: Magnesium 1.7 mg/dL (1.7-2.3)
[2025-01-18 00:51] LABS: Coronavirus 229E,HKU1,NL63,OC4 Not Detected (NOT DETECT); Parainfluenza Virus Type 1 Not Detected (NOT DETECT); Parainfluenza Virus Type 2 Not Detected (NOT DETECT); Parainfluenza Virus Type 3 Not Detected (NOT DETECT); Parainfluenza Virus Type 4 Not Detected (NOT DETECT); SARS-COV-2 Not Detected (NOT DETECT)
[2025-01-18] MEDS: lidocaine 1% 5 ML in potassium chloride premix 100 ML 25 ML IV (00:51)
[2025-01-18] MEDS: potassium chloride oral liq 20 mEq/15 mL UDC 40 MEQ PO (00:51)
--- NOTE | 2025-01-18 01:39 | P.HP_ITS ---
Providers/Chief Complaint 2 Admitting Physician: Effie Dowling MD Primary Care Provider: VIOLET Locke Chief Complaint: fever chilling week+ eye infection History of Present Illness As per the previous notes and the patient: Nicole Carlos is a 59 year old female with PMH of COPD on home o2 2-3 L/min through [place], active smoker, hypertensive, diabetic on antihyperglycemic agents, came with features of URTI. She was in her usual state of health 7 days ago when she started to develop sinus pain and rhinorrhea and lacrimation. It further progressed to subconjunctival injection and pain for which she was taking topical antibiotics and was given Keflex. However she did not improve and then the last 2 to 3 days he further was getting short of breath and tired with high-grade fever and chills and therefore came to the hospital. She did not report any chest pain, chest pressure, abdominal pain or any diarrhea. No orthopnea or PND. She is up-to-date with her vaccinations for flu and pneumonia for this season. No recent travel history and patient does not recall any sick contacts Review of Systems 2 General: Reports: 10 or more systems reviewed and unremarkable except in HPI and below Medications/Allergies Home Medications ?Medication ?Instructions ?Recorded ?Confirmed ?Last Taken ?Type aspirin 81 mg tablet,delayed 81 mg PO QAM 01/12/2309/0311/17/24 History release fluticasone propionate 50 1 spray intranasal BID PRN 1 03/16/23 01/15/25 05/28/24 Rx mcg/actuation nasal Allergic Symptoms #9.9 mL spray,suspension (Flonase Allergy Relief) potassium chloride 20 mEq 20 meq PO DAILY 05/05/2409/0311/17/24 History tablet,extended release(part/cryst) albuterol sulfate 90 mcg/actuation 2 puff inhalation Q 6H PRN 05/19/24 01/15/25 11/18/24 Rx aerosol inhaler Shortness Of Breath #6.7 gra ms amlodipine 10 mg tablet 5 mg (1/2 x 10 mg) PO DAILY 90 06/11/24 01/15/25 11/18/24 Rx days #90 tabs hydrochlorothiazide 25 mg tablet 25 mg PO DAILY 90 day s #90 tabs 06/11/24 01/15/2525 Rx magnesium 200 mg tablet 200 mg PO DAILY 08/07/2409/0311/17/24 History empagliflozin 25 mg tablet 25 mg PO QAM 90 days #90 ta bs 09/17/24 01/15/25 11/17/24 Rx (Jardiance) metoprolol tartrate 50 mg tablet 50 mg PO BID 90 days #180 tabs 09/29/24 01/15/25 11/18/24 Rx pregabalin 150 mg capsule (Lyrica) 150 mg PO BID 30 da ys #60 caps 09/29/24 01/15/25 11/17/24 Rx semaglutide 7 mg tablet (Rybelsus) 7 mg PO QAM 90 days #90 tabs 09/29/24 01/15/25 11/17/24 Rx simvastatin 20 mg tablet 20 mg PO QPM 90 days #90 tab s 09/29/24 01/15/25 11/17/24 Rx telmisartan 80 mg tablet 80 mg PO DAILY 90 days #90 t abs 09/29/24 01/15/25 11/17/24 Rx celecoxib 100 mg capsule (Celebrex) 100 mg PO DAILY #9 0 caps 10/16/24 01/15/25 11/17/24 Rx ondansetron 8 mg disintegrating 8 mg PO Q8H PRN nausea and 11/11/24 01/15/25 11/17/24 Rx tablet vomiting #3 tabs fluticasone fur. 100 mcg-umeclid 1 inh inhalation QAM #60 ea 11/14/24 01/15/25 11/18/24 Rx 62.5 mcg-vilant 25 mcg inhalat.powder (Trelegy Ellipta) baclofen 20 mg tablet 20 mg PO BID PRN Muscle Spas m 11/17/24 01/15/25 11/14/24 History montelukast 10 mg tablet 10 mg PO DAILY 11/17/24 11/09/0311/17/24 History prednisone 20 mg tablet See Rx Instructions PO .COMP BENJAMIN 11/28/24 01/15/25 Unknown Rx #10 tabs albuterol sulfate 90 mcg/actuation 1 inh inhalation Q6 H PRN shortness 12/09/24 01/15/25 Unknown Rx aerosol inhaler of breath or wheezing #6.7 g susanne nebulizer kit & supplies #1 ea 12/12/24 01/15/25 Unkn own Rx pantoprazole 40 mg tablet,delayed 40 mg PO BID #180 ta bs 12/17/24 01/15/25 Unknown Rx release hydroxyzine HCl 25 mg tablet See Rx Instructions .Rout e 12/19/24 01/15/25 Unknown Rx .COMPLEX #90 tabs cephalexin 500 mg capsule 500 mg PO BID 7 days #14 cap s 01/14/25 01/14/25 Unknown Rx mxozyygd-ynawrygvs-fqksraaj 3.5 2 drp ophthalmic (eye) TID 7 days 01/14/25 01/14/25 Unknown Rx mg/mL-10,000 unit/mL-0.1% eye drops #5 mL citalopram 20 mg tablet 20 mg PO DAILY 30 days #30 t abs 01/15/25 01/15/25 Unknown Rx Allergies Allergy/AdvReac Type Severity Reaction Status Date / Time codeine Allergy ALGY-Hives Verified 01/14/25 09:12 PFSH Acute 2 PFSH: Medical History (Updated 01/18/25 @ 02:00 by Effie Dowling MD) Acute hypoxemic respiratory failure Seasonal allergies Skin cancer of nose s/p excision, non-melanoma History of echocardiogram 08/2019 EF 65% History of PFTs 01/2021 - severe airflow obstruction. There is no significant postbronchodilator response. Lung volumes are consistent with air trapping. Gas exchange (DLCO) is mildly reduced. Mixed anxiety and depressive disorder Diverticulosis Essential hypertension Chronic nausea Neuropathy due to type 2 diabetes mellitus Type 2 diabetes mellitus ELISE (obstructive sleep apnea) bipap with sleep with 4L oxygen Coronary artery disease COPD, very severe Hyperlipidemia Acid reflux Surgical History S/P laparoscopy Hx of removal of ovary History of appendectomy History of esophagogastroduodenoscopy (EGD) (05/2019) History of colonoscopy (05/2019) Family History Father Cancer Lung disease Hypertension Mother Lung disease Grandmother Diabetes Other CAD (coronary artery disease) Denies family history of Stroke Social History Smoking and tobacco/nicotine status: current every day tobacco/nicotine user cigarettes [ Other cigarette details: [id number]+yrs] Second hand smoke exposure: Yes Alcohol intake: never Substance/Drug Use: never Lives independently: Yes Household members: spouse Housing: House Marital status: Current occupational status: disabled Pets and animals: Yes Do you think of yourself as: Straight/Heterosexual Current gender identity: Female Selina/Mandaeism: Congregational Agree to transfusion: Yes Vitals/I&O/Wt Last Vital Signs Temp 98.5 F 01/17/25 20:49 Pulse 83 01/18/25 00:33 Resp 16 01/18/25 00:33 BP 117/67 01/18/25 00:33 Pulse Ox 95 01/18/25 00:33 O2 Del Method Nasal Cannula 01/17/25 22:59 O2 Flow Rate 3 01/17/25 22:59 Weight last 48 hrs Weight 66.224 kg Physical Exam 2 Narrative: General: Alert and oriented, lying comfortably on 3 L nasal cannula unable to speak in full sentences with mild whistling while speaking can be heard. HEENT: Normocephalic, atraumatic, grossly unremarkable exam Cardio: normal rate rhythm, normal S1-S2 without any murmurs, normal JVD Respiratory: Bilateral equal air entry with diffuse bilateral wheezes from bases to upper zone, no stridor GI: Abdomen soft, nontender, nondistended, normoactive bowel sounds present all 4 quadrants, Neuro: Grossly unremarkable neurological exam Behavior: Appropriate and cooperative Extremities: Adequate palpable pulses, no edema or cyanosis observed with adequate capillary filling Data 01/17/25 22:50 01/17/25 22:50 A&P Assessment and plan 1. Acute hypoxemic respiratory failure: Likely secondary to COPD exacerbation and underlying possible pneumonia Continue oxygen therapy as per protocol to maintain oxygen saturation between 88 to 92% Follow-up blood cultures Sputum cultures Azithromycin and ceftriaxone, if the patient is not improving then consider escalation of antibiotics Prednisone 40 mg for 5 days Chest physiotherapy Patient is hypertensive antibiotic, no echo find in the system, follow echo TSH Maintain normal hemodynamics 2. COPD exacerbation: As mentioned above 3. Hypokalemia: Patient found to have severe hypokalemia of 2.8. Received 40 mEq oral in the ER Further supplementation with 20 IV and 40 mill equivalents of oral provided total providing 100 mEq since patient kidney functions are normal and 100 mEq will approximately 1 mmol/L. Magnesium 1.7, borderline low normal, 2 g magnesium sulfate supplemented since patient is also having a COPD exacerbation Follow-up in the morning 4. Hypocalcemia: Calcium of 8.4 with normal albumin 1 g calcium gluconate To follow in the morning 5. Coronary artery disease: Continue on home dose of baby aspirin 81 mg daily and statins after reconciliation 6. Essential hypertension: Patient on amlodipine 10 mg daily, telmisartan 80 mg daily, metoprolol 50 mg twice daily, [place] chlorothiazide 25 mg daily and Jardiance 25 mg daily which is likely for diabetes but can also affect the blood pressure Current blood pressure normal, therefore hold antihypertensive at the moment and later to add according to the blood pressure readings 7. Type 2 diabetes mellitus: HbA1c more or less controlled, patient on Jardiance 25 mg daily To continue after reconciliation, Patient on semaglutide at home, to hold it at the moment 8. Neuropathy due to type 2 diabetes mellitus: Patient home medication reviewed pregabalin 150 mg twice daily, baclofen 25 mg twice daily as needed for muscle spasm To resume after reconciliation 9. On home oxygen therapy: Continue oxygen therapy as per protocol 2 to 3 L and titration according to maintain sats in the range of 88 to 92% since patient is having COPD with home oxygen dependency 10. Acid reflux: Famotidine IV twice daily and Maalox as needed Zofran for nausea and vomiting 11. Hyperlipidemia: Patient on statins, simvastatin 20 mg daily, to resume after reconciliation PDMP PDMP Reviewed: Not Reviewed Attestations 2 Medical Necessity Statement*: Patient will stay more than 2 midnights for the management of her acute hypoxemic respiratory distress secondary to COPD underlying possible pneumonia and to optimize her rest of the comorbidities as inpatient Time Spent in Patient Care: 16 - 35 minutes (>than 50% of time sp ent in counselling and/or direct pt care on unit) . Other Attestations: Patient condition has been discussed at length with the patient/family, I have independently reviewed the chart labs imaging/diagnostics/EKG. the goals of care and code status with the patient/family/NOK/legal sales representative supervisor, and documented accordingly. The management has been done according to the current clinical condition with respect to patient goals of care and based on recommendations/guidelines. The patient/family has been informed about the current condition and further plan of care. Agreed with the plan of care and understood without any language barrier. Every effort was made to ensure accuracy of communication electronic technician. Any obvious errors or omissions should be clarified with the author of the document. Coding Level of Care Code 75994 Diagnoses Acute hypoxemic respiratory failure J96.01 COPD exacerbation J44.1 Hypokalemia E87.6 Hypocalcemia E83.51 Coronary artery disease I25.10 Essential hypertension I10 Type 2 diabetes mellitus E11.9 Neuropathy due to type 2 diabetes mellitus E11.40 On home oxygen therapy Z99.81 Acid reflux K21.9 Hyperlipidemia E78.5
--- NOTE | 2025-01-18 01:43 | ECG_ITS ---
[facility] Test Date: 2025-01-18 Pat Name: Nicole Carlos Department: Room: 276 Gender: Female Tariff Counsel: : 1965 Requested By: Effie Dowling Order Number: [id number] Roman MD: Getachew Noriega M.D. Measurements Intervals [place] Rate: 87 P: 61 [place]: 169 QRS: 70 QRSD: 69 T: 66 QT: 389 QTc: 470 Interpretive Statements SINUS RHYTHM ANTEROSEPTAL MYOCARDIAL INFARCTION , OF INDETERMINATE AGE [40+ ms Q WAVE IN V1-V4] Compared to ECG 12/09/2024 18:47:13 No significant changes Electronically Signed On 01-18-2025 20:19:36 KNITTING DEMONSTRATOR by Getachew Noriega M.D. [email or web address]
--- NOTE | 2025-01-18 01:48 | USCV_ITS ---
Nicole Carlos Age: 59 Gender: F : 1965 Exam Date: 01/18/2025 12:26 Ordering Phys: Effie Dowling MD Technologist: Jude Giraldo Exam Location[place] [facility] [place] Indication: sob, hypertensive, diabetic BP: 119 / 71 HR: 94 Rhythm: Sinus Technical Quality: Adequate MEASUREMENTS (Male / Female) Normal Values 2D ECHO LV Diastolic Diameter PLAX 5.3 cm 4.2 - 5.9 / 3.9 - 5.3 cm IVS Diastolic Thickness 1.0 cm 0.6 - 1.0 / 0.6 - 0.9 cm IVS Systolic Thickness 1.2 cm LVPW Diastolic Thickness 0.8 cm 0.6 - 1.0 / 0.6 - 0.9 cm LVPW Systolic Thickness 1.6 cm LVOT Diameter 2.0 cm LV Ejection Fraction 2D Teich 78.6 % LV Ejection Fraction MOD 4C 75.2 % LV Ejection Fraction MOD 2C 73.5 % LV Ejection Fraction 2C AL 74.2 % LA Diameter 3.2 cm RA Systolic Volume 4C AL 34.6 ml RA Systolic Volume 4C MOD 35.1 ml LA Sys Volume AL 37.2 cm cubed LA Sys Volume Index AL 21.7 cm cubed/m squared Aorta at Sinotubular Diameter 2.5 cm IVC Diameter 1.9 cm M-MODE LA Ao Ratio MM 1.7 AV Cusp Separation MM 1.7 cm DOPPLER LVOT Peak Velocity 121.0 cm/s AV Area Cont Eq vti 2.0 cm squared AV Area Cont Eq pk 1.9 cm squared MV Peak Velocity 139.0 cm/s MV Area PHT 12.7 cm squared Mitral E to A Ratio 0.9 TV Peak Velocity 255.0 cm/s TR Peak Velocity 295.0 cm/s TR Peak Gradient 34.8 mmHg TR Mean Velocity 218.0 cm/s TR Mean Gradient 21.2 mmHg TR Velocity Time Integral 69.9 cm PV Peak Velocity 125.3 cm/s RV Ejection Time 0.3 s FINDINGS Left Ventricle Normal left ventricular size and systolic function, EF 73%.no regional wall motion abnormalities. Right Ventricle Normal right ventricular size and systolic function. Right Atrium Normal right atrial size. Left Atrium Normal left atrial size. IA Septum Normal appearance of the interatrial septum. Mitral Valve Structurally normal mitral valve. Aortic Valve Structurally normal trileaflet aortic valve. Tricuspid Valve Trace tricuspid valve regurgitation. Pulmonic Valve Structurally normal pulmonic valve. Pericardium No pericardial effusion. Aorta Normal aortic annulus size. IVC Normal inferior vena cava. CONCLUSIONS Normal left ventricular size and systolic function, EF 73%.no regional wall motion abnormalities. Normal cardiac chamber sizes. Trace tricuspid valve regurgitation. Estimated pulmonary artery peak systolic pressure 24 mmHg There is no pericardial effusion. There are no intracardiac masses. Compared to the study from 09/06/2019, there may not be significant change Dr Getachew Noriega MD [facility] (Electronically Signed) Final Date: 18 January 2025 17:08 S
[2025-01-18] MEDS: cefTRIAXone 1,000 mg SDV 1000 MG IVP (03:12)
[2025-01-18] MEDS: magnesium sulfate premix 2 GM/50 ML PIGGYBACK IV (08:26)
[2025-01-18] MEDS: calcium gluconate 0.9% NaCL 1 GM/50 ML PREMIX IV (08:26)
[2025-01-18 08:59] LABS: Magnesium 1.7 mg/dL (1.7-2.3); Thyroid Stimulating Hormone 2.08 uIU/mL (0.27-4.20)
[2025-01-18 09:40] LABS: Alanine Aminotransferase 6 U/L (0-33); Albumin Level 3.1 g/dL (3.5-5.2); Alkaline Phosphatase 82 U/L (35-105); Anion Gap 14.6 (5-19); Aspartate Amino Transferase 6 U/L (0-32); Blood Urea Nitrogen 14 mg/dL (6-20); Calcium 8.1 mg/dL (8.5-10.5); Carbon Dioxide 26 mmol/L (22-29); Chloride 106 mmol/L (98-107); Creatinine Clr Calc Pharmacy 75.1659; Globulin 3.1 g/dL (1.3-4.6); Glucose 147 mg/dL (65-115); Magnesium 1.7 mg/dL (1.7-2.3); Osmolality Calculated 299 mOsm/kg (285-295); Potassium 3.6 mmol/L (3.5-5.1); Sodium 143 mmol/L (136-145); Total Protein 6.2 g/dL (6.6-8.7)
[2025-01-18] MEDS: lidocaine 1% 5 ML in potassium chloride premix 100 ML 52.5 ML IV (10:40)
--- NOTE | 2025-01-18 17:37 | PM.MISC ---
Miscellaneous Note Purpose of Documentation: Overnight labs and H&P reviewed. Patient reports a history of sinusitis and conjunctivitis recently. Thereafter she reported chest congestion for which she was on outpatient treatment with oral cephalexin. She has already taken the medication for 5 days but had fever up to 102-104 Fahrenheit at home and therefore presented into the emergency room. Blood culture taken and pending. Sputum culture taken and pending. UA unremarkable for UTI. Check MRSA nasal screen. Extended respiratory viral panel negative. Check urine Legionella antigen. Denies diarrhea or other abdominal symptoms Currently on treatment with ceftriaxone and azithromycin. Continue azithromycin Discontinue ceftriaxone changed to piperacillin/tazobactam for additional pseudomonal coverage while awaiting blood cultures. Given lack of improvement on cephalexin, would need a broader spectrum while awaiting all culture data. Add IV vancomycin while MRSA nasal screen is pending. If this returns negative can discontinue vancomycin.
[2025-01-18] MEDS: ATORVASTATIN 10 MG TABLET PO (17:46)
[2025-01-18] MEDS: piperacillin-tazobactam 3.375 GM in sodium chloride 0.9% (plus) 50 ML IV (20:20)
[2025-01-19] VITALS (7 sets, daily range): BP systolic 127–160; BP diastolic 64–77; PULSE 74–91; RESP 16–18; TEMP 36.4–36.9; O2SAT 90–99
[2025-01-19] MEDS: piperacillin-tazobactam 3.375 GM in sodium chloride 0.9% (plus) 50 ML IV (02:06)
[2025-01-19] MEDS: DAPAGLIFLOZIN 10 MG TABLET PO (04:28)
[2025-01-19 06:07] LABS: Hematocrit 32.6 % (36-47); Hemoglobin 10.10 g/dL (11.27-16.99); Mean Corpuscular HGB Conc 31.0 g/dL (30-55); Mean Corpuscular Hemoglobin 28.0 pg (27-33); Mean Corpuscular Volume 90.3 fl (85-98); Nucleated Red Blood Cells % 0 %; Platelet Count 232 10^3/cmm (157-399); Red Blood Count 3.61 10^6/uL (3.85-5.65); White Blood Count 10.01 10^3/uL (3.29-11.43)
[2025-01-19 06:33] LABS: Alanine Aminotransferase 6 U/L (0-33); Albumin Level 3.1 g/dL (3.5-5.2); Alkaline Phosphatase 87 U/L (35-105); Anion Gap 13.4 (5-19); Aspartate Amino Transferase 6 U/L (0-32); Blood Urea Nitrogen 13 mg/dL (6-20); Calcium 8.8 mg/dL (8.5-10.5); Carbon Dioxide 29 mmol/L (22-29); Chloride 103 mmol/L (98-107); Creatinine Clr Calc Pharmacy 75.8181; Globulin 3.2 g/dL (1.3-4.6); Glucose 152 mg/dL (65-115); Osmolality Calculated 297 mOsm/kg (285-295); Potassium 3.4 mmol/L (3.5-5.1); Sodium 142 mmol/L (136-145); Total Protein 6.3 g/dL (6.6-8.7)
--- NOTE | 2025-01-19 09:06 | PC.CHAP ---
Pastoral Care Encounter/Spiritual Assessment Type of Contact [] Declined structural architect visit [] Patient/Family/Request visit [] Outpatient visit [] Follow-up visit [] Physician referral [] Code/Alert [x] Routine visit [] Staff referral [] Actively dying [] Patient sleeping [] Family support [] [] Out of room [] Palliative care [] [x] Receiving care in room [] Pre-surgical visit [] Trauma [] Long length of stay [] ICU visit [] Other: Relational/Emotional Strength [] Patient feels connected with others/family/visitors/staff [] Distress [] Loneliness/isolation [] Abandonment Spirituality of Patient [] Person of Selina [] Attends Anabaptist of their Selina [] Believes in Prayer [] Reads Bible or Restorationism materials [] There are Spiritual issues to be addressed National Coverage Specialist Interventions [x] Prayer [] Active listening [] Non-anxious presence [] Spiritual/emotional support [] Crisis/trauma care [] Spiritual counseling [] Bereavement support [] Provided bereavement packet [] Provided Bible/devotional materials [] Provided toy/stuffed animal, coloring book to patient or family member [] Provided Communion [] Anointing/[place] [] Salvation [] Completed spiritual assessment [] Other: Impact on Illness or Injury [] Angry [] Fearful [] Anxious [] Often cries [] Exhaustion [] Unable to work [] Unable to attend adventist [] Unable to walk/stand [] Unable to read [] Unable to drive [] Unable to eat/drink [] Unable to sleep [] Unable to be with family [] Patient intubated [] Other: Summary Time spent with patient
--- NOTE | 2025-01-19 11:18 | P.DS_ITS ---
Discharge Providers Date of Admission: 01/18/25 00:28 Date of Discharge: January 19, 2025 Attending Provider at Admission: Effie Dowling MD Attending Provider at Discharge: Brenton Vasquez MD Primary Care Provider: VIOLET Locke Diagnoses at Discharge Discharge Diagnosis 1. Acute hypoxemic respiratory failure: 2. COPD exacerbation: 3. Hypokalemia: 4. Hypocalcemia: 5. Coronary artery disease involving [place] coronary artery of [place] heart with angina pectoris: 6. Essential hypertension: 7. Type 2 diabetes mellitus with diabetic polyneuropathy, with long-term current use of insulin: 8. Neuropathy due to type 2 diabetes mellitus: 9. On home oxygen therapy: 10. Gastroesophageal reflux disease without esophagitis: 11. Mixed hyperlipidemia: 12. COPD, very severe: Reason for Visit Reason for Visit: fever chilling week+ eye infection Hospital Course Hospital Course Patient is a 57-year-old known COPD patient, that was admitted because of complaint of fever. She was found to have pneumonia in the face of COPD exacerbation, requiring remarkable oxygen supplementation. IV steroids plus DuoNeb updrafts plus IV antibiotics were started. Other symptoms were treated empirically. As of yesterday, patient was weaned off oxygen completely, and she has remained without oxygen up til this morning. Given stable symptoms, she therefore requested for discharge. Of note, patient's hospital stay was complicated with an episode of remarkable severe hyperglycemia, likely/apparently due to the IV steroid administration. This hyperglycemia was further controlled with basal prandial insulin. Given the patient is going to be discharged on steroids, I am starting her on some glipizide given the duration of taking the steroids p.o., patient expressed remarkable insight to hyperglycemia and its treatment, and actually has insulin (which appears to be Lantus) at home, which she takes on a PRN basis when the blood sugar appears to be too high. See my discharge orders and discharge instruction from director of safety and security. Physical Exam Narrative: General: Awake and alert patient. No obvious distress. Respiration: Bilateral clear chest with some very distal rhonchi; otherwise, bilaterally diminished. No crackles appreciated. Extremities: Obvious pedal edema. Other physical findings essentially within normal limits. Discharge Data Studies Completed and Pending Completed Studies During Hospitalization Category Date Time Status XR chest 1V portable [id number] Stat Exams 01/17/25 22:37 Completed CV. echo complete* [id number] Routine Ultrasound 01/18/25 01:48 Completed Pending at discharge Category Date Time Status Blood Culture Stat Lab 01/17/25 22:56 Received Legionella Antigen STAT Routine Lab 01/18/25 17:43 Uncollected MRSA PCR OZH (swab) Routine Lab 01/18/25 17:36 Uncollected Sputum Culture and Gram Stain Routine Lab 01/18/25 07:35 Results Radiology Impressions Chest X-Ray 01/17/25 22:37 IMPRESSION: No acute findings. Vitals Last Vital Signs Temp 97.6 F 01/19/25 07:29 Pulse 86 01/19/25 08:32 Resp 18 01/19/25 08:32 BP 145/77 01/19/25 07:29 Pulse Ox 93 01/19/25 08:32 O2 Del Method Room Air 01/19/25 08:32 O2 Flow Rate 3 01/18/25 15:25 FiO2 36 01/19/25 04:12 Discharge Plan Discharge Patient Disposition: Home Condition: Stable Prescriptions: New doxycycline hyclate 100 mg capsule 100 mg PO BID 7 Days Qty: 14 0RF glipizide 5 mg tablet 5 mg PO BID Qty: 30 0RF Rx Instructions: Stop a day after prednisone. prednisone 5 mg tablets,dose pack See Rx Instructions .ROUTE .COMPLEX Qty: 21 0RF Rx Instructions: prednisone 5 mg: take 8 tablets (40 mg) on Day 1; 7 tablets (35 mg) on Day 2; then decrease by 1 tablet every day until finished ipratropium-albuterol 0.5 mg-3 mg(2.5 mg base)/3 mL Solution For Nebulization 3 ml inhalation Q6H PRN (Reason: wheezing) Qty: 90 2RF Continued neomycin-polymyxin B-dexameth 3.5mg/mL-10,000 unit/mL-0.1 % drops,suspension 2 drp ophthalmic (eye) TID 7 Days Qty: 5 0RF cephalexin 500 mg capsule 500 mg PO BID 7 Days Qty: 14 0RF citalopram 20 mg tablet 20 mg PO DAILY 30 Days Qty: 30 2RF metoprolol tartrate 50 mg tablet 50 mg PO BID 90 Days Qty: 180 1RF Lyrica 150 mg capsule 150 mg PO BID 30 Days Qty: 60 2RF Rybelsus 7 mg tablet 7 mg PO QAM 90 Days Qty: 90 1RF simvastatin 20 mg tablet 20 mg PO QPM 90 Days Qty: 90 4RF telmisartan 80 mg tablet 80 mg PO DAILY 90 Days Qty: 90 1RF celecoxib [Celebrex] 100 mg capsule 100 mg PO DAILY Qty: 90 0RF Flonase Allergy Relief 50 mcg/actuation spray,suspension 1 spray intranasal BID PRN (Reason: Allergic Symptoms) Qty: 9.9 0RF Rx Instructions: administer into each nostril albuterol sulfate 90 mcg/actuation HFA aerosol inhaler 2 puff inhalation Q6H PRN (Reason: Shortness Of Breath) Qty: 6.7 0RF amlodipine 10 mg tablet 5 mg PO DAILY 90 Days Qty: 90 0RF hydrochlorothiazide 25 mg tablet 25 mg PO DAILY 90 Days Qty: 90 0RF Jardiance 25 mg tablet 25 mg PO QAM 90 Days Qty: 90 0RF Trelegy Ellipta 100-62.5-25 mcg blister with device 1 inh inhalation QAM Qty: 60 2RF (DME) nebulizer kit & supplies See Rx Instructions .Route .MEDSUPPLY Qty: 1 0RF Rx Instructions: Use daily as needed pantoprazole 40 mg tablet,delayed release (DR/EC) 40 mg PO BID Qty: 180 0RF hydroxyzine HCl 25 mg tablet See Rx Instructions .ROUTE .COMPLEX Qty: 90 1RF Dose Instruction: TAKE 1 TABLET BY MOUTH EVERY EVENING NEEDED FOR anxiety Patient Comments: Daughter states this has been changed to bid Rx Instructions: TAKE 1 TABLET BY MOUTH EVERY EVENING NEEDED FOR anxiety aspirin 81 mg tablet,delayed release (DR/EC) 81 mg PO QAM baclofen 20 mg tablet 20 mg PO BID PRN (Reason: Muscle Spasm) Rx Instructions: TAKE 1 TABLET BY MOUTH TWICE DAILY NEEDED FOR MUSCLE SPASMS montelukast 10 mg tablet 10 mg PO DAILY Rx Instructions: TAKE 1 TABLET BY MOUTH DAILY acetaminophen [Tylenol] 325 mg Tablet 650 mg PO QID PRN (Reason: Fever Or Pain) potassium chloride 20 mEq tablet,ER particles/crystals 20 meq PO DAILY magnesium 200 mg Tablet 200 mg PO BEDTIME Discharge Order = DC NOW: Discharge Order (Routine); Ordered 01/19/25 Ordered By: Brenton Vasquez Referrals: Reji Faulkner FNP [Primary Care Provider, Family Practice] Referral Note: We have notified your physician's clinic of the need for a follow-up appointment to be scheduled. If you have not heard from them within the next 2 business days, please call them directly. Discharge Diet: Diabetic Discharge Activity: Resume usual activity Patient Instructions: Doxycycline (By mouth), Glipizide (By mouth), Prednisone (By mouth), Ipratropium/Albuterol (By breathing), COPD (Chronic Obstructive Pulmonary Disease) (DC), Hypocalcemia (DC), COPD Stoplight, Opioid Safety, Patient Portal & [place] Instructions Plan of Treatment: Follow-up with primary care provider within the next 1 to 2 weeks/as needed. Discharge Attestations Time Spent in Discharge Care*: less than 30 min Quality Metrics Clinical Quality Measures [ No reported AMI, CVA or VTE this stay] Coding Level of Care Code 68877 Diagnoses Acute hypoxemic respiratory failure J96.01 COPD exacerbation J44.1 Hypokalemia E87.6 Hypocalcemia E83.51 Coronary artery disease involving [place] coronary artery of [place] heart with angina pectoris I25.119 Associated angina: with unspecified angina Coronary Disease-Associated Artery/Lesion type: [place] artery [place] vs. transplanted heart: [place] heart Essential hypertension I10 Type 2 diabetes mellitus with diabetic polyneuropathy, with long-term current use of insulin E11.42; Z79.4 Diabetes mellitus complication detail: with polyneuropathy Diabetes mellitus complication status: with neurologic complications Diabetes mellitus snf insulin use: with termite control representative use Neuropathy due to type 2 diabetes mellitus E11.40 On home oxygen therapy Z99.81 Gastroesophageal reflux disease without esophagitis K21.9 Esophagitis presence: without esophagitis Mixed hyperlipidemia E78.2 Hyperlipidemia type: mixed hyperlipidemia COPD, very severe J44.9
== END 2025-01-19 12:11 | disposition home or self-care (01) | DRG 640 ==
LOC: ER 01-18 00:19 → MEDSURG 01-18 01:10
PROVIDERS: Student in an Organized Health Care Education/Training Program; Admitting Provider Student in an Organized Health Care Education/Training Program; Emergency Provider Emergency Medicine; PCP Registered Nurse; Visit Provider Family Medicine
DX: E87.6 Hypokalemia (principal); J18.9 Pneumonia, unspecified organism; J96.01 Acute respiratory failure with hypoxia; J44.1 Chronic obstructive pulmonary disease with (acute) exacerbation; J44.0 Chronic obstructive pulmonary disease with (acute) lower respiratory infection; E83.51 Hypocalcemia; I25.10 Atherosclerotic heart disease of native coronary artery without angina pectoris; I10 Essential (primary) hypertension; E11.42 Type 2 diabetes mellitus with diabetic polyneuropathy; E11.65 Type 2 diabetes mellitus with hyperglycemia; T38.0X5A Adverse effect of glucocorticoids and synthetic analogues, initial encounter; K21.9 Gastro-esophageal reflux disease without esophagitis; E78.2 Mixed hyperlipidemia; F41.8 Other specified anxiety disorders; G47.33 Obstructive sleep apnea (adult) (pediatric); F17.210 Nicotine dependence, cigarettes, uncomplicated; Z79.4 Long term (current) use of insulin; Z79.51 Long term (current) use of inhaled steroids; Z79.82 Long term (current) use of aspirin
CPT/HCPCS: 36415; 36416; 71045; 80053; 81001; 82962; 83605; 83735; 83880; 84100; 84443; 85025; 86140; 87040; 87070; 87205; 87486; 87581; 87633; 93005; 93306; 94640; 94660; 96365; 96367; 96372; 99285; J0456; J0612; J0696; J1650; J1815; J2543; J3372; J3373; J3475; J3480; J3490; J7030; J7050; J7512; J9999; Q0144

== ENCOUNTER → 2025-01-28 10:19 | Outpatient (BNVA) | payer MEDICARE, SELFPAY | PROVIDERS: PCP Registered Nurse; Visit Provider Registered Nurse | DX: J44.9 Chronic obstructive pulmonary disease, unspecified (principal) | CPT/HCPCS: 80048; 85025 ==

== ENCOUNTER → 2025-02-11 09:59 | Outpatient (BNVA) | payer MEDICARE, SELFPAY | PROVIDERS: PCP Registered Nurse; Visit Provider Internal Medicine | DX: J44.9 Chronic obstructive pulmonary disease, unspecified (principal); G47.33 Obstructive sleep apnea (adult) (pediatric); Z99.89 Dependence on other enabling machines and devices; J96.10 Chronic respiratory failure, unspecified whether with hypoxia or hypercapnia; Z99.81 Dependence on supplemental oxygen; F17.210 Nicotine dependence, cigarettes, uncomplicated; T78.40XA Allergy, unspecified, initial encounter; X58.XXXA Exposure to other specified factors, initial encounter | CPT/HCPCS: 36415; 85025; 86003; 99214; Q3014 ==

== ENCOUNTER 2025-02-24 11:48 | Outpatient (CLI) | payer MEDICARE, SELFPAY | END 2025-02-24 11:49 | disposition home or self-care (01) | LOC: RT 11:49 | PROVIDERS: PCP Registered Nurse; Visit Provider Internal Medicine | DX: J44.9 Chronic obstructive pulmonary disease, unspecified (principal); J98.8 Other specified respiratory disorders | CPT/HCPCS: 94060; J7613 ==